=== PATIENT | male | born 1955 | race Caucasian/White ===

== ENCOUNTER 2016-03-30 10:21 | Emergency (ER) | payer SELFPAY ==
[2016-03-30 10:32] VITALS: RESP 18
[2016-03-30] MEDS ORDERED: SODIUM CHLORIDE 0.9% 1,000 ML IV ONE (12:16)
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
[2016-03-30 12:51] LABS: Basophils # (A) 0.1 k/uL (0-0.2); Basophils % (A) 1 %; CHCM 34.9; Eosinophils # (A) 0.1 k/uL (0-0.7); Eosinophils % (A) 1 %; HCT 46.8 % (39.0-53.0); HDW 2.75; Luc # (Auto) 0.06; Luc % (Auto) 1; Lymphocytes # (A) 1.5 k/uL (1.0-4.8); Lymphocytes % (A) 19 %; MCH 30.1 pg (25.0-35.0); MCHC 33.8 g/dL (31.0-37.0); MCV 89.2 fL (80.0-100.0); Mean Platelet Volume 7.2; Monocytes # (A) 0.4 k/uL (0-1.0); Monocytes % (A) 5 %; Neutrophils # (A) 6.1 k/uL (1.3-7.7); Neutrophils % (A) 74 %; RBC 5.25 m/uL (4.30-5.90); RDW 13.8 % (11.5-15.5); WBC 8.3 k/uL (3.8-10.6); WBC (Perox) 7.78
[2016-03-30 13:01] LABS: HGB 15.8 gm/dL (13.0-17.5)
[2016-03-30 13:04] LABS: ALT 33 U/L (21-72); AST 26 U/L (17-59); Alkaline Phosphatase 107 U/L (38-126); Anion Gap 13 mmol/L; Blood Urea Nitrogen 14 mg/dL (9-20); Calcium 9.5 mg/dL (8.4-10.2); Carbon Dioxide 25 mmol/L (22-30); Chloride 102 mmol/L (98-107); Glucose 100 mg/dL (74-99); Non-African American GFR(MDRD) >60 (>60 ml/min/1.73 sqM); Sodium 140 mmol/L (137-145); Total Protein 7.8 g/dL (6.3-8.2)
[2016-03-30 13:11] LABS: Potassium 4.4 mmol/L (3.5-5.1)
[2016-03-30 14:19] LABS: Amorphous Sediment,Urine Rare /hpf; Appearance,Urine Cloudy (Clear); Bacteria,Urine Rare /hpf; Bilirubin,Urine Negative (Negative); Glucose,Urine (UA) Negative (Negative); Ketones,Urine Negative (Negative); Leukocyte Esterase,Urine Large (Negative); Nitrite,Urine Negative (Negative); Particle Count 60600; Protein,Urine Negative (Negative); Specific Gravity,Urine 1.004 (1.001-1.035); UA Billing (MACRO vs. MICRO) MICRO; Urobilinogen,Urine <2.0 mg/dL (<2.0); WBC,Urine 107 /hpf (0-5)
[2016-03-30] MEDS: ACETAMINOPHEN TAB 500 MG TAB PO STA ×2 (14:50→14:57)
[2016-03-30] MEDS ORDERED: ACETAMINOPHEN IV (For NPO) 1,000 MG in EMPTY BAG 1 BAG IVPB STA (15:03)
[2016-03-30] MEDS ORDERED: hydrALAZINE HCL 20 MG/ML 1 ML VIAL IVP STA (16:00)
[2016-03-30] MEDS ORDERED: CIPROFLOXACIN HCL 500 MG TAB PO STA (16:01)
[2016-03-30 16:49] VITALS: BP 156/112; PULSE 79; TEMP 96.7
== END 2016-03-30 16:49 | disposition home or self-care (01) ==
LOC: EC 10:21
DX: N39.0 Urinary tract infection, site not specified (principal); R03.0 Elevated blood-pressure reading, without diagnosis of hypertension; G82.20 Paraplegia, unspecified; Z96.0 Presence of urogenital implants; K21.9 Gastro-esophageal reflux disease without esophagitis; Z86.718 Personal history of other venous thrombosis and embolism; N28.9 Disorder of kidney and ureter, unspecified; Z87.440 Personal history of urinary (tract) infections; Z86.14 Personal history of Methicillin resistant Staphylococcus aureus infection; F32.9 Major depressive disorder, single episode, unspecified; Z87.891 Personal history of nicotine dependence; Z79.01 Long term (current) use of anticoagulants; Z79.899 Other long term (current) drug therapy
CPT/HCPCS: 96374; 96375; 96361; 99285; 36415; 80053; 85025; 81001; 87086; 87077; 87186; J0360; J0696; J0131

== ENCOUNTER 2016-06-04 12:57 | Emergency (ER) | payer BC ==
[2016-06-04 13:10] VITALS: BP 97/78; PULSE 100; RESP 16; TEMP 98.4
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
--- NOTE | 2016-06-04 14:37 | CT ---
EXAMINATION TYPE: CT brain wo con DATE OF EXAM: 06/04/2016 2:20 PM COMPARISON: Previous study dated 11/09/2015 and an MRI of the brain from earlier today HISTORY: Patient has no complaints at time of study. Abnormal MRI today. CT DLP: 927.6 mGycm Automated exposure control for dose reduction was used. FINDINGS: There are mild, generalized changes of sulcal prominence and ventriculomegaly compatible with mild at rophy. There is diffuse periventricular white matter lucency, compatible chronic white matter ischemic peña e. There is no acute focal lesion, mass effect or midline shift identified. I do not see evidence of intracranial blood. There is mild mucoperiosteal thickening involving several of the anterior ethmoid air cells on the left. Visualized portions of the paranasal sinuses and mastoids are otherwise clear . No depressed skull fracture is seen. IMPRESSION: 1. NO ACUTE INTRACRANIAL ABNORMALITY. 2. MILD ATROPHIC CHANGE. 3. CHRONIC WHITE MATTER ISCHEMIC CHANGE.
== END 2016-06-04 15:02 | disposition home or self-care (01) ==
LOC: EC 12:57
DX: R55 Syncope and collapse (principal); R20.2 Paresthesia of skin; R25.8 Other abnormal involuntary movements; K21.9 Gastro-esophageal reflux disease without esophagitis; F32.9 Major depressive disorder, single episode, unspecified; Z79.01 Long term (current) use of anticoagulants; Z79.899 Other long term (current) drug therapy; Z87.440 Personal history of urinary (tract) infections; Z86.718 Personal history of other venous thrombosis and embolism; Z86.69 Personal history of other diseases of the nervous system and sense organs
CPT/HCPCS: 70450; 99284

== ENCOUNTER → 2016-06-04 | Outpatient (CLI) | payer BC ==
--- NOTE | 2016-06-04 12:44 | MR ---
EXAMINATION TYPE: MR brain wo con DATE OF EXAM: 06/04/2016 12:34 PM COMPARISON: NONE HISTORY: Involuntary hand movement T1-weighted sagittal, T2, FLAIR, and diffusion axial, and T2 coronal coronal views of the brain are s ubmitted. There is no evidence of acute ischemia. The ventricles, basal cisterns, and sulci overlying the conv exities are consistent with the patient's age. There is no mass effect. Craniocervical junction maintained. Sella turcica has a normal appearance. No cerebellopontine angle mass. Areas of abnormal signal within the vy are suggestive of remote ischemia. White matter: There are approximately 5-10 punctate areas of abnormal signal signal scattered throughout the white matter bilaterally. Findings are nonspecific but most commonly seen with migraine headaches, hyperten jessy or remote microvascular ischemia. Demyelinating process not entirely excluded. IMPRESSION: 1. Linear area of high signal within the right cerebellar hemisphere on T1 noncontrast imaging. There is no blooming artifact. No abnormal signal on diffusion or other sequences within the region and ma y be artifactual. Recommend a CT of the head to exclude a tiny area of petechial hemorrhage. Report c alled to ER physician.
== END | disposition home or self-care (01) ==
LOC: RADMRIMAIN 11:56
PROVIDERS: ATTEND Nurse Practitioner Acute Care
DX: S09.90XA Unspecified injury of head, initial encounter (principal)
CPT/HCPCS: 70551

== ENCOUNTER → 2016-07-13 | Day surgery (SDC) | payer BC ==
[~2016-07-13] MED LIST: VANCOMYCIN 2,000 MG in SODIUM CHLORIDE 0.9% 500 ML IVPB ONE
[2016-07-13 11:41] LABS: INR 2.4 (<1.1); Prothrombin Time 23.1 sec (9.0-12.0)
== END ==
LOC: CATHCVL 10:10
PROVIDERS: ATTEND Radiology Diagnostic Radiology
DX: N39.0 Urinary tract infection, site not specified (principal); B95.62 Methicillin resistant Staphylococcus aureus infection as the cause of diseases classified elsewhere; B95.2 Enterococcus as the cause of diseases classified elsewhere; Z53.9 Procedure and treatment not carried out, unspecified reason
CPT/HCPCS: 85610

== ENCOUNTER 2016-07-15 11:00 | Day surgery (SDC) | payer BC ==
[2016-07-15 10:39] VITALS: RESP 16; TEMP 99
[2016-07-15 10:43] LABS: INR 1.6 (<1.1); Prothrombin Time 15.4 sec (9.0-12.0)
[2016-07-15] MEDS ORDERED: LIDOCAINE 2% INJ 20 MG/ML SQ ONE (11:41)
[2016-07-15 12:10] VITALS: PULSE 70
[2016-07-15 12:11] VITALS: BP 135/81
--- NOTE | 2016-07-15 13:55 | IR ---
PICC LINE PLACEMENT: HISTORY: Infection requiring long-term antibiotic therapy PROCEDURE: Ultrasound and fluoroscopic guidance of PICC line placement. COMPLICATIONS: None ANESTHESIA: 1. 1% Lidocaine locally. FINDINGS/TECHNIQUE: The procedure was explained to the patient. The risks, complications, benefits and alternatives were discussed and any questions were answered. Informed consent was obtained. The patient was placed supine on the fluoroscopic table and prepped and draped in the usual sterile fas ion. Utilizing a 21 gauge needle and sonographic and fluoroscopic guidance, access in the vein was achieved and there is placement of a 0.018 guidewire. The right basilic vein is patent. A 4-F sheat h was placed over the guidewire. The guidewire and dilator were removed and a 4-F. PICC line was sam saud through the sheath with the tip at the level of the SVC. The sheath was removed, the catheter wa s flushed and sutured into position. The patient was stable throughout the procedure and remained st able upon discharge from the Department of Radiology. The vein puncture was patent under ultrasound. A hill scale image was obtained to document patency of the vein punctured. All elements of the maximal barrier technique were utilized. FLUOROSCOPY TIME: 0.1 minute. IMPRESSION: Successful PICC line placement under ultrasound and fluoroscopic guidance.
== END 2016-07-15 15:50 | disposition home health service (06) ==
LOC: CATHCVL 11:00
PROVIDERS: ATTEND Radiology Diagnostic Radiology
DX: N39.0 Urinary tract infection, site not specified (principal); F17.200 Nicotine dependence, unspecified, uncomplicated; Z79.1 Long term (current) use of non-steroidal anti-inflammatories (NSAID); Z79.891 Long term (current) use of opiate analgesic; Z79.52 Long term (current) use of systemic steroids; Z79.899 Other long term (current) drug therapy
CPT/HCPCS: 36569; 76937; 77001; 85610; C1751; C1769; J2001; J3370

== ENCOUNTER 2016-07-18 16:55 | Inpatient (IN) | payer BC ==
[2016-07-18] MEDS ORDERED: SODIUM CHLORIDE 0.9% 1,000 ML IV ONE (17:11)
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
[2016-07-18 17:21] LABS: Glucose,Whole Blood 80 mg/dL (75-99)
[2016-07-18 17:28] LABS: Basophils # (A) 0.1 k/uL (0-0.2); Basophils % (A) 1 %; CH 32.5; CHCM 34.9; Eosinophils # (A) 0.7 k/uL (0-0.7); Eosinophils % (A) 11 %; HCT 37.4 % (39.0-53.0); HDW 2.74; HGB 12.9 gm/dL (13.0-17.5); Luc # (Auto) 0.12; Luc % (Auto) 2; Lymphocytes # (A) 1.5 k/uL (1.0-4.8); Lymphocytes % (A) 25 %; MCH 32.1 pg (25.0-35.0); MCHC 34.3 g/dL (31.0-37.0); MCV 93.5 fL (80.0-100.0); Mean Platelet Volume 6.5; Monocytes # (A) 0.4 k/uL (0-1.0); Monocytes % (A) 7 %; Neutrophils # (A) 3.3 k/uL (1.3-7.7); Neutrophils % (A) 55 %; RDW 13.4 % (11.5-15.5); WBC 5.9 k/uL (3.8-10.6); WBC (Perox) 5.04
[2016-07-18 17:39] LABS: ALT 38 U/L (21-72); AST 34 U/L (17-59); Alkaline Phosphatase 68 U/L (38-126); Anion Gap 8 mmol/L; Blood Urea Nitrogen 8 mg/dL (9-20); Calcium 8.6 mg/dL (8.4-10.2); Carbon Dioxide 22 mmol/L (22-30); Chloride 108 mmol/L (98-107); Glucose 80 mg/dL (74-99); INR 1.2 (<1.1); Non-African American GFR(MDRD) >60 (>60 ml/min/1.73 sqM); Potassium 3.9 mmol/L (3.5-5.1); Prothrombin Time 11.8 sec (9.0-12.0); Sodium 138 mmol/L (137-145); Total Bilirubin 0.6 mg/dL (0.2-1.3); Total Protein 6.3 g/dL (6.3-8.2)
[2016-07-18 17:52] LABS: Amorphous Sediment,Urine Rare /hpf; Appearance,Urine Cloudy (Clear); Bacteria,Urine Rare /hpf; Bilirubin,Urine Negative (Negative); Glucose,Urine (UA) Negative (Negative); Ketones,Urine Negative (Negative); Leukocyte Esterase,Urine Small (Negative); Mucus,Urine Rare /hpf; Nitrite,Urine Positive (Negative); Particle Count 24966; Protein,Urine 1+ (Negative); RBC,Urine 7 /hpf (0-5); Specific Gravity,Urine 1.011 (1.001-1.035); Squamous Epithelial Cell,Urine <1 /hpf (0-4); UA Billing (MACRO vs. MICRO) MICRO; Urobilinogen,Urine <2.0 mg/dL (<2.0); WBC,Urine 6 /hpf (0-5)
[2016-07-18 17:57] LABS: Creatine Kinase 56 U/L (55-170)
[2016-07-18 18:10] LABS: Creatine Kinase MB 0.3 ng/mL (0.0-2.4); Troponin I <0.012 ng/mL (0.000-0.034)
[2016-07-18] MEDS ORDERED: HYDROmorphone 1 MG/ML 1 ML SYRINGE IVP STA (18:37)
--- NOTE | 2016-07-18 18:47 | CT ---
EXAMINATION TYPE: CT brain wo con DATE OF EXAM: 07/18/2016 6:33 PM COMPARISON: 06/04/2016 HISTORY: Altered mental status. CT DLP: 1245 mGycm Automated exposure control for dose reduction was used. FINDINGS: There is mild cerebral cortical atrophy. There is no mass effect nor midline shift. There is no sign of intracranial hemorrhage. There is decreased pneumatization of the mastoid sinuses. Calvarium is in tact. IMPRESSION: Mild atrophy. No acute intracranial abnormality. No change compared to old exam.
--- NOTE | 2016-07-18 18:51 | XR ---
EXAMINATION TYPE: XR chest 2V DATE OF EXAM: 07/18/2016 6:46 PM COMPARISON: 01/12/2016 HISTORY: Altered mental status TECHNIQUE: Frontal and lateral views of the chest are obtained. FINDINGS: There is coarsening of interstitial markings. There is poor inspiration. There is no heart failure. There is old upper thoracic spine fusion surgery noted. I see no pleural effusion. IMPRESSION: Poor inspiration that is worse than last exam. No heart failure. No pulmonary consolidat ion.
[2016-07-18] MEDS ORDERED: ACETAMINOPHEN TAB 325 MG TAB PO PRN (20:23)
[2016-07-18] MEDS ORDERED: NALOXONE 0.4 MG/ML 1 ML VIAL IV PRN (20:23)
[2016-07-18] MEDS ORDERED: ONDANSETRON 4 MG/2 ML VIAL IVP PRN (20:23)
[2016-07-18] MEDS ORDERED: ZOLPIDEM 5 MG TAB PO PRN (20:26)
[2016-07-18] MEDS: SODIUM CHLORIDE 0.9% 1,000 ML IV SCH (21:01)
[2016-07-18 23:57] VITALS: BMI 32.1
[2016-07-18] MEDS: OXYBUTYNIN CHLORIDE 5 MG TAB PO SCH (23:59)
[2016-07-19] MEDS: DOCUSATE 100 MG CAP PO SCH ×4 (00:09→21:21)
[2016-07-19] MEDS ORDERED: IV VANCOMYCIN PER PHARMACY 1 EACH MISC MISCELLANE PRN (08:30)
[2016-07-19] MEDS ORDERED: ESOMEPRAZOLE MAGNESIUM 20 MG PO SCH (09:00)
[2016-07-19] MEDS: PREGABALIN 75 MG CAP PO SCH ×3 (09:38→20:08)
[2016-07-19] MEDS: HYDROmorphone 1 MG/ML 1 ML SYRINGE IV PRN ×4 (09:39→20:07)
[2016-07-19] MEDS: TOPIRAMATE 25 MG TAB PO SCH ×3 (09:41→21:22)
[2016-07-19] MEDS: OXYBUTYNIN CHLORIDE 5 MG TAB PO SCH ×2 (09:41→21:21)
[2016-07-19] MEDS: FLUDROCORTISONE 0.1 MG TAB PO SCH ×3 (09:41→21:21)
[2016-07-19] MEDS: ESCITALOPRAM 20 MG TAB PO SCH (09:42)
[2016-07-19] MEDS: NICOTINE 14MG/24HR PATCH TRANSDERM SCH (09:43)
[2016-07-19] MEDS: PANTOPRAZOLE 40 MG/10 ML VIAL IV SCH (09:43)
[2016-07-19] MEDS: TRIAMCINOLONE 0.1% CREAM 80 GM TUBE TOPICAL SCH ×3 (09:43→21:22)
[2016-07-19] MEDS: SODIUM CHLORIDE 0.9% 1,000 ML IV SCH ×3 (09:44→19:11)
[2016-07-19] MEDS ORDERED: VANCOMYCIN 2,500 MG in SODIUM CHLORIDE 0.9% 500 ML IVPB ONE (10:00)
[2016-07-19] MEDS: WARFARIN 7.5 MG TAB PO SCH (19:09)
[2016-07-19] MEDS: BISACODYL 10 MG SUPP RECTAL SCH (21:21)
[2016-07-19] MEDS: PRIMIDONE 50 MG TAB PO SCH ×2 (21:22)
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
[2016-07-20] MEDS: HYDROmorphone 1 MG/ML 1 ML SYRINGE IV PRN ×3 (08:48→17:41)
[2016-07-20] MEDS: DOCUSATE 100 MG CAP PO SCH ×2 (08:49→21:42)
[2016-07-20] MEDS: SODIUM CHLORIDE 0.9% 1,000 ML IV SCH ×2 (08:49→17:41)
[2016-07-20] MEDS: PREGABALIN 75 MG CAP PO SCH ×3 (08:49→21:42)
[2016-07-20] MEDS: OXYBUTYNIN CHLORIDE 5 MG TAB PO SCH ×2 (08:50→21:42)
[2016-07-20] MEDS: NICOTINE 14MG/24HR PATCH TRANSDERM SCH (08:50)
[2016-07-20] MEDS: TRIAMCINOLONE 0.1% CREAM 80 GM TUBE TOPICAL SCH ×2 (08:50→22:15)
[2016-07-20] MEDS: ESCITALOPRAM 20 MG TAB PO SCH (08:50)
[2016-07-20] MEDS: PANTOPRAZOLE 40 MG/10 ML VIAL IV SCH (08:51)
[2016-07-20] MEDS: TOPIRAMATE 25 MG TAB PO SCH ×2 (08:51→21:42)
[2016-07-20] MEDS: FLUDROCORTISONE 0.1 MG TAB PO SCH ×2 (08:51→21:42)
[2016-07-20] MEDS: VANCOMYCIN 2,000 MG in SODIUM CHLORIDE 0.9% 500 ML IVPB SCH (09:30)
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
[2016-07-20] MEDS: WARFARIN 7.5 MG TAB PO SCH (17:41)
[2016-07-20] MEDS: BISACODYL 10 MG SUPP RECTAL SCH (21:35)
[2016-07-20] MEDS: PRIMIDONE 50 MG TAB PO SCH (22:14)
[2016-07-20] MEDS: HYDROcodone/APAP 5-325MG 1 EACH TAB PO PRN (22:14)
[2016-07-20] MEDS: SUMAtriptan SUCCINATE 50 MG TAB PO PRN (22:14)
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
[2016-07-21] MEDS: SODIUM CHLORIDE 0.9% 1,000 ML IV SCH ×4 (05:26→20:06)
[2016-07-21] MEDS: VANCOMYCIN 2,000 MG in SODIUM CHLORIDE 0.9% 500 ML IVPB SCH (08:10)
[2016-07-21] MEDS: DOCUSATE 100 MG CAP PO SCH ×2 (08:14→20:37)
[2016-07-21] MEDS: ESCITALOPRAM 20 MG TAB PO SCH (08:15)
[2016-07-21] MEDS: OXYBUTYNIN CHLORIDE 5 MG TAB PO SCH ×2 (08:15→20:37)
[2016-07-21] MEDS: PANTOPRAZOLE 40 MG TABLET PO SCH (08:15)
[2016-07-21] MEDS: FLUDROCORTISONE 0.1 MG TAB PO SCH ×2 (08:15→20:37)
[2016-07-21] MEDS: TOPIRAMATE 25 MG TAB PO SCH ×2 (08:16→20:37)
[2016-07-21] MEDS: NICOTINE 14MG/24HR PATCH TRANSDERM SCH (08:16)
[2016-07-21] MEDS: TRIAMCINOLONE 0.1% CREAM 80 GM TUBE TOPICAL SCH (08:16)
[2016-07-21 08:32] LABS: CH 32.7; HCT 40.9 % (39.0-53.0); HDW 2.68; HGB 14.2 gm/dL (13.0-17.5); MCH 32.6 pg (25.0-35.0); MCHC 34.7 g/dL (31.0-37.0); MCV 93.9 fL (80.0-100.0); Mean Platelet Volume 7.9; RBC 4.36 m/uL (4.30-5.90); RDW 13.5 % (11.5-15.5); WBC 6.5 k/uL (3.8-10.6); WBC (Perox) 6.75
[2016-07-21 08:35] LABS: Anion Gap 10 mmol/L; Blood Urea Nitrogen 7 mg/dL (9-20); Carbon Dioxide 19 mmol/L (22-30); Chloride 113 mmol/L (98-107); Glucose 91 mg/dL (74-99); Non-African American GFR(MDRD) >60 (>60 ml/min/1.73 sqM); Potassium 3.9 mmol/L (3.5-5.1); Sodium 142 mmol/L (137-145)
[2016-07-21] MEDS: HYDROcodone/APAP 5-325MG 1 EACH TAB PO PRN ×4 (08:35→23:59)
[2016-07-21 10:43] LABS: Add Differential Manual Differential
[2016-07-21 10:45] LABS: Nucleated Red Blood Cells 0 /100 WBC (0-0); Total Cells Counted 100
[2016-07-21 10:47] LABS: Manual Review Performed
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
[2016-07-21] MEDS: PREGABALIN 75 MG CAP PO SCH ×3 (14:34→20:37)
[2016-07-21 15:46] LABS: INR 1.7 (<1.1); Prothrombin Time 16.6 sec (9.0-12.0)
[2016-07-21] MEDS: WARFARIN 7.5 MG TAB PO SCH (17:47)
[2016-07-21] MEDS: HYDROmorphone 1 MG/ML 1 ML SYRINGE IV PRN (17:55)
[2016-07-21] MEDS: PRIMIDONE 50 MG TAB PO SCH (20:07)
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
[2016-07-22] MEDS: SUMAtriptan SUCCINATE 50 MG TAB PO PRN
[2016-07-22] MEDS: BISACODYL 10 MG SUPP RECTAL SCH (01:24)
[2016-07-22] MEDS: TRIAMCINOLONE 0.1% CREAM 80 GM TUBE TOPICAL SCH ×2 (01:25→08:36)
[2016-07-22 07:39] VITALS: RESP 16
[2016-07-22] MEDS: SODIUM CHLORIDE 0.9% 1,000 ML IV SCH (08:30)
[2016-07-22] MEDS: PANTOPRAZOLE 40 MG TABLET PO SCH (08:31)
[2016-07-22] MEDS: ESCITALOPRAM 20 MG TAB PO SCH (08:32)
[2016-07-22] MEDS: OXYBUTYNIN CHLORIDE 5 MG TAB PO SCH (08:32)
[2016-07-22] MEDS: TOPIRAMATE 25 MG TAB PO SCH (08:32)
[2016-07-22] MEDS: FLUDROCORTISONE 0.1 MG TAB PO SCH (08:33)
[2016-07-22] MEDS: DOCUSATE 100 MG CAP PO SCH (08:33)
[2016-07-22] MEDS: NICOTINE 14MG/24HR PATCH TRANSDERM SCH (08:35)
[2016-07-22] MEDS: VANCOMYCIN 2,000 MG in SODIUM CHLORIDE 0.9% 500 ML IVPB SCH (08:40)
[2016-07-22 09:20] LABS: INR 1.9 (<1.1); Prothrombin Time 18.8 sec (9.0-12.0)
[2016-07-22] MEDS: PREGABALIN 75 MG CAP PO SCH ×2 (09:20→13:50)
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
[2016-07-22 14:52] VITALS: BP 121/79; PULSE 72; TEMP 97.7
[2016-07-22] MEDS: HYDROcodone/APAP 5-325MG 1 EACH TAB PO PRN (16:00)
[2016-07-22] MEDS ORDERED: VANCOMYCIN 1,500 MG in SODIUM CHLORIDE 0.9% 250 ML IVPB SCH (18:00)
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
[2016-07-23] MEDS ORDERED: VANCOMYCIN TROUGH DUE 1 EACH MISC MISCELLANE ONE (07:00)
== END 2016-07-22 18:03 | DRG 698 ==
LOC: EC 16:55 → 3SUR 20:11
PROVIDERS: ADMIT Internal Medicine; ATTEND Internal Medicine
DX: T83.511A Infection and inflammatory reaction due to indwelling urethral catheter, initial encounter (principal); A41.02 Sepsis due to Methicillin resistant Staphylococcus aureus; A41.81 Sepsis due to Enterococcus; G92 Toxic encephalopathy; K59.2 Neurogenic bowel, not elsewhere classified; G82.20 Paraplegia, unspecified; B95.62 Methicillin resistant Staphylococcus aureus infection as the cause of diseases classified elsewhere; N39.0 Urinary tract infection, site not specified; B95.2 Enterococcus as the cause of diseases classified elsewhere; F12.90 Cannabis use, unspecified, uncomplicated; F17.290 Nicotine dependence, other tobacco product, uncomplicated; F32.9 Major depressive disorder, single episode, unspecified; G25.0 Essential tremor; G89.29 Other chronic pain; K21.9 Gastro-esophageal reflux disease without esophagitis; K59.00 Constipation, unspecified; N31.9 Neuromuscular dysfunction of bladder, unspecified; N28.9 Disorder of kidney and ureter, unspecified; R07.89 Other chest pain; Z79.01 Long term (current) use of anticoagulants; Z79.899 Other long term (current) drug therapy; Z87.440 Personal history of urinary (tract) infections; V89.2XXS Person injured in unspecified motor-vehicle accident, traffic, sequela; Y84.6 Urinary catheterization as the cause of abnormal reaction of the patient, or of later complication, without mention of misadventure at the time of the procedure
CPT/HCPCS: 36415; 70450; 71020; 80048; 80053; 80202; 80306; 81001; 82550; 82553; 83605; 84484; 85025; 85610; 85730; 87040; 87077; 87086; 87186; 93005; 96360; 99285

== ENCOUNTER → 2016-10-15 | Outpatient (CLI) | payer BC ==
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
== END | disposition home or self-care (01) ==
LOC: RADMRIMAIN 16:36
PROVIDERS: ATTEND Nurse Practitioner Acute Care
DX: M47.812 Spondylosis without myelopathy or radiculopathy, cervical region (principal); M54.6 Pain in thoracic spine; Z98.1 Arthrodesis status
CPT/HCPCS: 72156; 72157; A9577

== ENCOUNTER 2016-12-24 16:28 | Emergency (ER) | payer BC, MEDICARE, OTHER ==
[2016-12-24] MEDS ORDERED: SODIUM CHLORIDE 0.9% 1,000 ML IV STA (16:29)
[2016-12-24 16:37] VITALS: TEMP 97.1
[2016-12-24 17:42] LABS: INR 2.4 (<1.2); Partial Thromboplastin Time 34.7 sec (22.0-30.0); Prothrombin Time 22.9 sec (9.0-12.0)
[2016-12-24 17:44] LABS: ALT 31 U/L (21-72); AST 21 U/L (17-59); Alkaline Phosphatase 104 U/L (38-126); Anion Gap 6 mmol/L; Blood Urea Nitrogen 16 mg/dL (9-20); Calcium 8.7 mg/dL (8.4-10.2); Carbon Dioxide 24 mmol/L (22-30); Chloride 108 mmol/L (98-107); Glucose 84 mg/dL (74-99); Magnesium 1.9 mg/dL (1.6-2.3); Non-African American GFR(MDRD) >60 (>60 ml/min/1.73 sqM); Phosphorous 3.2 mg/dL (2.5-4.5); Potassium 3.7 mmol/L (3.5-5.1); Sodium 138 mmol/L (137-145); Total Bilirubin 0.3 mg/dL (0.2-1.3); Total Protein 6.5 g/dL (6.3-8.2)
[2016-12-24 17:47] LABS: Basophils % (A) 0 %; CHCM 33.8; Eosinophils # (A) 0.3 k/uL (0-0.7); Eosinophils % (A) 4 %; HCT 41.8 % (39.0-53.0); HDW 2.65; HGB 13.9 gm/dL (13.0-17.5); Luc # (Auto) 0.12; Luc % (Auto) 2; Lymphocytes # (A) 2.2 k/uL (1.0-4.8); Lymphocytes % (A) 30 %; MCH 31.6 pg (25.0-35.0); MCHC 33.2 g/dL (31.0-37.0); MCV 95.2 fL (80.0-100.0); Mean Platelet Volume 6.5; Monocytes # (A) 0.4 k/uL (0-1.0); Monocytes % (A) 5 %; Neutrophils # (A) 4.3 k/uL (1.3-7.7); Neutrophils % (A) 59 %; RBC 4.39 m/uL (4.30-5.90); RDW 13.9 % (11.5-15.5); WBC 7.4 k/uL (3.8-10.6); WBC (Perox) 7.29
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
[2016-12-24 17:54] LABS: Creatine Kinase 38 U/L (55-170)
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
[2016-12-24 18:07] LABS: Creatine Kinase MB 0.7 ng/mL (0.0-2.4); Troponin I <0.012 ng/mL (0.000-0.034)
[2016-12-24] MEDS ORDERED: MORPHINE SULFATE 10 MG/ML SYRINGE IVP STA (18:21)
[2016-12-24] MEDS ORDERED: PANTOPRAZOLE 40 MG/10 ML VIAL IVP STA (18:21)
[2016-12-24] MEDS ORDERED: ONDANSETRON 4 MG/2 ML VIAL IVP STA (18:21)
[2016-12-24 18:33] LABS: Appearance,Urine Cloudy (Clear); Bacteria,Urine Occasional /hpf; Bilirubin,Urine Negative (Negative); Glucose,Urine (UA) Negative (Negative); Ketones,Urine Negative (Negative); Leukocyte Esterase,Urine Large (Negative); Mucus,Urine Rare /hpf; Nitrite,Urine Negative (Negative); Particle Count 12967; Protein,Urine Negative (Negative); RBC,Urine 2 /hpf (0-5); Specific Gravity,Urine 1.004 (1.001-1.035); Squamous Epithelial Cell,Urine <1 /hpf (0-4); UA Billing (MACRO vs. MICRO) MICRO; Urobilinogen,Urine <2.0 mg/dL (<2.0); WBC,Urine 22 /hpf (0-5)
[2016-12-24 19:28] VITALS: BP 125/78; PULSE 62; RESP 16
== END 2016-12-24 20:40 | disposition home or self-care (01) ==
LOC: EC 16:28
DX: R11.2 Nausea with vomiting, unspecified (principal); R53.1 Weakness; G89.29 Other chronic pain; K21.9 Gastro-esophageal reflux disease without esophagitis; F32.9 Major depressive disorder, single episode, unspecified; Z79.01 Long term (current) use of anticoagulants; Z79.52 Long term (current) use of systemic steroids; Z79.899 Other long term (current) drug therapy; Z86.718 Personal history of other venous thrombosis and embolism; Z86.69 Personal history of other diseases of the nervous system and sense organs; Z87.440 Personal history of urinary (tract) infections
CPT/HCPCS: 99285 ×2; 96374 ×2; 96375 ×3; 96361 ×2; 36415; 80053; 82550; 82553; 83605; 83735; 84100; 84484; 85025; 85610; 85730; 81001; 87040; 87086; 87077; 87186; 71020; J2270; J2405; C9113

== ENCOUNTER 2017-04-15 10:47 | Emergency (ER) | payer MEDICARE ==
[2017-04-15 10:57] VITALS: RESP 16
[2017-04-15] MEDS ORDERED: HYDROmorphone 2 MG/ML 1 ML SYRINGE IVP STA (11:15)
[2017-04-15] MEDS ORDERED: SODIUM CHLORIDE 0.9% 1,000 ML IV STA (11:15)
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
[2017-04-15 11:57] LABS: Appearance,Urine Cloudy (Clear); Bacteria,Urine Occasional /hpf; Bilirubin,Urine Negative (Negative); Blood,Urine Moderate (Negative); Budding Yeast,Urine Moderate /hpf; Color,Urine Yellow; Glucose,Urine (UA) Negative (Negative); Ketones,Urine Negative (Negative); Leukocyte Esterase,Urine Large (Negative); Mucus,Urine Many /hpf; Nitrite,Urine Positive (Negative); PH, Urine 5.5 (5.0-8.0); Protein,Urine 1+ (Negative); RBC,Urine 58 /hpf (0-5); Specific Gravity,Urine 1.022 (1.001-1.035); Urobilinogen,Urine <2.0 mg/dL (<2.0); WBC,Urine 133 /hpf (0-5)
[2017-04-15 11:59] LABS: ALT 29 U/L (21-72); AST 27 U/L (17-59); Albumin 3.6 g/dL (3.5-5.0); Alkaline Phosphatase 97 U/L (38-126); Anion Gap 7 mmol/L; Blood Urea Nitrogen 14 mg/dL (9-20); Calcium 9.2 mg/dL (8.4-10.2); Carbon Dioxide 24 mmol/L (22-30); Chloride 106 mmol/L (98-107); Glucose 88 mg/dL (74-99); Phosphorus 2.9 mg/dL (2.5-4.5); Sodium 137 mmol/L (137-145); Total Bilirubin 0.8 mg/dL (0.2-1.3); Total Protein 6.5 g/dL (6.3-8.2)
[2017-04-15 12:00] LABS: Potassium 4.5 mmol/L (3.5-5.1)
[2017-04-15 12:04] LABS: Basophils % (A) 0 %; Eosinophils # (A) 0.3 k/uL (0-0.7); Eosinophils % (A) 4 %; HGB 14.3 gm/dL (13.0-17.5); Lymphocytes # (A) 1.8 k/uL (1.0-4.8); Lymphocytes % (A) 27 %; MCH 31.3 pg (25.0-35.0); MCHC 33.3 g/dL (31.0-37.0); MCV 93.8 fL (80.0-100.0); Mean Platelet Volume 7.1; Monocytes # (A) 0.3 k/uL (0-1.0); Monocytes % (A) 5 %; Neutrophils # (A) 4.2 k/uL (1.3-7.7); Neutrophils % (A) 63 %; Platelet Count 304 k/uL (150-450); RBC 4.58 m/uL (4.30-5.90); RDW 13.2 % (11.5-15.5); WBC 6.7 k/uL (3.8-10.6)
[2017-04-15 12:15] LABS: Creatine Kinase 46 U/L (55-170)
[2017-04-15 12:28] LABS: Creatine Kinase MB 0.2 ng/mL (0.0-2.4); Troponin I <0.012 ng/mL (0.000-0.034)
[2017-04-15 12:44] LABS: INR 1.5 (<1.2); Partial Thromboplastin Time 28.8 sec (22.0-30.0); Prothrombin Time 14.3 sec (9.0-12.0)
--- NOTE | 2017-04-15 12:53 | XR ---
EXAMINATION TYPE: XR chest 1V portable DATE OF EXAM: 04/15/2017 COMPARISON: NONE INDICATION: Weak TECHNIQUE: Single frontal view of the chest is obtained. FINDINGS: The heart size is normal. The pulmonary vasculature is normal. The lungs are clear. Surgical repair of the upper thoracic spine as well as an open reduction internal fixation right clav icle is evident. IMPRESSION: 1. No acute pulmonary process.
[2017-04-15] MEDS ORDERED: METOCLOPRAMIDE 5 MG/ML 2 ML VIAL IVP STA (13:05)
[2017-04-15] MEDS ORDERED: diphenhydrAMINE 50 MG/ML 1 ML VIAL IVP STA (13:07)
[2017-04-15 15:12] VITALS: BP 122/84; PULSE 81; TEMP 97.6
== END 2017-04-15 15:00 | disposition home or self-care (01) ==
LOC: EC 10:47
DX: I10 Essential (primary) hypertension (principal); D68.8 Other specified coagulation defects; R51 Headache; K21.9 Gastro-esophageal reflux disease without esophagitis; F32.9 Major depressive disorder, single episode, unspecified; Z86.14 Personal history of Methicillin resistant Staphylococcus aureus infection; Z86.718 Personal history of other venous thrombosis and embolism; Z87.891 Personal history of nicotine dependence; Z79.01 Long term (current) use of anticoagulants; Z79.899 Other long term (current) drug therapy
CPT/HCPCS: 36415; 93005; 80053; 82550; 82553; 83605; 83735; 84100; 84484; 85025; 85610; 85730; 81001; 87086; 71045; 99284; 96374; 96375 ×2; 96361 ×3; J1170; J1200; J2765; 87077; 87186

== ENCOUNTER 2017-05-20 11:49 | Inpatient (IN) | payer MEDICARE ==
[2017-05-20] MEDS ORDERED: SODIUM CHLORIDE 0.9% 2,000 ML IV ONE (12:08)
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
[2017-05-20 13:16] LABS: Basophils % (A) 0 %; Eosinophils # (A) 0.1 k/uL (0-0.7); Eosinophils % (A) 1 %; HGB 13.2 gm/dL (13.0-17.5); Lymphocytes # (A) 2.2 k/uL (1.0-4.8); Lymphocytes % (A) 12 %; MCH 31.3 pg (25.0-35.0); MCHC 34.8 g/dL (31.0-37.0); MCV 90.1 fL (80.0-100.0); Mean Platelet Volume 6.8; Monocytes # (A) 0.8 k/uL (0-1.0); Monocytes % (A) 5 %; Neutrophils # (A) 14.1 k/uL (1.3-7.7); Neutrophils % (A) 81 %; Platelet Count 271 k/uL (150-450); RBC 4.21 m/uL (4.30-5.90); RDW 13.6 % (11.5-15.5); WBC 17.5 k/uL (3.8-10.6)
--- NOTE | 2017-05-20 13:24 | XR ---
EXAMINATION TYPE: XR chest 2V DATE OF EXAM: 05/20/2017 COMPARISON: April 15, 2018 HISTORY: Chest pain TECHNIQUE: Frontal and lateral views of the chest are obtained. FINDINGS: There is no focal air space opacity. No evidence for pneumothorax. No pleural effusion. The cardiac silhouette size is within normal limits. The osseous structures are grossly intact. IMPRESSION: 1. No acute cardiopulmonary process.
[2017-05-20 13:28] LABS: Amorphous Sediment,Urine Rare /hpf; Appearance,Urine Cloudy (Clear); Bacteria,Urine Many /hpf; Bilirubin,Urine Negative (Negative); Blood,Urine Moderate (Negative); Color,Urine Yellow; Glucose,Urine (UA) Negative (Negative); Ketones,Urine Negative (Negative); Leukocyte Esterase,Urine Large (Negative); Mucus,Urine Occasional /hpf; Nitrite,Urine Negative (Negative); Protein,Urine Trace (Negative); RBC,Urine 4 /hpf (0-5); Specific Gravity,Urine 1.017 (1.001-1.035); WBC,Urine 40 /hpf (0-5)
[2017-05-20 13:29] LABS: ALT 18 U/L (21-72); AST 12 U/L (17-59); Albumin 2.9 g/dL (3.5-5.0); Alkaline Phosphatase 84 U/L (38-126); Anion Gap 7 mmol/L; Blood Urea Nitrogen 14 mg/dL (9-20); Calcium 8.6 mg/dL (8.4-10.2); Carbon Dioxide 24 mmol/L (22-30); Chloride 106 mmol/L (98-107); Glucose 112 mg/dL (74-99); Potassium 3.7 mmol/L (3.5-5.1); Sodium 137 mmol/L (137-145); Total Bilirubin 0.8 mg/dL (0.2-1.3); Total Protein 5.6 g/dL (6.3-8.2)
[2017-05-20 13:44] LABS: INR 1.3 (<1.2); Partial Thromboplastin Time 24.6 sec (22.0-30.0); Prothrombin Time 12.1 sec (9.0-12.0)
[2017-05-20] MEDS ORDERED: ACETAMINOPHEN TAB 500 MG TAB PO STA (14:23)
[2017-05-20] MEDS ORDERED: MORPHINE SULFATE 4 MG/ML SYRINGE IVP STA (15:18)
[2017-05-20] MEDS ORDERED: NALOXONE 0.4 MG/ML 1 ML VIAL IV PRN (15:18)
[2017-05-20] MEDS ORDERED: HYDROcodone/APAP 5-325MG 1 EACH TAB PO PRN (15:24)
[2017-05-20] MEDS ORDERED: SODIUM CHLORIDE 0.9% 1,000 ML IV SCH (15:30)
[2017-05-20] MEDS: PREGABALIN 75 MG CAP PO SCH (21:19)
[2017-05-20] MEDS: DOCUSATE 100 MG CAP PO SCH (21:19)
[2017-05-20] MEDS: OXYBUTYNIN CHLORIDE 5 MG TAB PO SCH (21:19)
[2017-05-20] MEDS: PRIMIDONE 50 MG TAB PO SCH (21:20)
[2017-05-20] MEDS: tiZANidine 4 MG TAB PO SCH (21:20)
[2017-05-20] MEDS: TOPIRAMATE 25 MG TAB PO SCH (21:20)
[2017-05-20] MEDS: oxyCODONE-APAP 10-325MG 1 EACH TAB PO SCH (21:20)
[2017-05-20] MEDS ORDERED: LACTULOSE 20 GM/30 ML CUP PO ONE (21:34)
[2017-05-20] MEDS ORDERED: DEXTROSE 5%-0.45% NACL 1,000 ML IV SCH (21:45)
[2017-05-20] MEDS: ACETAMINOPHEN TAB 325 MG TAB PO PRN (21:58)
[2017-05-20] MEDS: DEXTROSE 5%-0.45% NACL 1,000 ML IV SCH (22:21)
[2017-05-21] MEDS: PREGABALIN 75 MG CAP PO SCH ×3 (07:56→21:46)
[2017-05-21] MEDS: DEXTROSE 5%-0.45% NACL 1,000 ML IV SCH ×2 (07:56→17:10)
[2017-05-21] MEDS: PANTOPRAZOLE 40 MG TABLET PO SCH (07:56)
[2017-05-21] MEDS: DOCUSATE 100 MG CAP PO SCH ×2 (07:57→21:46)
[2017-05-21] MEDS: ESCITALOPRAM 20 MG TAB PO SCH (07:57)
[2017-05-21] MEDS: FLUDROCORTISONE 0.1 MG TAB PO SCH (07:58)
[2017-05-21] MEDS: OXYBUTYNIN CHLORIDE 5 MG TAB PO SCH ×2 (07:58→21:46)
[2017-05-21] MEDS: oxyCODONE-APAP 10-325MG 1 EACH TAB PO SCH ×3 (07:58→21:47)
[2017-05-21] MEDS: TOPIRAMATE 25 MG TAB PO SCH ×2 (07:59→21:45)
[2017-05-21] MEDS: ACETAMINOPHEN TAB 325 MG TAB PO PRN (07:59)
[2017-05-21 08:15] LABS: Basophils # (A) 0.1 k/uL (0-0.2); Basophils % (A) 0 %; Eosinophils # (A) 0.2 k/uL (0-0.7); Eosinophils % (A) 2 %; HGB 13.2 gm/dL (13.0-17.5); Lymphocytes # (A) 1.4 k/uL (1.0-4.8); Lymphocytes % (A) 13 %; MCH 31.2 pg (25.0-35.0); MCHC 33.9 g/dL (31.0-37.0); Monocytes # (A) 0.4 k/uL (0-1.0); Monocytes % (A) 4 %; Neutrophils % (A) 80 %; Platelet Count 251 k/uL (150-450); RBC 4.24 m/uL (4.30-5.90); RDW 13.5 % (11.5-15.5); WBC 11.3 k/uL (3.8-10.6)
[2017-05-21 08:35] LABS: Anion Gap 7 mmol/L; Blood Urea Nitrogen 11 mg/dL (9-20); Calcium 8.9 mg/dL (8.4-10.2); Carbon Dioxide 25 mmol/L (22-30); Chloride 104 mmol/L (98-107); Glucose 122 mg/dL (74-99); Potassium 4.3 mmol/L (3.5-5.1); Sodium 136 mmol/L (137-145)
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
[2017-05-21 15:30] LABS: INR 1.2 (<1.2); Prothrombin Time 11.2 sec (9.0-12.0)
[2017-05-21] MEDS: WARFARIN 7.5 MG TAB PO SCH (17:10)
[2017-05-21 18:59] LABS: Appearance,Urine Cloudy (Clear); Bilirubin,Urine Negative (Negative); Blood,Urine Large (Negative); Color,Urine Yellow; Glucose,Urine (UA) Negative (Negative); Ketones,Urine Negative (Negative); Leukocyte Esterase,Urine Large (Negative); Nitrite,Urine Negative (Negative); PH, Urine 7.5 (5.0-8.0); Protein,Urine Trace (Negative); RBC,Urine >182 /hpf (0-5); Specific Gravity,Urine 1.009 (1.001-1.035); Squamous Epithelial Cell,Urine 3 /hpf (0-4); Urobilinogen,Urine <2.0 mg/dL (<2.0); WBC,Urine >182 /hpf (0-5)
[2017-05-21] MEDS: tiZANidine 4 MG TAB PO SCH (21:46)
[2017-05-21] MEDS: PRIMIDONE 50 MG TAB PO SCH (21:46)
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
[2017-05-22] MEDS: PIPERACILLIN-TAZOBACTAM 3.375 GM in DEXTROSE/WATER 1 50ML.BAG IVPB SCH ×4 (00:39→23:31)
[2017-05-22] MEDS: DEXTROSE 5%-0.45% NACL 1,000 ML IV SCH ×2 (06:29→15:52)
[2017-05-22 08:30] LABS: INR 1.2 (<1.2); Prothrombin Time 11.3 sec (9.0-12.0)
[2017-05-22] MEDS: PREGABALIN 75 MG CAP PO SCH ×3 (08:43→23:30)
[2017-05-22] MEDS: PANTOPRAZOLE 40 MG TABLET PO SCH (08:43)
[2017-05-22] MEDS: DOCUSATE 100 MG CAP PO SCH ×2 (08:44→20:00)
[2017-05-22] MEDS: LACTULOSE 20 GM/30 ML CUP PO SCH (08:45)
[2017-05-22] MEDS: OXYBUTYNIN CHLORIDE 5 MG TAB PO SCH ×2 (08:45→20:00)
[2017-05-22] MEDS: FLUDROCORTISONE 0.1 MG TAB PO SCH (08:45)
[2017-05-22] MEDS: oxyCODONE-APAP 10-325MG 1 EACH TAB PO SCH ×3 (08:45→23:31)
[2017-05-22] MEDS: TOPIRAMATE 25 MG TAB PO SCH ×2 (08:46→19:59)
[2017-05-22] MEDS: ESCITALOPRAM 20 MG TAB PO SCH (11:22)
[2017-05-22] MEDS ORDERED: NA PHOS,M-B/NA PHOS,DI-BA 133 ML ENEMA RECTAL ONE (15:05)
[2017-05-22] MEDS: WARFARIN 7.5 MG TAB PO SCH (17:13)
[2017-05-22] MEDS: tiZANidine 4 MG TAB PO SCH (20:00)
[2017-05-22] MEDS: PRIMIDONE 50 MG TAB PO SCH (20:00)
--- NOTE | 2017-05-22 20:44 | P.PN ---
Subjective Progress Note Date: 05/22/17 Principal diagnosis: weakness, uti possible urosepsis pt is paraplegic with indwelling urinary shirley catheter, whom has been experiencing recurrent uti's as well as urosepsis. Dioni presents with uti culture pending. Objective - Vital Signs Vital signs: Vital Signs Temp 97.0 F L 05/22/17 15:00 Pulse 62 05/22/17 15:00 Resp 20 05/22/17 15:00 BP 121/79 05/22/17 15:00 Pulse Ox 96 05/22/17 15:00 Intake & Output 05/22/17 05/22/17 05/23/17 06:59 18:59 06:59 Intake Total 800 320 Output Total 1875 1100 Balance -1075 -780 Intake: Intake, IV Titration 800 Amount Dextrose 5%-0.45% NaCl 1, 800 000 ml @ 100 mls/hr IV . Q10H SHERRY Rx#:[id number] Oral 320 Output: Urine 1875 1100 Other: Voiding Method Indwelling Catheter Indwelling Catheter # Voids 1 # Bowel Movements 1 - Labs CBC & Chem 7: 05/21/17 07:35 05/21/17 07:35 Labs: Abnormal Lab Results - Last 24 Hours (Table) 05/22/17 Range/Units 08:09 INR 1.2 H (<1.2) Microbiology - Last 24 Hours (Table) 05/20/17 12:50 Blood Culture - Preliminary Blood No Growth after 48 hours 05/20/17 12:50 Urine Culture - Preliminary Urine,Catheterized Gram Neg Bacilli 05/21/17 18:15 Urine Culture - Preliminary Urine,Catheterized Assessment and Plan Assessment: uti iv antibiotics currently using zosyn imperically (1) UTI (urinary tract infection) Current Visit: Yes Status: Acute Code(s): N39.0 - URINARY TRACT INFECTION, SITE NOT SPECIFIED SNOMED Code(s): 01245779 (2) Bacteremia due to Gram-negative bacteria Narrative/Plan: currentltly on zosyn ivpb Current Visit: Yes Status: Acute Code(s): R78.81 - BACTEREMIA SNOMED Code( s): 146417360072 (3) Fever Current Visit: No Status: Acute Code(s): R50.9 - FEVER, UNSPECIFIED SNOMED Code(s): 292258913 Plan: Urine culture to determine appropriate antibiotic therapy final still pending Time with Patient: Greater than 30
--- NOTE | 2017-05-22 22:15 | PN ---
PROGRESS NOTE DATE OF SERVICE: 05/22/2017. REASON FOR FOLLOW UP: Catheter access, urinary tract infection. INTERVAL HISTORY: The patient overall feels better and has improved. No fever has been noticed since yesterday. The patient is breathing comfortably. Denies having any chest pain, shortness of breath or cough. No abdominal pain. No diarrhea. The patient is constipated, currently getting an enema. EXAMINATION: Blood pressure 121/79 with a pulse of 62, temperature 97, he is 96% on room air. GENERAL DESCRIPTION: A middle-aged male lying in bed in no distress. RESPIRATORY: Unlabored breathing. Clear to auscultation anteriorly. HEART: S1, S2 regular rate and rhythm. ABDOMEN: Soft, no tenderness. LABS: Hemoglobin is 13.2, white count 11.3 with a BUN of 9, creatinine 0.64. Urine showing gram-negative. The urine culture done on 05/12 was Pseudomonas aeruginosa that was sensitive pathogen. DIAGNOSTIC IMPRESSION AND PLAN: Patient with catheter-associated urinary tract infection. Urine is now showing a gram- negative, could be the same pseudomonas he grew recently which was sensitive pathogen. Currently on Zosyn. That will be continued waiting for the culture to finalize to determine discharge antibiotics. Continue supportive care. MMODL / IJN: [id number] /
[2017-05-23] MEDS: DEXTROSE 5%-0.45% NACL 1,000 ML IV SCH ×2 (04:53→11:14)
[2017-05-23] MEDS: PIPERACILLIN-TAZOBACTAM 3.375 GM in DEXTROSE/WATER 1 50ML.BAG IVPB SCH (08:13)
[2017-05-23] MEDS: LACTULOSE 20 GM/30 ML CUP PO SCH (08:13)
[2017-05-23] MEDS: DOCUSATE 100 MG CAP PO SCH ×2 (08:14→21:17)
[2017-05-23] MEDS: PANTOPRAZOLE 40 MG TABLET PO SCH (08:14)
[2017-05-23] MEDS: FLUDROCORTISONE 0.1 MG TAB PO SCH (08:14)
[2017-05-23] MEDS: oxyCODONE-APAP 10-325MG 1 EACH TAB PO SCH ×2 (08:14→15:17)
[2017-05-23] MEDS: ESCITALOPRAM 20 MG TAB PO SCH (08:14)
[2017-05-23] MEDS: OXYBUTYNIN CHLORIDE 5 MG TAB PO SCH ×2 (08:14→21:16)
[2017-05-23] MEDS: TOPIRAMATE 25 MG TAB PO SCH ×2 (08:14→21:16)
[2017-05-23] MEDS: PREGABALIN 75 MG CAP PO SCH ×3 (08:20→21:15)
[2017-05-23 09:18] LABS: INR 1.3 (<1.2); Prothrombin Time 12.1 sec (9.0-12.0)
[2017-05-23] MEDS ORDERED: SUMAtriptan SUCCINATE 50 MG TAB PO PRN (10:30)
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
[2017-05-23] MEDS: SUMAtriptan SUCCINATE 50 MG TAB PO PRN (12:34)
[2017-05-23] MEDS: cefTRIAXone IN SWFI 2,000 MG/20 ML SYRINGE IVP SCH (12:34)
[2017-05-23] MEDS ORDERED: PEG 3350-NA SULF,BICARB,CL/KCL 4,000 ML BOTTLE PO ONE (13:00)
--- NOTE | 2017-05-23 15:08 | CDI ---
Last Revision, February 2017 Documentation Clarification Form Date: May From: Gayla Cruz RN Admit Date: 05/23/2017 2:08:00 PM Patient Name: Dioni Linton Visit Number: [id number] ATTENTION: The Clinical Documentation Specialists (CDI) and [facility] Coding Staff appreciate your assistance in clarifying documentation. Please respond to the clarification below the line at the bottom and electronically sign. The CDI & [facility] Coding staff will review the response and follow-up if needed. Please note: Queries are made part of the Legal Health Record. If you have any questions, please contact the author of this message via ITS. Dr. Jass Gillespie, History: UTI's, dvt, gerd, neurologic disorder, mrsa, indwelling catheter, paraplegictory/Risk Factors: Clinical Indicators: WBC on admission 11.3 Blood cultures: negative Vitals signs on admission: T 98.1, P 94, R 16, 83/51, 95% 2L. on 05/20 temp. 100.3 Treatment: ID Consult: DR Lopez Antibiotics: IV Ceftazidime, IV Rocephin, IV Piperacillin IV Bolus: x1 In your professional opinion, please clarify if these findings signify one of the following conditions, whether the condition is POA, and cause, if known: Sepsis ruled out sepsis ruled in Other, please specify Unable to determine Present on Admission: Yes No Please continue to document in your progress notes, under the line below or/and in the discharge summary in order to capture severity of illness and risk of mortality. Include clinical findings that support your diagnosis. MTDD
[2017-05-23] MEDS: HEPARIN SODIUM,PORCINE 5,000 UNIT/ML 1 ML VIAL SQ SCH (15:17)
[2017-05-23] MEDS ORDERED: WARFARIN 10 MG TAB PO SCH (18:00)
[2017-05-23] MEDS: PRIMIDONE 50 MG TAB PO SCH (21:16)
[2017-05-23] MEDS: tiZANidine 4 MG TAB PO SCH (21:17)
--- NOTE | 2017-05-23 23:46 | PN ---
PROGRESS NOTE DATE OF SERVICE: 05/23/2017 REASON FOR FOLLOWUP: Catheter-associated urinary tract infection. INTERVAL HISTORY: The patient is afebrile. He is breathing comfortably. Denies having any chest pain, shortness of breath or cough. No abdominal pain. No nausea. No vomiting. He seemed to have a problem with fecal impaction, for which General Surgery has seen the patient. PHYSICAL EXAMINATION: Blood pressure is 153/94 with a pulse of 65, temperature of 96.7. He is 99% on room air. General description is a middle-aged male lying in bed in no distress. RESPIRATORY SYSTEM: Unlabored breathing. Clear to auscultation anteriorly. HEART: S1, S2. Regular rate and rhythm. ABDOMEN: Soft. No tenderness. LABS: Urine finalized with an E coli that is a sensitive pathogen except DIAGNOSTIC IMPRESSION AND PLAN: Patient with Escherichia coli catheter-associated urinary tract infection. Antibiotic was switched to Rocephin 2 grams daily. That can be transitioned to oral Ceftin on discharge. Continue supportive care. MMODL / IJN: [id number] /
[2017-05-24] MEDS: DEXTROSE 5%-0.45% NACL 1,000 ML IV SCH ×3 (00:43→17:27)
[2017-05-24] MEDS: oxyCODONE-APAP 10-325MG 1 EACH TAB PO SCH ×4 (00:45→21:09)
[2017-05-24] MEDS: HEPARIN SODIUM,PORCINE 5,000 UNIT/ML 1 ML VIAL SQ SCH ×4 (00:48→22:52)
[2017-05-24] MEDS: cefTRIAXone IN SWFI 2,000 MG/20 ML SYRINGE IVP SCH (08:03)
[2017-05-24] MEDS: TOPIRAMATE 25 MG TAB PO SCH ×2 (08:03→21:04)
[2017-05-24] MEDS: PREGABALIN 75 MG CAP PO SCH ×3 (08:03→21:09)
[2017-05-24 08:10] LABS: Basophils % (A) 1 %; Eosinophils # (A) 0.3 k/uL (0-0.7); Eosinophils % (A) 5 %; HCT 39.2 % (39.0-53.0); HGB 13.3 gm/dL (13.0-17.5); Lymphocytes # (A) 1.5 k/uL (1.0-4.8); Lymphocytes % (A) 26 %; MCH 30.7 pg (25.0-35.0); MCV 90.4 fL (80.0-100.0); Mean Platelet Volume 6.9; Monocytes # (A) 0.3 k/uL (0-1.0); Monocytes % (A) 5 %; Neutrophils # (A) 3.5 k/uL (1.3-7.7); Neutrophils % (A) 61 %; Platelet Count 258 k/uL (150-450); RBC 4.34 m/uL (4.30-5.90); RDW 13.3 % (11.5-15.5); WBC 5.8 k/uL (3.8-10.6)
[2017-05-24 08:21] LABS: INR 1.3 (<1.2); Prothrombin Time 12.7 sec (9.0-12.0)
[2017-05-24 08:44] LABS: Anion Gap 8 mmol/L; Blood Urea Nitrogen 7 mg/dL (9-20); Calcium 8.9 mg/dL (8.4-10.2); Carbon Dioxide 28 mmol/L (22-30); Chloride 104 mmol/L (98-107); Glucose 93 mg/dL (74-99); Potassium 3.9 mmol/L (3.5-5.1); Sodium 140 mmol/L (137-145)
[2017-05-24] MEDS: DOCUSATE 100 MG CAP PO SCH ×2 (08:50→21:05)
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
[2017-05-24] MEDS: SUMAtriptan SUCCINATE 50 MG TAB PO PRN (09:19)
[2017-05-24] MEDS: PANTOPRAZOLE 40 MG TABLET PO SCH (11:18)
[2017-05-24] MEDS: OXYBUTYNIN CHLORIDE 5 MG TAB PO SCH ×2 (11:19→21:04)
[2017-05-24] MEDS ORDERED: PEG 3350-NA SULF,BICARB,CL/KCL 4,000 ML BOTTLE PO ONE (13:00)
[2017-05-24] MEDS: LACTULOSE 20 GM/30 ML CUP PO SCH (13:08)
[2017-05-24] MEDS: FLUDROCORTISONE 0.1 MG TAB PO SCH (13:09)
[2017-05-24] MEDS: ESCITALOPRAM 20 MG TAB PO SCH (13:09)
[2017-05-24] MEDS ORDERED: MAGNESIUM CITRATE 296 ML BOTTLE PO ONE (15:01)
--- NOTE | 2017-05-24 17:35 | PN ---
PROGRESS NOTE DATE OF SERVICE: 05/24/2017. REASON FOR FOLLOWUP: E. coli catheter-associated urinary tract infection. INTERVAL HISTORY: The patient is afebrile. He is currently breathing comfortably, waiting for his colonoscopy. Denies having any chest pain, shortness of breath, cough. No abdominal pain on any diarrhea. EXAMINATION: Blood pressure 105/68 with a pulse of 73, temperature 97.5. He is 98% on room air. General description is a middle-aged male lying in bed in no distress. RESPIRATORY SYSTEM: Unlabored breathing. Clear to auscultation anteriorly. HEART: S1, S2. Regular rate and rhythm. ABDOMEN: Soft. No tenderness. LABS: Hemoglobin 13.3, white count 5.8. BUN of 7, creatinine 0.69. DIAGNOSTIC IMPRESSION AND PLAN: Patient with an Escherichia coli-associated urinary tract infection. Infected Rodriguez has already been changed. Currently on Rocephin. Switching him to oral Ceftin once the gastroenterology workup is completed and ready for discharge. MMODL / IJN: [id number] /
[2017-05-24] MEDS: PRIMIDONE 50 MG TAB PO SCH (21:04)
[2017-05-24] MEDS: tiZANidine 4 MG TAB PO SCH (21:04)
[2017-05-25] MEDS: DEXTROSE 5%-0.45% NACL 1,000 ML IV SCH ×2 (00:47→17:28)
[2017-05-25 08:51] LABS: INR 1.3 (<1.2); Prothrombin Time 12.1 sec (9.0-12.0)
[2017-05-25] MEDS: cefTRIAXone IN SWFI 2,000 MG/20 ML SYRINGE IVP SCH (10:00)
[2017-05-25] MEDS: SUMAtriptan SUCCINATE 50 MG TAB PO PRN (10:01)
[2017-05-25] MEDS: DOCUSATE 100 MG CAP PO SCH ×2 (11:12→21:22)
[2017-05-25] MEDS: OXYBUTYNIN CHLORIDE 5 MG TAB PO SCH ×2 (11:12→21:22)
[2017-05-25] MEDS: PREGABALIN 75 MG CAP PO SCH ×3 (11:12→21:20)
[2017-05-25] MEDS: HEPARIN SODIUM,PORCINE 5,000 UNIT/ML 1 ML VIAL SQ SCH ×3 (11:12→23:20)
[2017-05-25] MEDS: PANTOPRAZOLE 40 MG TABLET PO SCH (11:12)
[2017-05-25] MEDS: TOPIRAMATE 25 MG TAB PO SCH ×2 (11:13→21:21)
[2017-05-25] MEDS: oxyCODONE-APAP 10-325MG 1 EACH TAB PO SCH ×3 (11:13→21:20)
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
[2017-05-25] MEDS ORDERED: PROPOFOL 10 MG/ML 20 ML VIAL IV ONE (15:24)
[2017-05-25] MEDS ORDERED: IV FLUID CONTINUATION 1,000 ML IV ONE (15:33)
[2017-05-25] MEDS ORDERED: LACTATED RINGERS 1,000 ML IV ONE (16:05)
--- NOTE | 2017-05-25 16:25 | P.OP ---
Date of Procedure: 05/25/17 Preoperative Diagnosis: GERD Constipation Postoperative Diagnosis: Mild antral gastritis Hiatal hernia Minimal esophagitis Normal colon Procedure(s) Performed: EGD Colonoscopy Anesthesia: MAC Surgeon: Luis Price Pathology: other (Antrum) Condition: stable Disposition: PACU Description of Procedure: PROCEDURE: The patient was placed on the endoscopy table in the lateral position. Digital rectal examination was performed which revealed no abnormalities. The prostate was symmetrical without nodules. Flexible colonoscope was then placed in the patient's anus and passed throughout the entire colon. The ileocecal valve was visualized. The cecum, ascending, transverse, descending and sigmoid colon were normal. The rectum was normal as well. There were no masses, polyps or diverticula noted in the entire colon. Next, the gastroscope placed oropharynx passed in the esophagus and stomach. Scope was then placed through the pylorus. The first and second portion of duodenum appeared normal. Scope was then brought back the antrum this is minimally inflamed a biopsies performed. Scope was then retroflexed and there was a small hiatal hernia. The GE junction was at 38 cm. The distal esophagus appeared minimally inflamed. Esophagus appeared normal. Scope was withdrawn for patient.
[2017-05-25] MEDS: FLUDROCORTISONE 0.1 MG TAB PO SCH (17:27)
[2017-05-25] MEDS: ESCITALOPRAM 20 MG TAB PO SCH (17:28)
[2017-05-25] MEDS: LACTULOSE 20 GM/30 ML CUP PO SCH (17:28)
[2017-05-25] MEDS ORDERED: WARFARIN 10 MG TAB PO SCH (18:00)
[2017-05-25] MEDS: ZOLPIDEM 5 MG TAB PO PRN (21:20)
[2017-05-25] MEDS: tiZANidine 4 MG TAB PO SCH (21:22)
[2017-05-25] MEDS: PRIMIDONE 50 MG TAB PO SCH (21:22)
--- NOTE | 2017-05-25 22:14 | PN ---
PROGRESS NOTE DATE OF SERVICE: 05/25/2017. REASON FOR FOLLOWUP: Catheter-associated urinary tract infection. INTERVAL HISTORY: The patient is seen on rounds this morning. The patient has been waiting for his colonoscopy and EGD. The patient denies having any chest pain, shortness of breath, abdominal pain or any diarrhea. EXAMINATION: Blood pressure is 148/83 with a pulse of 79, temperature 97.2. He is 96% on room air. General description is an middle-aged male lying in bed in no distress. RESPIRATORY SYSTEM: Unlabored breathing. Clear to auscultation anteriorly. HEART: S1, S2. Regular rate and rhythm. ABDOMEN: Soft, nontender. LAB: Hemoglobin 13.2, white count 5.8 with a BUN of 7, creatinine 0.65. DIAGNOSTIC IMPRESSION AND PLAN: Patient with an Escherichia coli catheter-associated urinary tract infection, status post changing his Rodriguez catheter. The patient is currently covered with Rocephin. Transition to oral Ceftin on discharge. Continue supportive care. MMODL / IJN: [id number] /
[2017-05-26] MEDS: DEXTROSE 5%-0.45% NACL 1,000 ML IV SCH ×3 (01:33→20:26)
[2017-05-26 08:20] LABS: INR 1.3 (<1.2); Prothrombin Time 12.2 sec (9.0-12.0)
[2017-05-26] MEDS: TOPIRAMATE 25 MG TAB PO SCH ×2 (09:11→20:23)
[2017-05-26] MEDS: FLUDROCORTISONE 0.1 MG TAB PO SCH (09:11)
[2017-05-26] MEDS: PREGABALIN 75 MG CAP PO SCH ×3 (09:11→20:23)
[2017-05-26] MEDS: ESCITALOPRAM 20 MG TAB PO SCH (09:11)
[2017-05-26] MEDS: OXYBUTYNIN CHLORIDE 5 MG TAB PO SCH ×2 (09:11→20:25)
[2017-05-26] MEDS: cefTRIAXone IN SWFI 2,000 MG/20 ML SYRINGE IVP SCH (09:11)
[2017-05-26] MEDS: DOCUSATE 100 MG CAP PO SCH ×2 (09:11→20:25)
[2017-05-26] MEDS: LACTULOSE 20 GM/30 ML CUP PO SCH (09:11)
[2017-05-26] MEDS: HEPARIN SODIUM,PORCINE 5,000 UNIT/ML 1 ML VIAL SQ SCH ×2 (09:11→17:18)
[2017-05-26] MEDS: PANTOPRAZOLE 40 MG TABLET PO SCH (09:12)
[2017-05-26] MEDS: oxyCODONE-APAP 10-325MG 1 EACH TAB PO SCH ×3 (09:13→21:50)
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
[2017-05-26] MEDS: SUMAtriptan SUCCINATE 50 MG TAB PO PRN (13:06)
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
[2017-05-26] MEDS: WARFARIN 7.5 MG TAB PO SCH (17:18)
[2017-05-26] MEDS: PRIMIDONE 50 MG TAB PO SCH (20:25)
[2017-05-26] MEDS: tiZANidine 4 MG TAB PO SCH (20:25)
[2017-05-26] MEDS: ZOLPIDEM 5 MG TAB PO PRN (21:51)
--- NOTE | 2017-05-26 22:01 | PN ---
PROGRESS NOTE DATE OF SERVICE: 05/26/2017 REASON FOR FOLLOWUP: E. coli catheter-associated urinary tract infection. INTERVAL HISTORY: The patient is afebrile. He is currently breathing comfortably. Denies having any chest pain, shortness of breath or cough. No abdominal pain or diarrhea. EXAMINATION: Blood pressure is 130/69 with a pulse of 60, temperature 96.8. He is 95% on room air. General description is a middle-aged male lying in bed in no distress. RESPIRATORY SYSTEM: Unlabored breathing. Clear to auscultation anteriorly. HEART: S1, S2. Regular rate and rhythm. No tenderness. LABS: Hemoglobin is 13.3, white count of 5.8 with a BUN of 7, creatinine 0.64. DIAGNOSTIC IMPRESSION AND PLAN: Patient with an Escherichia coli catheter-associated urinary tract infection, currently on Rocephin. Transitioning him to oral Ceftin on discharge. Continue supportive care. MMODL / IJN: [id number] /
[2017-05-27] MEDS: HEPARIN SODIUM,PORCINE 5,000 UNIT/ML 1 ML VIAL SQ SCH ×4 (00:06→23:02)
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
[2017-05-27] MEDS: DOCUSATE 100 MG CAP PO SCH ×3 (08:35→21:09)
[2017-05-27] MEDS: FLUDROCORTISONE 0.1 MG TAB PO SCH ×2 (08:35→08:58)
[2017-05-27] MEDS: LACTULOSE 20 GM/30 ML CUP PO SCH ×2 (08:35→11:03)
[2017-05-27] MEDS: OXYBUTYNIN CHLORIDE 5 MG TAB PO SCH ×3 (08:35→21:09)
[2017-05-27] MEDS: PANTOPRAZOLE 40 MG TABLET PO SCH ×2 (08:35→11:02)
[2017-05-27] MEDS: ESCITALOPRAM 20 MG TAB PO SCH ×2 (08:35→11:03)
[2017-05-27] MEDS: TOPIRAMATE 25 MG TAB PO SCH ×3 (08:35→21:09)
[2017-05-27] MEDS: DEXTROSE 5%-0.45% NACL 1,000 ML IV SCH (08:36)
[2017-05-27] MEDS ORDERED: ONDANSETRON 4 MG/2 ML VIAL IVP PRN (08:38)
[2017-05-27] MEDS: cefTRIAXone IN SWFI 2,000 MG/20 ML SYRINGE IVP SCH ×2 (08:47→11:02)
[2017-05-27] MEDS: SUMAtriptan SUCCINATE 50 MG TAB PO PRN ×2 (08:54→18:11)
[2017-05-27] MEDS ORDERED: hydrALAZINE HCL 20 MG/ML 1 ML VIAL IVP STA ×2 (08:57→11:56)
[2017-05-27] MEDS ORDERED: SUMAtriptan SUCCINATE 6 MG/0.5 ML VIAL SQ STA (08:58)
[2017-05-27] MEDS ORDERED: SODIUM CHLORIDE 0.9% 1,000 ML IV ONE ×3 (09:47→14:19)
[2017-05-27 10:57] LABS: INR 1.6 (<1.2); Prothrombin Time 15.1 sec (9.0-12.0)
[2017-05-27] MEDS: SODIUM CHLORIDE 0.9% 1,000 ML IV SCH ×2 (10:59→21:11)
[2017-05-27] MEDS: PREGABALIN 75 MG CAP PO SCH ×3 (11:02→19:37)
[2017-05-27] MEDS: oxyCODONE-APAP 10-325MG 1 EACH TAB PO SCH ×3 (11:03→21:10)
[2017-05-27] MEDS ORDERED: hydrALAZINE HCL 20 MG/ML 1 ML VIAL IVP PRN (11:56)
[2017-05-27] MEDS ORDERED: KETOROLAC 30 MG/ML 1 ML VIAL IVP STA (12:07)
[2017-05-27] MEDS ORDERED: MORPHINE SULFATE/PF 10MG/10ML VL IVP STA (13:06)
--- NOTE | 2017-05-27 14:26 | PN ---
PROGRESS NOTE DATE OF SERVICE: 05/27/2017. REASON FOR FOLLOWUP: E. Coli catheter-associated urinary tract infection. INTERVAL HISTORY: The patient is afebrile. He complains of feeling nauseous and throwing up. Some abdominal pain. Denies any chest pain, shortness of breath or cough. PHYSICAL EXAMINATION: On examination, blood pressure is 202/112, pulse of 67, temperature 97.8. He is 97% on room air. General description is a middle-aged male lying in bed in no distress. RESPIRATORY SYSTEM: Unlabored breathing, clear to auscultation anteriorly. HEART: S1, S2. Regular rate and rhythm. ABDOMEN: Soft, no tenderness. LABS: No new labs have been obtained today. DIAGNOSTIC IMPRESSION AND PLAN: Patient with Escherichia coli catheter-associated urinary tract infection: Currently doing well on the Rocephin. A short course of oral Ceftin on discharge for about a week. Continue supportive care. MMODL / IJN: [id number] /
--- NOTE | 2017-05-27 14:35 | XR ---
Abdomen HISTORY: Pain frontal view of the abdomen submitted on 3 images and correlated to prior exam dated 02/07/2017 Bone mineralization is reduced. Patient is rotated. Degenerative disc changes are present in the visu alized spine. No evident pneumoperitoneum or bowel obstruction. Lung bases not well seen. No evident pathologic calcification. IMPRESSION: Exam is limited by patient body habitus.
[2017-05-27 14:56] LABS: HCT 39.9 % (39.0-53.0); HGB 13.5 gm/dL (13.0-17.5); MCH 30.6 pg (25.0-35.0); MCHC 33.7 g/dL (31.0-37.0); MCV 90.8 fL (80.0-100.0); Platelet Count 344 k/uL (150-450); RDW 13.5 % (11.5-15.5); WBC 13.3 k/uL (3.8-10.6)
[2017-05-27 15:25] LABS: ALT 25 U/L (21-72); AST 22 U/L (17-59); Albumin 2.7 g/dL (3.5-5.0); Alkaline Phosphatase 74 U/L (38-126); Anion Gap 10 mmol/L; Blood Urea Nitrogen 12 mg/dL (9-20); Calcium 8.6 mg/dL (8.4-10.2); Carbon Dioxide 19 mmol/L (22-30); Chloride 115 mmol/L (98-107); Glucose 123 mg/dL (74-99); Potassium 4.2 mmol/L (3.5-5.1); Sodium 144 mmol/L (137-145); Total Bilirubin 0.3 mg/dL (0.2-1.3); Total Protein 5.5 g/dL (6.3-8.2)
[2017-05-27] MEDS: WARFARIN 7.5 MG TAB PO SCH (17:35)
[2017-05-27] MEDS: PRIMIDONE 50 MG TAB PO SCH (21:09)
[2017-05-27] MEDS: tiZANidine 4 MG TAB PO SCH (21:09)
[2017-05-27 23:44] VITALS: RESP 18
[2017-05-28 06:40] VITALS: BP 101/57; PULSE 60; TEMP 97.7
[2017-05-28] MEDS: LACTULOSE 20 GM/30 ML CUP PO SCH (08:16)
[2017-05-28] MEDS: DOCUSATE 100 MG CAP PO SCH (08:17)
[2017-05-28] MEDS: ESCITALOPRAM 20 MG TAB PO SCH (08:17)
[2017-05-28] MEDS: oxyCODONE-APAP 10-325MG 1 EACH TAB PO SCH (08:17)
[2017-05-28] MEDS: TOPIRAMATE 25 MG TAB PO SCH (08:17)
[2017-05-28] MEDS: FLUDROCORTISONE 0.1 MG TAB PO SCH (08:17)
[2017-05-28] MEDS: OXYBUTYNIN CHLORIDE 5 MG TAB PO SCH (08:17)
[2017-05-28] MEDS: PANTOPRAZOLE 40 MG TABLET PO SCH (08:17)
[2017-05-28] MEDS: cefTRIAXone IN SWFI 2,000 MG/20 ML SYRINGE IVP SCH (08:21)
[2017-05-28] MEDS: HEPARIN SODIUM,PORCINE 5,000 UNIT/ML 1 ML VIAL SQ SCH (08:24)
[2017-05-28] MEDS: PREGABALIN 75 MG CAP PO SCH ×2 (08:24→13:08)
[2017-05-28 09:09] LABS: INR 2.3 (<1.2); Prothrombin Time 20.8 sec (9.0-12.0)
[2017-05-28] MEDS: SUMAtriptan SUCCINATE 50 MG TAB PO PRN (09:32)
--- NOTE | 2017-05-28 11:53 | P.PN ---
Progress Note - Text She was seen and examined today before discharge. It is somewhat of a headache. Tavon is helping. He will be discharged to [facility] today. His is there, who is terminally ill with multiple sclerosis. He will be transferred care to the doctor there, most likely Dr. Parra. I' ll be available for contact via phone if needed.
[2017-05-28] MEDS: SODIUM CHLORIDE 0.9% 1,000 ML IV SCH (13:28)
== END 2017-05-28 13:27 | DRG 698 ==
LOC: EC 11:49 → 4MS4W 15:18 → OBSVTOIN 05-23 14:08
PROVIDERS: ADMIT Family Medicine; ATTEND Family Medicine
PROC: 0DJD8ZZ Inspection of Lower Intestinal Tract, Via Natural or Artificial Opening Endoscopic (ICD-10-PCS; principal; 2017-05-25 09:05)
PROC: 0DJ08ZZ Inspection of Upper Intestinal Tract, Via Natural or Artificial Opening Endoscopic (ICD-10-PCS; 2017-05-25 09:05)
DX: T83.511A Infection and inflammatory reaction due to indwelling urethral catheter, initial encounter (principal); A41.51 Sepsis due to Escherichia coli [E. coli]; G82.20 Paraplegia, unspecified; I82.509 Chronic embolism and thrombosis of unspecified deep veins of unspecified lower extremity; E66.9 Obesity, unspecified; F32.9 Major depressive disorder, single episode, unspecified; I10 Essential (primary) hypertension; K21.0 Gastro-esophageal reflux disease with esophagitis; K44.9 Diaphragmatic hernia without obstruction or gangrene; N28.9 Disorder of kidney and ureter, unspecified; K56.41 Fecal impaction; N39.0 Urinary tract infection, site not specified; R79.1 Abnormal coagulation profile; Z16.23 Resistance to quinolones and fluoroquinolones; G89.29 Other chronic pain; K29.70 Gastritis, unspecified, without bleeding; R33.9 Retention of urine, unspecified; R51 Headache; R07.9 Chest pain, unspecified; G43.909 Migraine, unspecified, not intractable, without status migrainosus; I44.0 Atrioventricular block, first degree; Z68.39 Body mass index [BMI] 39.0-39.9, adult; Z79.01 Long term (current) use of anticoagulants; Z79.899 Other long term (current) drug therapy; Z87.440 Personal history of urinary (tract) infections; Z86.14 Personal history of Methicillin resistant Staphylococcus aureus infection; Z87.891 Personal history of nicotine dependence
CPT/HCPCS: 36415; 43239; 71046; 74018; 80048; 80053; 81001; 83605; 85025; 85027; 85610; 85730; 87040; 87077; 87086; 87186; 88305; 93005; 96361; 96365; 96375; 99284

== ENCOUNTER 2017-10-08 17:30 | Inpatient (IN) | payer MEDICARE ==
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
[2017-10-08] MEDS ORDERED: AMPICILLIN-SULBACTAM 3 GM in SODIUM CHLORIDE 0.9% 100 ML IVPB STA (18:50)
[2017-10-08] MEDS ORDERED: SODIUM CHLORIDE 0.9% 1,000 ML IV ONE (18:50)
[2017-10-08] MEDS ORDERED: ONDANSETRON 4 MG/2 ML VIAL IVP STA (19:34)
[2017-10-08] MEDS ORDERED: MORPHINE SULFATE 4 MG/ML SYRINGE IVP STA (19:34)
[2017-10-08] MEDS ORDERED: TEMAZEPAM 15 MG CAP PO PRN (23:27)
[2017-10-08] MEDS ORDERED: ACETAMINOPHEN TAB 325 MG TAB PO PRN (23:27)
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
[2017-10-09 01:12] VITALS: BMI 42.2
[2017-10-09] MEDS ORDERED: ROCURONIUM BROMIDE 10 MG/ML 10 ML VIAL IV ONE (02:10)
[2017-10-09] MEDS ORDERED: SODIUM CHLORIDE 0.9% 1,000 ML IV ONE ×2 (02:10→03:23)
[2017-10-09] MEDS ORDERED: ETOMIDATE 2 MG/ML 10 ML VIAL ONE (02:10)
[2017-10-09] MEDS ORDERED: PHENYLEPHRINE-0.9% NACL SYG 1 MG/10 ML SYRINGE ONE (02:10)
[2017-10-09] MEDS ORDERED: MIDAZOLAM 2 MG/2 ML VIAL ONE (02:10)
[2017-10-09 03:03] LABS: Basophils % (A) 0 %; Eosinophils # (A) 0.2 k/uL (0-0.7); Eosinophils % (A) 1 %; HCT 37.2 % (39.0-53.0); HGB 12.1 gm/dL (13.0-17.5); Lymphocytes # (A) 1.9 k/uL (1.0-4.8); Lymphocytes % (A) 11 %; MCH 29.9 pg (25.0-35.0); MCHC 32.4 g/dL (31.0-37.0); MCV 92.1 fL (80.0-100.0); Mean Platelet Volume 6.9; Monocytes # (A) 0.8 k/uL (0-1.0); Monocytes % (A) 5 %; Neutrophils # (A) 14.6 k/uL (1.3-7.7); Neutrophils % (A) 82 %; Platelet Count 276 k/uL (150-450); RBC 4.04 m/uL (4.30-5.90); RDW 14.7 % (11.5-15.5); WBC 17.8 k/uL (3.8-10.6)
[2017-10-09 03:16] LABS: Calcium 8.3 mg/dL (8.4-10.2); INR 2.6 (<1.2); Potassium 3.8 mmol/L (3.5-5.1); Prothrombin Time 23.3 sec (9.0-12.0); Total Bilirubin 0.6 mg/dL (0.2-1.3); Total Protein 5.5 g/dL (6.3-8.2)
[2017-10-09] MEDS ORDERED: LACTATED RINGERS 1,000 ML IV ONE (03:23)
--- NOTE | 2017-10-09 03:33 | P.OP ---
Date of Procedure: 10/09/17 Preoperative Diagnosis: Urinary retention, urethral false passage Postoperative Diagnosis: Same Procedure(s) Performed: Ureteroscopy, Percutaneous Insertion of Suprapubic Cystostomy Tube Anesthesia: BENNETTA Surgeon: Emmanuel Knox Estimated Blood Loss (ml): 0 IV fluids (ml): 1,400 Pathology: none sent Condition: stable Disposition: PACU Indications for Procedure: The patient is a 61-year-old white male with a neurogenic bladder, managed with an indwelling Rodriguez catheter. The catheter became occluded today, and the catheter could not be successfully exchanged. He was evaluated in the ER at [facility], and transferred to [facility]. Additional attempts to place a Rodriguez catheter have been unsuccessful. Bladder Scan shows a bladder volume of greater than 999 mL. Operative Findings: Bulbous urethral false passage Description of Procedure: The patient was taken to the operating room and placed in the dorsolithotomy position, with his legs supported in Ramon stirrups. The external genitalia and lower abdomen were prepped and draped sterilely. The 30 lens was used to introduce the 19-Macedonian Stortz cystoscopic sheath into the urethra. The penile urethra appeared normal. Within the bulbous urethra, a large false passage was noted and the urethral lumen could not be identified. A 22-gauge spinal needle was passed through the abdominal wall in the midline, 2 fingerbreadths above the pubis. The needle was advanced until urine was aspirated from the bladder. A percutaneous suprapubic cystostomy tube kit was then obtained, and the tube was advanced in this same path using the trocar needle. Once the catheter into the bladder, as evidenced by the return of urine , the catheter was advanced and the trocar was withdrawn. The catheter was advanced to the hub, and was then secured to the anterior abdominal wall using 2 -0 silk suture. Light red colored urine drained, with no clots identified. A specimen was sent for culture and sensitivity. The patient was hypotensive preoperatively. His blood pressure improved throughout the procedure as a result of vasopressors. He will be transferred directly to the ICU.
[2017-10-09] MEDS ORDERED: PROPOFOL 100 ML IV ONE (03:40)
[2017-10-09 03:47] LABS: Glucose,Whole Blood 129 mg/dL (75-99)
[2017-10-09] MEDS ORDERED: NOREPINEPHRIN 4 MG-0.9% NS PMX 4 MG/250 ML ML IV ONE (03:50)
[2017-10-09 04:03] LABS: ABG Base Excess -6.3 mmol/L; ABG HCO3 20 mmol/L (21-25); ABG PCO2 37 mmHg (35-45); ABG PH 7.34 (7.35-7.45); ABG PO2 >400 mmHg (83-108); ABG TCO2 21 mmol/L (19-24)
[2017-10-09] MEDS ORDERED: NOREPINEPHRIN 16 MG-0.9%NS PMX 16 MG/250 ML ML IV SCH (04:45)
[2017-10-09] MEDS ORDERED: SODIUM CHLORIDE 0.9% 2,000 ML IV ONE (04:49)
[2017-10-09] MEDS: PROPOFOL 1,000 MG in EMPTY BAG 1 BAG IV SCH ×7 (05:00→22:54)
[2017-10-09 05:16] LABS: Basophils % (A) 0 %; Eosinophils # (A) 0.1 k/uL (0-0.7); Eosinophils % (A) 0 %; HCT 36.3 % (39.0-53.0); HGB 11.7 gm/dL (13.0-17.5); Lymphocytes # (A) 1.8 k/uL (1.0-4.8); Lymphocytes % (A) 9 %; MCH 29.3 pg (25.0-35.0); MCHC 32.1 g/dL (31.0-37.0); MCV 91.4 fL (80.0-100.0); Mean Platelet Volume 7.2; Monocytes % (A) 5 %; Neutrophils % (A) 84 %; Platelet Count 341 k/uL (150-450); RBC 3.98 m/uL (4.30-5.90); RDW 14.6 % (11.5-15.5); WBC 20.1 k/uL (3.8-10.6)
[2017-10-09 05:24] LABS: INR 2.5 (<1.2); Partial Thromboplastin Time 29.5 sec (22.0-30.0); Prothrombin Time 22.1 sec (9.0-12.0)
[2017-10-09 05:28] LABS: Anion Gap 7 mmol/L; Blood Urea Nitrogen 16 mg/dL (9-20); Calcium 8.3 mg/dL (8.4-10.2); Carbon Dioxide 20 mmol/L (22-30); Chloride 111 mmol/L (98-107); Glucose 156 mg/dL (74-99); Magnesium 1.7 mg/dL (1.6-2.3); Phosphorus 3.2 mg/dL (2.5-4.5); Potassium 3.8 mmol/L (3.5-5.1); Sodium 138 mmol/L (137-145)
--- NOTE | 2017-10-09 05:31 | XR ---
EXAMINATION TYPE: XR chest 1V portable DATE OF EXAM: 10/09/2017 COMPARISON: 05/20/2017 HISTORY: Check tube placement TECHNIQUE: Single frontal view of the chest is obtained. FINDINGS: Endotracheal tube is 5 cm from the otis. Lungs are clear. There is no heart failure. Ilya ogastric tube appears in good position. There is right jugular catheter with tip over the right atriu m. There is no sign of pneumothorax. There are chest leads. There is cervical spine fusion surgery. IMPRESSION: No active cardiopulmonary disease. Tubing is in good position.
[2017-10-09] MEDS: AMPICILLIN-SULBACTAM 3 GM in SODIUM CHLORIDE 0.9% 100 ML IVPB SCH ×4 (06:31→23:49)
[2017-10-09] MEDS ORDERED: Potassium Replacement Protocol 1 EACH MISC MISCELLANE PRN (06:45)
[2017-10-09] MEDS ORDERED: Magnesium Replacement Protocol 1 EACH MISC MISCELLANE PRN (06:45)
[2017-10-09] MEDS: POTASSIUM CHLORIDE 10 MEQ in WATER FOR INJECTION 1 100ML.BAG IVPB SCH ×2 (06:54→09:11)
[2017-10-09] MEDS: MAGNESIUM SULFATE-D5W PMX 1 GM in DEXTROSE/WATER 1 100ML.BAG IVPB SCH ×2 (07:47→09:12)
[2017-10-09] MEDS ORDERED: VANCOMYCIN IV PER PHARMACY 1 EACH MISC MISCELLANE PRN (08:07)
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
[2017-10-09] MEDS ORDERED: NITROFURANTOIN MONOHYD/M-CRYST 100 MG CAP PO SCH (09:00)
[2017-10-09] MEDS: HYDROCORTISONE SUCCINATE 100 MG/2 ML VIAL IV SCH ×3 (09:14→23:38)
[2017-10-09] MEDS: NOREPINEPHRINE 16 MG in DEXTROSE 5% IN WATER 250 ML IV SCH ×2 (09:15)
[2017-10-09] MEDS: CHLORHEXIDINE GLUCONATE 15 ML CUP MUCOUS MEM SCH ×2 (09:16→20:19)
[2017-10-09] MEDS: PANTOPRAZOLE 40 MG TABLET PO SCH ×2 (09:17→10:12)
[2017-10-09] MEDS: OXYBUTYNIN CHLORIDE 5 MG TAB PO SCH ×3 (09:18→20:18)
[2017-10-09] MEDS: LACTULOSE 20 GM/30 ML CUP PO SCH (09:19)
[2017-10-09] MEDS: DOCUSATE 100 MG CAP PO SCH ×2 (09:20→20:16)
[2017-10-09] MEDS: ESCITALOPRAM 20 MG TAB PO SCH ×2 (09:20→10:12)
[2017-10-09] MEDS: FLUCONAZOLE IN NACL,ISO-OSM 100 MG in SALINE 1 50ML.BAG IVPB SCH (09:43)
[2017-10-09 09:49] LABS: Appearance,Urine Turbid (Clear); Bacteria,Urine Rare /hpf; Bilirubin,Urine Negative (Negative); Blood,Urine Large (Negative); Color,Urine Dark Red; Glucose,Urine (UA) Negative (Negative); Ketones,Urine Negative (Negative); Leukocyte Esterase,Urine Large (Negative); Nitrite,Urine Negative (Negative); Protein,Urine 2+ (Negative); RBC,Urine >182 /hpf (0-5); Specific Gravity,Urine 1.011 (1.001-1.035); Urobilinogen,Urine <2.0 mg/dL (<2.0)
[2017-10-09] MEDS: FLUDROCORTISONE 0.1 MG TAB PO SCH (09:57)
[2017-10-09] MEDS: VANCOMYCIN 2,500 MG in SODIUM CHLORIDE 0.9% 500 ML IVPB SCH (09:57)
[2017-10-09] MEDS: oxyCODONE-APAP 10-325MG 1 EACH TAB PO SCH ×3 (11:14→21:45)
[2017-10-09] MEDS ORDERED: INSULIN ASPART 100 UNIT/ML 1 ML 10 ML VIAL SQ SCH ×2 (11:15→12:00)
[2017-10-09 11:40] LABS: Glucose,Whole Blood 149 mg/dL (75-99)
[2017-10-09] MEDS: PREGABALIN 75 MG CAP PO SCH ×3 (11:52→20:19)
[2017-10-09 16:16] LABS: Glucose,Whole Blood 150 mg/dL (75-99)
[2017-10-09] MEDS: INSULIN ASPART 100 UNIT/ML 1 ML 10 ML VIAL SQ SCH ×3 (17:00→23:48)
[2017-10-09] MEDS ORDERED: WARFARIN 5 MG TAB PO SCH (18:00)
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
[2017-10-09 20:12] LABS: Glucose,Whole Blood 140 mg/dL (75-99)
[2017-10-09] MEDS: PRIMIDONE 50 MG TAB PO SCH (20:18)
[2017-10-09] MEDS: traZODone HCL 100 MG TAB PO SCH (20:18)
[2017-10-09] MEDS: tiZANidine 4 MG TAB PO SCH (20:18)
[2017-10-09] MEDS: TOPIRAMATE 25 MG TAB PO SCH (20:18)
[2017-10-09] MEDS: COLLAGENASE 250 UNIT/GM OINTMENT 30 GM TUBE TOPICAL SCH (21:45)
[2017-10-09] MEDS: SODIUM CHLORIDE 0.9% 1,000 ML IV SCH (23:37)
[2017-10-09 23:47] LABS: Glucose,Whole Blood 134 mg/dL (75-99)
[2017-10-10] MEDS: PROPOFOL 1,000 MG in EMPTY BAG 1 BAG IV SCH ×4 (01:19→08:48)
[2017-10-10] MEDS: VANCOMYCIN 2,500 MG in SODIUM CHLORIDE 0.9% 500 ML IVPB SCH (01:33)
[2017-10-10 04:01] LABS: Glucose,Whole Blood 138 mg/dL (75-99)
[2017-10-10] MEDS: INSULIN ASPART 100 UNIT/ML 1 ML 10 ML VIAL SQ SCH ×6 (04:02→23:46)
[2017-10-10 04:31] LABS: ABG Base Excess -2.5 mmol/L; ABG HCO3 22 mmol/L (21-25); ABG Oxygen Saturation 98.5 % (94-97); ABG PCO2 36 mmHg (35-45); ABG PO2 91 mmHg (83-108); ABG TCO2 23 mmol/L (19-24)
[2017-10-10 04:59] LABS: Basophils % (A) 0 %; Eosinophils % (A) 0 %; HCT 31.4 % (39.0-53.0); HGB 10.5 gm/dL (13.0-17.5); Lymphocytes # (A) 1.2 k/uL (1.0-4.8); Lymphocytes % (A) 10 %; MCH 30.4 pg (25.0-35.0); MCHC 33.4 g/dL (31.0-37.0); Mean Platelet Volume 7.6; Monocytes # (A) 0.4 k/uL (0-1.0); Monocytes % (A) 3 %; Neutrophils % (A) 86 %; Platelet Count 251 k/uL (150-450); RBC 3.45 m/uL (4.30-5.90); RDW 14.9 % (11.5-15.5); WBC 11.7 k/uL (3.8-10.6)
[2017-10-10 05:16] LABS: Anion Gap 4 mmol/L; Blood Urea Nitrogen 12 mg/dL (9-20); Calcium 8.4 mg/dL (8.4-10.2); Carbon Dioxide 22 mmol/L (22-30); Chloride 115 mmol/L (98-107); Glucose 133 mg/dL (74-99); Magnesium 2.2 mg/dL (1.6-2.3); Phosphorus 2.2 mg/dL (2.5-4.5); Potassium 3.6 mmol/L (3.5-5.1); Sodium 141 mmol/L (137-145)
[2017-10-10] MEDS: AMPICILLIN-SULBACTAM 3 GM in SODIUM CHLORIDE 0.9% 100 ML IVPB SCH ×4 (06:12→23:27)
[2017-10-10] MEDS: POTASSIUM CHLORIDE 10 MEQ in WATER FOR INJECTION 1 100ML.BAG IVPB SCH ×2 (06:46→08:49)
--- NOTE | 2017-10-10 07:13 | P.PN ---
Subjective Progress Note Date: 10/10/17 This patient is known to me for his neurogenic bladder and paraplegia. He has had an indwelling catheter now for some time. Apparently the catheter was placed and appropriately in the prosthetic or urethra with the balloon insufflated. He went into urinary retention and developed a urinary tract infection with sepsis. Dr. woods had to place a suprapubic tube over the weekend. It is draining appropriately. He is still on pressors and the ventilator. Once he recuperates will either have to lace a more permanent suprapubic tube or deal with his urethra Objective - Vital Signs Vital signs: Vital Signs Temp 98.6 F 10/10/17 04:00 Pulse 68 10/10/17 06:00 Resp 16 10/10/17 06:00 BP 119/74 10/10/17 00:00 Pulse Ox 98 10/10/17 06:00 Intake & Output 10/09/17 10/10/17 10/10/17 18:59 06:59 18:59 Intake Total 1948.782 5252.927 Output Total 2490 1450 Balance -543.196 871.927 Weight 145.15 kg 150.4 kg Intake: IV 850 1901 Ampicillin-Sulbactam 3 gm 300 In Sodium Chloride 0.9% 100 ml @ 100 mls/hr IVPB ONCE STA Rx#:[id number] Potassium Chloride 10 meq 100 In Water For Injection 1 100ml.bag @ 100 mls/hr IVPB Q1H [facility] Rx#: [id number] Pressure Bag 0.9 33 Sodium Chloride 0.9% 1, 750 900 000 ml @ 75 mls/hr IV . [id number] [facility] Rx#:[id number] Vancomycin 2,500 mg In 668 Sodium Chloride 0.9% 500 ml @ 167 mls/hr IVPB Q16H [facility] Rx#:[id number] Intake, IV Titration 1096.804 420.927 Amount Fluconazole in NaCl,Iso- 50 Osm 100 mg In Saline 1 50ml.bag @ 50 mls/hr IVPB DAILY [facility] Rx#:[id number] Magnesium Sulfate-D5w Pmx 100 1 gm In Dextrose/Water 1 100ml.bag @ 100 mls/hr IVPB Q1H [facility] Rx#: [id number] Norepinephrine 16 mg In 67.701 50.994 Dextrose 5% in Water 250 ml @ Titrate IV .Q0M [facility] Rx#:[id number] Propofol 1,000 mg In 379.103 369.933 Empty Bag 1 bag @ Titrate IV .Q0M [facility] Rx#: [id number] Vancomycin 2,500 mg In 500 Sodium Chloride 0.9% 500 ml @ 167 mls/hr IVPB Q16H [facility] Rx#:[id number] Output: Gastric Drainage 300 400 Urine 2190 1050 Other: Voiding Method Indwelling Catheter Indwelling Catheter ABP, PAP, CO, CI - Last Documented Arterial Blood Pressure 126/66 - Labs CBC & Chem 7: 10/10/17 04:50 10/10/17 04:50 Labs: Abnormal Lab Results - Last 24 Hours (Table) 10/09/17 10/09/17 10/09/17 Range/Units 09:25 11:38 16:12 WBC (3.8-10.6) k/uL RBC (4.30-5.90) m/uL Hgb (13.0-17.5) gm/dL Hct (39.0-53.0) % Neutrophils # (1.3-7.7) k/uL ABG O2 Saturation (94-97) % Chloride (98-107) mmol/L Creatinine (0.66-1.25) mg/dL Glucose (74-99) mg/dL POC Glucose (mg/dL) 149 H 150 H (75-99) mg/dL Phosphorus (2.5-4.5) mg/dL Urine Protein 2+ H (Negative) Urine Blood Large H (Negative) Ur Leukocyte Esterase Large H (Negative) Urine RBC >182 H (0-5) /hpf Urine Bacteria Rare H (None) /hpf 10/09/17 10/09/17 10/10/17 Range/Units 20:10 23:45 03:59 WBC (3.8-10.6) k/uL RBC (4.30-5.90) m/uL Hgb (13.0-17.5) gm/dL Hct (39.0-53.0) % Neutrophils # (1.3-7.7) k/uL ABG O2 Saturation (94-97) % Chloride (98-107) mmol/L Creatinine (0.66-1.25) mg/dL Glucose (74-99) mg/dL POC Glucose (mg/dL) 140 H 134 H 138 H (75-99) mg/dL Phosphorus (2.5-4.5) mg/dL Urine Protein (Negative) Urine Blood (Negative) Ur Leukocyte Esterase (Negative) Urine RBC (0-5) /hpf Urine Bacteria (None) /hpf 10/10/17 10/10/17 10/10/17 Range/Units 04:25 04:50 04:50 WBC 11.7 H (3.8-10.6) k/uL RBC 3.45 L (4.30-5.90) m/uL Hgb 10.5 L (13.0-17.5) gm/dL Hct 31.4 L (39.0-53.0) % Neutrophils # 10.0 H (1.3-7.7) k/uL ABG O2 Saturation 98.5 H (94-97) % Chloride 115 H (98-107) mmol/L Creatinine 0.60 L (0.66-1.25) mg/dL Glucose 133 H (74-99) mg/dL POC Glucose (mg/dL) (75-99) mg/dL Phosphorus 2.2 L (2.5-4.5) mg/dL Urine Protein (Negative) Urine Blood (Negative) Ur Leukocyte Esterase (Negative) Urine RBC (0-5) /hpf Urine Bacteria (None) /hpf Microbiology - Last 24 Hours (Table) 10/09/17 03:05 Urine Culture - Preliminary Urine,Catheterized 10/09/17 03:49 Gram Stain - Preliminary Sputum Sputum Culture - Preliminary
--- NOTE | 2017-10-10 07:53 | XR ---
EXAMINATION TYPE: XR chest 1V DATE OF EXAM: 10/10/2017 COMPARISON: 10/09/2017 HISTORY: 61-year-old male intubated TECHNIQUE: Single frontal view of the chest is obtained. FINDINGS: ET tube satisfactory. NG tube courses below the diaphragm. Right IJ CVC tip remains in the upper rig ht atrium. Plate and screw fixation right clavicular shaft and posterior fusion hardware cervicothora cic junction. The patient is rotated towards the right altering the normal cardiac and mediastinal contours. There seems to be further volume loss at the right base with elevation of the right hemidiaphragm. Heart mi ldly enlarged. Right base suboptimally assessed due to loss of volume here. IMPRESSION: Limited rotated exam. Satisfactory ET tube. Loss of volume at the right base. There could be underlyi ng small effusion or atelectasis or infiltrate.
[2017-10-10 08:28] LABS: INR 1.9 (<1.2); Prothrombin Time 17.3 sec (9.0-12.0)
[2017-10-10] MEDS: NOREPINEPHRINE 16 MG in DEXTROSE 5% IN WATER 250 ML IV SCH ×2 (08:48)
[2017-10-10 08:54] LABS: Glucose,Whole Blood 112 mg/dL (75-99)
[2017-10-10] MEDS: HYDROCORTISONE SUCCINATE 100 MG/2 ML VIAL IV SCH ×3 (08:54→23:32)
[2017-10-10] MEDS: CHLORHEXIDINE GLUCONATE 15 ML CUP MUCOUS MEM SCH (08:54)
[2017-10-10] MEDS: DOCUSATE 100 MG CAP PO SCH ×2 (08:55→21:02)
[2017-10-10] MEDS: ESCITALOPRAM 20 MG TAB PO SCH (08:55)
[2017-10-10] MEDS: PANTOPRAZOLE 40 MG TABLET PO SCH (08:55)
[2017-10-10] MEDS: OXYBUTYNIN CHLORIDE 5 MG TAB PO SCH ×2 (08:57→21:03)
[2017-10-10] MEDS: LACTULOSE 20 GM/30 ML CUP PO SCH (08:57)
[2017-10-10] MEDS: oxyCODONE-APAP 10-325MG 1 EACH TAB PO SCH ×3 (09:02→21:02)
[2017-10-10] MEDS: PREGABALIN 75 MG CAP PO SCH ×3 (09:06→21:01)
[2017-10-10] MEDS: FLUCONAZOLE IN NACL,ISO-OSM 100 MG in SALINE 1 50ML.BAG IVPB SCH (09:16)
[2017-10-10] MEDS: FLUDROCORTISONE 0.1 MG TAB PO SCH (10:20)
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
[2017-10-10 12:05] LABS: Glucose,Whole Blood 95 mg/dL (75-99)
[2017-10-10] MEDS: SODIUM CHLORIDE 0.9% 1,000 ML IV SCH (12:49)
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
[2017-10-10] MEDS: SUMAtriptan SUCCINATE 50 MG TAB PO PRN (15:50)
[2017-10-10 16:54] LABS: Glucose,Whole Blood 99 mg/dL (75-99)
[2017-10-10] MEDS: TOPIRAMATE 25 MG TAB PO SCH (21:03)
[2017-10-10] MEDS: PRIMIDONE 50 MG TAB PO SCH (21:03)
[2017-10-10] MEDS: tiZANidine 4 MG TAB PO SCH (21:04)
[2017-10-10] MEDS: traZODone HCL 100 MG TAB PO SCH (21:05)
[2017-10-10 21:10] LABS: Glucose,Whole Blood 142 mg/dL (75-99)
[2017-10-10] MEDS: ZOLPIDEM 10 MG TAB PO PRN (22:49)
[2017-10-10] MEDS: COLLAGENASE 250 UNIT/GM OINTMENT 30 GM TUBE TOPICAL SCH (22:51)
[2017-10-10 23:42] LABS: Glucose,Whole Blood 134 mg/dL (75-99)
[2017-10-11] MEDS: VANCOMYCIN 2,000 MG in SODIUM CHLORIDE 0.9% 500 ML IVPB SCH (00:35)
[2017-10-11] MEDS: SODIUM CHLORIDE 0.9% 1,000 ML IV SCH ×2 (04:19→17:03)
[2017-10-11 04:27] LABS: Glucose,Whole Blood 133 mg/dL (75-99)
[2017-10-11] MEDS: INSULIN ASPART 100 UNIT/ML 1 ML 10 ML VIAL SQ SCH ×5 (04:28→22:10)
[2017-10-11 04:56] LABS: Basophils % (A) 0 %; Eosinophils % (A) 0 %; Lymphocytes # (A) 1.2 k/uL (1.0-4.8); Lymphocytes % (A) 14 %; MCH 30.5 pg (25.0-35.0); MCHC 33.4 g/dL (31.0-37.0); MCV 91.3 fL (80.0-100.0); Mean Platelet Volume 7.1; Monocytes # (A) 0.3 k/uL (0-1.0); Monocytes % (A) 3 %; Neutrophils # (A) 6.9 k/uL (1.3-7.7); Neutrophils % (A) 82 %; Platelet Count 223 k/uL (150-450); RBC 2.96 m/uL (4.30-5.90); RDW 14.8 % (11.5-15.5); WBC 8.5 k/uL (3.8-10.6)
[2017-10-11 05:05] LABS: Anion Gap 3 mmol/L; Blood Urea Nitrogen 14 mg/dL (9-20); Calcium 8.2 mg/dL (8.4-10.2); Carbon Dioxide 26 mmol/L (22-30); Chloride 114 mmol/L (98-107); Glucose 123 mg/dL (74-99); Phosphorus 2.2 mg/dL (2.5-4.5); Potassium 3.6 mmol/L (3.5-5.1); Sodium 143 mmol/L (137-145)
[2017-10-11 05:08] LABS: INR 1.4 (<1.2); Prothrombin Time 12.8 sec (9.0-12.0)
[2017-10-11] MEDS ORDERED: POTASSIUM CHLORIDE ER 20 MEQ TAB.ER PO SCH (06:00)
[2017-10-11] MEDS: AMPICILLIN-SULBACTAM 3 GM in SODIUM CHLORIDE 0.9% 100 ML IVPB SCH (06:01)
[2017-10-11] MEDS: HYDROCORTISONE SUCCINATE 100 MG/2 ML VIAL IV SCH ×2 (07:58→16:57)
[2017-10-11] MEDS: DOCUSATE 100 MG CAP PO SCH ×2 (07:59→22:05)
[2017-10-11] MEDS: PANTOPRAZOLE 40 MG TABLET PO SCH (07:59)
[2017-10-11] MEDS: OXYBUTYNIN CHLORIDE 5 MG TAB PO SCH ×2 (07:59→22:05)
[2017-10-11] MEDS: LACTULOSE 20 GM/30 ML CUP PO SCH (08:00)
[2017-10-11] MEDS: FLUDROCORTISONE 0.1 MG TAB PO SCH (08:00)
[2017-10-11] MEDS: ESCITALOPRAM 20 MG TAB PO SCH (08:00)
[2017-10-11] MEDS: PREGABALIN 75 MG CAP PO SCH ×3 (08:04→22:04)
[2017-10-11] MEDS: FLUCONAZOLE IN NACL,ISO-OSM 100 MG in SALINE 1 50ML.BAG IVPB SCH (08:05)
[2017-10-11 08:17] LABS: Glucose,Whole Blood 112 mg/dL (75-99)
[2017-10-11] MEDS: oxyCODONE-APAP 10-325MG 1 EACH TAB PO SCH ×3 (08:20→22:06)
[2017-10-11] MEDS: SUMAtriptan SUCCINATE 50 MG TAB PO PRN (09:10)
[2017-10-11] MEDS: CEFEPIME 2 GM in SODIUM CHLORIDE 0.9% 50 ML IVPB SCH ×2 (10:48→22:04)
[2017-10-11] MEDS: ENOXAPARIN 40 MG/0.4 ML SYRINGE SQ SCH (10:48)
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
[2017-10-11] MEDS ORDERED: LORazepam 2 MG/ML INJ IV PRN (11:30)
[2017-10-11 12:19] LABS: Glucose,Whole Blood 114 mg/dL (75-99)
[2017-10-11] MEDS: amLODIPine 5 MG TAB PO SCH ×2 (12:50→22:09)
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
[2017-10-11 18:07] LABS: Glucose,Whole Blood 123 mg/dL (75-99)
[2017-10-11] MEDS: PRIMIDONE 50 MG TAB PO SCH (22:05)
[2017-10-11] MEDS: tiZANidine 4 MG TAB PO SCH (22:06)
[2017-10-11] MEDS: TOPIRAMATE 25 MG TAB PO SCH (22:06)
[2017-10-11] MEDS: traZODone HCL 100 MG TAB PO SCH (22:06)
[2017-10-11] MEDS: COLLAGENASE 250 UNIT/GM OINTMENT 30 GM TUBE TOPICAL SCH (22:10)
[2017-10-12] MEDS: ZOLPIDEM 10 MG TAB PO PRN ×2 (00:28→20:56)
[2017-10-12] MEDS: HYDROCORTISONE SUCCINATE 100 MG/2 ML VIAL IV SCH ×2 (00:28→10:18)
[2017-10-12] MEDS: VANCOMYCIN 2,000 MG in SODIUM CHLORIDE 0.9% 500 ML IVPB SCH ×2 (01:18→23:49)
[2017-10-12 06:03] LABS: Basophils % (A) 0 %; Eosinophils # (A) 0.1 k/uL (0-0.7); Eosinophils % (A) 1 %; HCT 27.9 % (39.0-53.0); HGB 9.1 gm/dL (13.0-17.5); Lymphocytes # (A) 1.5 k/uL (1.0-4.8); Lymphocytes % (A) 24 %; MCH 30.2 pg (25.0-35.0); MCHC 32.5 g/dL (31.0-37.0); Mean Platelet Volume 7.8; Monocytes # (A) 0.3 k/uL (0-1.0); Monocytes % (A) 4 %; Neutrophils # (A) 4.4 k/uL (1.3-7.7); Neutrophils % (A) 69 %; Platelet Count 228 k/uL (150-450); RDW 15.1 % (11.5-15.5); WBC 6.4 k/uL (3.8-10.6)
[2017-10-12 06:37] LABS: Anion Gap 3 mmol/L; Blood Urea Nitrogen 15 mg/dL (9-20); Calcium 8.1 mg/dL (8.4-10.2); Carbon Dioxide 25 mmol/L (22-30); Chloride 113 mmol/L (98-107); Glucose 107 mg/dL (74-99); Phosphorus 2.3 mg/dL (2.5-4.5); Potassium 3.8 mmol/L (3.5-5.1); Sodium 141 mmol/L (137-145)
[2017-10-12] MEDS: INSULIN ASPART 100 UNIT/ML 1 ML 10 ML VIAL SQ SCH ×4 (06:51→21:22)
[2017-10-12 06:54] LABS: Glucose,Whole Blood 96 mg/dL (75-99)
--- NOTE | 2017-10-12 07:46 | XR ---
EXAMINATION TYPE: XR chest 1V DATE OF EXAM: 10/12/2017 COMPARISON: 10/10/2017 HISTORY: 61-year-old male intubated, shortness of breath TECHNIQUE: Single frontal view of the chest is obtained. FINDINGS: Plate and screw fixation right clavicle. Posterior fusion hardware cervicothoracic junction. Interval extubation, removal of right-sided central line, and NG tube. Heart remains borderline enlarged. Pat ient remains rotated altering the normal cardiomediastinal contours. The right hemidiaphragm is now i mproved in position. Some residual strandy atelectasis in the lower lungs. IMPRESSION: Persistent rotated exam with borderline heart size, now normal positioning of the right hemidiaphragm , and some mild residual strandy bibasilar areas of atelectasis.
[2017-10-12] MEDS: amLODIPine 5 MG TAB PO SCH ×2 (10:17→20:48)
[2017-10-12] MEDS: PANTOPRAZOLE 40 MG TABLET PO SCH (10:17)
[2017-10-12] MEDS: DOCUSATE 100 MG CAP PO SCH ×2 (10:17→20:54)
[2017-10-12] MEDS: ENOXAPARIN 40 MG/0.4 ML SYRINGE SQ SCH (10:17)
[2017-10-12] MEDS: FLUDROCORTISONE 0.1 MG TAB PO SCH (10:17)
[2017-10-12] MEDS: PREGABALIN 75 MG CAP PO SCH ×3 (10:18→20:53)
[2017-10-12] MEDS: SODIUM CHLORIDE 0.9% 1,000 ML IV SCH ×2 (10:18→18:34)
[2017-10-12] MEDS: FLUCONAZOLE IN NACL,ISO-OSM 100 MG in SALINE 1 50ML.BAG IVPB SCH (10:19)
[2017-10-12] MEDS: ESCITALOPRAM 20 MG TAB PO SCH (10:20)
[2017-10-12] MEDS: LACTULOSE 20 GM/30 ML CUP PO SCH (10:21)
[2017-10-12] MEDS: oxyCODONE-APAP 10-325MG 1 EACH TAB PO SCH ×3 (10:21→20:56)
[2017-10-12] MEDS: OXYBUTYNIN CHLORIDE 5 MG TAB PO SCH ×2 (10:23→20:54)
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
[2017-10-12] MEDS ORDERED: ALBUTEROL NEBULIZED 2.5 MG/3 ML INHALATION PRN (11:01)
[2017-10-12] MEDS: CEFEPIME 2 GM in SODIUM CHLORIDE 0.9% 50 ML IVPB SCH ×2 (11:43→20:53)
[2017-10-12 11:52] LABS: Glucose,Whole Blood 97 mg/dL (75-99)
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
[2017-10-12 16:29] LABS: Glucose,Whole Blood 176 mg/dL (75-99)
--- NOTE | 2017-10-12 16:57 | P.PN ---
Progress Note - Text Progress Note Date: 10/12/17 Interval History: Patient is a 61-year-old male who was seen yesterday in a psychiatric consultation the patient refused to continue the consultation and asked me to leave. Patient was continued on a one-to-one sitter because he had voiced the statement that he was going to kill himself if transferred from the ICU. Patient is now being seen on the select care unit. Patient states that he didn't want to leave the room and there, and states that he was in a good mood until he found out that his PICC line wouldn't be placed till tomorrow, his medications will be completed until later in the day and that would mean a transfer in the afternoon and he doesn't like them. Patient states he is concerned because his is distraught because he is in the hospital and she is at [facility]. Patient reported that he doesn't like p.m. transfers, and then went on to complain about his going to pay for the transfer because he's got some many pills for transfer services and he has never the money to pay them. When I asked him if he was planning on killing himself yesterday if he was moved out of the ICU he said well "I'm not there now". He states he thought about suicide in the past but has never made an attempt and states his prevents him from acting on his thoughts. Patient went on to complain about the mattress, sheets and his pillow. Patient stated that he had talked to a counselor that sees his from hospice and found it not helpful, stated to me that "you would find it helpful that her profession". He stated that why would that help me nothing can fix this. Patient stated he wasn't interested in seeing a counselor. Mental Status: Appearance/Attitude: Patient is lying in bed, in no acute distress makes only brief eye contact was superficially cooperative Behavior: Patient did not exhibit any psychomotor agitation or retardation, patient is able to move both arms and role himself from side to side Speech/Language: Patient's speech was spontaneous and normal volume and rhythm and he is coherent Thought Process: Patient was goal-directed there is no evidence of loose association or flight of ideas however he was reluctant to elaborate on any of his comments. Thought Content: Patient denied any auditory or visual hallucinations no delusions or paranoid ideation were elicited. Patient denied feeling depressed , stated that he is not interested in speaking with anyone complained about the cost of transfers and why he is always billed as well as complained about the sheets not fitting, his pillow not being covered. Patient stated he is eating. Suicidal/Homicidal Ideation: Patient denied any current suicidal or homicidal ideation Sensorium/Cognition: She is alert and oriented to person, place, and time and his recent and remote memory are grossly intact Mood/Affect: Patient's mood is superficially cooperative, affect is appropriate Insight/Judgment: Patient's insight and judgment are fair Assessment: Spoke with patient today regarding his statements yesterday and patient was superficially cooperative not really discussing it instead complaining about a late discharge, the fact that he is billed for transfers been complained about his mattress his sheets and fit not fitting and not having a pillowcase. Patient stated he is not interesting counseling because it hasn't helped, and why would help. Patient is already currently taking Lexapro 20 mg a day. Patient denied that he was currently suicidal at this time and stated he didn't want to move because he didn't want to change rooms cozy liked the care in the intensive care unit. Plan: I will discontinue the patient's one-to-one sitter, the patient does not require an inpatient psychiatric admission. Would continue the patient on Lexapro 20 mg daily as he has been taking. Patient is not interested in any counseling to discuss any of his issues or concerns regarding his , her chronic illness, and his current medical condition. I will sign off the case further questions or concerns please don't hesitate to contact me
[2017-10-12] MEDS: PRIMIDONE 50 MG TAB PO SCH (20:54)
[2017-10-12] MEDS: TOPIRAMATE 25 MG TAB PO SCH (20:55)
[2017-10-12] MEDS: traZODone HCL 100 MG TAB PO SCH (20:55)
[2017-10-12 21:06] LABS: Glucose,Whole Blood 96 mg/dL (75-99)
[2017-10-12] MEDS: tiZANidine 4 MG TAB PO SCH (21:21)
[2017-10-12] MEDS: COLLAGENASE 250 UNIT/GM OINTMENT 30 GM TUBE TOPICAL SCH (21:22)
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
[2017-10-13 06:11] LABS: Basophils % (A) 0 %; Eosinophils # (A) 0.3 k/uL (0-0.7); Eosinophils % (A) 5 %; HCT 26.6 % (39.0-53.0); HGB 8.8 gm/dL (13.0-17.5); Lymphocytes # (A) 2.4 k/uL (1.0-4.8); Lymphocytes % (A) 39 %; MCH 30.3 pg (25.0-35.0); MCHC 32.9 g/dL (31.0-37.0); MCV 92.1 fL (80.0-100.0); Mean Platelet Volume 7.1; Monocytes # (A) 0.3 k/uL (0-1.0); Monocytes % (A) 6 %; Neutrophils # (A) 2.9 k/uL (1.3-7.7); Neutrophils % (A) 48 %; Platelet Count 251 k/uL (150-450); RBC 2.89 m/uL (4.30-5.90)
[2017-10-13 06:11] LABS: Glucose,Whole Blood 88 mg/dL (75-99)
[2017-10-13 06:24] LABS: INR 1.1 (<1.2); Prothrombin Time 10.9 sec (9.0-12.0)
[2017-10-13 06:29] LABS: Anion Gap 3 mmol/L; Blood Urea Nitrogen 14 mg/dL (9-20); Carbon Dioxide 27 mmol/L (22-30); Chloride 113 mmol/L (98-107); Glucose 84 mg/dL (74-99); Magnesium 1.9 mg/dL (1.6-2.3); Phosphorus 2.8 mg/dL (2.5-4.5); Potassium 3.5 mmol/L (3.5-5.1); Sodium 143 mmol/L (137-145)
[2017-10-13 06:30] LABS: Calcium 8.4 mg/dL (8.4-10.2)
[2017-10-13] MEDS: INSULIN ASPART 100 UNIT/ML 1 ML 10 ML VIAL SQ SCH ×2 (06:31→12:04)
[2017-10-13] MEDS: amLODIPine 5 MG TAB PO SCH (10:03)
[2017-10-13] MEDS: PANTOPRAZOLE 40 MG TABLET PO SCH (10:03)
[2017-10-13] MEDS: ESCITALOPRAM 20 MG TAB PO SCH (10:04)
[2017-10-13] MEDS: DOCUSATE 100 MG CAP PO SCH (10:04)
[2017-10-13] MEDS: FLUDROCORTISONE 0.1 MG TAB PO SCH (10:04)
[2017-10-13] MEDS: LACTULOSE 20 GM/30 ML CUP PO SCH (10:04)
[2017-10-13] MEDS: OXYBUTYNIN CHLORIDE 5 MG TAB PO SCH (10:05)
[2017-10-13] MEDS: oxyCODONE-APAP 10-325MG 1 EACH TAB PO SCH (10:07)
[2017-10-13] MEDS: CEFEPIME 2 GM in SODIUM CHLORIDE 0.9% 50 ML IVPB SCH (10:09)
[2017-10-13] MEDS: PREGABALIN 75 MG CAP PO SCH ×2 (10:09→14:01)
[2017-10-13] MEDS ORDERED: LIDOCAINE 2% SYG (PF) 100 MG/5 ML MISCELLANE ONE (11:05)
[2017-10-13 11:11] VITALS: PULSE 63; RESP 20
--- NOTE | 2017-10-13 11:40 | XR ---
EXAMINATION TYPE: XR chest 1V confirm line [facility] DATE OF EXAM: 10/13/2017 CLINICAL HISTORY: PICC line placement. TECHNIQUE: Single AP portable supine view of the chest is obtained. COMPARISON: Chest x-ray from one day earlier FINDINGS: There is new right-sided PICC line terminating near brachiocephalic confluence. Surgical change upper thoracic spine is redemonstrated. Surgical change to right clavicle is again se en. There is persistent cardiomegaly. Visualized lungs are clear. Osseous structures are intact. IMPRESSION: As above.
--- NOTE | 2017-10-13 11:40 | IR ---
EXAMINATION TYPE: IR cvc insert >=5 years DATE OF EXAM: 10/13/2017 COMPARISON: NONE HISTORY: Infection, needs long-term intravenous access for antibiotics FINDINGS: Maximal barrier technique was utilized, ultrasound used with sterile technique. The skin o verlying the right basilic vein was localized with ultrasound and noted to be compressible and patent by ultrasound. An ultrasound image was obtained and submitted on patient's chart. Sterile technique utilized with the ultrasound machine. The skin overlying was prepped and draped and Lidocaine used f or local anesthesia. A skin amy was made with a scalpel. Access was gained to the vein under dire t ultrasound guidance with a 21-gauge needle and a 0.018 inch wire was advanced. Access site was dil ated with a peel-away sheath and the catheter tailored to length. Catheter advanced centrally and a post procedure chest x-ray verified placement, tip in the superior vena cava. Catheter was fixed to the skin and a sterile dressing placed. Hemostasis achieved and the catheter was aspirated and flush ed with sterile saline. The patient remained in stable condition. IMPRESSION: STATUS POST ULTRASOUND GUIDED PICC LINE PLACEMENT, READY FOR USE. THIS PROCEDURE WAS PER FORMED BY THE UNDERSIGNED.
--- NOTE | 2017-10-13 11:41 | XR ---
EXAMINATION TYPE: XR chest 1V confirm line [facility] DATE OF EXAM: 10/13/2017 COMPARISON: Prior chest x-ray exam same date earlier time HISTORY: PICC line manipulation, placement TECHNIQUE: Single frontal view of the chest is obtained. FINDINGS: There is been interval repositioning of the PICC line, distal tip is overlying superior ve na cava. No significant interval change. IMPRESSION: No evident complication status post PICC line placement.
[2017-10-13 11:47] LABS: Glucose,Whole Blood 114 mg/dL (75-99)
[2017-10-13] MEDS: FLUCONAZOLE IN NACL,ISO-OSM 100 MG in SALINE 1 50ML.BAG IVPB SCH (11:54)
--- NOTE | 2017-10-13 13:20 | P.PN ---
Subjective Progress Note Date: 10/13/17 The patient is recuperating from urinary tract infection with sepsis due to an obstructing urethral catheter. He also said pneumonia. He has a percutaneous suprapubic tube. At some point in time he'll need a repeat cystoscopy and either replacement of the Rodriguez catheter or under an anesthetic a more formal type of suprapubic tube. This has been discussed with the patient. Objective - Vital Signs Vital signs: Vital Signs Temp 96.5 F L 10/13/17 10:00 Pulse 63 10/13/17 10:00 Resp 20 10/13/17 10:00 BP 102/64 10/13/17 10:00 Pulse Ox 98 10/13/17 10:00 Intake & Output 10/12/17 10/13/17 10/13/17 18:59 06:59 18:59 Intake Total 817 660 360 Output Total 1150 500 500 Balance -333 160 -140 Intake: Intake, IV Titration 660 Amount Sodium Chloride 0.9% 1, 160 000 ml @ 20 mls/hr IV . Q24H [facility]Y Rx#:[id number] Vancomycin 2,000 mg In 500 Sodium Chloride 0.9% 500 ml @ 167 mls/hr IVPB Q24H [facility] Rx#:[id number] Oral 817 360 Output: Urine 1150 500 500 Suprapubic 500 Other: Voiding Method Indwelling Catheter Indwelling Catheter Indwelling Catheter # Voids 1 # Bowel Movements 0 ABP, PAP, CO, CI - Last Documented Arterial Blood Pressure 118/61 - Labs CBC & Chem 7: 10/13/17 05:55 10/13/17 05:55 Labs: Abnormal Lab Results - Last 24 Hours (Table) 10/12/17 10/13/17 10/13/17 Range/Units 16:27 05:55 05:55 RBC 2.89 L (4.30-5.90) m/uL Hgb 8.8 L (13.0-17.5) gm/dL Hct 26.6 L (39.0-53.0) % Chloride 113 H (98-107) mmol/L POC Glucose (mg/dL) 176 H (75-99) mg/dL 10/13/17 Range/Units 11:43 RBC (4.30-5.90) m/uL Hgb (13.0-17.5) gm/dL Hct (39.0-53.0) % Chloride (98-107) mmol/L POC Glucose (mg/dL) 114 H (75-99) mg/dL Microbiology - Last 24 Hours (Table) 10/09/17 04:55 Blood Culture - Preliminary Blood No Growth after 96 hours 10/09/17 03:49 Gram Stain - Final Sputum Sputum Culture - Final Methicillin resist S. aureus
[2017-10-13 13:44] VITALS: BP 117/76; TEMP 97.1
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
[2017-10-13] MEDS ORDERED: VANCOMYCIN TROUGH DUE 1 EACH MISC MISCELLANE ONE (23:00)
--- NOTE | 2017-10-14 12:03 | CDI ---
Last Revision, February 2017 Documentation Clarification Form Date: 10/1017 From: Carolin Zaheer Rosemary Bautista, Die Mechanic Hours-8:30 am & 5 pm Manuela Admit Date: 10/08/2017 6:51:00 PM Patient Name: Dioni Linton Visit Number: [id number] Discharge Date: 10/13/17 ATTENTION: The Clinical Documentation Specialists (CDI) and [facility] Coding Staff appreciate your assistance in clarifying documentation. Please respond to the clarification below the line at the bottom and electronically sign. The CDI & [facility] Coding staff will review the response and follow-up if needed. Please note: Queries are made part of the Legal Health Record. If you have any questions, please contact the author of this message via ITS. Chandana Sierra MD Patient admitted with a UTI per ED note, H&P & DS. History/Risk factors: indwelling Rodriguez with history of UTI Per documentation in the ED note this patient was admitted with an indwelling Rodriguez catheter. Transferred to after transferring facility unable to change Rodriguez. Urinalysis: 2+ protein, leukocyte esterse-large, RBC >182 Urine culture: Pseudomonas aeruginosa Treatment: Percutaneous suprapubic cystosomy tube placed, IV antibiotics In your professional opinion, can you please clarify the etiology of the UTI, if known? Rodriguez catheter UTI not related to catheter/urostomy Other condition, please specify Unable to determine Please continue to document in your progress notes and discharge summary in order to capture severity of illness and risk of mortality. Include clinical findings that support your diagnosis. MTDD
== END 2017-10-13 14:56 | DRG 698 ==
LOC: EC 17:30 → 5MS5E 18:51 → 6ICU 10-09 02:34 → 6SEL 10-11 18:31
PROVIDERS: ADMIT Family Medicine; ATTEND Family Medicine
PROC: 5A1945Z Respiratory Ventilation, 24-96 Consecutive Hours (ICD-10-PCS; 2017-10-09)
PROC: 0D9670Z Drainage of Stomach with Drainage Device, Via Natural or Artificial Opening (ICD-10-PCS; 2017-10-09)
PROC: 0T9B30Z Drainage of Bladder with Drainage Device, Percutaneous Approach (ICD-10-PCS; principal; 2017-10-09 01:30)
DX: T83.511A Infection and inflammatory reaction due to indwelling urethral catheter, initial encounter (principal); G82.50 Quadriplegia, unspecified; J96.01 Acute respiratory failure with hypoxia; R65.21 Severe sepsis with septic shock; J15.211 Pneumonia due to Methicillin susceptible Staphylococcus aureus; A41.52 Sepsis due to Pseudomonas; E27.40 Unspecified adrenocortical insufficiency; R45.851 Suicidal ideations; Z68.41 Body mass index [BMI] 40.0-44.9, adult; D62 Acute posthemorrhagic anemia; J98.11 Atelectasis; N39.0 Urinary tract infection, site not specified; N36.5 Urethral false passage; E66.9 Obesity, unspecified; I10 Essential (primary) hypertension; F41.9 Anxiety disorder, unspecified; N31.9 Neuromuscular dysfunction of bladder, unspecified; R31.0 Gross hematuria; N13.9 Obstructive and reflux uropathy, unspecified; R33.9 Retention of urine, unspecified; K21.9 Gastro-esophageal reflux disease without esophagitis; F43.23 Adjustment disorder with mixed anxiety and depressed mood; M21.372 Foot drop, left foot; M21.371 Foot drop, right foot; G89.29 Other chronic pain; G43.909 Migraine, unspecified, not intractable, without status migrainosus; Z16.23 Resistance to quinolones and fluoroquinolones; Z79.01 Long term (current) use of anticoagulants; Z79.891 Long term (current) use of opiate analgesic; Z79.52 Long term (current) use of systemic steroids; Z79.899 Other long term (current) drug therapy; Z86.718 Personal history of other venous thrombosis and embolism; Z86.14 Personal history of Methicillin resistant Staphylococcus aureus infection; Z87.891 Personal history of nicotine dependence; Z86.711 Personal history of pulmonary embolism; Z87.440 Personal history of urinary (tract) infections; Z74.01 Bed confinement status; Z80.1 Family history of malignant neoplasm of trachea, bronchus and lung; Z80.3 Family history of malignant neoplasm of breast
CPT/HCPCS: 36569; 51798; 71045; 76937; 77001; 80048; 80053; 81001; 82805; 83036; 83605; 83735; 84100; 84132; 85025; 85610; 85730; 86850; 86900; 86901; 87040; 87070; 87077; 87086; 87186; 87205; 94002; 94003; 94760; 96374; 96375; 99285

== ENCOUNTER 2017-12-29 21:25 | Inpatient (IN) | payer MEDICARE ==
[2017-12-29] MEDS ORDERED: ACETAMINOPHEN IV (For NPO) 1,000 MG in EMPTY BAG 1 BAG IVPB STA (21:53)
[2017-12-29] MEDS ORDERED: VANCOMYCIN 2,000 MG in SODIUM CHLORIDE 0.9% 250 ML IVPB STA (22:05)
[2017-12-29] MEDS ORDERED: CEFEPIME 2 GM in SODIUM CHLORIDE 0.9% 50 ML IVPB STA (22:05)
[2017-12-29] MEDS ORDERED: VANCOMYCIN 2,000 MG in SODIUM CHLORIDE 0.9% 500 ML 500 ML IVPB STA (22:07)
[2017-12-29 22:37] LABS: Basophils # (A) 0.1 k/uL (0-0.2); Basophils % (A) 0 %; Eosinophils # (A) 0.2 k/uL (0-0.7); Eosinophils % (A) 1 %; HCT 39.7 % (39.0-53.0); HGB 12.7 gm/dL (13.0-17.5); Hypochromasia Slight; Lymphocytes # (A) 2.3 k/uL (1.0-4.8); Lymphocytes % (A) 10 %; MCH 28.8 pg (25.0-35.0); MCHC 32.1 g/dL (31.0-37.0); MCV 89.8 fL (80.0-100.0); Mean Platelet Volume 6.5; Monocytes # (A) 1.2 k/uL (0-1.0); Monocytes % (A) 5 %; Neutrophils # (A) 18.1 k/uL (1.3-7.7); Neutrophils % (A) 82 %; Platelet Count 312 k/uL (150-450); RBC 4.41 m/uL (4.30-5.90); RDW 15.1 % (11.5-15.5)
[2017-12-29] MEDS: SODIUM CHLORIDE 0.9% 500 ML 500 ML IV SCH ×3 (22:44→23:53)
[2017-12-29 22:45] LABS: INR 1.7 (<1.2); Prothrombin Time 15.7 sec (9.0-12.0)
[2017-12-29 22:48] LABS: ALT 25 U/L (21-72); AST 21 U/L (17-59); Albumin 3.4 g/dL (3.5-5.0); Alkaline Phosphatase 80 U/L (38-126); Anion Gap 8 mmol/L; Blood Urea Nitrogen 15 mg/dL (9-20); Calcium 8.7 mg/dL (8.4-10.2); Carbon Dioxide 24 mmol/L (22-30); Chloride 102 mmol/L (98-107); Glucose 100 mg/dL (74-99); Potassium 3.3 mmol/L (3.5-5.1); Sodium 134 mmol/L (137-145); Total Protein 6.4 g/dL (6.3-8.2)
[2017-12-29 23:04] LABS: Creatine Kinase MB 1.6 ng/mL (0.0-2.4); Troponin I 0.019 ng/mL (0.000-0.034)
--- NOTE | 2017-12-29 23:50 | CT ---
EXAMINATION TYPE: CT brain wo con DATE OF EXAM: 12/29/2017 COMPARISON: 01/31/2017 HISTORY: pain CT DLP: 1493.40 mGycm Automated exposure control for dose reduction was used. FINDINGS: Ventricles have normal size. There is no mass effect nor midline shift. There is no sign of intracran ial hemorrhage. The calvarium is intact. IMPRESSION: NEGATIVE CT SCAN OF THE BRAIN. NO CHANGE.
--- NOTE | 2017-12-30 00:05 | CT ---
EXAMINATION TYPE: CT abdomen pelvis w con DATE OF EXAM: 12/29/2017 COMPARISON: 10/01/2015 HISTORY: pain CT DLP: 2685.40 mGycm Automated exposure control for dose reduction was used. TECHNIQUE: Helical acquisition of images was performed from the lung bases through the pelvis. CONTRAST: Performed without Oral Contrast and with IV Contrast, patient injected with 100 mL of Isovue 300. FINDINGS: Lung bases are clear of consolidation. There is no pleural effusion. There is no pericardial effusion . Liver spleen pancreas appear normal. There is probably a 4 mm calcified gallstone. Gallbladder is dis tended. Bile ducts are not dilated. There is no adrenal mass. The kidneys show satisfactory contrast opacification. There is a 3 cm area of relative decreased enhancement in the anterior left kidney. Th ere is no hydronephrosis. There is no retroperitoneal adenopathy. Ureters are not dilated. There is F oley catheter in the urinary bladder. Bladder is empty. The appendix appears normal. I see no intesti nal wall thickening. There is some retained fecal material in the large bowel. There is no sign of fr ee air. The lumbar spine appears intact. There is multilevel spondylotic change. There is no compress ion fracture. Bony pelvis appears intact. IMPRESSION: DISTENDED GALLBLADDER WITH PROBABLE SMALL GALLSTONES THAT ARE INCREASED COMPARED TO OLD CT SCAN. NO D ILATED DUCTS. THERE IS ABNORMAL DECREASED ENHANCEMENT ANTERIOR CORTEX LEFT KIDNEY THAT IS A CHANGE COMPARED TO OLD EXAM. THIS COULD RELATE TO RENAL MASS OR ACUTE PYELONEPHRITIS. FOLLOW-UP IS RECOMMENDED.
--- NOTE | 2017-12-30 00:10 | XR ---
EXAMINATION TYPE: XR chest 1V portable DATE OF EXAM: 12/29/2017 COMPARISON: 10/13/2017 HISTORY: Fever TECHNIQUE: Single frontal view of the chest is obtained. FINDINGS: There is no heart failure nor confluent pneumonic infiltrate. There is a plate fixing the right clavicle. There is posterior cervical thoracic spine fusion surgery. Costophrenic angles are cl ear. There are chest leads. IMPRESSION: No active cardiopulmonary disease. There is removal of the right-sided central venous ca theter compared to old exam.
[2017-12-30] MEDS ORDERED: NALOXONE 0.4 MG/ML 1 ML VIAL IV PRN (00:25)
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
[2017-12-30] MEDS ORDERED: VANCOMYCIN IV PER PHARMACY 1 EACH MISC MISCELLANE PRN (00:26)
[2017-12-30 00:30] LABS: Appearance,Urine Turbid (Clear); Bacteria,Urine Few /hpf; Bilirubin,Urine Negative (Negative); Blood,Urine Moderate (Negative); Color,Urine Light Yellow; Glucose,Urine (UA) Negative (Negative); Ketones,Urine Negative (Negative); Leukocyte Esterase,Urine Large (Negative); Nitrite,Urine Positive (Negative); PH, Urine 6.5 (5.0-8.0); Protein,Urine 1+ (Negative); RBC,Urine 8 /hpf (0-5); Specific Gravity,Urine 1.022 (1.001-1.035); Urobilinogen,Urine <2.0 mg/dL (<2.0); WBC,Urine 99 /hpf (0-5)
[2017-12-30] MEDS ORDERED: diphenhydrAMINE 50 MG/ML 1 ML VIAL IVP STA (00:46)
[2017-12-30] MEDS ORDERED: METOCLOPRAMIDE 5 MG/ML 2 ML VIAL IVP STA (00:46)
[2017-12-30] MEDS ORDERED: KETOROLAC 30 MG/ML 1 ML VIAL IVP STA (00:48)
[2017-12-30] MEDS ORDERED: ACETAMINOPHEN IV (For NPO) 1,000 MG in EMPTY BAG 1 BAG IVPB SCH (01:00)
[2017-12-30] MEDS ORDERED: ACETAMINOPHEN IV (For NPO) 1,000 MG in EMPTY BAG 1 BAG IVPB PRN (01:00)
[2017-12-30] MEDS: SODIUM CHLORIDE 0.9% 1,000 ML IV SCH ×3 (01:22→17:57)
[2017-12-30] MEDS: VANCOMYCIN 2,000 MG in SODIUM CHLORIDE 0.9% 500 ML 500 ML IVPB SCH ×3 (07:51→23:09)
[2017-12-30] MEDS ORDERED: Potassium Replacement Protocol 1 EACH MISC MISCELLANE PRN (10:51)
[2017-12-30] MEDS: DOCUSATE 100 MG CAP PO SCH ×2 (11:52→21:09)
[2017-12-30] MEDS: amLODIPine 5 MG TAB PO SCH ×2 (11:52→21:09)
[2017-12-30] MEDS: DULoxetine HCL 60 MG CAPSULE.DR PO SCH (11:52)
[2017-12-30] MEDS: PANTOPRAZOLE 40 MG TABLET PO SCH (11:53)
[2017-12-30] MEDS: FLUDROCORTISONE 0.1 MG TAB PO SCH (11:53)
[2017-12-30] MEDS: FUROSEMIDE 20 MG TAB PO SCH (11:53)
[2017-12-30] MEDS: OXYBUTYNIN CHLORIDE 5 MG TAB PO SCH ×2 (11:53→21:09)
[2017-12-30] MEDS: SUMAtriptan SUCCINATE 50 MG TAB PO PRN (11:56)
[2017-12-30] MEDS: oxyCODONE-APAP 10-325MG 1 EACH TAB PO SCH ×3 (12:27→21:11)
[2017-12-30] MEDS: POTASSIUM CHLORIDE ER 20 MEQ TAB.ER PO SCH ×2 (12:28→14:29)
[2017-12-30] MEDS: PREGABALIN 75 MG CAP PO SCH ×2 (15:48→21:10)
[2017-12-30] MEDS: ACETAMINOPHEN TAB 325 MG TAB PO PRN (15:53)
[2017-12-30] MEDS: WARFARIN 5 MG TAB PO SCH (18:01)
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
[2017-12-30] MEDS: PIPERACILLIN-TAZOBACTAM 3.375 GM in DEXTROSE/WATER 1 50ML.BAG IVPB SCH (21:09)
[2017-12-30] MEDS: PRIMIDONE 50 MG TAB PO SCH (21:10)
[2017-12-30] MEDS: ZOLPIDEM 5 MG TAB PO SCH (21:11)
[2017-12-30] MEDS: TOPIRAMATE 25 MG TAB PO SCH (21:11)
[2017-12-30] MEDS: tiZANidine 4 MG TAB PO SCH (21:11)
[2017-12-30] MEDS: POLYETHYLENE GLYCOL 3350 17 GM POWD.PACK PO SCH (21:40)
[2017-12-31] MEDS: SODIUM CHLORIDE 0.9% 1,000 ML IV SCH ×3 (00:15→12:49)
[2017-12-31] MEDS: PIPERACILLIN-TAZOBACTAM 3.375 GM in DEXTROSE/WATER 1 50ML.BAG IVPB SCH ×3 (03:19→19:58)
[2017-12-31] MEDS: PANTOPRAZOLE 40 MG TABLET PO SCH (06:33)
[2017-12-31] MEDS ORDERED: VANCOMYCIN TROUGH DUE 1 EACH MISC MISCELLANE ONE (07:00)
[2017-12-31] MEDS: PREGABALIN 75 MG CAP PO SCH ×3 (08:58→21:22)
[2017-12-31] MEDS: amLODIPine 5 MG TAB PO SCH ×2 (08:58→21:21)
[2017-12-31] MEDS: oxyCODONE-APAP 10-325MG 1 EACH TAB PO SCH ×3 (08:59→21:22)
[2017-12-31] MEDS: FUROSEMIDE 20 MG TAB PO SCH (08:59)
[2017-12-31] MEDS: OXYBUTYNIN CHLORIDE 5 MG TAB PO SCH ×2 (08:59→21:22)
[2017-12-31] MEDS: DOCUSATE 100 MG CAP PO SCH ×2 (08:59→21:21)
[2017-12-31] MEDS: DULoxetine HCL 60 MG CAPSULE.DR PO SCH (09:00)
[2017-12-31] MEDS: POLYETHYLENE GLYCOL 3350 17 GM POWD.PACK PO SCH ×2 (09:01→09:02)
[2017-12-31] MEDS: TESTOSTERONE TOPICAL SCH (09:01)
[2017-12-31] MEDS: LACTULOSE 20 GM/30 ML CUP PO SCH (09:02)
[2017-12-31] MEDS: FLUTICASONE 50MCG/SPRAY NASAL 16GM EA NOSTRIL SCH (09:03)
[2017-12-31] MEDS: FLUDROCORTISONE 0.1 MG TAB PO SCH (09:10)
[2017-12-31] MEDS: VANCOMYCIN 2,000 MG in SODIUM CHLORIDE 0.9% 500 ML 500 ML IVPB SCH ×2 (09:10→15:41)
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
[2017-12-31] MEDS: SUMAtriptan SUCCINATE 50 MG TAB PO PRN (12:07)
[2017-12-31] MEDS: WARFARIN 5 MG TAB PO SCH (15:40)
[2017-12-31] MEDS: ACETAMINOPHEN TAB 325 MG TAB PO PRN (19:57)
[2017-12-31] MEDS: tiZANidine 4 MG TAB PO SCH (21:22)
[2017-12-31] MEDS: PRIMIDONE 50 MG TAB PO SCH (21:22)
[2017-12-31] MEDS: ZOLPIDEM 5 MG TAB PO SCH (21:22)
[2017-12-31] MEDS: TOPIRAMATE 25 MG TAB PO SCH (21:22)
[2017-12-31 22:54] LABS: Glucose,Whole Blood 136 mg/dL (75-99)
[2017-12-31 23:48] LABS: Basophils % (A) 0 %; Eosinophils # (A) 0.2 k/uL (0-0.7); Eosinophils % (A) 2 %; HGB 10.5 gm/dL (13.0-17.5); Hypochromasia Slight; Lymphocytes # (A) 1.6 k/uL (1.0-4.8); Lymphocytes % (A) 11 %; MCH 28.6 pg (25.0-35.0); MCHC 31.9 g/dL (31.0-37.0); MCV 89.8 fL (80.0-100.0); Mean Platelet Volume 7.1; Monocytes # (A) 0.6 k/uL (0-1.0); Monocytes % (A) 4 %; Neutrophils # (A) 11.6 k/uL (1.3-7.7); Neutrophils % (A) 80 %; Platelet Count 256 k/uL (150-450); RBC 3.68 m/uL (4.30-5.90); RDW 15.3 % (11.5-15.5); WBC 14.5 k/uL (3.8-10.6)
[2017-12-31 23:57] LABS: INR 1.7 (<1.2); Partial Thromboplastin Time 27.4 sec (22.0-30.0); Prothrombin Time 15.4 sec (9.0-12.0)
[2017-12-31 23:58] LABS: ALT 25 U/L (21-72); AST 19 U/L (17-59); Albumin 2.3 g/dL (3.5-5.0); Alkaline Phosphatase 74 U/L (38-126); Anion Gap 5 mmol/L; Blood Urea Nitrogen 12 mg/dL (9-20); Calcium 7.9 mg/dL (8.4-10.2); Carbon Dioxide 23 mmol/L (22-30); Chloride 105 mmol/L (98-107); Glucose 133 mg/dL (74-99); Potassium 3.3 mmol/L (3.5-5.1); Sodium 133 mmol/L (137-145); Total Bilirubin 0.6 mg/dL (0.2-1.3); Total Protein 4.9 g/dL (6.3-8.2)
--- NOTE | 2018-01-01 00:01 | CT ---
EXAMINATION TYPE: CT brain wo con for TPA DATE OF EXAM: 12/31/2017 COMPARISON: 12/29/2017 HISTORY: CODE STROKE CT DLP: 1158.80 mGycm Automated exposure control for dose reduction was used. FINDINGS: Ventricles of normal size. There is no mass effect nor midline shift. There is no sign of intracrania l hemorrhage. Calvarium is intact. There is probably chronic mastoiditis. IMPRESSION: NEGATIVE CT SCAN OF THE BRAIN. NO CHANGE.
--- NOTE | 2018-01-01 00:09 | CT ---
EXAMINATION TYPE: CODE STROKE: CTA head neck DATE OF EXAM: 12/31/2017 HISTORY: CODE STROKE COMPARISON: None CT DLP: 587.80 mGycm. Automated Exposure Control for Dose Reduction was Utilized. TECHNIQUE: CTA scan of the neck is performed with IV Contrast, patient injected with 65 mL of Isovue 370, axial images are obtained, coronal and sagittal reformatted images are reviewed. Three-D recons tructed images are created on an independent workstation and reviewed. FINDINGS: There is normal size of the aortic arch. There is no evidence of arch aneurysm or dissection. There i s normal branching pattern of the great vessels on the aortic arch. There is bilateral arterial flow in the vertebral arteries. Exam is limited slightly by patient's size. There is arterial flow in the common internal and external carotid arteries bilaterally. There is plaque formation and more than 50 % diameter stenosis of the proximal left internal carotid artery. There is minimal plaque on the righ t side and 10-15% stenosis right proximal internal carotid artery. There is no evidence of carotid or vertebral artery aneurysm or dissection. There is arterial flow in the vertebrobasilar artery system. There is arterial flow in the anterior m iddle and posterior cerebral arteries. There is normal contrast opacification of the venous sinuses. There is no evidence of intracranial aneurysm or stenosis. No evidence of neovascularity. There is no mass effect. There are spondylotic changes in the cervical spine with right side C3-4 neural foraminal stenosis. T here is uncovertebral spurring in neural foraminal narrowing at C6-7 on the right side. There is bila teral narrowing at C5-6. Bilateral narrowing is seen at C4-5. IMPRESSION: There is approximate 50% stenosis at the origin of the left internal carotid artery. Ther e is 15% stenosis origin right internal carotid artery. No evidence of intracranial arterial stenosis.
[2018-01-01] MEDS: VANCOMYCIN 2,000 MG in SODIUM CHLORIDE 0.9% 500 ML 500 ML IVPB SCH ×3 (00:10→15:46)
[2018-01-01] MEDS: SODIUM CHLORIDE 0.9% 1,000 ML IV SCH ×3 (00:11→15:45)
[2018-01-01] MEDS: PIPERACILLIN-TAZOBACTAM 3.375 GM in DEXTROSE/WATER 1 50ML.BAG IVPB SCH ×2 (04:05→11:51)
[2018-01-01] MEDS: PANTOPRAZOLE 40 MG TABLET PO SCH (06:36)
[2018-01-01 06:44] LABS: Anion Gap 7 mmol/L; Blood Urea Nitrogen 12 mg/dL (9-20); Calcium 8.1 mg/dL (8.4-10.2); Carbon Dioxide 23 mmol/L (22-30); Chloride 107 mmol/L (98-107); Glucose 110 mg/dL (74-99); Potassium 3.4 mmol/L (3.5-5.1); Sodium 137 mmol/L (137-145)
[2018-01-01] MEDS: FLUTICASONE 50MCG/SPRAY NASAL 16GM EA NOSTRIL SCH (08:25)
[2018-01-01] MEDS: LACTULOSE 20 GM/30 ML CUP PO SCH (08:25)
[2018-01-01] MEDS: TESTOSTERONE TOPICAL SCH (08:26)
[2018-01-01] MEDS: FUROSEMIDE 20 MG TAB PO SCH (08:38)
[2018-01-01] MEDS: DULoxetine HCL 60 MG CAPSULE.DR PO SCH (08:38)
[2018-01-01] MEDS: oxyCODONE-APAP 10-325MG 1 EACH TAB PO SCH ×3 (08:38→21:19)
[2018-01-01] MEDS: OXYBUTYNIN CHLORIDE 5 MG TAB PO SCH ×2 (08:38→21:18)
[2018-01-01] MEDS: DOCUSATE 100 MG CAP PO SCH ×2 (08:38→21:18)
[2018-01-01] MEDS: PREGABALIN 75 MG CAP PO SCH ×3 (08:38→21:18)
[2018-01-01] MEDS: amLODIPine 5 MG TAB PO SCH ×2 (08:39→21:18)
[2018-01-01] MEDS: FLUDROCORTISONE 0.1 MG TAB PO SCH (08:40)
[2018-01-01] MEDS: POLYETHYLENE GLYCOL 3350 17 GM POWD.PACK PO SCH ×2 (08:40→21:18)
--- NOTE | 2018-01-01 09:54 | P.PN ---
Subjective Progress Note Date: 01/01/18 Principal diagnosis: Urinary tract infection sepsis Patient has been initially complaining of minimal pain with urination nausea vomiting. Today in late yesterday patient began having difficulty with mental status changes consistent with urosepsis. 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 Patient in no acute distress.] HEENT: [PERRL. EOMI. No pharyngeal erythema or exudate.] Neck: [No adenopathy.] Cardiac: [Heart regular in rate and rhythm. No S3. No S4. No clicks, rubs. No murmur.] Lungs: [Clear to auscultation bilaterally.] Abdomen: [No mass. No organomegaly. Bowel sounds presnt and normoactive in all 4 quadrants.] Extremes: Paraplegia, 2+ edema bilateral lower extremes : [] Musculoskeletal: [No joint erythema, edema or tenderness.] Skin: [No rash.] Neurologic: [No lateralizing deficits. CN II - XII grossly intact.] Lymphatic: [No adenopathy.] - Labs CBC & Chem 7: 12/31/17 23:25 01/01/18 05:38 Labs: Abnormal Lab Results - Last 24 Hours (Table) 12/31/17 12/31/17 12/31/17 Range/Units 22:52 23:25 23:25 WBC 14.5 H (3.8-10.6) k/uL RBC 3.68 L (4.30-5.90) m/uL Hgb 10.5 L (13.0-17.5) gm/dL Hct 33.0 L (39.0-53.0) % Neutrophils # 11.6 H (1.3-7.7) k/uL PT 15.4 H (9.0-12.0) sec INR 1.7 H (<1.2) Sodium (137-145) mmol/L Potassium (3.5-5.1) mmol/L Glucose (74-99) mg/dL POC Glucose (mg/dL) 136 H (75-99) mg/dL Calcium (8.4-10.2) mg/dL Total Protein (6.3-8.2) g/dL Albumin (3.5-5.0) g/dL 12/31/17 01/01/18 Range/Units 23:25 05:38 WBC (3.8-10.6) k/uL RBC (4.30-5.90) m/uL Hgb (13.0-17.5) gm/dL Hct (39.0-53.0) % Neutrophils # (1.3-7.7) k/uL PT (9.0-12.0) sec INR (<1.2) Sodium 133 L (137-145) mmol/L Potassium 3.3 L 3.4 L (3.5-5.1) mmol/L Glucose 133 H 110 H (74-99) mg/dL POC Glucose (mg/dL) (75-99) mg/dL Calcium 7.9 L 8.1 L (8.4-10.2) mg/dL Total Protein 4.9 L (6.3-8.2) g/dL Albumin 2.3 L (3.5-5.0) g/dL Microbiology - Last 24 Hours (Table) 12/29/17 22:25 Blood Culture Gram Stain - Preliminary Blood Blood Culture - Preliminary Gram Neg Bacilli 12/30/17 00:07 Urine Culture - Preliminary Urine,Catheterized Group D Enterococcus Gram Neg Bacilli Assessment and Plan (1) Pyelonephritis Narrative/Plan: Currently on IV antibiotics including vancomycin and Zosyn Current Visit: Yes Status: Acute Code(s): N12 - TUBULO-INTERSTITIAL NEPHRITIS, NOT SPCF ACUTE OR CHRONIC SNOMED Code(s): 64270365 (2) Sepsis secondary to UTI Narrative/Plan: As stated above Current Visit: Yes Status: Acute Code(s): A41.9 - SEPSIS, UNSPECIFIED ORGANISM; N39.0 - URINARY TRACT INFECTION, SITE NOT SPECIFIED SNOMED Code(s): 006592892 (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 Alexei MURRAY Patient likely colonized with pseudomonas Currently being treated with vancomycin secondary to previous sputum with the tip and positive for MRSA. We'll add consult for infectious disease We will add Zosyn as recommended Time with Patient: Greater than 30
[2018-01-01] MEDS: WARFARIN 5 MG TAB PO SCH (15:44)
[2018-01-01] MEDS: MEROPENEM 1 GM in SODIUM CHLORIDE 0.9% 100 ML IVPB SCH ×2 (16:57→23:23)
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
[2018-01-01] MEDS: tiZANidine 4 MG TAB PO SCH (21:18)
[2018-01-01] MEDS: PRIMIDONE 50 MG TAB PO SCH (21:18)
[2018-01-01] MEDS: TOPIRAMATE 25 MG TAB PO SCH (21:19)
[2018-01-01] MEDS: ZOLPIDEM 5 MG TAB PO SCH (21:19)
[2018-01-02] MEDS: SODIUM CHLORIDE 0.9% 1,000 ML IV SCH ×3 (01:38→15:53)
[2018-01-02] MEDS: PANTOPRAZOLE 40 MG TABLET PO SCH (06:04)
[2018-01-02] MEDS ORDERED: VANCOMYCIN TROUGH DUE 1 EACH MISC MISCELLANE ONE (07:00)
[2018-01-02 08:39] LABS: Anion Gap 8 mmol/L; Blood Urea Nitrogen 12 mg/dL (9-20); Calcium 8.3 mg/dL (8.4-10.2); Carbon Dioxide 23 mmol/L (22-30); Chloride 106 mmol/L (98-107); Glucose 119 mg/dL (74-99); Potassium 3.3 mmol/L (3.5-5.1); Sodium 137 mmol/L (137-145)
[2018-01-02] MEDS: MEROPENEM 1 GM in SODIUM CHLORIDE 0.9% 100 ML IVPB SCH ×3 (08:49→23:02)
[2018-01-02] MEDS: FLUDROCORTISONE 0.1 MG TAB PO SCH (08:54)
[2018-01-02] MEDS: amLODIPine 5 MG TAB PO SCH ×2 (08:54→20:00)
[2018-01-02] MEDS: POLYETHYLENE GLYCOL 3350 17 GM POWD.PACK PO SCH ×2 (08:54→20:01)
[2018-01-02] MEDS: DOCUSATE 100 MG CAP PO SCH ×2 (08:54→20:01)
[2018-01-02] MEDS: LACTULOSE 20 GM/30 ML CUP PO SCH (08:54)
[2018-01-02] MEDS: FLUTICASONE 50MCG/SPRAY NASAL 16GM EA NOSTRIL SCH (08:54)
[2018-01-02] MEDS: DULoxetine HCL 60 MG CAPSULE.DR PO SCH (08:54)
[2018-01-02] MEDS: oxyCODONE-APAP 10-325MG 1 EACH TAB PO SCH ×3 (08:55→23:20)
[2018-01-02] MEDS: OXYBUTYNIN CHLORIDE 5 MG TAB PO SCH ×2 (08:55→20:01)
[2018-01-02] MEDS: PREGABALIN 75 MG CAP PO SCH ×3 (08:55→20:02)
[2018-01-02] MEDS: FUROSEMIDE 20 MG TAB PO SCH (08:55)
[2018-01-02] MEDS ORDERED: VANCOMYCIN IV PER PHARMACY 1 EACH MISC MISCELLANE PRN (09:44)
[2018-01-02] MEDS: TESTOSTERONE TOPICAL SCH (10:34)
[2018-01-02] MEDS ORDERED: VANCOMYCIN 2,250 MG in SODIUM CHLORIDE 0.9% 500 ML 500 ML IVPB SCH (11:00)
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
[2018-01-02] MEDS ORDERED: POTASSIUM CHLORIDE ER 20 MEQ TAB.ER PO STA (13:02)
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
[2018-01-02 13:52] LABS: Basophils % (A) 0 %; Eosinophils # (A) 0.4 k/uL (0-0.7); Eosinophils % (A) 4 %; HCT 35.8 % (39.0-53.0); HGB 11.3 gm/dL (13.0-17.5); Hypochromasia Moderate; Lymphocytes # (A) 1.2 k/uL (1.0-4.8); Lymphocytes % (A) 12 %; MCH 29.2 pg (25.0-35.0); MCHC 31.7 g/dL (31.0-37.0); Mean Platelet Volume 8.1; Monocytes # (A) 0.5 k/uL (0-1.0); Monocytes % (A) 5 %; Neutrophils # (A) 8.1 k/uL (1.3-7.7); Neutrophils % (A) 78 %; Platelet Count 271 k/uL (150-450); RBC 3.89 m/uL (4.30-5.90); RDW 15.1 % (11.5-15.5); WBC 10.3 k/uL (3.8-10.6)
[2018-01-02 13:55] LABS: INR 2.3 (<1.2); Prothrombin Time 20.7 sec (9.0-12.0)
[2018-01-02] MEDS: WARFARIN 5 MG TAB PO SCH (17:03)
[2018-01-02] MEDS: tiZANidine 4 MG TAB PO SCH (20:01)
[2018-01-02] MEDS: TOPIRAMATE 25 MG TAB PO SCH (20:02)
[2018-01-02] MEDS: PRIMIDONE 50 MG TAB PO SCH (20:02)
[2018-01-02] MEDS: ZOLPIDEM 5 MG TAB PO SCH (20:02)
--- NOTE | 2018-01-02 22:15 | PN ---
PROGRESS NOTE DATE OF SERVICE: 01/02/2018 REASON FOR FOLLOWUP: 1. ESBL Klebsiella UTI with secondary bacteremia. 2. Repeat blood culture positive for coagulase-negative staph, likely contamination. INTERVAL HISTORY: The patient is currently afebrile. He seems to be breathing comfortably. Denies having any chest pain or cough. No nausea or vomiting. No abdominal pain or any diarrhea. PHYSICAL EXAMINATION: Blood pressure 109/57 with a pulse of 70, temperature 98.1. He is 95% on room air. General description is a middle-aged male lying in bed in no distress. RESPIRATORY SYSTEM: Unlabored breathing. Clear to auscultation anteriorly. HEART: S1, S2. Regular rate and rhythm. ABDOMEN: Soft. No tenderness. LABS: Hemoglobin is 11.3, white count 10.3, BUN of 12, creatinine 0.67. Blood culture repeat is coagulase-negative staph. DIAGNOSTIC IMPRESSION AND PLAN: 1. Patient with extended-spectrum beta-lactamase Klebsiella pneumoniae bacteremia secondary to urinary source. Urine also showed Enterococcus faecalis. Patient is currently on meropenem. The patient will need a mid line for outpatient IV Invanz with a total duration of antibiotics that should be at least 2 weeks. 2. Patient had positive blood culture with coagulase-negative staphylococcus, likely contamination. We will discontinue the vancomycin. MMODL / IJN: [id number] /
[2018-01-03 07:14] LABS: Basophils % (A) 0 %; Eosinophils # (A) 0.3 k/uL (0-0.7); Eosinophils % (A) 4 %; HCT 33.6 % (39.0-53.0); HGB 10.9 gm/dL (13.0-17.5); Hypochromasia Slight; Lymphocytes # (A) 1.5 k/uL (1.0-4.8); Lymphocytes % (A) 17 %; MCH 29.3 pg (25.0-35.0); MCHC 32.4 g/dL (31.0-37.0); MCV 90.3 fL (80.0-100.0); Mean Platelet Volume 6.8; Monocytes # (A) 0.6 k/uL (0-1.0); Monocytes % (A) 7 %; Neutrophils # (A) 6.1 k/uL (1.3-7.7); Neutrophils % (A) 71 %; Platelet Count 301 k/uL (150-450); RBC 3.72 m/uL (4.30-5.90); RDW 15.1 % (11.5-15.5); WBC 8.6 k/uL (3.8-10.6)
[2018-01-03] MEDS: SODIUM CHLORIDE 0.9% 1,000 ML IV SCH ×2 (07:24→20:12)
[2018-01-03] MEDS: PANTOPRAZOLE 40 MG TABLET PO SCH (07:25)
[2018-01-03 07:38] LABS: INR 2.8 (<1.2); Prothrombin Time 25.5 sec (9.0-12.0)
[2018-01-03 07:42] LABS: Anion Gap 4 mmol/L; Blood Urea Nitrogen 9 mg/dL (9-20); Calcium 8.5 mg/dL (8.4-10.2); Carbon Dioxide 28 mmol/L (22-30); Chloride 107 mmol/L (98-107); Glucose 94 mg/dL (74-99); Potassium 4.2 mmol/L (3.5-5.1); Sodium 139 mmol/L (137-145)
[2018-01-03] MEDS: FLUDROCORTISONE 0.1 MG TAB PO SCH (09:12)
[2018-01-03] MEDS: POLYETHYLENE GLYCOL 3350 17 GM POWD.PACK PO SCH ×2 (09:12→23:09)
[2018-01-03] MEDS: FLUTICASONE 50MCG/SPRAY NASAL 16GM EA NOSTRIL SCH (09:12)
[2018-01-03] MEDS: FUROSEMIDE 20 MG TAB PO SCH (09:13)
[2018-01-03] MEDS: DOCUSATE 100 MG CAP PO SCH ×2 (09:13→23:09)
[2018-01-03] MEDS: amLODIPine 5 MG TAB PO SCH ×2 (09:13→23:09)
[2018-01-03] MEDS: PREGABALIN 75 MG CAP PO SCH ×3 (09:13→22:40)
[2018-01-03] MEDS: DULoxetine HCL 60 MG CAPSULE.DR PO SCH (09:13)
[2018-01-03] MEDS: oxyCODONE-APAP 10-325MG 1 EACH TAB PO SCH ×3 (09:14→22:41)
[2018-01-03] MEDS: OXYBUTYNIN CHLORIDE 5 MG TAB PO SCH ×2 (09:14→23:09)
[2018-01-03] MEDS: LACTULOSE 20 GM/30 ML CUP PO SCH (09:15)
[2018-01-03] MEDS: TESTOSTERONE TOPICAL SCH (09:16)
[2018-01-03] MEDS: MEROPENEM 1 GM in SODIUM CHLORIDE 0.9% 100 ML IVPB SCH ×2 (09:32→11:17)
[2018-01-03] MEDS ORDERED: ERTAPENEM 1 GM in SODIUM CHLORIDE 0.9% 50 ML IVPB STA (11:16)
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
[2018-01-03] MEDS: WARFARIN 5 MG TAB PO SCH (17:02)
--- NOTE | 2018-01-03 17:28 | PN ---
PROGRESS NOTE DATE OF SERVICE: 01/03/2018 REASON FOR FOLLOWUP: ESBL E coli bacteremia and UTI. INTERVAL HISTORY: The patient is currently afebrile. He is breathing comfortably. Denies having any chest pain, shortness of breath or cough. No abdominal pain or any diarrhea. PHYSICAL EXAMINATION: Blood pressure is 145/77 with a pulse of 80, temperature 97.8. He is 96% on room air. General description is a middle-aged male lying in bed in no distress. RESPIRATORY SYSTEM: Unlabored breathing. Clear to auscultation anteriorly. HEART: S1, S2. Regular rate and rhythm. ABDOMEN: Soft. No tenderness. LABS: Hemoglobin is 10.9, white count 8.6, BUN of 9, creatinine 0.64. DIAGNOSTIC IMPRESSION AND PLAN: 1. Patient with extended-spectrum beta-lactamase Klebsiella pneumoniae bacteremia secondary to urinary source with concern for possible pyelonephritis, deep infection. Repeat blood culture has been negative. Patient will finish therapy with Invanz 1 gram daily for another 10 days. 2. Positive blood culture with coagulase-negative staphylococcus, likely skin contamination. No need for further therapy for the same. Plan of care discussed with the nurse practitioner for the admitting physician. MMODL / IJN: [id number] /
[2018-01-03] MEDS: ZOLPIDEM 5 MG TAB PO SCH (22:41)
[2018-01-03] MEDS: PRIMIDONE 50 MG TAB PO SCH (23:09)
[2018-01-03] MEDS: TOPIRAMATE 25 MG TAB PO SCH (23:09)
[2018-01-03] MEDS: tiZANidine 4 MG TAB PO SCH (23:09)
[2018-01-04] MEDS: MEROPENEM 1 GM in SODIUM CHLORIDE 0.9% 100 ML IVPB SCH ×3 (00:06→16:11)
--- NOTE | 2018-01-04 06:58 | P.PN ---
Progress Note - Text Progress Note Date: 01/04/18 Patient was cleared for discharge yesterday to [facility]. Patient received a dose of Invanz yesterday and tolerated well. His discharge was delayed due to insurance authorization for antibiotics. Pending insurance clearance, patient will be discharged today. He remains stable.
[2018-01-04] MEDS: oxyCODONE-APAP 10-325MG 1 EACH TAB PO SCH ×2 (08:23→15:30)
[2018-01-04] MEDS: TESTOSTERONE TOPICAL SCH (08:24)
[2018-01-04] MEDS: PREGABALIN 75 MG CAP PO SCH ×2 (08:25→14:12)
[2018-01-04] MEDS: amLODIPine 5 MG TAB PO SCH (08:55)
[2018-01-04] MEDS: PANTOPRAZOLE 40 MG TABLET PO SCH (08:55)
[2018-01-04] MEDS: DOCUSATE 100 MG CAP PO SCH (08:55)
[2018-01-04] MEDS: OXYBUTYNIN CHLORIDE 5 MG TAB PO SCH (08:56)
[2018-01-04] MEDS: LACTULOSE 20 GM/30 ML CUP PO SCH (08:56)
[2018-01-04] MEDS: FUROSEMIDE 20 MG TAB PO SCH (08:56)
[2018-01-04] MEDS: POLYETHYLENE GLYCOL 3350 17 GM POWD.PACK PO SCH (08:56)
[2018-01-04] MEDS: DULoxetine HCL 60 MG CAPSULE.DR PO SCH (08:56)
[2018-01-04] MEDS: FLUDROCORTISONE 0.1 MG TAB PO SCH (08:56)
[2018-01-04] MEDS: SODIUM CHLORIDE 0.9% 1,000 ML IV SCH (09:06)
[2018-01-04] MEDS: FLUTICASONE 50MCG/SPRAY NASAL 16GM EA NOSTRIL SCH (10:05)
[2018-01-04 10:33] LABS: Basophils % (A) 0 %; Eosinophils # (A) 0.3 k/uL (0-0.7); Eosinophils % (A) 3 %; HCT 35.6 % (39.0-53.0); HGB 11.1 gm/dL (13.0-17.5); Hypochromasia Moderate; Lymphocytes # (A) 1.5 k/uL (1.0-4.8); Lymphocytes % (A) 18 %; MCH 28.3 pg (25.0-35.0); MCHC 31.2 g/dL (31.0-37.0); MCV 90.8 fL (80.0-100.0); Mean Platelet Volume 7.2; Monocytes # (A) 0.6 k/uL (0-1.0); Monocytes % (A) 7 %; Neutrophils % (A) 70 %; Platelet Count 400 k/uL (150-450); RBC 3.93 m/uL (4.30-5.90); RDW 14.9 % (11.5-15.5); WBC 8.6 k/uL (3.8-10.6)
[2018-01-04 10:40] LABS: INR 3.6 (<1.2); Prothrombin Time 31.8 sec (9.0-12.0)
[2018-01-04 10:56] LABS: Anion Gap 9 mmol/L; Blood Urea Nitrogen 9 mg/dL (9-20); Calcium 8.7 mg/dL (8.4-10.2); Carbon Dioxide 26 mmol/L (22-30); Chloride 106 mmol/L (98-107); Glucose 88 mg/dL (74-99); Potassium 4.3 mmol/L (3.5-5.1); Sodium 141 mmol/L (137-145)
--- NOTE | 2018-01-04 13:11 | PN ---
PROGRESS NOTE DATE OF SERVICE: 01/04/2018 REASON FOR FOLLOWUP: ESBL E Klebsiella bacteremia and UTI. INTERVAL HISTORY: The patient is currently afebrile. He is breathing comfortably. Denies having any chest pain. No shortness of breath or cough. No abdominal pain or any diarrhea. PHYSICAL EXAMINATION: Blood pressure is 123/70 with a pulse of 69, temperature 98.1. He is 95% on room air. General description is a middle-aged male, lying in bed in no distress. RESPIRATORY SYSTEM: Unlabored breathing, clear to auscultation anteriorly. HEART: S1, S2. Regular rate and rhythm. ABDOMEN: Soft, no tenderness. LABS: Hemoglobin is 11.1, white count of 8.6, BUN of 9, creatinine 0.55. DIAGNOSTIC IMPRESSION AND PLAN: 1. Patient with ESBL Klebsiella pneumonia back x3 urinary source. Follow up blood culture has been negative. Patient is currently on meropenem, Invanz 1 g daily to finish his course of therapy total duration should be at least 2 weeks. 2. Repeat blood culture positive with coagnase-negative staph likely contamination and no need for any therapy for the same. MMODL / IJN: [id number] /
[2018-01-04 14:40] VITALS: BP 149/69; PULSE 85; TEMP 97.6
[2018-01-04 15:20] VITALS: RESP 16
== END 2018-01-04 16:35 | DRG 698 ==
LOC: EC 21:25 → 3SCARD 12-30 00:24 → 4MS4W 01-03 20:33
PROVIDERS: ADMIT Family Medicine; ATTEND Family Medicine
DX: T83.511A Infection and inflammatory reaction due to indwelling urethral catheter, initial encounter (principal); A41.59 Other Gram-negative sepsis; R65.20 Severe sepsis without septic shock; G93.41 Metabolic encephalopathy; N10 Acute pyelonephritis; E27.40 Unspecified adrenocortical insufficiency; G82.20 Paraplegia, unspecified; N31.9 Neuromuscular dysfunction of bladder, unspecified; B95.2 Enterococcus as the cause of diseases classified elsewhere; Z16.12 Extended spectrum beta lactamase (ESBL) resistance; T14.8XXS Other injury of unspecified body region, sequela; V29.9XXS Motorcycle rider (driver) (passenger) injured in unspecified traffic accident, sequela; K21.9 Gastro-esophageal reflux disease without esophagitis; K80.20 Calculus of gallbladder without cholecystitis without obstruction; M79.7 Fibromyalgia; F32.9 Major depressive disorder, single episode, unspecified; G43.909 Migraine, unspecified, not intractable, without status migrainosus; G47.00 Insomnia, unspecified; G89.29 Other chronic pain; R07.9 Chest pain, unspecified; M54.9 Dorsalgia, unspecified; E87.6 Hypokalemia; Z79.899 Other long term (current) drug therapy; Z79.01 Long term (current) use of anticoagulants; Z87.891 Personal history of nicotine dependence; Z87.440 Personal history of urinary (tract) infections; Z86.718 Personal history of other venous thrombosis and embolism; Z86.14 Personal history of Methicillin resistant Staphylococcus aureus infection; Z80.3 Family history of malignant neoplasm of breast; Z80.1 Family history of malignant neoplasm of trachea, bronchus and lung; Z84.1 Family history of disorders of kidney and ureter; Y84.6 Urinary catheterization as the cause of abnormal reaction of the patient, or of later complication, without mention of misadventure at the time of the procedure
CPT/HCPCS: 36415; 36569; 70450; 70496; 70498; 71045; 74177; 76937; 80048; 80053; 80202; 81001; 82550; 82553; 83036; 83605; 84132; 84484; 85025; 85610; 85730; 86850; 86900; 86901; 87040; 87077; 87086; 87186; 96365; 96366; 96368; 96375; 99285

== ENCOUNTER 2018-02-17 14:11 | Inpatient (IN) | payer MEDICARE, OTHER ==
[2018-02-17] MEDS ORDERED: SODIUM CHLORIDE 0.9% 500 ML 600 ML IV STA (14:35)
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
[2018-02-17] MEDS: SODIUM CHLORIDE 0.9% 500 ML 500 ML IV SCH ×2 (14:55→16:44)
[2018-02-17 15:00] LABS: Anisocytosis Slight; Basophils % (A) 0 %; Eosinophils # (A) 0.2 k/uL (0-0.7); Eosinophils % (A) 1 %; HCT 37.1 % (39.0-53.0); HGB 11.7 gm/dL (13.0-17.5); Hypochromasia Slight; Lymphocytes # (A) 2.4 k/uL (1.0-4.8); Lymphocytes % (A) 12 %; MCH 27.3 pg (25.0-35.0); MCHC 31.7 g/dL (31.0-37.0); MCV 86.2 fL (80.0-100.0); Mean Platelet Volume 6.5; Monocytes % (A) 5 %; Neutrophils # (A) 15.3 k/uL (1.3-7.7); Neutrophils % (A) 80 %; Platelet Count 324 k/uL (150-450); RBC 4.31 m/uL (4.30-5.90); RDW 16.7 % (11.5-15.5); WBC 19.1 k/uL (3.8-10.6)
[2018-02-17 15:09] LABS: ALT 13 U/L (21-72); AST 21 U/L (17-59); Albumin 3.5 g/dL (3.5-5.0); Alkaline Phosphatase 91 U/L (38-126); Anion Gap 10 mmol/L; Blood Urea Nitrogen 14 mg/dL (9-20); Calcium 8.6 mg/dL (8.4-10.2); Carbon Dioxide 20 mmol/L (22-30); Chloride 106 mmol/L (98-107); Glucose 96 mg/dL (74-99); INR 1.9 (<1.2); Potassium 3.9 mmol/L (3.5-5.1); Prothrombin Time 18.4 sec (9.0-12.0); Sodium 136 mmol/L (137-145); Total Bilirubin 0.9 mg/dL (0.2-1.3); Total Protein 6.7 g/dL (6.3-8.2)
--- NOTE | 2018-02-17 15:14 | XR ---
EXAMINATION TYPE: XR chest 2V DATE OF EXAM: 02/17/2018 COMPARISON: 12/29/2017 INDICATION: Fever, pain TECHNIQUE: Frontal and lateral views of the chest are obtained. FINDINGS: The heart size is normal. The pulmonary vasculature is normal. The lungs are clear. Postsurgical changes are in the cervical thoracic junction and along the right clavicle. IMPRESSION: 1. No acute pulmonary process.
[2018-02-17 15:59] LABS: Amorphous Sediment,Urine Moderate /hpf; Appearance,Urine Cloudy (Clear); Bacteria,Urine Occasional /hpf; Bilirubin,Urine Negative (Negative); Blood,Urine Trace (Negative); Calcium Oxalate Crystals,Urine Occasional /hpf; Color,Urine Yellow; Glucose,Urine (UA) Negative (Negative); Ketones,Urine Negative (Negative); Leukocyte Esterase,Urine Large (Negative); Mucus,Urine Occasional /hpf; Nitrite,Urine Positive (Negative); Protein,Urine Trace (Negative); RBC,Urine 4 /hpf (0-5); Specific Gravity,Urine 1.007 (1.001-1.035); Urobilinogen,Urine <2.0 mg/dL (<2.0); WBC,Urine 69 /hpf (0-5)
[2018-02-17] MEDS ORDERED: MORPHINE SULFATE 4 MG/ML SYRINGE IVP STA (16:35)
[2018-02-17] MEDS ORDERED: NALOXONE 0.4 MG/ML 1 ML VIAL IV PRN (16:40)
[2018-02-17] MEDS ORDERED: cefOXitin IN SWFI 2 GM/10 ML SYRINGE IVP STA (16:43)
[2018-02-17] MEDS ORDERED: LEVOFLOXACIN 750MG-D5W PMX 750 MG in DEXTROSE/WATER 1 150ML.BAG IVPB STA (16:43)
[2018-02-17] MEDS: SODIUM CHLORIDE 0.9% 1,000 ML IV SCH (17:14)
[2018-02-17] MEDS ORDERED: DULoxetine HCL 30 MG CAPSULE.DR PO PRN (21:33)
[2018-02-17] MEDS ORDERED: FLUDROCORTISONE 0.1 MG TAB PO PRN (21:33)
[2018-02-17] MEDS ORDERED: SUMAtriptan SUCCINATE 50 MG TAB PO PRN (21:33)
[2018-02-17] MEDS ORDERED: WARFARIN 5 MG TAB PO SCH ×2 (21:45→23:00)
[2018-02-17] MEDS: ZOLPIDEM 5 MG TAB PO PRN (22:21)
[2018-02-17] MEDS: TOPIRAMATE 25 MG TAB PO SCH (22:21)
[2018-02-17] MEDS: OXYBUTYNIN CHLORIDE 5 MG TAB PO SCH (22:21)
[2018-02-17] MEDS: traZODone HCL 100 MG TAB PO SCH (22:21)
[2018-02-17] MEDS: DOCUSATE 100 MG CAP PO SCH (22:21)
[2018-02-17] MEDS: amLODIPine 5 MG TAB PO SCH (22:21)
[2018-02-17] MEDS: oxyCODONE-APAP 10-325MG 1 EACH TAB PO PRN (22:21)
[2018-02-17] MEDS: PRIMIDONE 50 MG TAB PO SCH (22:21)
[2018-02-17] MEDS: PREGABALIN 75 MG CAP PO SCH (22:21)
[2018-02-17] MEDS: tiZANidine 4 MG TAB PO SCH (23:18)
[2018-02-18] MEDS ORDERED: cefOXitin IN SWFI 2 GM/10 ML SYRINGE IVP SCH
[2018-02-18] MEDS: DOCUSATE 100 MG CAP PO SCH ×2 (07:57→21:24)
[2018-02-18] MEDS: FLUTICASONE 50MCG/SPRAY NASAL 16GM EA NOSTRIL SCH (07:58)
[2018-02-18] MEDS: LACTULOSE 20 GM/30 ML CUP PO SCH (07:58)
[2018-02-18] MEDS: PREGABALIN 75 MG CAP PO SCH ×3 (07:58→21:25)
[2018-02-18] MEDS: amLODIPine 5 MG TAB PO SCH ×2 (07:58→21:24)
[2018-02-18] MEDS: OXYBUTYNIN CHLORIDE 5 MG TAB PO SCH ×2 (07:58→21:26)
[2018-02-18] MEDS: FUROSEMIDE 20 MG TAB PO SCH (07:58)
[2018-02-18 08:38] LABS: INR 1.7 (<1.2); Prothrombin Time 17.2 sec (9.0-12.0)
[2018-02-18 08:47] LABS: Anion Gap 9 mmol/L; Blood Urea Nitrogen 10 mg/dL (9-20); Calcium 8.8 mg/dL (8.4-10.2); Carbon Dioxide 19 mmol/L (22-30); Chloride 110 mmol/L (98-107); Glucose 129 mg/dL (74-99); Sodium 138 mmol/L (137-145)
[2018-02-18 08:54] LABS: Anisocytosis Slight; Basophils # (A) 0.1 k/uL (0-0.2); Basophils % (A) 0 %; Eosinophils # (A) 0.2 k/uL (0-0.7); Eosinophils % (A) 1 %; HCT 38.5 % (39.0-53.0); Hypochromasia Moderate; Lymphocytes # (A) 1.9 k/uL (1.0-4.8); Lymphocytes % (A) 11 %; MCH 27.5 pg (25.0-35.0); MCV 88.5 fL (80.0-100.0); Mean Platelet Volume 6.7; Monocytes # (A) 0.6 k/uL (0-1.0); Monocytes % (A) 3 %; Neutrophils # (A) 14.6 k/uL (1.3-7.7); Neutrophils % (A) 83 %; Platelet Count 291 k/uL (150-450); RBC 4.35 m/uL (4.30-5.90); RDW 16.5 % (11.5-15.5); WBC 17.5 k/uL (3.8-10.6)
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
[2018-02-18] MEDS: oxyCODONE-APAP 10-325MG 1 EACH TAB PO PRN ×2 (13:20→21:27)
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
[2018-02-18] MEDS: SODIUM CHLORIDE 0.9% 1,000 ML IV SCH (16:41)
[2018-02-18] MEDS: LEVOFLOXACIN 750MG-D5W PMX 750 MG in DEXTROSE/WATER 1 150ML.BAG IVPB SCH (17:38)
[2018-02-18] MEDS ORDERED: WARFARIN 7.5 MG TAB PO ONE (18:00)
[2018-02-18] MEDS: tiZANidine 4 MG TAB PO SCH (21:24)
[2018-02-18] MEDS: TOPIRAMATE 25 MG TAB PO SCH (21:25)
[2018-02-18] MEDS: PRIMIDONE 50 MG TAB PO SCH (21:26)
[2018-02-18] MEDS: traZODone HCL 100 MG TAB PO SCH (21:26)
[2018-02-18] MEDS: ZOLPIDEM 5 MG TAB PO PRN (21:26)
[2018-02-19] MEDS: DOCUSATE 100 MG CAP PO SCH ×2 (08:25→21:07)
[2018-02-19] MEDS: PREGABALIN 75 MG CAP PO SCH ×3 (08:25→21:07)
[2018-02-19] MEDS: amLODIPine 5 MG TAB PO SCH ×2 (08:25→21:07)
[2018-02-19] MEDS: FUROSEMIDE 20 MG TAB PO SCH (08:25)
[2018-02-19] MEDS: FLUTICASONE 50MCG/SPRAY NASAL 16GM EA NOSTRIL SCH (08:26)
[2018-02-19] MEDS: OXYBUTYNIN CHLORIDE 5 MG TAB PO SCH ×2 (08:26→21:07)
[2018-02-19] MEDS: oxyCODONE-APAP 10-325MG 1 EACH TAB PO PRN ×3 (08:26→21:08)
[2018-02-19] MEDS: LACTULOSE 20 GM/30 ML CUP PO SCH (08:26)
[2018-02-19 09:49] LABS: Anisocytosis Slight; Basophils % (A) 0 %; Eosinophils # (A) 0.3 k/uL (0-0.7); Eosinophils % (A) 3 %; HCT 37.9 % (39.0-53.0); HGB 11.6 gm/dL (13.0-17.5); Hypochromasia Marked; Lymphocytes # (A) 2.2 k/uL (1.0-4.8); Lymphocytes % (A) 20 %; MCH 27.4 pg (25.0-35.0); MCHC 30.5 g/dL (31.0-37.0); Mean Platelet Volume 6.8; Monocytes # (A) 0.5 k/uL (0-1.0); Monocytes % (A) 4 %; Neutrophils # (A) 7.9 k/uL (1.3-7.7); Neutrophils % (A) 71 %; Platelet Count 280 k/uL (150-450); RBC 4.21 m/uL (4.30-5.90); RDW 16.6 % (11.5-15.5); WBC 11.2 k/uL (3.8-10.6)
[2018-02-19 09:57] LABS: INR 2.4 (<1.2); Prothrombin Time 23.2 sec (9.0-12.0)
[2018-02-19 10:13] LABS: Anion Gap 9 mmol/L; Blood Urea Nitrogen 12 mg/dL (9-20); Carbon Dioxide 21 mmol/L (22-30); Chloride 110 mmol/L (98-107); Glucose 99 mg/dL (74-99); Magnesium 2.1 mg/dL (1.6-2.3); Potassium 4.4 mmol/L (3.5-5.1); Sodium 140 mmol/L (137-145)
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
[2018-02-19] MEDS: SODIUM CHLORIDE 0.9% 1,000 ML IV SCH (15:17)
[2018-02-19] MEDS: LEVOFLOXACIN 750MG-D5W PMX 750 MG in DEXTROSE/WATER 1 150ML.BAG IVPB SCH (17:37)
[2018-02-19] MEDS: ACETAMINOPHEN TAB 325 MG TAB PO PRN (17:58)
[2018-02-19] MEDS ORDERED: WARFARIN 5 MG TAB PO ONE (18:00)
[2018-02-19] MEDS: TOPIRAMATE 25 MG TAB PO SCH (21:08)
[2018-02-19] MEDS: PRIMIDONE 50 MG TAB PO SCH (21:08)
[2018-02-19] MEDS: traZODone HCL 100 MG TAB PO SCH (21:08)
[2018-02-19] MEDS: ZOLPIDEM 5 MG TAB PO PRN (22:53)
[2018-02-19] MEDS: tiZANidine 4 MG TAB PO SCH (22:53)
[2018-02-20] MEDS: DOCUSATE 100 MG CAP PO SCH ×2 (08:27→20:49)
[2018-02-20] MEDS: PREGABALIN 75 MG CAP PO SCH ×3 (08:27→20:49)
[2018-02-20] MEDS: amLODIPine 5 MG TAB PO SCH ×2 (08:27→20:49)
[2018-02-20] MEDS: FUROSEMIDE 20 MG TAB PO SCH (08:27)
[2018-02-20] MEDS: LACTULOSE 20 GM/30 ML CUP PO SCH (08:27)
[2018-02-20] MEDS: OXYBUTYNIN CHLORIDE 5 MG TAB PO SCH ×2 (08:27→20:49)
[2018-02-20] MEDS: FLUTICASONE 50MCG/SPRAY NASAL 16GM EA NOSTRIL SCH (08:28)
[2018-02-20 09:53] LABS: Anisocytosis Slight; Basophils % (A) 0 %; Eosinophils # (A) 0.4 k/uL (0-0.7); Eosinophils % (A) 5 %; HCT 38.3 % (39.0-53.0); HGB 11.8 gm/dL (13.0-17.5); Hypochromasia Moderate; Lymphocytes % (A) 26 %; MCH 27.3 pg (25.0-35.0); MCHC 30.8 g/dL (31.0-37.0); MCV 88.7 fL (80.0-100.0); Monocytes # (A) 0.3 k/uL (0-1.0); Monocytes % (A) 5 %; Neutrophils # (A) 4.7 k/uL (1.3-7.7); Neutrophils % (A) 62 %; Platelet Count 314 k/uL (150-450); RBC 4.31 m/uL (4.30-5.90); RDW 16.5 % (11.5-15.5); WBC 7.5 k/uL (3.8-10.6)
[2018-02-20 10:02] LABS: INR 2.8 (<1.2); Prothrombin Time 26.7 sec (9.0-12.0)
[2018-02-20 10:13] LABS: Anion Gap 10 mmol/L; Blood Urea Nitrogen 11 mg/dL (9-20); Calcium 8.6 mg/dL (8.4-10.2); Carbon Dioxide 20 mmol/L (22-30); Chloride 111 mmol/L (98-107); Glucose 86 mg/dL (74-99); Magnesium 2.2 mg/dL (1.6-2.3); Sodium 141 mmol/L (137-145)
[2018-02-20 10:28] LABS: Potassium 4.3 mmol/L (3.5-5.1)
[2018-02-20] MEDS: SULFAMETHOX-TMP 800-160MG 1 EACH TAB PO SCH ×2 (11:14→20:49)
[2018-02-20] MEDS: oxyCODONE-APAP 10-325MG 1 EACH TAB PO PRN ×2 (14:29→23:17)
[2018-02-20] MEDS: SODIUM CHLORIDE 0.9% 1,000 ML IV SCH (17:07)
[2018-02-20] MEDS ORDERED: WARFARIN 5 MG TAB PO ONE (18:00)
[2018-02-20] MEDS: PRIMIDONE 50 MG TAB PO SCH (20:49)
[2018-02-20] MEDS: traZODone HCL 100 MG TAB PO SCH (20:50)
[2018-02-20] MEDS: TOPIRAMATE 25 MG TAB PO SCH (20:50)
[2018-02-20] MEDS: tiZANidine 4 MG TAB PO SCH (20:50)
[2018-02-20 23:26] VITALS: RESP 18
[2018-02-21] MEDS: ACETAMINOPHEN TAB 325 MG TAB PO PRN (05:27)
[2018-02-21 06:27] VITALS: BP 115/69; PULSE 78; TEMP 99.3
[2018-02-21] MEDS: OXYBUTYNIN CHLORIDE 5 MG TAB PO SCH (07:51)
[2018-02-21] MEDS: FUROSEMIDE 20 MG TAB PO SCH (07:51)
[2018-02-21] MEDS: amLODIPine 5 MG TAB PO SCH (07:51)
[2018-02-21] MEDS: DOCUSATE 100 MG CAP PO SCH (07:51)
[2018-02-21] MEDS: PREGABALIN 75 MG CAP PO SCH (07:51)
[2018-02-21] MEDS: LACTULOSE 20 GM/30 ML CUP PO SCH (07:51)
[2018-02-21] MEDS: SULFAMETHOX-TMP 800-160MG 1 EACH TAB PO SCH (07:51)
[2018-02-21] MEDS: FLUTICASONE 50MCG/SPRAY NASAL 16GM EA NOSTRIL SCH (07:52)
[2018-02-21] MEDS: oxyCODONE-APAP 10-325MG 1 EACH TAB PO PRN (07:52)
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
--- NOTE | 2018-03-17 09:31 | CDI ---
Documentation Clarification Form Date: 02/24/18 From: EBER Holguin Phone: If you have question, contact Rosemary Bautista at [phone] M-F 8:30 am to 6pm Admit Date: 02/20/2018 4:45:00 PM Patient Name: Dioni Linton Visit Number: [id number] Discharge Date: 02/21/2018 1:22:00 PM ATTENTION: The Clinical Documentation Specialists (CDI) and [facility] Coding Staff appreciate your assistance in clarifying documentation. Please respond to the clarification below the line at the bottom and electronically sign. The CDI & [facility] Coding staff will review the response and follow-up if needed. Please note: Queries are made part of the Legal Health Record. If you have any questions, please contact the author of this message via ITS. Dr. Chandana Roger Mr. Linton is a paraplegic with neurogenic bladder that is being managed with indwelling catheter. He has a history of recurrent UTIs and catheter obstructions that have led to multiple admissions in the past. A diagnosis of UTI, culture positive for MRSA, has been documented throughout the chart. In your professional opinion, can you please clarify the etiology of the UTI, if known? Rodriguez catheter UTI not related to catheter/urostomy Other condition, please specify Unable to determine MTDD
== END 2018-02-21 13:22 | DRG 690 ==
LOC: EC 14:11 → 4MS4W 16:40 → OBSVTOIN 02-20 16:45
PROVIDERS: ADMIT Family Medicine; ATTEND Family Medicine
DX: N39.0 Urinary tract infection, site not specified (principal); G82.20 Paraplegia, unspecified; D62 Acute posthemorrhagic anemia; E27.40 Unspecified adrenocortical insufficiency; Z68.42 Body mass index [BMI] 45.0-49.9, adult; M79.7 Fibromyalgia; K21.9 Gastro-esophageal reflux disease without esophagitis; R51 Headache; N45.1 Epididymitis; N31.9 Neuromuscular dysfunction of bladder, unspecified; F32.9 Major depressive disorder, single episode, unspecified; E66.9 Obesity, unspecified; B95.62 Methicillin resistant Staphylococcus aureus infection as the cause of diseases classified elsewhere; Z16.29 Resistance to other single specified antibiotic; I10 Essential (primary) hypertension; R79.1 Abnormal coagulation profile; Z86.14 Personal history of Methicillin resistant Staphylococcus aureus infection; Z87.440 Personal history of urinary (tract) infections; Z79.01 Long term (current) use of anticoagulants; Z79.891 Long term (current) use of opiate analgesic; Z79.899 Other long term (current) drug therapy; Z86.718 Personal history of other venous thrombosis and embolism; Z87.891 Personal history of nicotine dependence; Z80.3 Family history of malignant neoplasm of breast
CPT/HCPCS: 36415; 71046; 80048; 80053; 81001; 83605; 83735; 85025; 85610; 85730; 87040; 87077; 87086; 87186; 93005; 96361; 96365; 96375; 99285

== ENCOUNTER 2018-07-04 13:04 | Inpatient (IN) | payer MEDICARE, OTHER ==
[2018-07-04] MEDS ORDERED: SODIUM CHLORIDE 0.9% 1,000 ML IV STA (13:19)
[2018-07-04] MEDS ORDERED: ONDANSETRON 4 MG/2 ML VIAL IVP STA (13:47)
[2018-07-04] MEDS ORDERED: SUMAtriptan SUCCINATE 50 MG TAB PO STA (13:47)
[2018-07-04 14:13] LABS: ALT 20 U/L (21-72); AST 15 U/L (17-59); Albumin 3.7 g/dL (3.5-5.0); Alkaline Phosphatase 92 U/L (38-126); Anion Gap 10 mmol/L; Blood Urea Nitrogen 15 mg/dL (9-20); Carbon Dioxide 23 mmol/L (22-30); Chloride 105 mmol/L (98-107); Glucose 126 mg/dL (74-99); Lipase 23 U/L (23-300); Potassium 3.9 mmol/L (3.5-5.1); Sodium 138 mmol/L (137-145); Total Bilirubin 1.3 mg/dL (0.2-1.3); Total Protein 6.6 g/dL (6.3-8.2)
[2018-07-04 14:15] LABS: Basophils # (A) 0.1 k/uL (0-0.2); Basophils % (A) 0 %; Eosinophils # (A) 0.4 k/uL (0-0.7); Eosinophils % (A) 3 %; HCT 39.3 % (39.0-53.0); HGB 12.3 gm/dL (13.0-17.5); Hypochromasia Slight; Lymphocytes # (A) 1.7 k/uL (1.0-4.8); Lymphocytes % (A) 13 %; MCH 27.9 pg (25.0-35.0); MCHC 31.4 g/dL (31.0-37.0); MCV 88.8 fL (80.0-100.0); Mean Platelet Volume 7.1; Monocytes # (A) 0.7 k/uL (0-1.0); Monocytes % (A) 5 %; Neutrophils # (A) 10.4 k/uL (1.3-7.7); Neutrophils % (A) 77 %; Platelet Count 284 k/uL (150-450); RBC 4.43 m/uL (4.30-5.90); RDW 15.7 % (11.5-15.5); WBC 13.4 k/uL (3.8-10.6)
[2018-07-04 14:20] LABS: Amorphous Sediment,Urine Occasional /hpf; Appearance,Urine Turbid (Clear); Bacteria,Urine Moderate /hpf; Bilirubin,Urine Negative (Negative); Blood,Urine Small (Negative); Color,Urine Yellow; Glucose,Urine (UA) Negative (Negative); Ketones,Urine Negative (Negative); Leukocyte Esterase,Urine Large (Negative); Mucus,Urine Moderate /hpf; Nitrite,Urine Positive (Negative); Protein,Urine Negative (Negative); Specific Gravity,Urine 1.014 (1.001-1.035); Squamous Epithelial Cell,Urine 2 /hpf (0-4)
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
[2018-07-04] MEDS ORDERED: cefTRIAXone IN SWFI 1,000 MG/10 ML SYRINGE IVP STA (14:26)
[2018-07-04] MEDS ORDERED: VANCOMYCIN IV PER PHARMACY 1 EACH MISC MISCELLANE PRN (14:34)
[2018-07-04] MEDS ORDERED: ACETAMINOPHEN TAB 325 MG TAB PO PRN (14:36)
[2018-07-04] MEDS ORDERED: ONDANSETRON 4 MG/2 ML VIAL IVP PRN (14:36)
[2018-07-04] MEDS ORDERED: VANCOMYCIN 2,500 MG in SODIUM CHLORIDE 0.9% 500 ML 500 ML IVPB STA (14:50)
[2018-07-04] MEDS: SODIUM CHLORIDE 0.9% 1,000 ML IV SCH (14:55)
[2018-07-04] MEDS ORDERED: FLUDROCORTISONE 0.1 MG TAB PO PRN (20:21)
[2018-07-04] MEDS ORDERED: SUMAtriptan SUCCINATE 50 MG TAB PO PRN (20:21)
[2018-07-04] MEDS ORDERED: WARFARIN SODIUM 4 MG PO SCH (21:00)
[2018-07-04 21:03] LABS: INR 1.6 (<1.2); Prothrombin Time 15.6 sec (9.0-12.0)
[2018-07-04] MEDS ORDERED: WARFARIN 5 MG TAB PO ONE (21:30)
[2018-07-04] MEDS: traZODone HCL 100 MG TAB PO SCH (21:51)
[2018-07-04] MEDS: MELATONIN 5 MG TABLET PO SCH (21:51)
[2018-07-04] MEDS: DOCUSATE 100 MG CAP PO SCH (21:51)
[2018-07-04] MEDS: OXYBUTYNIN CHLORIDE 5 MG TAB PO SCH (21:51)
[2018-07-04] MEDS: amLODIPine 5 MG TAB PO SCH (21:52)
[2018-07-04] MEDS: PRIMIDONE 50 MG TAB PO SCH (21:52)
[2018-07-04] MEDS: TOPIRAMATE 25 MG TAB PO SCH (21:52)
[2018-07-04] MEDS: PREGABALIN 75 MG CAP PO SCH (21:52)
[2018-07-04] MEDS: DULoxetine HCL 30 MG CAPSULE.DR PO SCH (21:52)
[2018-07-04] MEDS: tiZANidine 4 MG TAB PO SCH (21:52)
[2018-07-05] MEDS: SODIUM CHLORIDE 0.9% 1,000 ML IV SCH ×3 (03:14→20:03)
[2018-07-05] MEDS: VANCOMYCIN 2,250 MG in SODIUM CHLORIDE 0.9% 500 ML 500 ML IVPB SCH ×2 (05:29→17:36)
[2018-07-05] MEDS: FUROSEMIDE 20 MG TAB PO SCH (09:45)
[2018-07-05] MEDS: PANTOPRAZOLE 40 MG TABLET PO SCH (09:45)
[2018-07-05] MEDS: DOCUSATE 100 MG CAP PO SCH ×2 (09:45→19:54)
[2018-07-05] MEDS: OXYBUTYNIN CHLORIDE 5 MG TAB PO SCH ×2 (09:45→19:55)
[2018-07-05] MEDS: LACTULOSE 20 GM/30 ML CUP PO SCH (09:46)
[2018-07-05] MEDS: amLODIPine 5 MG TAB PO SCH ×2 (09:46→19:55)
[2018-07-05] MEDS: DULoxetine HCL 30 MG CAPSULE.DR PO SCH (09:46)
[2018-07-05] MEDS: PREGABALIN 75 MG CAP PO SCH ×3 (09:47→19:56)
[2018-07-05] MEDS: TESTOSTERONE TOPICAL SCH (09:47)
[2018-07-05 10:09] LABS: INR 1.7 (<1.2)
[2018-07-05 10:12] LABS: ALT 23 U/L (21-72); AST 16 U/L (17-59); Albumin 3.2 g/dL (3.5-5.0); Alkaline Phosphatase 83 U/L (38-126); Anion Gap 8 mmol/L; Blood Urea Nitrogen 13 mg/dL (9-20); Calcium 8.5 mg/dL (8.4-10.2); Carbon Dioxide 21 mmol/L (22-30); Chloride 108 mmol/L (98-107); Glucose 104 mg/dL (74-99); Magnesium 1.9 mg/dL (1.6-2.3); Potassium 4.2 mmol/L (3.5-5.1); Sodium 137 mmol/L (137-145); Total Protein 5.9 g/dL (6.3-8.2)
[2018-07-05] MEDS ORDERED: SUMAtriptan SUCCINATE 6 MG/0.5 ML VIAL SQ STA (12:32)
--- NOTE | 2018-07-05 13:55 | CT ---
EXAMINATION TYPE: CT brain wo con DATE OF EXAM: 07/05/2018 COMPARISON: 12/31/2017 HISTORY: [facility] CT DLP: 1099.[address] of the brain was performed. The ventricles, basal cisterns and sulci overlying the cerebral convexities demonstrate mild enlargem ent. There is no evidence for intracranial hemorrhage or sulcal effacement. There is decreased attenuation about the periventricular white matter and deep white matter of both c erebral hemispheres, compatible with chronic small vessel ischemia. Differential diagnosis does inclu de demyelination. No mass effects are seen.No midline shift. Osseous calvarium is intact. If symptoms persist consider MRI. IMPRESSION: 1. Age related atrophic and chronic small vessel ischemic change without acute intracranial process s een at this time.
--- NOTE | 2018-07-05 14:15 | CT ---
EXAMINATION TYPE: CT abdomen pelvis wo con DATE OF EXAM: 07/05/2018 HISTORY: generalized abd pain CT DLP: 2598 mGycm. Automated Exposure Control for Dose Reduction was Utilized. TECHNIQUE: CT scan of the abdomen and pelvis is performed without oral or IV contrast. COMPARISON: CT abdomen and pelvis December 29, 2017 FINDINGS: Exam noted suboptimal secondary to patient's large body habitus similar to prior CT. Withi n the limitations of a non-contrast study, the following observations are made. LUNG BASES: Suspect right-sided gynecomastia axial image 1, correlate clinically. LIVER/GB: Dependent density in gallbladder favors small stones and/or sludge. Liver is hypodense rela tive to spleen consistent with mild diffuse fatty infiltration. PANCREAS: Mild generalized fat replaced atrophy of pancreas in the head and uncinate process is redem onstrated. SPLEEN: No significant abnormality is seen. ADRENALS: No significant abnormality is seen. KIDNEYS: New 2 to 3 mm calculus right kidney midpole level axial image 81. There is 1 to 2 mm calculu s midpole of the left kidney coronal image 71. No hydronephrosis or obstructing ureter calculi are cl early seen bilaterally. Rodriguez catheter is seen in decompressed bladder which is thus suboptimally betty luated. Surgical clips in the pelvis axial image 166 is redemonstrated presumed posterior to bladder wall. Scattered left-sided pelvic phleboliths are redemonstrated. BOWEL: No significant abnormality is seen. GENITAL ORGANS: No gross abnormality seen. LYMPH NODES: No greater than 1cm abdominal or pelvic lymph nodes are appreciated. OSSEOUS STRUCTURES: Patient has age-indeterminate comminuted displaced intertrochanteric fracture of right proximal femur. Large fracture fragment involving the lesser trochanter is noted. Multilevel sp urring throughout the spine is present. There is facet arthropathy lower lumbar spine. OTHER: No significant additional abnormality is seen. IMPRESSION: New acute displaced comminuted intertrochanteric fracture of right proximal femur. Critical results communicated to patient's nurse via telephone at time of dictation. Patient is nonam bulatory and paraplegic per nurse. Orthopedic consultation advised. A Yellow level critical message alert has been initiated for Chandana Roger MD via the [employer]iddy Critical Results System on 07/05/2018 2:13 PM. This message alert has been sent to Chandana Roger MD via the preferences provided by the clinician for the receipt of Radiology Critical Findings. [facility] [place] [id number].
--- NOTE | 2018-07-05 15:31 | XR ---
EXAMINATION TYPE: XR Hip Limited RT DATE OF EXAM: 07/05/2018 CLINICAL HISTORY: TECHNIQUE: Single portable view of the right hip is submitted. COMPARISON: None. FINDINGS: Limited evaluation right hip demonstrates a right sided intertrochanteric fracture. Mild cr anial migration distal fracture component. No additional fracture seen with certainty. Degenerative n arrowing right hip joint space. IMPRESSION: Limited evaluation right hip demonstrates a right sided intertrochanteric fracture.
[2018-07-05] MEDS ORDERED: WARFARIN 5 MG TAB PO ONE (18:00)
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
[2018-07-05] MEDS: traZODone HCL 100 MG TAB PO SCH (19:55)
[2018-07-05] MEDS: MELATONIN 5 MG TABLET PO SCH (19:55)
[2018-07-05] MEDS: TOPIRAMATE 25 MG TAB PO SCH (19:56)
[2018-07-05] MEDS: PRIMIDONE 50 MG TAB PO SCH (19:57)
[2018-07-05] MEDS: ACETAMINOPHEN TAB 325 MG TAB PO PRN (20:02)
[2018-07-05] MEDS: tiZANidine 4 MG TAB PO SCH (22:35)
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
[2018-07-06 02:59] LABS: Appearance,Urine Clear (Clear); Bacteria,Urine Rare /hpf; Bilirubin,Urine Negative (Negative); Blood,Urine Small (Negative); Color,Urine Yellow; Glucose,Urine (UA) Negative (Negative); Ketones,Urine Negative (Negative); Leukocyte Esterase,Urine Large (Negative); Mucus,Urine Rare /hpf; Nitrite,Urine Negative (Negative); PH, Urine 6.5 (5.0-8.0); Protein,Urine Trace (Negative); RBC,Urine 3 /hpf (0-5); Specific Gravity,Urine 1.009 (1.001-1.035)
[2018-07-06] MEDS: ACETAMINOPHEN TAB 325 MG TAB PO PRN ×2 (04:28→17:58)
[2018-07-06] MEDS: VANCOMYCIN 2,250 MG in SODIUM CHLORIDE 0.9% 500 ML 500 ML IVPB SCH (06:08)
[2018-07-06 08:27] LABS: INR 2.2 (<1.2); Prothrombin Time 21.5 sec (9.0-12.0)
[2018-07-06 08:31] LABS: Basophils % (A) 0 %; Eosinophils # (A) 0.4 k/uL (0-0.7); Eosinophils % (A) 4 %; HCT 36.5 % (39.0-53.0); HGB 11.5 gm/dL (13.0-17.5); Hypochromasia Slight; Lymphocytes # (A) 1.3 k/uL (1.0-4.8); Lymphocytes % (A) 13 %; MCH 28.3 pg (25.0-35.0); MCHC 31.5 g/dL (31.0-37.0); MCV 89.9 fL (80.0-100.0); Mean Platelet Volume 7.3; Monocytes # (A) 0.5 k/uL (0-1.0); Monocytes % (A) 5 %; Neutrophils # (A) 7.5 k/uL (1.3-7.7); Neutrophils % (A) 76 %; Platelet Count 273 k/uL (150-450); RBC 4.07 m/uL (4.30-5.90); RDW 15.8 % (11.5-15.5); WBC 9.9 k/uL (3.8-10.6)
[2018-07-06 09:06] LABS: Anion Gap 7 mmol/L; Blood Urea Nitrogen 10 mg/dL (9-20); Calcium 8.7 mg/dL (8.4-10.2); Carbon Dioxide 24 mmol/L (22-30); Chloride 109 mmol/L (98-107); Glucose 111 mg/dL (74-99); Potassium 4.1 mmol/L (3.5-5.1); Sodium 140 mmol/L (137-145)
[2018-07-06] MEDS: oxyCODONE-APAP 10-325MG 1 EACH TAB PO PRN ×2 (10:48→15:40)
[2018-07-06] MEDS: PANTOPRAZOLE 40 MG TABLET PO SCH (10:49)
[2018-07-06] MEDS: DULoxetine HCL 30 MG CAPSULE.DR PO SCH (10:50)
[2018-07-06] MEDS: DOCUSATE 100 MG CAP PO SCH ×2 (10:50→20:31)
[2018-07-06] MEDS: amLODIPine 5 MG TAB PO SCH ×2 (10:50→20:31)
[2018-07-06] MEDS: LACTULOSE 20 GM/30 ML CUP PO SCH (10:51)
[2018-07-06] MEDS: FUROSEMIDE 20 MG TAB PO SCH (10:51)
[2018-07-06] MEDS: PREGABALIN 75 MG CAP PO SCH ×3 (10:52→20:32)
[2018-07-06] MEDS: OXYBUTYNIN CHLORIDE 5 MG TAB PO SCH ×2 (10:52→20:31)
[2018-07-06] MEDS: SODIUM CHLORIDE 0.9% 1,000 ML IV SCH ×2 (12:31→19:40)
[2018-07-06] MEDS: TESTOSTERONE TOPICAL SCH (12:32)
--- NOTE | 2018-07-06 15:37 | PN ---
PROGRESS NOTE DATE OF SERVICE: 07/06/2018 REASON FOR FOLLOWUP: Gram-negative [id number] infection. INTERVAL HISTORY: The patient did spike a fever last evening of 101.1 degrees Fahrenheit. The patient did have subsequently fever of 99.7, afebrile since then. The patient denies having any chest pain. Complaining of some headache. No nausea, vomiting, abdominal pain, or any diarrhea. PHYSICAL EXAMINATION: Blood pressure is 104/65 with a pulse of 98, temperature 97.9, he is 94% on room air. General description is a middle-aged male, lying in bed in no distress. RESPIRATORY SYSTEM: Unlabored breathing, clear to auscultation anteriorly. HEART: S1, S2. Regular rate and rhythm. ABDOMEN: Soft, no tenderness. LABS: Hemoglobin is 11.5, white count of 9.8. BUN of 10, creatinine 0.65. Urine showing a gram-negative. DIAGNOSTIC IMPRESSION AND PLAN: Patient with gram-negative catheter systemic infection. Patient to be adjusted to Rocephin 2 g daily instead of q.12 hours dosing and discontinue vancomycin as no gram- positive organism has been grown. MMODL / IJN: [id number] /
[2018-07-06] MEDS ORDERED: WARFARIN 2 MG TAB PO ONE (18:00)
[2018-07-06] MEDS: MELATONIN 5 MG TABLET PO SCH (20:31)
[2018-07-06] MEDS: PRIMIDONE 50 MG TAB PO SCH (20:32)
[2018-07-06] MEDS: TOPIRAMATE 25 MG TAB PO SCH (20:32)
[2018-07-06] MEDS: traZODone HCL 100 MG TAB PO SCH (20:32)
[2018-07-06] MEDS: tiZANidine 4 MG TAB PO SCH (22:39)
[2018-07-07 01:45] VITALS: RESP 15
[2018-07-07] MEDS: SODIUM CHLORIDE 0.9% 1,000 ML IV SCH (03:16)
[2018-07-07] MEDS ORDERED: VANCOMYCIN TROUGH DUE 1 EACH MISC MISCELLANE ONE (05:00)
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
[2018-07-07 08:05] LABS: Basophils % (A) 0 %; Eosinophils # (A) 0.5 k/uL (0-0.7); Eosinophils % (A) 6 %; HCT 34.7 % (39.0-53.0); HGB 10.8 gm/dL (13.0-17.5); Hypochromasia Slight; Lymphocytes # (A) 1.3 k/uL (1.0-4.8); Lymphocytes % (A) 16 %; MCH 28.5 pg (25.0-35.0); MCHC 31.2 g/dL (31.0-37.0); MCV 91.3 fL (80.0-100.0); Mean Platelet Volume 6.8; Monocytes # (A) 0.4 k/uL (0-1.0); Monocytes % (A) 5 %; Neutrophils # (A) 5.8 k/uL (1.3-7.7); Neutrophils % (A) 71 %; Platelet Count 267 k/uL (150-450); RBC 3.79 m/uL (4.30-5.90); RDW 15.9 % (11.5-15.5); WBC 8.2 k/uL (3.8-10.6)
[2018-07-07 08:15] LABS: INR 2.7 (<1.2); Prothrombin Time 26.2 sec (9.0-12.0)
[2018-07-07 08:31] VITALS: BP 180/63; PULSE 79; TEMP 98.3
[2018-07-07 08:31] LABS: Anion Gap 6 mmol/L; Blood Urea Nitrogen 12 mg/dL (9-20); Calcium 8.4 mg/dL (8.4-10.2); Carbon Dioxide 24 mmol/L (22-30); Chloride 110 mmol/L (98-107); Glucose 107 mg/dL (74-99); Sodium 140 mmol/L (137-145)
[2018-07-07] MEDS: oxyCODONE-APAP 10-325MG 1 EACH TAB PO PRN ×2 (08:41→14:40)
[2018-07-07] MEDS: amLODIPine 5 MG TAB PO SCH (08:41)
[2018-07-07] MEDS: PANTOPRAZOLE 40 MG TABLET PO SCH (08:41)
[2018-07-07] MEDS: OXYBUTYNIN CHLORIDE 5 MG TAB PO SCH (08:41)
[2018-07-07] MEDS: FUROSEMIDE 20 MG TAB PO SCH (08:41)
[2018-07-07] MEDS: DOCUSATE 100 MG CAP PO SCH (08:41)
[2018-07-07] MEDS: PREGABALIN 75 MG CAP PO SCH ×2 (08:41→12:36)
[2018-07-07] MEDS: DULoxetine HCL 30 MG CAPSULE.DR PO SCH (08:42)
[2018-07-07] MEDS: LACTULOSE 20 GM/30 ML CUP PO SCH (08:42)
[2018-07-07] MEDS: TESTOSTERONE TOPICAL SCH (08:43)
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
--- NOTE | 2018-07-07 10:28 | P.PN ---
Subjective Progress Note Date: 07/07/18 Principal diagnosis: Paraplegia. UTI sepsis. Right intertrochanteric fracture. his is a 62-year-old male who we are following regarding his intertrochanteric fracture of the right hip. The patient is paraplegic with no feeling from the nipple line down. Intertrochanteric fracture of the right hip was found incidentally on CT of the abdomen and pelvis. He has no new complaints or concerns today. Objective - Vital Signs Vital signs: Vital Signs Temp 98.3 F 07/07/18 07:35 Pulse 79 07/07/18 07:35 Resp 15 07/07/18 01:18 BP 180/63 07/07/18 07:35 Pulse Ox 94 L 07/07/18 07:35 Intake & Output 07/06/18 07/07/18 07/07/18 18:59 06:59 18:59 Intake Total 600 1200 Output Total 650 600 Balance -50 600 Intake: Intake, IV Titration 600 1200 Amount Sodium Chloride 0.9% 1, 600 1200 000 ml @ 100 mls/hr IV . Q10H [facility] Rx#:[id number] Output: Urine 650 600 Uretheral (Rodriguez) 600 Other: Voiding Method Indwelling Catheter Indwelling Catheter Indwelling Catheter # Bowel Movements 1 - Exam This is a 62-year-old male in no acute distress. He is alert and oriented. Orthopedic e no new findings. xam is essentially unchanged. - Labs CBC & Chem 7: 07/07/18 07:40 07/07/18 07:40 Labs: Abnormal Lab Results - Last 24 Hours (Table) 07/07/18 07/07/18 07/07/18 Range/Units 07:40 07:40 07:40 RBC 3.79 L (4.30-5.90) m/uL Hgb 10.8 L (13.0-17.5) gm/dL Hct 34.7 L (39.0-53.0) % RDW 15.9 H (11.5-15.5) % PT 26.2 H (9.0-12.0) sec INR 2.7 H (<1.2) Chloride 110 H (98-107) mmol/L Creatinine 0.64 L (0.66-1.25) mg/dL Glucose 107 H (74-99) mg/dL Microbiology - Last 24 Hours (Table) 07/04/18 14:02 Urine Culture - Final Urine,Voided Escherichia coli 07/04/18 13:44 Blood Culture - Preliminary Blood No Growth after 48 hours 07/06/18 01:00 Urine Culture - Preliminary Urine,Voided Assessment and Plan (1) Intertrochanteric fracture of right femur Current Visit: Yes Status: Acute Code(s): S72.141A - DISPLACED INTERTROCHANTERIC FRACTURE OF RIGHT FEMUR, INIT SNOMED Code(s): 149597400 (2) Sepsis secondary to UTI Current Visit: Yes Status: Acute Code(s): A41.9 - SEPSIS, UNSPECIFIED ORGANISM; N39.0 - URINARY TRACT INFECTION, SITE NOT SPECIFIED SNOMED Code(s): 801099976 (3) Paraplegia Current Visit: Yes Status: Acute Code(s): G82.20 - PARAPLEGIA, UNSPECIFIED SNOMED Code(s): 19824895 Plan: The clinical and x-ray findings are discussed the patient. Treatment options are discussed. With his history of paraplegia and multiple medical comorbidities, It is recommended that the patient continue with conservative treatment for the fracture. The patient is offered follow up Xrays but he states that he will just follow up as needed. He may continue to transfer with assistance as tolerated.
--- NOTE | 2018-07-07 14:39 | PN ---
PROGRESS NOTE DATE OF SERVICE: 07/07/2018 REASON FOR FOLLOWUP: E coli urinary tract infection. INTERVAL HISTORY: The patient is currently afebrile. Patient is breathing comfortably. His headache has improved. No nausea, no vomiting. No abdominal pain, no diarrhea. PHYSICAL EXAMINATION: Blood pressure is 180/63 with a pulse of 79, temperature 98.3, he is 94% on room air. General description is a middle-aged male, lying in bed in no distress. RESPIRATORY SYSTEM: Unlabored breathing, clear to auscultation anteriorly. HEART: S1, S2. Regular rate and rhythm. ABDOMEN: Soft, no tenderness. LABS: Hemoglobin is 10.1, white count of 8.2 with a BUN of 12 and creatinine 0.64. Urine with an E coli that is sensitive pathogen. DIAGNOSTIC IMPRESSION AND PLAN: Patient with an Escherichia coli urinary tract infection, catheter associated. Rodriguez catheter has been changed. Currently on Rocephin. Recommend a short course of oral Cipro to finish a course of therapy. Continue supportive care. MMODL / IJN: [id number] /
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
[2018-07-07] MEDS ORDERED: WARFARIN 3 MG TAB PO ONE (18:00)
== END 2018-07-07 17:54 | disposition home health service (06) | DRG 698 ==
LOC: EC 13:04 → 3NMEDONC 14:53 → 4SSUR 16:02 → OBSVTOIN 07-05 08:09
PROVIDERS: ADMIT Family Medicine; ATTEND Family Medicine
DX: T83.511A Infection and inflammatory reaction due to indwelling urethral catheter, initial encounter (principal); A41.51 Sepsis due to Escherichia coli [E. coli]; S72.141A Displaced intertrochanteric fracture of right femur, initial encounter for closed fracture; G82.20 Paraplegia, unspecified; E27.40 Unspecified adrenocortical insufficiency; N31.9 Neuromuscular dysfunction of bladder, unspecified; K76.0 Fatty (change of) liver, not elsewhere classified; N39.0 Urinary tract infection, site not specified; Z79.52 Long term (current) use of systemic steroids; M79.7 Fibromyalgia; K21.9 Gastro-esophageal reflux disease without esophagitis; G47.00 Insomnia, unspecified; G43.909 Migraine, unspecified, not intractable, without status migrainosus; F32.9 Major depressive disorder, single episode, unspecified; N20.0 Calculus of kidney; K56.41 Fecal impaction; Z79.01 Long term (current) use of anticoagulants; Z79.899 Other long term (current) drug therapy; Z86.718 Personal history of other venous thrombosis and embolism; Z87.01 Personal history of pneumonia (recurrent); Z87.440 Personal history of urinary (tract) infections; Z86.14 Personal history of Methicillin resistant Staphylococcus aureus infection; Z87.891 Personal history of nicotine dependence; Z80.3 Family history of malignant neoplasm of breast
CPT/HCPCS: 36415; 70450; 73501; 74176; 80048; 80053; 81001; 83605; 83690; 83735; 85025; 85610; 87040; 87077; 87086; 87186; 87502; 96361; 96365; 96375; 99285

== ENCOUNTER 2018-08-17 14:34 | Emergency (ER) | payer MEDICARE, OTHER ==
[2018-08-17 14:46] VITALS: RESP 18
--- NOTE | 2018-08-17 17:22 | XR ---
EXAMINATION TYPE: XR foot complete LT DATE OF EXAM: 08/17/2018 COMPARISON: NONE HISTORY: Pain TECHNIQUE: 3 views FINDINGS: There is osteopenia. Metatarsals appear intact. There is a large plantar calcaneal spur. Th ere is soft tissue swelling of the foot. I see no fracture nor dislocation. IMPRESSION: Soft tissue swelling. No fracture. No sign of osteomyelitis.
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
[2018-08-17 18:12] VITALS: BP 122/68; PULSE 68; TEMP 97.6
== END 2018-08-17 18:12 | disposition home or self-care (01) ==
LOC: EC 14:34
DX: S91.312A Laceration without foreign body, left foot, initial encounter (principal); G82.20 Paraplegia, unspecified; K21.9 Gastro-esophageal reflux disease without esophagitis; M79.7 Fibromyalgia; N31.9 Neuromuscular dysfunction of bladder, unspecified; K59.00 Constipation, unspecified; F32.9 Major depressive disorder, single episode, unspecified; G89.29 Other chronic pain; Z87.891 Personal history of nicotine dependence; Z79.01 Long term (current) use of anticoagulants; Z79.899 Other long term (current) drug therapy; Z86.14 Personal history of Methicillin resistant Staphylococcus aureus infection; Z86.718 Personal history of other venous thrombosis and embolism; Z96.0 Presence of urogenital implants; Z86.69 Personal history of other diseases of the nervous system and sense organs
CPT/HCPCS: 12001; 99283

== ENCOUNTER → 2018-08-17 | Outpatient (CLI) | payer MEDICARE, OTHER | END | disposition home or self-care (01) | LOC: LABWHC1 10:45 | PROVIDERS: ATTEND Family Medicine | DX: R53.83 Other fatigue (principal); E29.1 Testicular hypofunction | CPT/HCPCS: 36415; 82040; 84153; 84270; 84403 ==

== ENCOUNTER → 2018-08-18 | Outpatient (CLI) | payer MEDICARE, OTHER | END | disposition home or self-care (01) | LOC: LABWHC1 10:47 | PROVIDERS: ATTEND Family Medicine | DX: E29.0 Testicular hyperfunction (principal); R53.83 Other fatigue | CPT/HCPCS: 36415; 82040; 84270; 84403 ==

== ENCOUNTER 2018-10-25 10:09 | Emergency (ER) | payer MEDICARE, OTHER ==
[2018-10-25] MEDS ORDERED: ACETAMINOPHEN TAB 500 MG TAB PO STA (10:33)
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
[2018-10-25 11:05] LABS: Anisocytosis Slight; Basophils # (A) 0.1 k/uL (0-0.2); Basophils % (A) 1 %; Eosinophils # (A) 0.7 k/uL (0-0.7); Eosinophils % (A) 6 %; HCT 36.8 % (39.0-53.0); HGB 11.9 gm/dL (13.0-17.5); Lymphocytes # (A) 2.2 k/uL (1.0-4.8); Lymphocytes % (A) 20 %; MCH 27.3 pg (25.0-35.0); MCHC 32.4 g/dL (31.0-37.0); MCV 84.3 fL (80.0-100.0); Monocytes # (A) 0.4 k/uL (0-1.0); Monocytes % (A) 3 %; Neutrophils # (A) 7.7 k/uL (1.3-7.7); Neutrophils % (A) 69 %; Platelet Count 256 k/uL (150-450); RBC 4.37 m/uL (4.30-5.90); RDW 17.6 % (11.5-15.5); WBC 11.2 k/uL (3.8-10.6)
[2018-10-25 11:14] LABS: ALT 16 U/L (21-72); AST 14 U/L (17-59); African American GFR (CKD) >90 (>60 ml/min/1.73 sqM); Albumin 3.4 g/dL (3.5-5.0); Alkaline Phosphatase 144 U/L (38-126); Anion Gap 8 mmol/L; Blood Urea Nitrogen 18 mg/dL (9-20); Calcium 8.7 mg/dL (8.4-10.2); Carbon Dioxide 25 mmol/L (22-30); Chloride 104 mmol/L (98-107); Glucose 108 mg/dL (74-99); Potassium 3.8 mmol/L (3.5-5.1); Sodium 137 mmol/L (137-145); Total Bilirubin 0.8 mg/dL (0.2-1.3); Total Protein 6.5 g/dL (6.3-8.2)
[2018-10-25 11:17] LABS: Appearance,Urine Cloudy (Clear); Bacteria,Urine Occasional /hpf; Bilirubin,Urine Negative (Negative); Blood,Urine Small (Negative); Calcium Oxalate Crystals,Urine Few /hpf; Color,Urine Yellow; Glucose,Urine (UA) Negative (Negative); Ketones,Urine Negative (Negative); Leukocyte Esterase,Urine Large (Negative); Mucus,Urine Rare /hpf; Nitrite,Urine Negative (Negative); Protein,Urine Negative (Negative); RBC,Urine 7 /hpf (0-5); Squamous Epithelial Cell,Urine <1 /hpf (0-4); Urobilinogen,Urine <2.0 mg/dL (<2.0); WBC,Urine 39 /hpf (0-5)
[2018-10-25 11:23] LABS: INR 1.5 (<1.2); Partial Thromboplastin Time 30.4 sec (22.0-30.0); Prothrombin Time 15.4 sec (9.0-12.0)
[2018-10-25 11:57] VITALS: RESP 16
--- NOTE | 2018-10-25 12:03 | XR ---
EXAMINATION TYPE: XR chest 2V DATE OF EXAM: 10/25/2018 COMPARISON: 02/17/2018 INDICATION: Fever sepsis pain TECHNIQUE: Frontal and lateral views of the chest are obtained. FINDINGS: The heart size is upper limits of normal. The pulmonary vasculature is normal. Lower lobe infiltrate may be present. This is less well appreciated on the frontal projection. IMPRESSION: 1. Suspected posterior infiltrate. Correlate for pneumonia. Atelectasis could be considered. Follow-u p can be performed.
--- NOTE | 2018-10-25 12:05 | XR ---
EXAMINATION TYPE: XR femur bilateral DATE OF EXAM: 10/25/2018 COMPARISON: None HISTORY: Pain sepsis fall from wheelchair TECHNIQUE: Two-view bilateral femurs FINDINGS: Femoral heads articulate with the acetabulum. No acute fracture is evident. Degenerative ch anges are at the left knee. There is a fracture of the right proximal diaphyseal hip. This appears to be old with nonunion. No ad ditional fractures are evident. IMPRESSION: 1. 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 2. Left hip appears intact.
--- NOTE | 2018-10-25 12:08 | XR ---
EXAMINATION TYPE: XR foot limited bilateral DATE OF EXAM: 10/25/2018 COMPARISON: 08/17/2018 left foot HISTORY: Fall from wheelchair pain and sepsis TECHNIQUE: Two-view bilateral feet FINDINGS: Right foot: No acute fracture or dislocation is evident. Plantar calcaneal heel spur is pre sent. Diffuse soft tissue swelling is present Left foot: No acute fractures are evident. There is some deformity at the distal metatarsal regions o f the second and third digit which is an interval change suggestive for old fracture. Large plantar c alcaneal heel spur is present. IMPRESSION: 1. There may be old fractures of the distal third and fourth metatarsals left foot. This is a change from August 2018. 2. Right foot appears intact. 3. Bilateral plantar calcaneal heel spurs.
--- NOTE | 2018-10-25 12:11 | XR ---
EXAMINATION TYPE: XR tibia fibula bilateral DATE OF EXAM: 10/25/2018 COMPARISON: None HISTORY: Fall from wheelchair sepsis pain TECHNIQUE: 2 view bilateral tibia and fibula FINDINGS: There appears to be some diffuse osteoporosis through the bilateral tibia and fibula. No acute fractu res are evident. Joint spaces are limited. IMPRESSION: 1. No acute fractures bilateral tibia and fibula.
[2018-10-25] MEDS ORDERED: cefTRIAXone IN SWFI 1,000 MG/10 ML SYRINGE IVP STA (13:00)
[2018-10-25 13:14] VITALS: TEMP 98.8
[2018-10-25 13:15] VITALS: BP 101/65; PULSE 71
== END 2018-10-25 14:59 | disposition home or self-care (01) ==
LOC: EC 10:09
DX: J18.9 Pneumonia, unspecified organism (principal); S90.416A Abrasion, unspecified lesser toe(s), initial encounter; R60.0 Localized edema; G82.20 Paraplegia, unspecified; N39.0 Urinary tract infection, site not specified; N31.9 Neuromuscular dysfunction of bladder, unspecified; E27.40 Unspecified adrenocortical insufficiency; K59.00 Constipation, unspecified; F32.9 Major depressive disorder, single episode, unspecified; Z87.891 Personal history of nicotine dependence; Z79.01 Long term (current) use of anticoagulants; Z79.51 Long term (current) use of inhaled steroids; Z79.52 Long term (current) use of systemic steroids; Z79.899 Other long term (current) drug therapy; Z86.14 Personal history of Methicillin resistant Staphylococcus aureus infection; Z86.718 Personal history of other venous thrombosis and embolism; Z87.828 Personal history of other (healed) physical injury and trauma; Z86.69 Personal history of other diseases of the nervous system and sense organs; Z99.3 Dependence on wheelchair; Z96.698 Presence of other orthopedic joint implants; Z80.1 Family history of malignant neoplasm of trachea, bronchus and lung; W05.0XXA Fall from non-moving wheelchair, initial encounter
CPT/HCPCS: 36415; 93005; 80053; 83605; 85025; 85610; 85730; 81001; 87040; 87086; 73590; 73620; 73552; 71046; 99284; 96374; J0696

== ENCOUNTER 2019-04-13 10:54 | Observation (INO) | payer MEDICARE, OTHER ==
[2019-04-13] MEDS ORDERED: ACETAMINOPHEN TAB 325 MG TAB PO STA (11:47)
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
[2019-04-13] MEDS: SODIUM CHLORIDE 0.9% 500 ML 500 ML IV SCH ×2 (12:18→12:19)
[2019-04-13 12:44] LABS: Basophils # (A) 0.1 k/uL (0-0.2); Basophils % (A) 1 %; Eosinophils # (A) 0.4 k/uL (0-0.7); Eosinophils % (A) 3 %; HCT 44.9 % (39.0-53.0); HGB 14.2 gm/dL (13.0-17.5); Lymphocytes # (A) 2.7 k/uL (1.0-4.8); Lymphocytes % (A) 20 %; MCHC 31.6 g/dL (31.0-37.0); MCV 91.6 fL (80.0-100.0); Mean Platelet Volume 7.4; Monocytes # (A) 0.6 k/uL (0-1.0); Monocytes % (A) 5 %; Neutrophils # (A) 9.1 k/uL (1.3-7.7); Neutrophils % (A) 69 %; Platelet Count 307 k/uL (150-450); RBC 4.91 m/uL (4.30-5.90); RDW 15.2 % (11.5-15.5); WBC 13.1 k/uL (3.8-10.6)
[2019-04-13 12:57] LABS: ALT 14 U/L (4-49); AST 18 U/L (17-59); African American GFR (CKD) >90 (>60 ml/min/1.73 sqM); Albumin 3.9 g/dL (3.5-5.0); Alkaline Phosphatase 136 U/L (38-126); Anion Gap 8 mmol/L; Blood Urea Nitrogen 12 mg/dL (9-20); Calcium 9.1 mg/dL (8.4-10.2); Carbon Dioxide 24 mmol/L (22-30); Chloride 104 mmol/L (98-107); Glucose 113 mg/dL (74-99); Non-African American GFR(CKD) >90 (>60 ml/min/1.73 sqM); Potassium 3.8 mmol/L (3.5-5.1); Sodium 136 mmol/L (137-145); Total Bilirubin 0.8 mg/dL (0.2-1.3); Total Protein 7.3 g/dL (6.3-8.2)
[2019-04-13 13:07] LABS: INR 1.3 (<1.2); Partial Thromboplastin Time 28.1 sec (22.0-30.0); Prothrombin Time 13.4 sec (9.0-12.0)
[2019-04-13 13:37] LABS: Appearance,Urine Clear (Clear); Bacteria,Urine Moderate /hpf; Bilirubin,Urine Negative (Negative); Blood,Urine Moderate (Negative); Color,Urine Light Yellow; Glucose,Urine (UA) Negative (Negative); Ketones,Urine Negative (Negative); Leukocyte Esterase,Urine Large (Negative); Mucus,Urine Rare /hpf; Nitrite,Urine Positive (Negative); PH, Urine 6.5 (5.0-8.0); Protein,Urine Negative (Negative); RBC,Urine 35 /hpf (0-5); Specific Gravity,Urine 1.004 (1.001-1.035); Squamous Epithelial Cell,Urine 1 /hpf (0-4); Urobilinogen,Urine <2.0 mg/dL (<2.0); WBC,Urine 25 /hpf (0-5)
--- NOTE | 2019-04-13 13:41 | XR ---
EXAMINATION TYPE: XR chest 2V DATE OF EXAM: 04/13/2019 COMPARISON: 10/25/2018 INDICATION: Fever TECHNIQUE: Frontal and lateral views of the chest are obtained. FINDINGS: The heart size is normal. The pulmonary vasculature is normal. Some mild posterior infiltrate is not excluded. This area is diminished comparison.. IMPRESSION: 1. Mild posterior infiltrate should be considered. 2. Exam is otherwise unremarkable
[2019-04-13] MEDS ORDERED: AZITHROMYCIN 500 MG in SODIUM CHLORIDE 0.9% 250 ML IVPB STA (14:18)
[2019-04-13] MEDS ORDERED: MORPHINE SULFATE 4 MG/ML SYRINGE IVP STA (14:20)
[2019-04-13] MEDS ORDERED: NALOXONE 0.4 MG/ML 1 ML VIAL IV PRN (14:43)
[2019-04-13] MEDS ORDERED: SODIUM CHLORIDE 0.9% 500 ML 500 ML IV ONE ×2 (14:44→15:28)
[2019-04-13] MEDS: SODIUM CHLORIDE 0.9% 1,000 ML IV SCH ×2 (16:58→23:42)
[2019-04-13] MEDS ORDERED: WARFARIN 2 MG TAB PO ONE (22:00)
[2019-04-13] MEDS: traZODone HCL 50 MG TAB PO SCH (22:27)
[2019-04-13] MEDS: DOCUSATE 100 MG CAP PO SCH (22:27)
[2019-04-13] MEDS: oxyCODONE-APAP 10-325MG 1 EACH TAB PO SCH (22:27)
[2019-04-13] MEDS: TOPIRAMATE 25 MG TAB PO SCH (22:27)
[2019-04-13] MEDS: PRIMIDONE 50 MG TAB PO SCH (22:28)
[2019-04-13] MEDS: FUROSEMIDE 20 MG TAB PO SCH (22:28)
[2019-04-13] MEDS: DULoxetine HCL 30 MG CAPSULE.DR PO SCH (22:28)
[2019-04-13] MEDS: PREGABALIN 75 MG CAP PO SCH (22:29)
[2019-04-13] MEDS ORDERED: WARFARIN 5 MG TAB PO ONE (22:30)
[2019-04-14] MEDS: SODIUM CHLORIDE 0.9% 1,000 ML IV SCH ×2 (05:05→11:11)
[2019-04-14 08:18] LABS: INR 1.3 (<1.2); Prothrombin Time 13.1 sec (9.0-12.0)
[2019-04-14] MEDS ORDERED: DOXYCYCLINE 100 MG CAP PO SCH (09:00)
[2019-04-14] MEDS: LACTULOSE 20 GM/30 ML CUP PO SCH (09:59)
[2019-04-14] MEDS: PANTOPRAZOLE 40 MG TABLET PO SCH (10:08)
[2019-04-14] MEDS: oxyCODONE-APAP 10-325MG 1 EACH TAB PO SCH ×3 (10:08→21:33)
[2019-04-14] MEDS: FUROSEMIDE 20 MG TAB PO SCH ×2 (10:08→21:32)
[2019-04-14] MEDS: amLODIPine 5 MG TAB PO SCH ×2 (10:09→21:33)
[2019-04-14] MEDS: DOCUSATE 100 MG CAP PO SCH ×2 (10:09→21:32)
[2019-04-14] MEDS: PREGABALIN 75 MG CAP PO SCH ×3 (10:10→21:33)
[2019-04-14] MEDS: OXYBUTYNIN 15 MG TAB.ER.24 PO SCH (10:11)
[2019-04-14] MEDS: FLUDROCORTISONE 0.1 MG TAB PO SCH (10:13)
[2019-04-14 10:20] LABS: Basophils # (A) 0.1 k/uL (0-0.2); Basophils % (A) 1 %; Eosinophils # (A) 0.4 k/uL (0-0.7); Eosinophils % (A) 4 %; HCT 40.4 % (39.0-53.0); HGB 12.6 gm/dL (13.0-17.5); Hypochromasia Slight; Lymphocytes # (A) 2.1 k/uL (1.0-4.8); Lymphocytes % (A) 22 %; MCH 29.2 pg (25.0-35.0); MCHC 31.1 g/dL (31.0-37.0); MCV 93.8 fL (80.0-100.0); Mean Platelet Volume 7.7; Monocytes # (A) 0.5 k/uL (0-1.0); Monocytes % (A) 6 %; Neutrophils # (A) 6.4 k/uL (1.3-7.7); Neutrophils % (A) 66 %; Platelet Count 290 k/uL (150-450); WBC 9.8 k/uL (3.8-10.6)
[2019-04-14 10:32] LABS: African American GFR (CKD) >90 (>60 ml/min/1.73 sqM); Anion Gap 6 mmol/L; Blood Urea Nitrogen 11 mg/dL (9-20); Calcium 8.6 mg/dL (8.4-10.2); Carbon Dioxide 23 mmol/L (22-30); Chloride 108 mmol/L (98-107); Glucose 88 mg/dL (74-99); Non-African American GFR(CKD) >90 (>60 ml/min/1.73 sqM); Potassium 4.4 mmol/L (3.5-5.1); Sodium 137 mmol/L (137-145)
[2019-04-14] MEDS: AZITHROMYCIN 500 MG in SODIUM CHLORIDE 0.9% 250 ML IVPB SCH (11:11)
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
[2019-04-14] MEDS: HEPARIN SODIUM,PORCINE 5,000 UNIT/ML 1 ML VIAL SQ SCH ×3 (11:44→15:18)
--- NOTE | 2019-04-14 11:44 | XR ---
EXAMINATION TYPE: XR chest 1V portable DATE OF EXAM: 04/14/2019 HISTORY: pneumonia. REFERENCE: Previous study dated 04/13/2019. FINDINGS: There has been previous internal fixation of the right clavicle. There is been a posterior fusion at the level of the upper thoracic spine. Heart size upper limits of normal. The lungs are clear. Pleural spaces are clear. IMPRESSION: NO ACTIVE INTRATHORACIC DISEASE.
[2019-04-14] MEDS ORDERED: WARFARIN 5 MG TAB PO ONE (18:00)
[2019-04-14] MEDS ORDERED: WARFARIN 2 MG TAB PO SCH (18:00)
[2019-04-14] MEDS: DULoxetine HCL 30 MG CAPSULE.DR PO SCH (21:32)
[2019-04-14] MEDS: PRIMIDONE 50 MG TAB PO SCH (21:32)
[2019-04-14] MEDS: traZODone HCL 50 MG TAB PO SCH (21:33)
[2019-04-14] MEDS: TOPIRAMATE 25 MG TAB PO SCH (21:33)
[2019-04-15] MEDS: HEPARIN SODIUM,PORCINE 5,000 UNIT/ML 1 ML VIAL SQ SCH ×3 (01:07→16:25)
[2019-04-15] MEDS: SODIUM CHLORIDE 0.9% 1,000 ML IV SCH ×2 (01:07→16:28)
[2019-04-15 07:58] LABS: INR 1.5 (<1.2); Prothrombin Time 15.1 sec (9.0-12.0)
[2019-04-15] MEDS: AZITHROMYCIN 500 MG in SODIUM CHLORIDE 0.9% 250 ML IVPB SCH (08:59)
[2019-04-15] MEDS: amLODIPine 5 MG TAB PO SCH ×2 (08:59→21:05)
[2019-04-15] MEDS: DOCUSATE 100 MG CAP PO SCH ×2 (09:00→21:05)
[2019-04-15] MEDS: FUROSEMIDE 20 MG TAB PO SCH ×2 (09:01→21:05)
[2019-04-15] MEDS: FLUDROCORTISONE 0.1 MG TAB PO SCH (09:01)
[2019-04-15] MEDS: OXYBUTYNIN 15 MG TAB.ER.24 PO SCH (09:02)
[2019-04-15] MEDS: LACTULOSE 20 GM/30 ML CUP PO SCH (09:02)
[2019-04-15] MEDS: oxyCODONE-APAP 10-325MG 1 EACH TAB PO SCH ×3 (09:02→21:05)
[2019-04-15] MEDS: PREGABALIN 75 MG CAP PO SCH ×3 (09:03→21:06)
[2019-04-15] MEDS: PANTOPRAZOLE 40 MG TABLET PO SCH (09:03)
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
[2019-04-15] MEDS ORDERED: WARFARIN 3 MG TAB PO ONE (18:00)
[2019-04-15] MEDS: DULoxetine HCL 30 MG CAPSULE.DR PO SCH (21:05)
[2019-04-15] MEDS: traZODone HCL 50 MG TAB PO SCH (21:05)
[2019-04-15] MEDS: TOPIRAMATE 25 MG TAB PO SCH (21:05)
[2019-04-15] MEDS: PRIMIDONE 50 MG TAB PO SCH (21:05)
[2019-04-16] MEDS: HEPARIN SODIUM,PORCINE 5,000 UNIT/ML 1 ML VIAL SQ SCH ×2 (00:28→07:28)
[2019-04-16] MEDS: SODIUM CHLORIDE 0.9% 1,000 ML IV SCH (03:21)
[2019-04-16 06:59] LABS: Basophils % (A) 1 %; Eosinophils # (A) 0.3 k/uL (0-0.7); Eosinophils % (A) 4 %; HCT 39.8 % (39.0-53.0); HGB 12.8 gm/dL (13.0-17.5); Lymphocytes # (A) 2.5 k/uL (1.0-4.8); Lymphocytes % (A) 30 %; MCH 29.6 pg (25.0-35.0); MCHC 32.1 g/dL (31.0-37.0); MCV 92.1 fL (80.0-100.0); Mean Platelet Volume 7.2; Monocytes # (A) 0.4 k/uL (0-1.0); Monocytes % (A) 4 %; Neutrophils % (A) 59 %; Platelet Count 337 k/uL (150-450); RBC 4.32 m/uL (4.30-5.90); RDW 14.9 % (11.5-15.5); WBC 8.5 k/uL (3.8-10.6)
[2019-04-16 07:09] LABS: INR 1.7 (<1.2); Prothrombin Time 16.7 sec (9.0-12.0)
[2019-04-16 07:10] LABS: African American GFR (CKD) >90 (>60 ml/min/1.73 sqM); Anion Gap 7 mmol/L; Blood Urea Nitrogen 9 mg/dL (9-20); Calcium 8.8 mg/dL (8.4-10.2); Carbon Dioxide 26 mmol/L (22-30); Chloride 104 mmol/L (98-107); Glucose 104 mg/dL (74-99); Non-African American GFR(CKD) >90 (>60 ml/min/1.73 sqM); Sodium 137 mmol/L (137-145)
[2019-04-16 07:26] VITALS: RESP 16; TEMP 98
[2019-04-16] MEDS: DOCUSATE 100 MG CAP PO SCH (07:27)
[2019-04-16] MEDS: PREGABALIN 75 MG CAP PO SCH (07:27)
[2019-04-16] MEDS: oxyCODONE-APAP 10-325MG 1 EACH TAB PO SCH (07:27)
[2019-04-16] MEDS: PANTOPRAZOLE 40 MG TABLET PO SCH (07:28)
[2019-04-16] MEDS: FLUDROCORTISONE 0.1 MG TAB PO SCH (07:29)
[2019-04-16] MEDS: FUROSEMIDE 20 MG TAB PO SCH (07:29)
[2019-04-16] MEDS: OXYBUTYNIN 15 MG TAB.ER.24 PO SCH (07:29)
[2019-04-16] MEDS: LACTULOSE 20 GM/30 ML CUP PO SCH ×2 (07:29→07:31)
[2019-04-16] MEDS: amLODIPine 5 MG TAB PO SCH (07:29)
[2019-04-16] MEDS: AZITHROMYCIN 500 MG in SODIUM CHLORIDE 0.9% 250 ML IVPB SCH (08:28)
[2019-04-16 12:29] VITALS: BP 124/78; PULSE 82
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
[2019-04-16] MEDS ORDERED: WARFARIN 5 MG TAB PO ONE (18:00)
== END 2019-04-16 16:35 | disposition home health service (06) ==
LOC: EC 10:54 → INTOOBSV 15:57 → UNDOADMIN 15:57 → 4SSUR 15:57 → UNDODISIN 04-16 16:35
PROVIDERS: ADMIT Family Medicine; ATTEND Family Medicine
DX: T83.511A Infection and inflammatory reaction due to indwelling urethral catheter, initial encounter (principal); G82.50 Quadriplegia, unspecified; J18.9 Pneumonia, unspecified organism; E27.40 Unspecified adrenocortical insufficiency; N39.0 Urinary tract infection, site not specified; B96.20 Unspecified Escherichia coli [E. coli] as the cause of diseases classified elsewhere; F32.9 Major depressive disorder, single episode, unspecified; G89.29 Other chronic pain; M79.7 Fibromyalgia; N31.9 Neuromuscular dysfunction of bladder, unspecified; G43.909 Migraine, unspecified, not intractable, without status migrainosus; G47.00 Insomnia, unspecified; K21.9 Gastro-esophageal reflux disease without esophagitis; M54.9 Dorsalgia, unspecified; R07.9 Chest pain, unspecified; E66.01 Morbid (severe) obesity due to excess calories; Z68.39 Body mass index [BMI] 39.0-39.9, adult; G93.41 Metabolic encephalopathy; Z79.01 Long term (current) use of anticoagulants; Z79.52 Long term (current) use of systemic steroids; Z79.899 Other long term (current) drug therapy; Z86.718 Personal history of other venous thrombosis and embolism; Z87.440 Personal history of urinary (tract) infections; Z87.891 Personal history of nicotine dependence; Z80.3 Family history of malignant neoplasm of breast; Z80.1 Family history of malignant neoplasm of trachea, bronchus and lung; Z16.12 Extended spectrum beta lactamase (ESBL) resistance; Z16.22 Resistance to vancomycin related antibiotics; Z74.01 Bed confinement status
CPT/HCPCS: 96368 ×2; 96361 ×4; 96366 ×3; 96372 ×3; 96365; 96367; 96375; 99285; 36415; 94760; 93005; 80053; 80048 ×2; 83605; 84484; 85025 ×3; 85610 ×4; 85730; 81001; 87040 ×2; 87086; 87077; 87186; 87502; 71045; 71046; G0378 ×4; J2270; J1644 ×3; J0456 ×4; J0696 ×4

== ENCOUNTER 2019-04-23 08:52 | Observation (INO) | payer MEDICARE, OTHER ==
[2019-04-23] MEDS ORDERED: SODIUM CHLORIDE 0.9% 1,000 ML IV STA (09:10)
[2019-04-23 09:36] LABS: Bacteria,Urine Occasional /hpf; Mucus,Urine Occasional /hpf; RBC,Urine >182 /hpf (0-5); Squamous Epithelial Cell,Urine <1 /hpf (0-4); WBC,Urine >182 /hpf (0-5)
[2019-04-23 09:38] LABS: Appearance,Urine Clear (Clear); Color,Urine Yellow; Specific Gravity,Urine 1.025 (1.001-1.035)
[2019-04-23 09:39] LABS: Bilirubin,Urine Negative (Negative); Blood,Urine Large (Negative); Glucose,Urine (UA) Negative (Negative); Ketones,Urine Negative (Negative); Leukocyte Esterase,Urine Large (Negative); Nitrite,Urine Negative (Negative); Protein,Urine 1+ (Negative)
[2019-04-23 10:09] LABS: Albumin 4.2 g/dL (3.5-5.0); Calcium 9.6 mg/dL (8.4-10.2); Magnesium 2.1 mg/dL (1.6-2.3); Potassium 4.7 mmol/L (3.5-5.1); Total Bilirubin 0.6 mg/dL (0.2-1.3); Total Protein 7.8 g/dL (6.3-8.2)
[2019-04-23] MEDS ORDERED: ACETAMINOPHEN TAB 325 MG TAB PO STA (10:16)
[2019-04-23 10:17] LABS: HCT 50.8 % (39.0-53.0); HGB 15.8 gm/dL (13.0-17.5); Hypochromasia Moderate; MCH 29.6 pg (25.0-35.0); MCHC 31.2 g/dL (31.0-37.0); Mean Platelet Volume 6.9; Platelet Count 365 k/uL (150-450); RBC 5.34 m/uL (4.30-5.90); RDW 14.8 % (11.5-15.5)
[2019-04-23 10:31] LABS: Nucleated Red Blood Cells 0 /100 WBC (0-0)
[2019-04-23 10:33] LABS: Band Neutrophils % 5 %; Lymphocytes # (M) 0.56 k/uL (1.0-4.8); Monocytes # (M) 1.68 k/uL (0-1.0); Neutrophils % (M) 88 %; Total Cells Counted 200
[2019-04-23 10:34] LABS: Poikilocytosis (M) Present
--- NOTE | 2019-04-23 10:35 | XR ---
EXAMINATION TYPE: XR chest 1V DATE OF EXAM: 04/23/2019 COMPARISON: 04/14/2019 HISTORY: 63-year-old male with fever TECHNIQUE: Single frontal view of the chest is obtained. FINDINGS: The patient is rotated towards the right altering normal cardiac and mediastinal contours and limitin g assessment. This cast increased density over the left hemithorax. Heart appears borderline to mildl y enlarged. No obvious consolidation. No sizable effusion. Posterior fusion hardware cervicothoracic junction. Plate and screw fixation right clavicle. IMPRESSION: 1. Borderline to mild cardiomegaly. 2. Very limited, markedly rotated exam.
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
[2019-04-23] MEDS ORDERED: SODIUM CHLORIDE 0.9% 1,000 ML IV ONE (10:38)
[2019-04-23] MEDS ORDERED: ACETAMINOPHEN TAB 325 MG TAB PO PRN (10:46)
[2019-04-23] MEDS ORDERED: oxyCODONE-APAP 10-325MG 1 EACH TAB PO SCH (16:00)
[2019-04-23] MEDS: SODIUM CHLORIDE 0.9% 1,000 ML IV SCH ×2 (16:34→21:32)
[2019-04-23 16:53] LABS: INR 1.8 (<1.2); Prothrombin Time 17.2 sec (9.0-12.0)
[2019-04-23] MEDS: PANTOPRAZOLE 40 MG/10 ML VIAL IVP SCH (17:11)
[2019-04-23] MEDS: PREGABALIN 75 MG CAP PO SCH ×2 (17:11→21:31)
[2019-04-23] MEDS: LACTULOSE 20 GM/30 ML CUP PO SCH (17:12)
[2019-04-23] MEDS: oxyCODONE-APAP 10-325MG 1 EACH TAB PO PRN (17:20)
[2019-04-23] MEDS: FLUDROCORTISONE 0.1 MG TAB PO SCH (17:20)
[2019-04-23] MEDS: OXYBUTYNIN 15 MG TAB.ER.24 PO SCH (17:20)
[2019-04-23] MEDS: FLUTICASONE 50MCG/SPRAY NASAL 16GM EA NOSTRIL SCH (17:21)
[2019-04-23] MEDS: WARFARIN 2 MG TAB PO SCH (18:40)
[2019-04-23] MEDS ORDERED: SODIUM CHLORIDE 0.9% 500 ML 500 ML IV ONE (19:29)
[2019-04-23] MEDS: amLODIPine 5 MG TAB PO SCH (21:00)
[2019-04-23] MEDS: PRIMIDONE 50 MG TAB PO SCH (21:31)
[2019-04-23] MEDS: DULoxetine HCL 30 MG CAPSULE.DR PO SCH (21:32)
[2019-04-23] MEDS: DOCUSATE 100 MG CAP PO SCH (21:32)
[2019-04-23] MEDS: TOPIRAMATE 25 MG TAB PO SCH (21:32)
[2019-04-23] MEDS: traZODone HCL 50 MG TAB PO SCH (21:32)
[2019-04-24] MEDS: oxyCODONE-APAP 10-325MG 1 EACH TAB PO PRN (02:42)
[2019-04-24] MEDS: SODIUM CHLORIDE 0.9% 1,000 ML IV SCH ×3 (04:28→20:12)
[2019-04-24 09:22] LABS: African American GFR (CKD) >90 (>60 ml/min/1.73 sqM); Anion Gap 7 mmol/L; Blood Urea Nitrogen 13 mg/dL (9-20); Calcium 8.1 mg/dL (8.4-10.2); Carbon Dioxide 20 mmol/L (22-30); Chloride 108 mmol/L (98-107); Glucose 108 mg/dL (74-99); Non-African American GFR(CKD) >90 (>60 ml/min/1.73 sqM); Potassium 4.4 mmol/L (3.5-5.1); Sodium 135 mmol/L (137-145)
[2019-04-24 09:23] LABS: Basophils % (A) 0 %; Eosinophils # (A) 0.1 k/uL (0-0.7); Eosinophils % (A) 1 %; HCT 39.2 % (39.0-53.0); Hypochromasia Slight; Lymphocytes # (A) 0.9 k/uL (1.0-4.8); Lymphocytes % (A) 10 %; MCH 28.9 pg (25.0-35.0); MCHC 31.3 g/dL (31.0-37.0); MCV 92.3 fL (80.0-100.0); Monocytes # (A) 0.3 k/uL (0-1.0); Monocytes % (A) 3 %; Neutrophils # (A) 8.4 k/uL (1.3-7.7); Neutrophils % (A) 85 %; Platelet Count 316 k/uL (150-450); RBC 4.24 m/uL (4.30-5.90); WBC 9.9 k/uL (3.8-10.6)
[2019-04-24 09:28] LABS: INR 1.6 (<1.2)
[2019-04-24 09:30] LABS: HGB 12.3 gm/dL (13.0-17.5)
[2019-04-24] MEDS: PREGABALIN 75 MG CAP PO SCH ×3 (09:34→22:13)
[2019-04-24] MEDS: DOCUSATE 100 MG CAP PO SCH ×2 (09:34→22:13)
[2019-04-24] MEDS: FLUTICASONE 50MCG/SPRAY NASAL 16GM EA NOSTRIL SCH (09:34)
[2019-04-24] MEDS: PANTOPRAZOLE 40 MG/10 ML VIAL IVP SCH (09:34)
[2019-04-24] MEDS: FLUDROCORTISONE 0.1 MG TAB PO SCH (09:34)
[2019-04-24] MEDS: OXYBUTYNIN 15 MG TAB.ER.24 PO SCH (09:34)
[2019-04-24] MEDS: LACTULOSE 20 GM/30 ML CUP PO SCH ×2 (09:34→09:44)
[2019-04-24] MEDS ORDERED: SUMAtriptan SUCCINATE 50 MG TAB PO PRN ×2 (10:12→11:49)
[2019-04-24 12:13] VITALS: BMI 40.8
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
[2019-04-24] MEDS: WARFARIN 2 MG TAB PO SCH (20:20)
[2019-04-24] MEDS: amLODIPine 5 MG TAB PO SCH (22:13)
[2019-04-24] MEDS: TOPIRAMATE 25 MG TAB PO SCH (22:13)
[2019-04-24] MEDS: DULoxetine HCL 30 MG CAPSULE.DR PO SCH (22:13)
[2019-04-24] MEDS: PRIMIDONE 50 MG TAB PO SCH (22:13)
[2019-04-24] MEDS: traZODone HCL 50 MG TAB PO SCH (22:13)
[2019-04-25] MEDS: SODIUM CHLORIDE 0.9% 1,000 ML IV SCH ×4 (05:53→22:31)
[2019-04-25] MEDS: oxyCODONE-APAP 10-325MG 1 EACH TAB PO PRN ×2 (06:37→22:30)
[2019-04-25] MEDS: FLUTICASONE 50MCG/SPRAY NASAL 16GM EA NOSTRIL SCH (09:06)
[2019-04-25] MEDS: LACTULOSE 20 GM/30 ML CUP PO SCH (09:07)
[2019-04-25] MEDS: DOCUSATE 100 MG CAP PO SCH ×2 (09:07→22:28)
[2019-04-25] MEDS: PREGABALIN 75 MG CAP PO SCH ×3 (09:07→22:28)
[2019-04-25] MEDS: PANTOPRAZOLE 40 MG TABLET PO SCH (09:07)
[2019-04-25] MEDS: FLUDROCORTISONE 0.1 MG TAB PO SCH (09:07)
[2019-04-25] MEDS: OXYBUTYNIN 15 MG TAB.ER.24 PO SCH (09:07)
[2019-04-25 10:40] LABS: Basophils % (A) 1 %; Eosinophils # (A) 0.2 k/uL (0-0.7); Eosinophils % (A) 4 %; HCT 38.7 % (39.0-53.0); HGB 12.1 gm/dL (13.0-17.5); Lymphocytes # (A) 1.6 k/uL (1.0-4.8); Lymphocytes % (A) 27 %; MCH 28.9 pg (25.0-35.0); MCHC 31.2 g/dL (31.0-37.0); MCV 92.6 fL (80.0-100.0); Mean Platelet Volume 6.9; Monocytes # (A) 0.4 k/uL (0-1.0); Monocytes % (A) 6 %; Neutrophils # (A) 3.6 k/uL (1.3-7.7); Neutrophils % (A) 59 %; Platelet Count 290 k/uL (150-450); RBC 4.18 m/uL (4.30-5.90); RDW 14.9 % (11.5-15.5)
[2019-04-25 10:44] LABS: INR 1.2 (<1.2); Prothrombin Time 12.4 sec (9.0-12.0)
[2019-04-25 10:46] LABS: African American GFR (CKD) >90 (>60 ml/min/1.73 sqM); Anion Gap 3 mmol/L; Blood Urea Nitrogen 8 mg/dL (9-20); Calcium 8.5 mg/dL (8.4-10.2); Carbon Dioxide 27 mmol/L (22-30); Chloride 109 mmol/L (98-107); Glucose 174 mg/dL (74-99); Magnesium 2.3 mg/dL (1.6-2.3); Non-African American GFR(CKD) >90 (>60 ml/min/1.73 sqM); Potassium 4.1 mmol/L (3.5-5.1); Sodium 139 mmol/L (137-145)
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
[2019-04-25] MEDS ORDERED: WARFARIN 5 MG TAB PO ONE (18:00)
[2019-04-25] MEDS: amLODIPine 5 MG TAB PO SCH (22:28)
[2019-04-25] MEDS: DULoxetine HCL 30 MG CAPSULE.DR PO SCH (22:28)
[2019-04-25] MEDS: TOPIRAMATE 25 MG TAB PO SCH (22:28)
[2019-04-25] MEDS: traZODone HCL 50 MG TAB PO SCH (22:28)
[2019-04-25] MEDS: PRIMIDONE 50 MG TAB PO SCH (22:28)
[2019-04-26 05:52] VITALS: RESP 16
[2019-04-26] MEDS: SODIUM CHLORIDE 0.9% 1,000 ML IV SCH ×2 (06:14→08:50)
[2019-04-26] MEDS: OXYBUTYNIN 15 MG TAB.ER.24 PO SCH (08:46)
[2019-04-26] MEDS: FLUDROCORTISONE 0.1 MG TAB PO SCH (08:46)
[2019-04-26] MEDS: DOCUSATE 100 MG CAP PO SCH (08:46)
[2019-04-26] MEDS: PANTOPRAZOLE 40 MG TABLET PO SCH (08:46)
[2019-04-26] MEDS: LACTULOSE 20 GM/30 ML CUP PO SCH (08:46)
[2019-04-26] MEDS: FLUTICASONE 50MCG/SPRAY NASAL 16GM EA NOSTRIL SCH (08:47)
[2019-04-26] MEDS: PREGABALIN 75 MG CAP PO SCH (08:47)
[2019-04-26 09:47] LABS: Basophils % (A) 1 %; Eosinophils # (A) 0.4 k/uL (0-0.7); Eosinophils % (A) 6 %; HCT 40.6 % (39.0-53.0); Lymphocytes # (A) 2.2 k/uL (1.0-4.8); Lymphocytes % (A) 35 %; MCH 29.1 pg (25.0-35.0); MCHC 31.9 g/dL (31.0-37.0); MCV 91.2 fL (80.0-100.0); Mean Platelet Volume 7.6; Monocytes # (A) 0.3 k/uL (0-1.0); Monocytes % (A) 5 %; Neutrophils # (A) 3.1 k/uL (1.3-7.7); Neutrophils % (A) 50 %; Platelet Count 296 k/uL (150-450); RBC 4.45 m/uL (4.30-5.90); WBC 6.2 k/uL (3.8-10.6)
[2019-04-26 09:48] LABS: INR 1.3 (<1.2); Prothrombin Time 13.4 sec (9.0-12.0)
[2019-04-26 09:59] LABS: African American GFR (CKD) >90 (>60 ml/min/1.73 sqM); Anion Gap 9 mmol/L; Blood Urea Nitrogen 8 mg/dL (9-20); Calcium 8.6 mg/dL (8.4-10.2); Carbon Dioxide 19 mmol/L (22-30); Chloride 109 mmol/L (98-107); Glucose 143 mg/dL (74-99); Non-African American GFR(CKD) >90 (>60 ml/min/1.73 sqM); Potassium 3.7 mmol/L (3.5-5.1); Sodium 137 mmol/L (137-145)
[2019-04-26 12:07] VITALS: BP 133/94; PULSE 71; TEMP 97.8
[2019-04-26] MEDS ORDERED: WARFARIN 3 MG TAB PO ONE (18:00)
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
== END 2019-04-26 16:54 | disposition home health service (06) ==
LOC: EC 08:52 → INTOOBSV 10:46 → 6NMEDSUR 10:46 → UNDODISIN 04-26 16:54
PROVIDERS: ADMIT Family Medicine; ATTEND Family Medicine
DX: T83.511A Infection and inflammatory reaction due to indwelling urethral catheter, initial encounter (principal); A41.81 Sepsis due to Enterococcus; N39.0 Urinary tract infection, site not specified; G93.41 Metabolic encephalopathy; Z78.9 Other specified health status; Z79.01 Long term (current) use of anticoagulants; N31.9 Neuromuscular dysfunction of bladder, unspecified; G82.20 Paraplegia, unspecified; M79.7 Fibromyalgia; K21.9 Gastro-esophageal reflux disease without esophagitis; J98.6 Disorders of diaphragm; E27.40 Unspecified adrenocortical insufficiency; G43.909 Migraine, unspecified, not intractable, without status migrainosus; G89.29 Other chronic pain; R07.9 Chest pain, unspecified; M54.9 Dorsalgia, unspecified; G47.00 Insomnia, unspecified; F32.9 Major depressive disorder, single episode, unspecified; I51.7 Cardiomegaly; E66.9 Obesity, unspecified; Z68.41 Body mass index [BMI] 40.0-44.9, adult; Z16.21 Resistance to vancomycin; Z87.440 Personal history of urinary (tract) infections; Z96.0 Presence of urogenital implants; Z87.01 Personal history of pneumonia (recurrent); Z79.899 Other long term (current) drug therapy; Z79.52 Long term (current) use of systemic steroids; Z86.718 Personal history of other venous thrombosis and embolism; Z87.828 Personal history of other (healed) physical injury and trauma; Z87.19 Personal history of other diseases of the digestive system; Z87.09 Personal history of other diseases of the respiratory system; Z86.19 Personal history of other infectious and parasitic diseases; Z86.14 Personal history of Methicillin resistant Staphylococcus aureus infection; Z90.89 Acquired absence of other organs; Z98.890 Other specified postprocedural states; Z86.69 Personal history of other diseases of the nervous system and sense organs; Z87.2 Personal history of diseases of the skin and subcutaneous tissue; Z80.1 Family history of malignant neoplasm of trachea, bronchus and lung; Z80.3 Family history of malignant neoplasm of breast; Z84.1 Family history of disorders of kidney and ureter
CPT/HCPCS: 96376; 96361 ×4; 96366 ×2; 96375; 96365; 99285; 51702; 36415; 93005; 80053; 80048 ×3; 84443; 83605; 83735 ×2; 85025 ×4; 85610 ×4; 81001; 87040; 87086; 87077; 87186; 87502; 71045; G0378 ×4; J0696 ×4; C9113 ×2

== ENCOUNTER 2019-09-26 11:57 | Inpatient (IN) | payer MEDICARE, OTHER ==
[2019-09-26] MEDS ORDERED: SODIUM CHLORIDE 0.9% 1,000 ML IV STA ×2 (12:19)
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
--- NOTE | 2019-09-26 13:01 | XR ---
EXAMINATION TYPE: XR chest 2V DATE OF EXAM: 09/26/2019 COMPARISON: 04/23/2019 TECHNIQUE: PA and lateral views submitted. HISTORY: Syncope FINDINGS: The lungs are clear and there is no pneumothorax, pleural effusion, or focal pneumonia. Postsurgica l change involving the vertebral column and clavicle. No overt failure. Heart size prominent. Hypertr ophic change of the spine. Patient is rotated limiting exam. Arthropathy of the shoulders. IMPRESSION: 1. No acute process.
[2019-09-26 13:09] LABS: Basophils % (A) 0 %; Eosinophils # (A) 0.1 k/uL (0-0.7); Eosinophils % (A) 1 %; HCT 47.4 % (39.0-53.0); HGB 15.5 gm/dL (13.0-17.5); Lymphocytes # (A) 2.5 k/uL (1.0-4.8); Lymphocytes % (A) 25 %; MCH 30.5 pg (25.0-35.0); MCHC 32.7 g/dL (31.0-37.0); MCV 93.4 fL (80.0-100.0); Mean Platelet Volume 7.3; Monocytes # (A) 0.5 k/uL (0-1.0); Monocytes % (A) 5 %; Neutrophils # (A) 6.7 k/uL (1.3-7.7); Neutrophils % (A) 68 %; Platelet Count 313 k/uL (150-450); RBC 5.08 m/uL (4.30-5.90); RDW 14.7 % (11.5-15.5)
[2019-09-26 13:24] LABS: ALT 15 U/L (4-49); AST 18 U/L (17-59); African American GFR (CKD) >90 (>60 ml/min/1.73 sqM); Albumin 4.2 g/dL (3.5-5.0); Alkaline Phosphatase 159 U/L (38-126); Anion Gap 11 mmol/L; Blood Urea Nitrogen 18 mg/dL (9-20); Calcium 9.4 mg/dL (8.4-10.2); Carbon Dioxide 23 mmol/L (22-30); Chloride 107 mmol/L (98-107); Glucose 117 mg/dL (74-99); Magnesium 2.2 mg/dL (1.6-2.3); Non-African American GFR(CKD) >90 (>60 ml/min/1.73 sqM); Sodium 141 mmol/L (137-145); Total Bilirubin 0.6 mg/dL (0.2-1.3); Total Protein 7.4 g/dL (6.3-8.2)
[2019-09-26 13:26] LABS: INR 2.1 (<1.2); Partial Thromboplastin Time 34.7 sec (22.0-30.0); Prothrombin Time 20.5 sec (9.0-12.0)
[2019-09-26 13:54] LABS: Appearance,Urine Clear (Clear); Bilirubin,Urine Negative (Negative); Blood,Urine Trace (Negative); Color,Urine Light Yellow; Glucose,Urine (UA) Negative (Negative); Ketones,Urine Negative (Negative); Leukocyte Esterase,Urine Large (Negative); Nitrite,Urine Negative (Negative); Protein,Urine Negative (Negative); RBC,Urine 3 /hpf (0-5); Specific Gravity,Urine 1.005 (1.001-1.035); Urobilinogen,Urine <2.0 mg/dL (<2.0); WBC,Urine 41 /hpf (0-5)
[2019-09-26] MEDS ORDERED: AMPICILLIN 1,000 MG in SODIUM CHLORIDE 0.9% 50 ML IVPB STA (14:47)
[2019-09-26] MEDS ORDERED: SODIUM CHLORIDE 0.9% 1,000 ML IV ONE (14:55)
[2019-09-26] MEDS ORDERED: MORPHINE SULFATE 4 MG/ML SYRINGE IV PRN (15:11)
[2019-09-26] MEDS ORDERED: ONDANSETRON 4 MG/2 ML VIAL IVP PRN (15:11)
[2019-09-26] MEDS ORDERED: NALOXONE 0.4 MG/ML 1 ML VIAL IV PRN (15:11)
[2019-09-26] MEDS ORDERED: Acetaminophen-Codeine 300-30mg TAB PO PRN (15:11)
[2019-09-26] MEDS ORDERED: ACETAMINOPHEN TAB 325 MG TAB PO PRN ×2 (15:11→17:34)
[2019-09-26] MEDS ORDERED: IBUPROFEN 400 MG TAB PO PRN (15:11)
[2019-09-26] MEDS ORDERED: SUMAtriptan succinate 50 MG TAB PO PRN (17:30)
[2019-09-26] MEDS: PREGABALIN 75 MG CAP PO SCH ×2 (17:48→22:07)
[2019-09-26] MEDS: oxyCODONE-APAP 10-325MG 1 EACH TAB PO PRN (17:48)
[2019-09-26] MEDS: SODIUM CHLORIDE 0.9% 1,000 ML IV SCH (17:50)
[2019-09-26] MEDS: DOXYCYCLINE 100 MG CAP PO SCH (21:58)
[2019-09-26] MEDS: DOCUSATE 100 MG CAP PO SCH (21:58)
[2019-09-26] MEDS: DULoxetine HCL 30 MG CAPSULE.DR PO SCH (21:58)
[2019-09-26] MEDS: MELATONIN 5 MG TABLET PO SCH (21:59)
[2019-09-26] MEDS: FUROSEMIDE 20 MG TAB PO SCH (21:59)
[2019-09-26] MEDS: traZODone HCL 100 MG TAB PO SCH (21:59)
[2019-09-26] MEDS: PRIMIDONE 50 MG TAB PO SCH (21:59)
[2019-09-26] MEDS: TOPIRAMATE 25 MG TAB PO SCH (21:59)
[2019-09-26] MEDS: amLODIPine 5 MG TAB PO SCH (21:59)
[2019-09-26] MEDS: WARFARIN 2 MG TAB PO SCH (22:00)
[2019-09-27] MEDS: SODIUM CHLORIDE 0.9% 1,000 ML IV SCH ×3 (06:18→20:23)
[2019-09-27 08:01] LABS: Prothrombin Time 19.2 sec (9.0-12.0)
[2019-09-27] MEDS: PANTOPRAZOLE 40 MG TABLET PO SCH (09:56)
[2019-09-27] MEDS: amLODIPine 5 MG TAB PO SCH ×2 (09:56→10:19)
[2019-09-27] MEDS: DOCUSATE 100 MG CAP PO SCH ×2 (09:57→20:09)
[2019-09-27] MEDS: DOXYCYCLINE 100 MG CAP PO SCH ×2 (09:57→20:13)
[2019-09-27] MEDS: FLUDROCORTISONE 0.1 MG TAB PO SCH (09:58)
[2019-09-27] MEDS: FLUTICASONE 50MCG/SPRAY NASAL 16GM EA NOSTRIL SCH (09:58)
[2019-09-27] MEDS: OXYBUTYNIN 15 MG TAB.ER.24 PO SCH (09:59)
[2019-09-27] MEDS: PREGABALIN 75 MG CAP PO SCH ×3 (09:59→20:18)
[2019-09-27] MEDS: FUROSEMIDE 20 MG TAB PO SCH ×2 (09:59→20:22)
[2019-09-27] MEDS: LACTULOSE 20 GM/30 ML CUP PO SCH (10:00)
[2019-09-27] MEDS: PUMP TOPICAL SCH (10:58)
[2019-09-27] MEDS: TESTOSTERONE TOPICAL SCH (10:58)
[2019-09-27] MEDS ORDERED: Magnesium Replacement Protocol 1 EACH MISC MISCELLANE PRN (12:06)
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
[2019-09-27 12:34] LABS: African American GFR (CKD) >90 (>60 ml/min/1.73 sqM); Anion Gap 6 mmol/L; Blood Urea Nitrogen 16 mg/dL (9-20); Calcium 8.8 mg/dL (8.4-10.2); Carbon Dioxide 25 mmol/L (22-30); Chloride 108 mmol/L (98-107); Glucose 94 mg/dL (74-99); Magnesium 2.1 mg/dL (1.6-2.3); Non-African American GFR(CKD) >90 (>60 ml/min/1.73 sqM); Sodium 139 mmol/L (137-145)
[2019-09-27 12:47] LABS: Potassium 4.4 mmol/L (3.5-5.1)
[2019-09-27 12:52] LABS: HCT 39.2 % (39.0-53.0); HGB 12.7 gm/dL (13.0-17.5); Hypochromasia Slight; MCH 30.7 pg (25.0-35.0); MCHC 32.5 g/dL (31.0-37.0); MCV 94.6 fL (80.0-100.0); Mean Platelet Volume 8.6; Platelet Count 272 k/uL (150-450); RBC 4.14 m/uL (4.30-5.90); RDW 14.9 % (11.5-15.5); WBC 7.3 k/uL (3.8-10.6)
[2019-09-27] MEDS: WARFARIN 2 MG TAB PO SCH (18:18)
[2019-09-27] MEDS: traZODone HCL 100 MG TAB PO SCH (20:09)
[2019-09-27] MEDS: DULoxetine HCL 30 MG CAPSULE.DR PO SCH (20:10)
[2019-09-27] MEDS: MELATONIN 5 MG TABLET PO SCH (20:12)
[2019-09-27] MEDS: TOPIRAMATE 25 MG TAB PO SCH (20:12)
[2019-09-27] MEDS: PRIMIDONE 50 MG TAB PO SCH (20:13)
[2019-09-27 21:11] VITALS: RESP 16
[2019-09-27 23:39] VITALS: PULSE 66
[2019-09-28 07:29] LABS: Basophils % (A) 0 %; Eosinophils # (A) 0.2 k/uL (0-0.7); Eosinophils % (A) 3 %; HCT 40.3 % (39.0-53.0); HGB 12.7 gm/dL (13.0-17.5); Lymphocytes # (A) 1.9 k/uL (1.0-4.8); Lymphocytes % (A) 25 %; MCH 28.9 pg (25.0-35.0); MCHC 31.5 g/dL (31.0-37.0); MCV 91.8 fL (80.0-100.0); Mean Platelet Volume 7.2; Monocytes # (A) 0.4 k/uL (0-1.0); Monocytes % (A) 6 %; Neutrophils % (A) 65 %; Platelet Count 282 k/uL (150-450); RBC 4.39 m/uL (4.30-5.90); RDW 14.9 % (11.5-15.5); WBC 7.7 k/uL (3.8-10.6)
[2019-09-28 07:32] LABS: INR 2.1 (<1.2)
[2019-09-28 07:51] LABS: African American GFR (CKD) >90 (>60 ml/min/1.73 sqM); Anion Gap 6 mmol/L; Blood Urea Nitrogen 16 mg/dL (9-20); Calcium 8.4 mg/dL (8.4-10.2); Carbon Dioxide 25 mmol/L (22-30); Chloride 107 mmol/L (98-107); Glucose 98 mg/dL (74-99); Non-African American GFR(CKD) >90 (>60 ml/min/1.73 sqM); Potassium 4.3 mmol/L (3.5-5.1); Sodium 138 mmol/L (137-145)
[2019-09-28] MEDS: DOCUSATE 100 MG CAP PO SCH (08:51)
[2019-09-28] MEDS: DOXYCYCLINE 100 MG CAP PO SCH (08:51)
[2019-09-28] MEDS: FLUDROCORTISONE 0.1 MG TAB PO SCH (08:51)
[2019-09-28] MEDS: FLUTICASONE 50MCG/SPRAY NASAL 16GM EA NOSTRIL SCH (08:51)
[2019-09-28] MEDS: FUROSEMIDE 20 MG TAB PO SCH (08:52)
[2019-09-28] MEDS: LACTULOSE 20 GM/30 ML CUP PO SCH (08:53)
[2019-09-28] MEDS: OXYBUTYNIN 15 MG TAB.ER.24 PO SCH (08:53)
[2019-09-28] MEDS: PANTOPRAZOLE 40 MG TABLET PO SCH (08:57)
[2019-09-28] MEDS: TESTOSTERONE TOPICAL SCH (09:14)
[2019-09-28] MEDS: PUMP TOPICAL SCH (09:14)
[2019-09-28] MEDS: PREGABALIN 75 MG CAP PO SCH (09:21)
[2019-09-28] MEDS: SODIUM CHLORIDE 0.9% 1,000 ML IV SCH (09:53)
[2019-09-28] MEDS: oxyCODONE-APAP 10-325MG 1 EACH TAB PO PRN (10:56)
--- NOTE | 2019-09-28 11:00 | ECHOF ---
Referral Reason:lv fx MEASUREMENTS -------- HEIGHT: 182.9 cm WEIGHT: 158.8 kg BP: RVIDd: 3.8 cm (< 3.3) IVSd: 1.2 cm (0.6 - 1.1) LVIDd: 5.6 cm (3.9 - 5.3) LVPWd: 1.3 cm (0.6 - 1.1) IVSs: 1.7 cm LVIDs: 3.8 cm LVPWs: 1.4 cm LA Diam: 3.8 cm (2.7 - 3.8) Ao Diam: 3.7 cm (2.0 - 3.7) MV EXCURSION: 19.913 mm (> 18.000) MV EF SLOPE: 97 mm/s (70 - 150) MV E Paxton: 0.75 m/s MV DecT: 160 ms MV A [place]: 0.57 m/s MV E/A Ratio: 1.32 RAP: 5.00 mmHg RVSP: 50.98 mmHg FINDINGS -------- Sinus rhythm. Morbid Obesity The left ventricular size is normal. There is mild concentric left ventricular hypertrophy. Overa ll left ventricular systolic function is low-normal with, an EF between 50 - 55 %. The right ventricle is moderately enlarged. The left atrial size is normal. The right atrial size is normal. 5.0mg OF [place] UTLIZED: 2 OR MORE WALL SEGMENTS NOT VISUALIZED. There is mild aortic valve sclerosis. There is no evidence of aortic regurgitation. Mild mitral regurgitation is present. Mild tricuspid regurgitation present. There is moderate pulmonary hypertension. The right ventric ular systolic pressure, as measured by Doppler, is 50.98mmHg. There is no pulmonic regurgitation present. The aortic root size is normal. Echo free space represents a pericardial fat pad. CONCLUSIONS -------- 1. Sinus rhythm. 2. Morbid Obesity 3. The left ventricular size is normal. 4. There is mild concentric left ventricular hypertrophy. 5. Overall left ventricular systolic function is low-normal with, an EF between 50 - 55 %. 6. The right ventricle is moderately enlarged. 7. The left atrial size is normal. 8. The right atrial size is normal. 9. 5.0mg OF [place] UTLIZED: 2 OR MORE WALL SEGMENTS NOT VISUALIZED. 10. There is mild aortic valve sclerosis. 11. Mild mitral regurgitation is present. 12. Mild tricuspid regurgitation present. 13. There is moderate pulmonary hypertension. 14. The right ventricular systolic pressure, as measured by Doppler, is 50.98mmHg. 15. There is no pulmonic regurgitation present. 16. The aortic root size is normal. 17. Echo free space represents a pericardial fat pad. SLURRY BLENDER: Dorothea Dhillon RDCS
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
[2019-09-28 14:16] VITALS: BP 119/77; TEMP 97.8
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
== END 2019-09-28 15:43 | disposition home or self-care (01) | DRG 698 ==
LOC: EC 11:57 → 5NMEDONC 15:13 → OBSVTOIN 15:15 → 5NMEDONC 21:35
PROVIDERS: ADMIT Family Medicine; ATTEND Family Medicine
DX: T83.518A Infection and inflammatory reaction due to other urinary catheter, initial encounter (principal); A41.51 Sepsis due to Escherichia coli [E. coli]; E27.40 Unspecified adrenocortical insufficiency; G82.20 Paraplegia, unspecified; Z68.41 Body mass index [BMI] 40.0-44.9, adult; N39.0 Urinary tract infection, site not specified; Z11.59 Encounter for screening for other viral diseases; I27.20 Pulmonary hypertension, unspecified; I95.9 Hypotension, unspecified; E66.01 Morbid (severe) obesity due to excess calories; R55 Syncope and collapse; M79.7 Fibromyalgia; K21.9 Gastro-esophageal reflux disease without esophagitis; N31.9 Neuromuscular dysfunction of bladder, unspecified; G47.00 Insomnia, unspecified; G43.909 Migraine, unspecified, not intractable, without status migrainosus; G89.29 Other chronic pain; Z96.7 Presence of other bone and tendon implants; F32.9 Major depressive disorder, single episode, unspecified; E86.1 Hypovolemia; R07.9 Chest pain, unspecified; F17.220 Nicotine dependence, chewing tobacco, uncomplicated; R94.31 Abnormal electrocardiogram [ECG] [EKG]; I10 Essential (primary) hypertension; T14.8XXS Other injury of unspecified body region, sequela; V29.9XXS Motorcycle rider (driver) (passenger) injured in unspecified traffic accident, sequela; Z79.52 Long term (current) use of systemic steroids; Z79.899 Other long term (current) drug therapy; Z79.01 Long term (current) use of anticoagulants; Z86.718 Personal history of other venous thrombosis and embolism; Z87.440 Personal history of urinary (tract) infections; Z87.01 Personal history of pneumonia (recurrent); Z86.14 Personal history of Methicillin resistant Staphylococcus aureus infection; Z98.890 Other specified postprocedural states; Z80.3 Family history of malignant neoplasm of breast; Z80.1 Family history of malignant neoplasm of trachea, bronchus and lung
CPT/HCPCS: 36415; 51702; 71046; 80048; 80053; 81001; 83735; 83880; 84484; 85025; 85027; 85610; 85730; 87040; 87086; 93005; 93306; 96361; 96365; 99285

== ENCOUNTER 2020-03-23 18:06 | Observation (INO) | payer MEDICARE, OTHER ==
[2020-03-23] MEDS ORDERED: SODIUM CHLORIDE 0.9% 1,000 ML IV STA (18:32)
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
[2020-03-23 19:06] LABS: Basophils # (A) 0.1 k/uL (0-0.2); Basophils % (A) 1 %; Eosinophils # (A) 0.2 k/uL (0-0.7); Eosinophils % (A) 2 %; HCT 45.7 % (39.0-53.0); HGB 15.1 gm/dL (13.0-17.5); Lymphocytes # (A) 2.4 k/uL (1.0-4.8); Lymphocytes % (A) 25 %; MCH 29.2 pg (25.0-35.0); MCHC 33.2 g/dL (31.0-37.0); MCV 88.2 fL (80.0-100.0); Mean Platelet Volume 6.9; Monocytes # (A) 0.5 k/uL (0-1.0); Monocytes % (A) 5 %; Neutrophils # (A) 6.5 k/uL (1.3-7.7); Neutrophils % (A) 67 %; Platelet Count 341 k/uL (150-450); RBC 5.18 m/uL (4.30-5.90); RDW 14.7 % (11.5-15.5); WBC 9.7 k/uL (3.8-10.6)
[2020-03-23 19:17] LABS: Albumin 3.3 g/dL (3.5-5.0); Calcium 8.8 mg/dL (8.4-10.2); INR 1.3 (<1.2); Partial Thromboplastin Time 28.2 sec (22.0-30.0); Potassium 3.8 mmol/L (3.5-5.1); Prothrombin Time 13.6 sec (9.0-12.0); Total Bilirubin 0.6 mg/dL (0.2-1.3); Total Protein 6.6 g/dL (6.3-8.2)
[2020-03-23 19:27] LABS: Amorphous Sediment,Urine Rare /hpf; Appearance,Urine Turbid (Clear); Bacteria,Urine Occasional /hpf; Bilirubin,Urine Negative (Negative); Blood,Urine Large (Negative); Color,Urine Yellow; Glucose,Urine (UA) Negative (Negative); Ketones,Urine Negative (Negative); Leukocyte Esterase,Urine Large (Negative); Mucus,Urine Occasional /hpf; Nitrite,Urine Negative (Negative); Protein,Urine 1+ (Negative); RBC,Urine >182 /hpf (0-5); Specific Gravity,Urine 1.013 (1.001-1.035); Urobilinogen,Urine <2.0 mg/dL (<2.0); WBC,Urine >182 /hpf (0-5)
--- NOTE | 2020-03-23 19:38 | XR ---
EXAMINATION TYPE: XR chest 2V DATE OF EXAM: 03/23/2020 COMPARISON: 09/26/2019. HISTORY: Thickness. TECHNIQUE: Frontal and lateral views of the chest are obtained. FINDINGS: There is no focal air space opacity, pleural effusion, or pneumothorax seen. The cardiac silhouette size is within normal limits. The osseous structures are without acute abnormality. Prio r right distal clavicle ORIF and cervical spine fusion noted. IMPRESSION: No acute cardiopulmonary process.
[2020-03-23] MEDS ORDERED: PIPERACILLIN-TAZOBACTAM 3.375 GM in SODIUM CHLORIDE 0.9% 100 ML IVPB STA (19:59)
[2020-03-23] MEDS ORDERED: NALOXONE 0.4 MG/ML 1 ML VIAL IV PRN (20:01)
[2020-03-23] MEDS ORDERED: LACTULOSE 20 GM/30 ML CUP PO PRN (20:43)
[2020-03-23] MEDS: SODIUM CHLORIDE 0.9% 1,000 ML IV SCH (20:44)
[2020-03-23] MEDS ORDERED: WARFARIN 2 MG TAB PO ONE (21:15)
[2020-03-23] MEDS: traZODone HCL 50 MG TAB PO SCH (22:22)
[2020-03-23] MEDS: FUROSEMIDE 20 MG TAB PO SCH (22:22)
[2020-03-23] MEDS: PREGABALIN 75 MG CAP PO SCH (22:22)
[2020-03-23] MEDS: oxyCODONE-APAP 10-325MG 1 EACH TAB PO SCH (22:23)
[2020-03-23] MEDS: DOCUSATE 100 MG CAP PO SCH (22:23)
[2020-03-23] MEDS: TOPIRAMATE 25 MG TAB PO SCH (22:24)
[2020-03-23] MEDS: OXYBUTYNIN 15 MG TAB.ER.24 PO SCH (22:24)
[2020-03-23] MEDS: PRIMIDONE 50 MG TAB PO SCH (22:24)
[2020-03-23] MEDS: amLODIPine 5 MG TAB PO SCH (22:38)
[2020-03-24] MEDS: SODIUM CHLORIDE 0.9% 1,000 ML IV SCH ×2 (00:54→17:32)
[2020-03-24 05:31] LABS: Basophils % (A) 0 %; Eosinophils # (A) 0.2 k/uL (0-0.7); Eosinophils % (A) 2 %; HCT 41.8 % (39.0-53.0); HGB 13.5 gm/dL (13.0-17.5); Lymphocytes # (A) 1.4 k/uL (1.0-4.8); Lymphocytes % (A) 14 %; MCH 28.6 pg (25.0-35.0); MCHC 32.3 g/dL (31.0-37.0); MCV 88.5 fL (80.0-100.0); Monocytes # (A) 0.4 k/uL (0-1.0); Monocytes % (A) 4 %; Neutrophils # (A) 8.1 k/uL (1.3-7.7); Neutrophils % (A) 79 %; Platelet Count 291 k/uL (150-450); RBC 4.72 m/uL (4.30-5.90); RDW 14.9 % (11.5-15.5); WBC 10.3 k/uL (3.8-10.6)
[2020-03-24 09:20] LABS: INR 1.45 (0.90-1.11); Prothrombin Time 15.2 sec (9.9-11.9)
[2020-03-24 09:25] LABS: African American GFR (CKD) 93.1 (60.0-200.0); Anion Gap 5.2 mmol/L (4.00-12.00); Calcium 8.4 mg/dL (8.7-10.3); Carbon Dioxide 26.8 mmol/L (21.6-31.8); Non-African American GFR(CKD) 80.3 (60.0-200.0); Potassium 3.5 mmol/L (3.5-5.5)
[2020-03-24] MEDS: DOCUSATE 100 MG CAP PO SCH ×2 (09:39→21:48)
[2020-03-24] MEDS: PANTOPRAZOLE 40 MG TABLET PO SCH (09:40)
[2020-03-24] MEDS: PREGABALIN 75 MG CAP PO SCH ×3 (09:40→21:47)
[2020-03-24] MEDS: FLUDROCORTISONE 0.1 MG TAB PO SCH (09:40)
[2020-03-24] MEDS: amLODIPine 5 MG TAB PO SCH ×2 (09:40→21:48)
[2020-03-24] MEDS: DULoxetine HCL 30 MG CAPSULE.DR PO SCH (09:41)
[2020-03-24] MEDS: oxyCODONE-APAP 10-325MG 1 EACH TAB PO SCH ×3 (09:41→21:47)
[2020-03-24] MEDS: FUROSEMIDE 20 MG TAB PO SCH ×2 (09:42→21:48)
[2020-03-24] MEDS: FLUTICASONE 50MCG/SPRAY NASAL 16GM EA NOSTRIL SCH (09:42)
[2020-03-24] MEDS ORDERED: NON FORMULARY DRUG (Warfarin Sodium [Warfarin Sodium] 4 MG Tablet) PO SCH (14:00)
[2020-03-24] MEDS: PIPERACILLIN-TAZOBACTAM 3.375 GM in SODIUM CHLORIDE 0.9% 100 ML IVPB SCH (16:12)
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
[2020-03-24] MEDS ORDERED: WARFARIN 2 MG TAB PO ONE (18:00)
[2020-03-24] MEDS: PRIMIDONE 50 MG TAB PO SCH (21:47)
[2020-03-24] MEDS: TOPIRAMATE 25 MG TAB PO SCH (21:47)
[2020-03-24] MEDS: traZODone HCL 50 MG TAB PO SCH (21:48)
[2020-03-24] MEDS: OXYBUTYNIN 15 MG TAB.ER.24 PO SCH (21:48)
[2020-03-25] MEDS: PIPERACILLIN-TAZOBACTAM 3.375 GM in SODIUM CHLORIDE 0.9% 100 ML IVPB SCH ×3 (00:25→17:40)
[2020-03-25] MEDS: SODIUM CHLORIDE 0.9% 1,000 ML IV SCH ×2 (03:01→14:39)
[2020-03-25 05:01] LABS: Basophils % (A) 0 %; Eosinophils # (A) 0.1 k/uL (0-0.7); Eosinophils % (A) 1 %; HCT 42.5 % (39.0-53.0); HGB 13.9 gm/dL (13.0-17.5); Lymphocytes # (A) 1.5 k/uL (1.0-4.8); Lymphocytes % (A) 14 %; MCH 29.2 pg (25.0-35.0); MCHC 32.7 g/dL (31.0-37.0); MCV 89.4 fL (80.0-100.0); Mean Platelet Volume 7.1; Monocytes # (A) 0.6 k/uL (0-1.0); Monocytes % (A) 6 %; Neutrophils # (A) 7.9 k/uL (1.3-7.7); Neutrophils % (A) 76 %; Platelet Count 258 k/uL (150-450); RBC 4.75 m/uL (4.30-5.90); RDW 14.6 % (11.5-15.5); WBC 10.4 k/uL (3.8-10.6)
[2020-03-25] MEDS: DOCUSATE 100 MG CAP PO SCH ×2 (07:44→21:25)
[2020-03-25] MEDS: PANTOPRAZOLE 40 MG TABLET PO SCH (07:44)
[2020-03-25] MEDS: PREGABALIN 75 MG CAP PO SCH ×3 (07:44→21:26)
[2020-03-25] MEDS: amLODIPine 5 MG TAB PO SCH ×2 (07:44→21:26)
[2020-03-25] MEDS: DULoxetine HCL 30 MG CAPSULE.DR PO SCH (07:45)
[2020-03-25] MEDS: FLUDROCORTISONE 0.1 MG TAB PO SCH (07:45)
[2020-03-25] MEDS: oxyCODONE-APAP 10-325MG 1 EACH TAB PO SCH ×3 (07:45→21:25)
[2020-03-25] MEDS: FUROSEMIDE 20 MG TAB PO SCH ×2 (07:45→21:26)
[2020-03-25] MEDS: FLUTICASONE 50MCG/SPRAY NASAL 16GM EA NOSTRIL SCH (07:46)
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
[2020-03-25 09:58] LABS: African American GFR (CKD) 93.1 (60.0-200.0); Calcium 8.4 mg/dL (8.7-10.3); Magnesium 1.5 mg/dL (1.5-2.4); Non-African American GFR(CKD) 80.3 (60.0-200.0); Potassium 3.3 mmol/L (3.5-5.5)
[2020-03-25 10:35] LABS: INR 1.95 (0.90-1.11)
[2020-03-25] MEDS ORDERED: Magnesium Replacement Protocol 1 EACH MISC MISCELLANE PRN (11:35)
[2020-03-25] MEDS ORDERED: Potassium Replacement Protocol 1 EACH MISC MISCELLANE PRN (11:35)
[2020-03-25] MEDS: MAGNESIUM SULFATE-D5W PMX 1 GM in DEXTROSE/WATER 1 100ML.BAG IVPB SCH ×2 (12:51→14:36)
[2020-03-25] MEDS: POTASSIUM CHLORIDE ER 20 MEQ TAB.ER PO SCH ×2 (12:51→14:36)
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
[2020-03-25] MEDS ORDERED: WARFARIN 2 MG TAB PO ONE (18:00)
[2020-03-25] MEDS: PRIMIDONE 50 MG TAB PO SCH (21:26)
[2020-03-25] MEDS: traZODone HCL 50 MG TAB PO SCH (21:26)
[2020-03-25] MEDS: OXYBUTYNIN 15 MG TAB.ER.24 PO SCH (21:26)
[2020-03-25] MEDS: TOPIRAMATE 25 MG TAB PO SCH (21:26)
[2020-03-26] MEDS: PIPERACILLIN-TAZOBACTAM 3.375 GM in SODIUM CHLORIDE 0.9% 100 ML IVPB SCH ×4 (00:06→23:05)
[2020-03-26] MEDS: SODIUM CHLORIDE 0.9% 1,000 ML IV SCH ×4 (00:07→23:03)
[2020-03-26 06:43] LABS: Basophils # (A) 0.1 k/uL (0-0.2); Basophils % (A) 1 %; Eosinophils # (A) 0.3 k/uL (0-0.7); Eosinophils % (A) 4 %; HCT 38.7 % (39.0-53.0); HGB 12.5 gm/dL (13.0-17.5); Lymphocytes # (A) 1.6 k/uL (1.0-4.8); Lymphocytes % (A) 19 %; MCH 28.9 pg (25.0-35.0); MCHC 32.3 g/dL (31.0-37.0); MCV 89.5 fL (80.0-100.0); Mean Platelet Volume 7.1; Monocytes # (A) 0.5 k/uL (0-1.0); Monocytes % (A) 6 %; Neutrophils # (A) 5.6 k/uL (1.3-7.7); Neutrophils % (A) 69 %; Platelet Count 271 k/uL (150-450); RBC 4.32 m/uL (4.30-5.90); RDW 14.6 % (11.5-15.5); WBC 8.1 k/uL (3.8-10.6)
[2020-03-26] MEDS: PREGABALIN 75 MG CAP PO SCH ×3 (07:40→23:02)
[2020-03-26] MEDS: DOCUSATE 100 MG CAP PO SCH ×2 (07:40→23:02)
[2020-03-26] MEDS: POTASSIUM CHLORIDE ER 20 MEQ TAB.ER PO SCH ×2 (07:40→10:15)
[2020-03-26] MEDS: amLODIPine 5 MG TAB PO SCH ×2 (07:40→23:02)
[2020-03-26] MEDS: DULoxetine HCL 30 MG CAPSULE.DR PO SCH (07:40)
[2020-03-26] MEDS: FUROSEMIDE 20 MG TAB PO SCH ×2 (07:41→23:03)
[2020-03-26] MEDS: oxyCODONE-APAP 10-325MG 1 EACH TAB PO SCH ×3 (07:41→23:03)
[2020-03-26] MEDS: PANTOPRAZOLE 40 MG TABLET PO SCH (07:41)
[2020-03-26] MEDS: FLUDROCORTISONE 0.1 MG TAB PO SCH (07:44)
[2020-03-26] MEDS: FLUTICASONE 50MCG/SPRAY NASAL 16GM EA NOSTRIL SCH (07:44)
[2020-03-26 09:52] LABS: INR 2.02 (0.90-1.11); Prothrombin Time 20.7 sec (9.9-11.9)
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
[2020-03-26 10:19] LABS: INR 2.2 (<1.2); Prothrombin Time 21.8 sec (9.0-12.0)
[2020-03-26 10:28] LABS: African American GFR (CKD) 93.1 (60.0-200.0); Anion Gap 6.3 mmol/L (4.00-12.00); Calcium 8.3 mg/dL (8.7-10.3); Carbon Dioxide 28.7 mmol/L (21.6-31.8); Magnesium 1.9 mg/dL (1.5-2.4); Non-African American GFR(CKD) 80.3 (60.0-200.0); Potassium 3.7 mmol/L (3.5-5.5)
[2020-03-26] MEDS ORDERED: WARFARIN 2 MG TAB PO ONE (18:00)
[2020-03-26] MEDS: OXYBUTYNIN 15 MG TAB.ER.24 PO SCH (23:02)
[2020-03-26] MEDS: TOPIRAMATE 25 MG TAB PO SCH (23:02)
[2020-03-26] MEDS: traZODone HCL 50 MG TAB PO SCH (23:02)
[2020-03-26] MEDS: PRIMIDONE 50 MG TAB PO SCH (23:02)
[2020-03-27] MEDS: PIPERACILLIN-TAZOBACTAM 3.375 GM in SODIUM CHLORIDE 0.9% 100 ML IVPB SCH (07:28)
[2020-03-27] MEDS: PANTOPRAZOLE 40 MG TABLET PO SCH (07:29)
[2020-03-27] MEDS: FLUDROCORTISONE 0.1 MG TAB PO SCH (07:29)
[2020-03-27] MEDS: DULoxetine HCL 30 MG CAPSULE.DR PO SCH (07:29)
[2020-03-27] MEDS: amLODIPine 5 MG TAB PO SCH (07:29)
[2020-03-27] MEDS: DOCUSATE 100 MG CAP PO SCH (07:29)
[2020-03-27] MEDS: FUROSEMIDE 20 MG TAB PO SCH (07:29)
[2020-03-27] MEDS: PREGABALIN 75 MG CAP PO SCH (07:29)
[2020-03-27] MEDS: oxyCODONE-APAP 10-325MG 1 EACH TAB PO SCH (07:29)
[2020-03-27] MEDS: FLUTICASONE 50MCG/SPRAY NASAL 16GM EA NOSTRIL SCH (07:30)
[2020-03-27 09:00] LABS: INR 2.1 (0.90-1.11); Prothrombin Time 21.5 sec (9.9-11.9)
[2020-03-27 09:50] VITALS: BP 137/88; PULSE 68; RESP 20; TEMP 97.9
[2020-03-27] MEDS ORDERED: WARFARIN 5 MG TAB PO ONE (18:00)
[2020-03-29 20:44] LABS: Albumin, LC/MS/MS 2.7 g/dL (3.6-5.1); Testosterone, Free, LC/MS/MS 10.4 pg/mL (46.0-224.0)
== END 2020-03-27 13:45 | disposition home health service (06) ==
LOC: EC 18:06 → 6NMEDSUR 20:03 → INTOOBSV 20:03 → UNDODISIN 03-27 13:45
PROVIDERS: ADMIT Family Medicine; ATTEND Family Medicine
DX: T83.518A Infection and inflammatory reaction due to other urinary catheter, initial encounter (principal); N31.9 Neuromuscular dysfunction of bladder, unspecified; G82.50 Quadriplegia, unspecified; Z51.81 Encounter for therapeutic drug level monitoring; G43.709 Chronic migraine without aura, not intractable, without status migrainosus; Z87.440 Personal history of urinary (tract) infections; B95.2 Enterococcus as the cause of diseases classified elsewhere; Z16.22 Resistance to vancomycin related antibiotics; Z86.718 Personal history of other venous thrombosis and embolism; M79.7 Fibromyalgia; K21.9 Gastro-esophageal reflux disease without esophagitis; I10 Essential (primary) hypertension; M19.90 Unspecified osteoarthritis, unspecified site; Z86.19 Personal history of other infectious and parasitic diseases; E27.40 Unspecified adrenocortical insufficiency; F32.9 Major depressive disorder, single episode, unspecified; G89.29 Other chronic pain; M54.9 Dorsalgia, unspecified; R07.9 Chest pain, unspecified; G47.00 Insomnia, unspecified; Z86.14 Personal history of Methicillin resistant Staphylococcus aureus infection; Z90.89 Acquired absence of other organs; Z98.1 Arthrodesis status; Z98.890 Other specified postprocedural states; F17.290 Nicotine dependence, other tobacco product, uncomplicated; Z80.1 Family history of malignant neoplasm of trachea, bronchus and lung; Z80.3 Family history of malignant neoplasm of breast; Z84.1 Family history of disorders of kidney and ureter; Z79.01 Long term (current) use of anticoagulants; Z79.891 Long term (current) use of opiate analgesic; Z79.52 Long term (current) use of systemic steroids; Z79.899 Other long term (current) drug therapy
CPT/HCPCS: 96361 ×2; 96366 ×5; 96367; 96365; 99285; 36415; 93005; 97162; 80053; 80048 ×3; 84443; 82550; 83605 ×2; 83735 ×2; 84132; 84484; 85025 ×4; 85610 ×5; 85730; 81001; 87040; 84270; 82040; 84403; 87086; 87077; 87186; 71046; G0378 ×5; J2543 ×5; J3475

== ENCOUNTER 2020-04-07 09:24 | Inpatient (IN) | payer MEDICARE, OTHER ==
[2020-04-07] MEDS ORDERED: ACETAMINOPHEN TAB 500 MG TAB PO STA (09:44)
[2020-04-07] MEDS ORDERED: ALBUTEROL HFA INHALER INHALATION PRN (09:44)
[2020-04-07] MEDS ORDERED: ALBUTEROL HFA INHALER INHALATION STA (09:44)
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
[2020-04-07 10:15] LABS: Basophils # (A) 0.1 k/uL (0-0.2); Basophils % (A) 1 %; Eosinophils # (A) 0.1 k/uL (0-0.7); Eosinophils % (A) 0 %; HCT 38.4 % (39.0-53.0); HGB 12.9 gm/dL (13.0-17.5); Lymphocytes # (A) 1.1 k/uL (1.0-4.8); Lymphocytes % (A) 10 %; MCH 29.4 pg (25.0-35.0); MCHC 33.7 g/dL (31.0-37.0); MCV 87.3 fL (80.0-100.0); Mean Platelet Volume 7.2; Monocytes # (A) 0.4 k/uL (0-1.0); Monocytes % (A) 4 %; Neutrophils # (A) 8.7 k/uL (1.3-7.7); Neutrophils % (A) 83 %; Platelet Count 364 k/uL (150-450); RDW 14.6 % (11.5-15.5); WBC 10.4 k/uL (3.8-10.6)
--- NOTE | 2020-04-07 10:19 | XR ---
EXAMINATION TYPE: XR chest 2V DATE OF EXAM: 04/07/2020 COMPARISON: 03/23/2020 HISTORY: Shortness of breath TECHNIQUE: Frontal and lateral views of the chest are obtained. FINDINGS: Scattered senescent parenchymal changes noted. Hyperinflation compatible with COPD. No evidence for infiltrate. No evidence for atelectasis. Heart size is stable. Mediastinal structures are stable and grossly unremarkable. No evidence for hilar prominence. Degenerative changes dorsal spine. IMPRESSION: 1. No evidence for acute pulmonary disease.
[2020-04-07 10:31] LABS: Calcium 8.4 mg/dL (8.4-10.2); Magnesium 2.1 mg/dL (1.6-2.3); Potassium 3.4 mmol/L (3.5-5.1); Total Bilirubin 2.4 mg/dL (0.2-1.3); Total Protein 6.7 g/dL (6.3-8.2)
[2020-04-07 10:43] LABS: C Reactive Protein 262.6 mg/L (<10.0)
[2020-04-07 10:59] LABS: Appearance,Urine Turbid (Clear); Bacteria,Urine Many /hpf; Bilirubin,Urine 1+ (Negative); Blood,Urine Moderate (Negative); Color,Urine Dark Yellow; Glucose,Urine (UA) Negative (Negative); Ketones,Urine Negative (Negative); Leukocyte Esterase,Urine Large (Negative); Mucus,Urine Many /hpf; Nitrite,Urine Negative (Negative); PH, Urine 5.5 (5.0-8.0); Protein,Urine 1+ (Negative); RBC,Urine 24 /hpf (0-5); Specific Gravity,Urine 1.017 (1.001-1.035); WBC,Urine >182 /hpf (0-5)
[2020-04-07 11:05] LABS: INR 1.4 (<1.2); Partial Thromboplastin Time 29.8 sec (22.0-30.0)
[2020-04-07] MEDS ORDERED: PIPERACILLIN-TAZOBACTAM 3.375 GM in SODIUM CHLORIDE 0.9% 100 ML IVPB STA (12:51)
[2020-04-07] MEDS ORDERED: NALOXONE 0.4 MG/ML 1 ML VIAL IV PRN (13:08)
[2020-04-07] MEDS: SODIUM CHLORIDE 0.9% 1,000 ML IV SCH (15:14)
[2020-04-07] MEDS ORDERED: SUMAtriptan succinate 50 MG TAB PO PRN (15:24)
[2020-04-07] MEDS ORDERED: NON FORMULARY DRUG (Esomeprazole Magnesium [Nexium] 40 MG Capsule.Dr) PO SCH (15:30)
[2020-04-07] MEDS: ALBUTEROL HFA INHALER INHALATION SCH ×2 (16:00→20:17)
[2020-04-07] MEDS: OXYBUTYNIN 15 MG TAB.ER.24 PO SCH (16:18)
[2020-04-07] MEDS: PREGABALIN 75 MG CAP PO SCH ×2 (16:18→21:54)
[2020-04-07] MEDS: FLUDROCORTISONE 0.1 MG TAB PO SCH (16:18)
[2020-04-07] MEDS: FLUTICASONE 50MCG/SPRAY NASAL 16GM EA NOSTRIL SCH (16:21)
[2020-04-07 16:38] LABS: Ferritin 370.9 ng/mL (22.0-322.0)
[2020-04-07] MEDS: WARFARIN 2 MG TAB PO SCH (17:29)
[2020-04-07] MEDS: PIPERACILLIN-TAZOBACTAM 3.375 GM in SODIUM CHLORIDE 0.9% 100 ML IVPB SCH (21:52)
[2020-04-07] MEDS: MELATONIN 3 MG TABLET PO SCH (21:54)
[2020-04-07] MEDS: traZODone HCL 50 MG TAB PO SCH (21:54)
[2020-04-07] MEDS: PRIMIDONE 50 MG TAB PO SCH (21:55)
[2020-04-07] MEDS: TOPIRAMATE 25 MG TAB PO SCH (21:55)
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
[2020-04-08] MEDS: ALBUTEROL HFA INHALER INHALATION SCH ×4 (00:10→20:32)
[2020-04-08] MEDS: ACETAMINOPHEN TAB 500 MG TAB PO PRN (02:28)
[2020-04-08] MEDS: PIPERACILLIN-TAZOBACTAM 3.375 GM in SODIUM CHLORIDE 0.9% 100 ML IVPB SCH ×3 (04:59→20:17)
[2020-04-08] MEDS: PANTOPRAZOLE 40 MG/10 ML VIAL IV SCH (08:23)
[2020-04-08] MEDS: PREGABALIN 75 MG CAP PO SCH ×3 (08:23→20:17)
[2020-04-08] MEDS: OXYBUTYNIN 15 MG TAB.ER.24 PO SCH (08:24)
[2020-04-08] MEDS: DULoxetine HCL 30 MG CAPSULE.DR PO SCH (08:25)
[2020-04-08] MEDS: FLUDROCORTISONE 0.1 MG TAB PO SCH (08:25)
[2020-04-08] MEDS: FLUTICASONE 50MCG/SPRAY NASAL 16GM EA NOSTRIL SCH (08:30)
[2020-04-08 09:17] LABS: INR 1.36 (0.90-1.11); Prothrombin Time 14.5 sec (9.9-11.9)
[2020-04-08 09:26] LABS: Basophils # (A) 0.04 X 10*3/uL (0.00-0.10); Basophils % (A) 0.4 %; Eosinophils # (A) 0.06 X 10*3/uL (0.04-0.35); Eosinophils % (A) 0.5 %; HCT 38.7 % (39.6-50.0); HGB 12.5 g/dL (13.0-17.0); Lymphocytes # (A) 1.31 X 10*3/uL (0.90-5.00); MCH 28.6 pg (27.0-32.0); MCHC 32.3 g/dL (32.0-37.0); MCV 88.6 fL (80.0-97.0); Monocytes # (A) 0.74 X 10*3/uL (0.20-1.00); Monocytes % (A) 6.8 %; Neutrophils # (A) 8.63 X 10*3/uL (1.80-7.70); Neutrophils % (A) 78.8 %; Platelet Count 372 X 10*3/uL (140-440); RBC 4.37 X 10*6/uL (4.40-5.60); RDW 15.5 % (11.5-14.5); WBC 10.94 X 10*3/uL (4.50-10.00)
[2020-04-08 09:47] LABS: Anion Gap 11.8 mmol/L (4.00-12.00); BUN/Creat Ratio 19.33 Ratio (12.00-20.00); Calcium 8.3 mg/dL (8.7-10.3); Carbon Dioxide 27.2 mmol/L (21.6-31.8); Non-African American GFR(CKD) 49.2 (60.0-200.0); Potassium 3.4 mmol/L (3.5-5.5)
[2020-04-08] MEDS: OXYBUTYNIN CHLORIDE 5 MG TAB PO SCH (10:47)
[2020-04-08 15:04] VITALS: BMI 49.1
[2020-04-08] MEDS ORDERED: Potassium Replacement Protocol 1 EACH MISC MISCELLANE PRN ×3 (17:01→21:19)
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
[2020-04-08] MEDS ORDERED: Magnesium Replacement Protocol 1 EACH MISC MISCELLANE PRN (17:09)
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
[2020-04-08] MEDS: POTASSIUM CHLORIDE ER 20 MEQ TAB.ER PO SCH ×4 (18:12→22:59)
[2020-04-08] MEDS: WARFARIN 2 MG TAB PO SCH (18:13)
[2020-04-08] MEDS: SODIUM CHLORIDE 0.9% 1,000 ML IV SCH (18:30)
--- NOTE | 2020-04-08 18:35 | PN ---
PROGRESS NOTE DATE OF SERVICE: 04/08/2020 REASON FOR FOLLOWUP: Catheter-associated urinary tract infection. INTERVAL HISTORY: The patient did spike a fever of 101.9 around 3 in the morning. The patient has been afebrile since then. He seems to be feeling slightly better. The patient denies having any chest pain or shortness of breath. Occasional cough. No abdominal pain or diarrhea. PHYSICAL EXAMINATION: Blood pressure 113/76, pulse of 91, temperature 98.6. He is 93% on 3 L nasal cannula. General description is a middle-aged male lying in bed in no distress. RESPIRATORY SYSTEM: Unlabored breathing. Clear to auscultation anteriorly. HEART: S1, S2. Regular rate and rhythm. ABDOMEN: Soft. No tenderness. LABS: Hemoglobin is 12.5, white count 10.94, BUN of 29, creatinine is 1.5. DIAGNOSTIC IMPRESSION AND PLAN: Patient with catheter-associated urinary tract infection. Urine is showing a Gram- negative. Blood culture also showing a gram-negative. Patient is covered with Zosyn. Blood cultures will be repeated to document clearance of the bacteremia. He will need IV antibiotic on discharge. Continue with supportive care. MMODL / IJN: [id number] /
[2020-04-08] MEDS: PRIMIDONE 50 MG TAB PO SCH (20:17)
[2020-04-08] MEDS: traZODone HCL 50 MG TAB PO SCH (20:17)
[2020-04-08] MEDS: MELATONIN 3 MG TABLET PO SCH (20:17)
[2020-04-08] MEDS: TOPIRAMATE 25 MG TAB PO SCH (20:18)
[2020-04-08] MEDS: oxyCODONE-APAP 10-325MG 1 EACH TAB PO SCH (21:21)
[2020-04-09] MEDS: ALBUTEROL HFA INHALER INHALATION SCH ×4 (00:49→20:50)
[2020-04-09] MEDS ORDERED: Potassium Replacement Protocol 1 EACH MISC MISCELLANE PRN (04:32)
[2020-04-09] MEDS: POTASSIUM CHLORIDE ER 20 MEQ TAB.ER PO SCH ×2 (05:18→06:02)
[2020-04-09] MEDS: PIPERACILLIN-TAZOBACTAM 3.375 GM in SODIUM CHLORIDE 0.9% 100 ML IVPB SCH ×3 (05:18→22:00)
[2020-04-09] MEDS: OXYBUTYNIN CHLORIDE 5 MG TAB PO SCH (07:55)
[2020-04-09] MEDS: FLUTICASONE 50MCG/SPRAY NASAL 16GM EA NOSTRIL SCH (08:03)
[2020-04-09] MEDS: PREGABALIN 75 MG CAP PO SCH ×3 (08:03→22:01)
[2020-04-09] MEDS: PANTOPRAZOLE 40 MG/10 ML VIAL IV SCH (08:04)
[2020-04-09] MEDS: DULoxetine HCL 30 MG CAPSULE.DR PO SCH (08:04)
[2020-04-09] MEDS: OXYBUTYNIN 15 MG TAB.ER.24 PO SCH (08:04)
[2020-04-09] MEDS: FLUDROCORTISONE 0.1 MG TAB PO SCH (08:04)
--- NOTE | 2020-04-09 09:26 | US ---
EXAMINATION TYPE: US kidneys/renal and bladder DATE OF EXAM: 04/08/2020 COMPARISON: CT 07/05/2018 CLINICAL HISTORY: UTI. EXAM MEASUREMENTS: Right Kidney: 12.4 x 5.4 x 6.6 cm Left Kidney: 13.6 x 7.0 x 5.1 cm Right Kidney: Hypoechoic, indistinct area seen medially measuring 1.6 x 1.3 x 1.3 cm. Hyperechoic ar ea seen upper-mid pole measuring 0.5 x 0.6 x 0.4 cm. Left Kidney: Cortical medullary differentiation is maintained bilaterally, no hydronephrosis bilatera lly. Cystic focus seen on prior scan is not seen definitively on today's ultrasound. Bladder: Not visualized. Patient has Rodriguez catheter in place. Bilateral Jets seen: No Incidental finding- Spleen measures 13.8 cm. IMPRESSION: Possible nonobstructive calculus right kidney. Splenomegaly. Exam may be somewhat limited by patient body habitus.
[2020-04-09 09:44] LABS: Magnesium 2.1 mg/dL (1.5-2.4); Potassium 3.7 mmol/L (3.5-5.5)
[2020-04-09 12:27] LABS: INR 1.51 (0.90-1.11)
[2020-04-09] MEDS: SODIUM CHLORIDE 0.9% 1,000 ML IV SCH (13:10)
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
[2020-04-09 15:13] LABS: HCT 38.3 % (39.0-53.0); HGB 12.1 gm/dL (13.0-17.5); Hypochromasia Slight; MCH 28.6 pg (25.0-35.0); MCHC 31.7 g/dL (31.0-37.0); MCV 90.2 fL (80.0-100.0); Mean Platelet Volume 7.1; Platelet Count 334 k/uL (150-450); RBC 4.25 m/uL (4.30-5.90); WBC 7.2 k/uL (3.8-10.6)
[2020-04-09 15:23] LABS: African American GFR (CKD) >90 (>60 ml/min/1.73 sqM); Anion Gap 10 mmol/L; Blood Urea Nitrogen 26 mg/dL (9-20); Calcium 8.4 mg/dL (8.4-10.2); Carbon Dioxide 24 mmol/L (22-30); Chloride 100 mmol/L (98-107); Glucose 139 mg/dL (74-99); Non-African American GFR(CKD) 86 (>60 ml/min/1.73 sqM); Sodium 134 mmol/L (137-145)
[2020-04-09] MEDS: oxyCODONE-APAP 10-325MG 1 EACH TAB PO SCH (17:20)
[2020-04-09] MEDS ORDERED: WARFARIN 3 MG TAB PO ONE (18:00)
[2020-04-09] MEDS: MELATONIN 3 MG TABLET PO SCH (22:00)
[2020-04-09] MEDS: PRIMIDONE 50 MG TAB PO SCH (22:01)
[2020-04-09] MEDS: TOPIRAMATE 25 MG TAB PO SCH (22:01)
[2020-04-09] MEDS: traZODone HCL 50 MG TAB PO SCH (22:01)
--- NOTE | 2020-04-09 23:21 | PN ---
PROGRESS NOTE DATE OF SERVICE: 04/09/2020 REASON FOR FOLLOWUP: Complicated urinary tract infection with bacteremia. INTERVAL HISTORY: The patient is currently afebrile. The patient is breathing slightly comfortably. Denies having any chest pain or shortness of breath. Occasional cough. No abdominal pain or diarrhea. PHYSICAL EXAMINATION: Blood pressure 100/69 with a pulse of 68, temperature 98.2. He is 94% on room air. General description is a middle-aged male lying in bed in no distress. RESPIRATORY SYSTEM: Unlabored breathing. Clear to auscultation anteriorly. HEART: S1, S2. Regular rate and rhythm. ABDOMEN: Soft. No tenderness. LABS: Hemoglobin is 12.1, white count 7.2, BUN of 26, creatinine 0.95. DIAGNOSTIC IMPRESSION AND PLAN: Patient with pseudomonas, klebsiella urinary tract infection with Gram-negative bacteremia. Will wait for the final on the Gram-negative in the blood and also to make sure repeat blood culture is negative before placing a midline for outpatient IV antibiotic therapy. The patient is currently covered with Zosyn; to continue, which should cover both pathogens. Monitor his clinical course closely. MMODL / IJN: [id number] /
[2020-04-10] MEDS: ALBUTEROL HFA INHALER INHALATION SCH ×4 (01:23→19:25)
[2020-04-10] MEDS: PIPERACILLIN-TAZOBACTAM 3.375 GM in SODIUM CHLORIDE 0.9% 100 ML IVPB SCH ×3 (05:34→20:18)
[2020-04-10 06:59] LABS: Glucose,Whole Blood 107 mg/dL (75-99)
[2020-04-10 07:47] LABS: Prothrombin Time 19.2 sec (9.0-12.0)
[2020-04-10] MEDS: PANTOPRAZOLE 40 MG TABLET PO SCH (07:50)
[2020-04-10] MEDS: FLUTICASONE 50MCG/SPRAY NASAL 16GM EA NOSTRIL SCH (07:50)
[2020-04-10] MEDS: PREGABALIN 75 MG CAP PO SCH ×3 (07:50→20:19)
[2020-04-10] MEDS: DULoxetine HCL 30 MG CAPSULE.DR PO SCH (07:51)
[2020-04-10] MEDS: FLUDROCORTISONE 0.1 MG TAB PO SCH (07:51)
[2020-04-10] MEDS: OXYBUTYNIN 15 MG TAB.ER.24 PO SCH (07:51)
[2020-04-10] MEDS: SODIUM CHLORIDE 0.9% 1,000 ML IV SCH (07:52)
[2020-04-10 11:24] LABS: Basophils # (A) 0.05 X 10*3/uL (0.00-0.10); Basophils % (A) 0.7 %; Eosinophils # (A) 0.24 X 10*3/uL (0.04-0.35); Eosinophils % (A) 3.3 %; HCT 37.8 % (39.6-50.0); HGB 11.8 g/dL (13.0-17.0); Lymphocytes % (A) 23.3 %; MCHC 31.2 g/dL (32.0-37.0); MCV 89.6 fL (80.0-97.0); Mean Platelet Volume 9.9 fL (9.5-12.2); Monocytes # (A) 0.57 X 10*3/uL (0.20-1.00); Monocytes % (A) 7.8 %; Neutrophils # (A) 4.62 X 10*3/uL (1.80-7.70); Neutrophils % (A) 63.3 %; Platelet Count 456 X 10*3/uL (140-440); RBC 4.22 X 10*6/uL (4.40-5.60); RDW 15.8 % (11.5-14.5)
[2020-04-10 12:20] LABS: African American GFR (CKD) 105.7 (60.0-200.0); Anion Gap 9.6 mmol/L (4.00-12.00); BUN/Creat Ratio 23.33 Ratio (12.00-20.00); Calcium 8.4 mg/dL (8.7-10.3); Carbon Dioxide 28.4 mmol/L (21.6-31.8); Non-African American GFR(CKD) 91.2 (60.0-200.0); Potassium 3.6 mmol/L (3.5-5.5)
[2020-04-10] MEDS: oxyCODONE-APAP 10-325MG 1 EACH TAB PO SCH (13:38)
[2020-04-10] MEDS ORDERED: Magnesium Replacement Protocol 1 EACH MISC MISCELLANE PRN (14:35)
--- NOTE | 2020-04-10 15:31 | PN ---
PROGRESS NOTE DATE OF SERVICE: 04/10/2020. REASON FOR FOLLOWUP: Catheter-associated urinary tract infection and bacteremia. INTERVAL HISTORY: The patient is currently afebrile. Patient is breathing comfortably. Denies having any chest pain or shortness of breath. He did have a cough probably. No abdominal pain or diarrhea. PHYSICAL EXAMINATION: Blood pressure 142/84 with a pulse of 78, temperature 97.7. He is 95% on room air. General description is a middle-aged male lying in bed in no distress. RESPIRATORY SYSTEM: Unlabored breathing, clear to auscultation anteriorly. HEART: S1, S2. Regular rate and rhythm. ABDOMEN: Soft, no tenderness. LABS: Hemoglobin 11.8, white count 7.3 with BUN of 21, creatinine 0.9. DIAGNOSTIC IMPRESSION AND PLAN: Patient with catheter-associated urinary tract infection with urine showing Klebsiella and Pseudomonas. Blood cultures are Gram negative. Patient is covered with Zosyn. He will need Midline IV antibiotic on discharge. Continue supportive care. MMODL / IJN: [id number] /
[2020-04-10] MEDS ORDERED: WARFARIN 2 MG TAB PO ONE (18:00)
[2020-04-10] MEDS: traZODone HCL 50 MG TAB PO SCH (20:18)
[2020-04-10] MEDS: MELATONIN 3 MG TABLET PO SCH (20:19)
[2020-04-10] MEDS: PRIMIDONE 50 MG TAB PO SCH (20:19)
[2020-04-10] MEDS: TOPIRAMATE 25 MG TAB PO SCH (20:20)
[2020-04-11] MEDS ORDERED: POTASSIUM CHLORIDE ER 20 MEQ TAB.ER PO STA (02:24)
[2020-04-11] MEDS ORDERED: SODIUM CHLORIDE 0.9% 2,000 ML IV ONE (02:25)
[2020-04-11] MEDS: SODIUM CHLORIDE 0.9% 1,000 ML IV SCH ×4 (02:35→16:26)
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
[2020-04-11] MEDS: PIPERACILLIN-TAZOBACTAM 3.375 GM in SODIUM CHLORIDE 0.9% 100 ML IVPB SCH ×3 (05:36→20:46)
[2020-04-11] MEDS: ALBUTEROL HFA INHALER INHALATION SCH ×3 (08:11→20:16)
[2020-04-11] MEDS ORDERED: DEXTROSE 5% IN WATER 100 ML with AMIODARONE 300 MG IV ONE (09:02)
[2020-04-11] MEDS: DULoxetine HCL 30 MG CAPSULE.DR PO SCH (09:12)
[2020-04-11] MEDS: PANTOPRAZOLE 40 MG TABLET PO SCH (09:12)
[2020-04-11] MEDS: FLUDROCORTISONE 0.1 MG TAB PO SCH (09:12)
[2020-04-11] MEDS: PREGABALIN 75 MG CAP PO SCH ×3 (09:12→20:46)
[2020-04-11] MEDS: OXYBUTYNIN 15 MG TAB.ER.24 PO SCH (09:12)
[2020-04-11 09:24] LABS: INR 2.4 (<1.2); Prothrombin Time 23.2 sec (9.0-12.0)
[2020-04-11 10:07] LABS: Basophils # (A) 0.05 X 10*3/uL (0.00-0.10); Basophils % (A) 0.7 %; Eosinophils # (A) 0.24 X 10*3/uL (0.04-0.35); Eosinophils % (A) 3.2 %; HCT 35.1 % (39.6-50.0); Lymphocytes # (A) 1.78 X 10*3/uL (0.90-5.00); MCH 28.8 pg (27.0-32.0); MCHC 31.3 g/dL (32.0-37.0); MCV 91.9 fL (80.0-97.0); Mean Platelet Volume 9.7 fL (9.5-12.2); Monocytes # (A) 0.41 X 10*3/uL (0.20-1.00); Monocytes % (A) 5.5 %; Neutrophils # (A) 4.81 X 10*3/uL (1.80-7.70); Neutrophils % (A) 64.8 %; Platelet Count 433 X 10*3/uL (140-440); RBC 3.82 X 10*6/uL (4.40-5.60); RDW 15.9 % (11.5-14.5); WBC 7.42 X 10*3/uL (4.50-10.00)
[2020-04-11 10:45] LABS: Anion Gap 7.2 mmol/L (4.00-12.00); BUN/Creat Ratio 21.25 Ratio (12.00-20.00); Calcium 8.2 mg/dL (8.7-10.3); Carbon Dioxide 25.8 mmol/L (21.6-31.8); Magnesium 2.1 mg/dL (1.5-2.4); Non-African American GFR(CKD) 95.7 (60.0-200.0); Potassium 3.9 mmol/L (3.5-5.5)
--- NOTE | 2020-04-11 10:59 | ECHOF ---
Referral Reason:new afib MEASUREMENTS -------- HEIGHT: 185.4 cm WEIGHT: 169.2 kg BP: 92/66 RVIDd: 4.4 cm (< 3.3) IVSd: 1.7 cm (0.6 - 1.1) LVIDd: 4.0 cm (3.9 - 5.3) LVPWd: 1.7 cm (0.6 - 1.1) IVSs: 2.0 cm LVIDs: 3.1 cm LVPWs: 1.8 cm LAESV Index (A-L): 21.52 ml/m RAP: 5.00 mmHg RVSP: 26.79 mmHg FINDINGS -------- Atrial fibrillation. This was a technically difficult study with suboptimal views. The left ventricular size is normal. There is severe concentric left ventricular hypertrophy. Ove rall left ventricular systolic function is low-normal with, an EF between 50 - 55 %. Left ventricul ar fillimg pressure cannot be estimated due to Atrial fibrillation. The right ventricle is moderate to severely enlarged. Normal LA size by volume 22+/-6 ml/m2. The right atrium is mildly enlarged. xx ml of Lumason was utilized for enhancement of images. Interatrial and interventricular septum intact. The aortic valve was not well visualized. There is no evidence of aortic regurgitation. There is no evidence of aortic stenosis. The mitral valve was not well visualized. Mild mitral regurgitation is present. The tricuspid valve was not well visualized. Mild tricuspid regurgitation present. There is no ev idence of pulmonary hypertension. The right ventricular systolic pressure, as measured by Doppler, is 26.79mmHg. The pulmonic valve was not well visualized. The aortic root size is normal. IVC Not well visulized. There is no pericardial effusion. CONCLUSIONS -------- 1. The left ventricular size is normal. 2. There is severe concentric left ventricular hypertrophy. 3. Overall left ventricular systolic function is low-normal with, an EF between 50 - 55 %. 4. Left ventricular fillimg pressure cannot be estimated due to Atrial fibrillation. 5. The right ventricle is moderate to severely enlarged. 6. The right atrium is mildly enlarged. 7. Mild mitral regurgitation is present. 8. Mild tricuspid regurgitation present. DUSTLESS OPERATOR: Lima Mantilla RUST
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
--- NOTE | 2020-04-11 14:23 | PN ---
PROGRESS NOTE DATE OF SERVICE: 04/11/2020 REASON FOR FOLLOWUP: Catheter-associated UTI and bacteremia. INTERVAL HISTORY: The patient is currently afebrile. The patient developed atrial fibrillation with RVR and has been transferred to the telemetry unit. The patient denies having any chest pain or cough. No abdominal pain. No vomiting. No diarrhea. PHYSICAL EXAMINATION: Blood pressure is 104/68 with a pulse of 85, temperature is 97.7. He is 95% on room air. General description is a middle-aged male lying in bed in no distress. RESPIRATORY SYSTEM: Unlabored breathing, clear to auscultation anteriorly. HEART: S1, S2. Regular rate and rhythm. ABDOMEN: Soft, no tenderness. LABS: Hemoglobin 11, white count 7.42, creatinine 0.8. Blood culture with gram-negative rods has not been identified. Repeat blood culture so far negative. DIAGNOSTIC IMPRESSION AND PLAN: Patient with catheter-associated urinary tract infection with secondary bacteremia. Covered with Zosyn with the discharge option could be either Zosyn versus meropenem. Will discuss with infusion and monitor his clinical course closely. MMODL / IJN: [id number] /
[2020-04-11] MEDS: oxyCODONE-APAP 10-325MG 1 EACH TAB PO SCH ×2 (15:21→16:46)
[2020-04-11] MEDS: FLUTICASONE 50MCG/SPRAY NASAL 16GM EA NOSTRIL SCH (15:21)
[2020-04-11] MEDS: WARFARIN 2 MG TAB PO SCH (16:26)
[2020-04-11] MEDS: PRIMIDONE 50 MG TAB PO SCH (20:46)
[2020-04-11] MEDS: traZODone HCL 50 MG TAB PO SCH (20:47)
[2020-04-11] MEDS: MELATONIN 3 MG TABLET PO SCH (20:47)
[2020-04-11] MEDS: TOPIRAMATE 25 MG TAB PO SCH (20:47)
[2020-04-11] MEDS: ACETAMINOPHEN TAB 500 MG TAB PO PRN (20:48)
[2020-04-12] MEDS: PIPERACILLIN-TAZOBACTAM 3.375 GM in SODIUM CHLORIDE 0.9% 100 ML IVPB SCH ×3 (04:25→20:25)
[2020-04-12] MEDS: SODIUM CHLORIDE 0.9% 1,000 ML IV SCH ×5 (04:26→23:50)
[2020-04-12] MEDS: PANTOPRAZOLE 40 MG TABLET PO SCH (06:29)
[2020-04-12 07:12] LABS: Basophils # (A) 0.1 k/uL (0-0.2); Basophils % (A) 1 %; Eosinophils # (A) 0.2 k/uL (0-0.7); Eosinophils % (A) 3 %; HCT 37.4 % (39.0-53.0); HGB 11.5 gm/dL (13.0-17.5); Hypochromasia Moderate; INR 2.4 (<1.2); Lymphocytes # (A) 1.9 k/uL (1.0-4.8); Lymphocytes % (A) 30 %; MCH 28.2 pg (25.0-35.0); MCHC 30.8 g/dL (31.0-37.0); MCV 91.6 fL (80.0-100.0); Mean Platelet Volume 6.9; Monocytes # (A) 0.2 k/uL (0-1.0); Monocytes % (A) 4 %; Neutrophils # (A) 3.8 k/uL (1.3-7.7); Neutrophils % (A) 60 %; Platelet Count 512 k/uL (150-450); Prothrombin Time 23.4 sec (9.0-12.0); RBC 4.08 m/uL (4.30-5.90); RDW 15.3 % (11.5-15.5); WBC 6.4 k/uL (3.8-10.6)
[2020-04-12 07:24] LABS: African American GFR (CKD) >90 (>60 ml/min/1.73 sqM); Anion Gap 3 mmol/L; Blood Urea Nitrogen 14 mg/dL (9-20); Calcium 8.5 mg/dL (8.4-10.2); Carbon Dioxide 27 mmol/L (22-30); Chloride 107 mmol/L (98-107); Glucose 99 mg/dL (74-99); Non-African American GFR(CKD) >90 (>60 ml/min/1.73 sqM); Potassium 3.8 mmol/L (3.5-5.1); Sodium 137 mmol/L (137-145)
[2020-04-12] MEDS: ALBUTEROL HFA INHALER INHALATION SCH ×3 (08:50→19:20)
[2020-04-12] MEDS: ACETAMINOPHEN TAB 500 MG TAB PO PRN (09:22)
[2020-04-12] MEDS: DULoxetine HCL 30 MG CAPSULE.DR PO SCH (09:23)
[2020-04-12] MEDS: PREGABALIN 75 MG CAP PO SCH ×3 (09:23→20:25)
[2020-04-12] MEDS: OXYBUTYNIN 15 MG TAB.ER.24 PO SCH (09:23)
[2020-04-12] MEDS: FLUDROCORTISONE 0.1 MG TAB PO SCH (09:23)
[2020-04-12] MEDS: FLUTICASONE 50MCG/SPRAY NASAL 16GM EA NOSTRIL SCH (09:41)
--- NOTE | 2020-04-12 12:49 | P.PN ---
Subjective Progress Note Date: 04/12/20 Principal diagnosis: Weakness, recurrent UTI 8-year-old morbidly obese paraplegic patient with recent treatment of UTI and was discharged from hospital and reprocess into the emergency room with increasing weakness, fatigue questionable fevers. Patient was placed on broad-spectrum antibiotics and was admitted to the floor. Patient developed atrial fibrillation in early 04/11/2020 in which cardiology was consulted his heart rate increases 120 130s with noted hypertension. Cardizem drip was initiated patient subsequently converted back into normal sinus rhythm. Repeat blood cultures show no growth this time at 48 hours. Midline IV access was placed yesterday without issue. Patient currently sitting up in bed with no complaints at this time. Denies fever, shortness of breath, difficulty breathing, nausea or vomiting, or mental status changes. Os recent set of vit als are 98 orally, heart rate 66 normal sinus rhythm as per strip, respiratory 18, blood pressure 132/89, is maintaining oxygen saturation 95% on room air. Most recent set of lab work WBC 6.4, hemoglobin 1.5, hematocrit 37.4 platelet count 512. Chemistry reveals a sodium 137, potassium 3.8, chloride of 107, carbon monoxide 27, CARISSA of 14, creatinine of 0.84. Neck was completed yesterday is noted for mild tricuspid regurgitation, mild mitral regurgitation right atrium is mildly enlarged, right ventricle is moderately severely enlarged with ejection fraction of approximately 50-55%. Objective - Vital Signs Vital signs: Vital Signs Temp 97.8 F 04/12/20 09:00 Pulse 68 04/12/20 09:00 Resp 20 04/12/20 09:00 BP 112/73 04/12/20 09:00 Pulse Ox 95 04/12/20 09:00 Intake & Output 04/11/20 04/12/20 04/12/20 18:59 06:59 18:59 Intake Total 2120 475 Output Total 980 1 Balance 1140 474 Weight 179.5 kg Intake: Intake, IV Titration 2000 Amount Dextrose 5% in Water 100 100 ml @ 618 mls/hr IV .Q11M ONE with Amiodarone 300 mg Rx#:[id number] Piperacillin-Tazobactam 3 100 .375 gm In Sodium Chloride 0.9% 100 ml @ 25 mls/hr IVPB Q8H [facility] Rx#: [id number] Sodium Chloride 0.9% 1, 1800 000 ml @ 150 mls/hr IV . Q6H40M [facility] Rx#:[id number] Oral 120 475 Output: Urine 980 Stool 1 Other: Voiding Method Indwelling Catheter Indwelling Catheter # Bowel Movements 1 - Exam GENERAL: Well-appearing, well-nourished, morbidly obese and in no acute distress. HEAD: Atraumatic, normocephalic. EYES: Pupils equal round and reactive to light, extraocular movements intact, sclera anicteric, conjunctiva are normal. ENT:nares patent, oropharynx clear without exudates. Moist mucous membranes. NECK: Normal range of motion, supple without lymphadenopathy or JVD, no thyromegaly LUNGS: Breath sounds clear and diminished to auscultation bilaterally and equal. No wheezes rales or rhonchi. HEART: Regular rate and rhythm without murmurs, rubs or gallops.S1S2 Normal ABDOMEN: Soft, nontender, normoactive bowel sounds. No guarding, no rebound. No masses appreciated, exam was limited due to body habitus. EXTREMITIES: Normal range of motion of upper extremities, no movement of lower extremities is he is paraplegic, +1 edema lower extremities. No clubbing or cyanosis. Midline right arm. NEUROLOGICAL: Cranial nerves II through XII grossly intact. Normal speech, normal gait. PSYCH: Normal mood, normal affect. SKIN: Warm, Dry, normal turgor, no rashes or lesions noted. - Labs CBC & Chem 7: 04/12/20 06:30 04/12/20 06:30 Labs: Abnormal Lab Results - Last 24 Hours (Table) 04/12/20 04/12/20 Range/Units 06:30 06:30 RBC 4.08 L (4.30-5.90) m/uL Hgb 11.5 L (13.0-17.5) gm/dL Hct 37.4 L (39.0-53.0) % MCHC 30.8 L (31.0-37.0) g/dL Plt Count 512 H (150-450) k/uL PT 23.4 H (9.0-12.0) sec INR 2.4 H (<1.2) Microbiology - Last 24 Hours (Table) 04/07/20 09:50 Blood Culture - Preliminary Blood No Growth after 120 hours 04/09/20 05:58 Blood Culture - Preliminary Blood No Growth after 72 hours 04/07/20 11:08 Blood Culture Gram Stain - Final Blood Blood Culture - Final Grm Neg Rods Lactose Fermentor Assessment and Plan (1) New onset a-fib Current Visit: Yes Status: Acute Code(s): I48.91 - UNSPECIFIED ATRIAL FIBRILLATION SNOMED Code(s): 47557912 (2) Stage II pressure ulcer of heel Current Visit: Yes Status: Acute Code(s): L89.602 - PRESSURE ULCER OF UNSPECIFIED HEEL, STAGE 2 SNOMED Code(s): 080433252 (3) Sepsis Current Visit: Yes Status: Acute Code(s): A41.9 - SEPSIS, UNSPECIFIED ORGANISM SNOMED Code(s): 86060351 (4) UTI (urinary tract infection) Current Visit: Yes Status: Acute Code(s): N39.0 - URINARY TRACT INFECTION, SITE NOT SPECIFIED SNOMED Code(s): 40365136 (5) Bacteremia due to Gram-negative bacteria Current Visit: No Status: Acute Code(s): R78.81 - BACTEREMIA SNOMED Code(s): 844331450414 (6) Headache Current Visit: No Status: Acute Code(s): R51 - HEADACHE * DO NOT USE * SNOMED Code(s): 53993990 (7) Neurogenic bladder Current Visit: No Status: Acute Code(s): N31.9 - NEUROMUSCULAR DYSFUNCTION OF BLADDER, UNSPECIFIED SNOMED Code(s): 407112380 (8) Sepsis secondary to UTI Current Visit: No Status: Acute Code(s): A41.9 - SEPSIS, UNSPECIFIED ORGANISM; N39.0 - URINARY TRACT INFECTION, SITE NOT SPECIFIED SNOMED Code(s): 633233419 (9) Chronic migraine Current Visit: No Status: Chronic Code(s): G43.709 - CHRONIC MIGRAINE W/O AURA, NOT INTRACTABLE, W/O STAT MIGR SNOMED Code(s): 773427639 Plan: 1. Continue current medication regimen this time. 2. Patient remained Zosyn for antibody coverage. 3. Continue follow with cardiology and ID recommendations. 4. Continue to monitor labs and vitals and treat accordingly. 5. GI prophylaxis covered 6. Closely monitor stage II left heel was present on admission. 7. Physical therapy and occupational therapy to see patient. 8. Social work for subacute rehab. 9. We'll reevaluate again tomorrow Time with Patient: Greater than 30
[2020-04-12] MEDS: oxyCODONE-APAP 10-325MG 1 EACH TAB PO SCH (13:19)
--- NOTE | 2020-04-12 14:59 | P.PN ---
Subjective Progress Note Date: 04/12/20 The patient is resting comfortably in bed. No acute distress. He states his overall feeling relatively well. GENERAL: Obese male in no acute distress. NECK: Supple without JVD or thyromegaly. LUNGS: Breath sounds diminished to auscultation bilaterally. Respiration equal and unlabored. No wheezes, rales or rhonchi. HEART: Regular rate and rhythm without murmurs, rubs or gallops. S1 and S2 heard. EXTREMITIES: Normal range of motion, no edema. No clubbing or cyanosis. Weak peripheral pulses. VITALS: Blood pressure 112/73, pulse rate 68, respiratory rate 20, SpO2 95% on room air, temperature 97.8F TELEMETRY: Sinus rhythm with heart rates in the 60s LABS: WBC 6.4, hemoglobin 11.5, hematocrit 37.4, platelets 512, sodium 137, potassium 3.8, BUN 14, creatinine 0.84 IMPRESSION: #1 new-onset paroxysmal atrial fibrillation #2 history of DVT, on oral anticoagulation #3 urinary tract infection #4 hypertension #5 morbid obesity, BMI 51 PLAN: Patient received one 300 mg bolus of amiodarone. He continues to maintain sinus rhythm. Patient is already on anticoagulation for DVT No further recommendations at this time. Please do not hesitate to contact if there are any changes in his clinical status. The patient has been seen and evaluated. Plan of care has been reviewed and agreed upon by Dr Guzmán. Objective - Vital Signs Vital signs: Vital Signs Temp 98 F 04/12/20 12:00 Pulse 66 04/12/20 12:00 Resp 18 04/12/20 12:00 BP 132/89 04/12/20 12:00 Pulse Ox 95 04/12/20 12:00 Intake & Output 04/11/20 04/12/20 04/12/20 18:59 06:59 18:59 Intake Total 2120 475 Output Total 980 1 1000 Balance 1140 474 -1000 Weight 179.5 kg Intake: Intake, IV Titration 2000 Amount Dextrose 5% in Water 100 100 ml @ 618 mls/hr IV .Q11M ONE with Amiodarone 300 mg Rx#:[id number] Piperacillin-Tazobactam 3 100 .375 gm In Sodium Chloride 0.9% 100 ml @ 25 mls/hr IVPB Q8H [facility] Rx#: [id number] Sodium Chloride 0.9% 1, 1800 000 ml @ 150 mls/hr IV . Q6H40M [facility] Rx#:[id number] Oral 120 475 Output: Urine 980 1000 Stool 1 Other: Voiding Method Indwelling Catheter Indwelling Catheter # Bowel Movements 1 - Labs CBC & Chem 7: 04/12/20 06:30 04/12/20 06:30 Labs: Abnormal Lab Results - Last 24 Hours (Table) 04/12/20 04/12/20 Range/Units 06:30 06:30 RBC 4.08 L (4.30-5.90) m/uL Hgb 11.5 L (13.0-17.5) gm/dL Hct 37.4 L (39.0-53.0) % MCHC 30.8 L (31.0-37.0) g/dL Plt Count 512 H (150-450) k/uL PT 23.4 H (9.0-12.0) sec INR 2.4 H (<1.2) Microbiology - Last 24 Hours (Table) 04/07/20 09:50 Blood Culture - Preliminary Blood No Growth after 120 hours 04/09/20 05:58 Blood Culture - Preliminary Blood No Growth after 72 hours
[2020-04-12] MEDS: WARFARIN 2 MG TAB PO SCH (17:03)
--- NOTE | 2020-04-12 19:08 | PN ---
PROGRESS NOTE DATE OF SERVICE: 04/12/2020 REASON FOR FOLLOWUP: Catheter-associated urinary tract infection and bacteremia. INTERVAL HISTORY: The patient is currently afebrile, has come with some stomach upset, but no vomiting. No chest pain, shortness of breath or cough. No abdominal pain. No diarrhea. PHYSICAL EXAMINATION: Blood pressure 132/89 with pulse of 66, temperature 98. He is 95% on room air. General description is a middle-aged male lying in bed in no distress. Respiratory system: Unlabored breathing. Clear to auscultation anteriorly. HEART: S1, S2. Regular rate and rhythm. ABDOMEN: Soft, no tenderness. LABS: Hemoglobin is 11.5, white count 6.4, BUN of 14, creatinine 0.84. DIAGNOSTIC IMPRESSION AND PLAN: Patient with Klebsiella pneumoniae Pseudomonas catheter associated urinary tract infection with Gram-negative bacteremia. Patient is covered with Zosyn. Blood culture repeat has been negative. Once cleared by Cardiology, will go home on IV antibiotics to finish a course of therapy. Continue supportive care. MMODL / IJN: [id number] /
[2020-04-12] MEDS: TOPIRAMATE 25 MG TAB PO SCH (20:25)
[2020-04-12] MEDS: PRIMIDONE 50 MG TAB PO SCH (20:25)
[2020-04-12] MEDS: MELATONIN 3 MG TABLET PO SCH (20:25)
[2020-04-12] MEDS: traZODone HCL 50 MG TAB PO SCH (20:25)
[2020-04-13] MEDS: PIPERACILLIN-TAZOBACTAM 3.375 GM in SODIUM CHLORIDE 0.9% 100 ML IVPB SCH ×3 (05:05→22:20)
[2020-04-13] MEDS: SODIUM CHLORIDE 0.9% 1,000 ML IV SCH ×4 (05:06→18:45)
[2020-04-13] MEDS: PANTOPRAZOLE 40 MG TABLET PO SCH (06:38)
[2020-04-13 07:42] LABS: Basophils % (A) 0 %; Eosinophils # (A) 0.2 k/uL (0-0.7); Eosinophils % (A) 4 %; HCT 36.4 % (39.0-53.0); HGB 11.3 gm/dL (13.0-17.5); Hypochromasia Slight; Lymphocytes # (A) 1.7 k/uL (1.0-4.8); Lymphocytes % (A) 26 %; MCHC 30.9 g/dL (31.0-37.0); MCV 90.7 fL (80.0-100.0); Mean Platelet Volume 6.9; Monocytes # (A) 0.3 k/uL (0-1.0); Monocytes % (A) 4 %; Neutrophils # (A) 4.1 k/uL (1.3-7.7); Neutrophils % (A) 64 %; Platelet Count 507 k/uL (150-450); RBC 4.02 m/uL (4.30-5.90); RDW 15.4 % (11.5-15.5); WBC 6.4 k/uL (3.8-10.6)
[2020-04-13 07:47] LABS: INR 2.8 (<1.2); Prothrombin Time 27.5 sec (9.0-12.0)
[2020-04-13 08:00] LABS: ALT 23 U/L (4-49); AST 35 U/L (17-59); African American GFR (CKD) >90 (>60 ml/min/1.73 sqM); Albumin 2.5 g/dL (3.5-5.0); Alkaline Phosphatase 84 U/L (38-126); Anion Gap 6 mmol/L; Blood Urea Nitrogen 9 mg/dL (9-20); Calcium 8.3 mg/dL (8.4-10.2); Carbon Dioxide 25 mmol/L (22-30); Chloride 108 mmol/L (98-107); Glucose 101 mg/dL (74-99); Non-African American GFR(CKD) >90 (>60 ml/min/1.73 sqM); Potassium 3.9 mmol/L (3.5-5.1); Sodium 139 mmol/L (137-145); Total Bilirubin 0.6 mg/dL (0.2-1.3); Total Protein 5.7 g/dL (6.3-8.2)
[2020-04-13] MEDS: ALBUTEROL HFA INHALER INHALATION SCH ×3 (08:37→20:52)
[2020-04-13] MEDS: DULoxetine HCL 30 MG CAPSULE.DR PO SCH (09:51)
[2020-04-13] MEDS: OXYBUTYNIN 15 MG TAB.ER.24 PO SCH (09:51)
[2020-04-13] MEDS: FLUDROCORTISONE 0.1 MG TAB PO SCH (09:51)
[2020-04-13] MEDS: PREGABALIN 75 MG CAP PO SCH ×3 (09:51→22:20)
[2020-04-13] MEDS: ACETAMINOPHEN TAB 500 MG TAB PO PRN (09:51)
[2020-04-13] MEDS: FLUTICASONE 50MCG/SPRAY NASAL 16GM EA NOSTRIL SCH (10:00)
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
[2020-04-13] MEDS: oxyCODONE-APAP 10-325MG 1 EACH TAB PO SCH (12:55)
--- NOTE | 2020-04-13 15:38 | XR ---
EXAMINATION TYPE: XR chest 1V portable DATE OF EXAM: 04/13/2020 COMPARISON: 04/07/2020 HISTORY: Short of breath TECHNIQUE: 2 views FINDINGS: There is no heart failure nor confluent pneumonic infiltrate. Costophrenic angles are clear . There are chest leads. There is cervical spine fusion surgery. There is a plate fixing the right cl avicle. IMPRESSION: No active cardiopulmonary disease. No significant change.
[2020-04-13] MEDS: WARFARIN 2 MG TAB PO SCH (17:12)
[2020-04-13] MEDS: TOPIRAMATE 25 MG TAB PO SCH (22:20)
[2020-04-13] MEDS: MELATONIN 3 MG TABLET PO SCH (22:20)
[2020-04-13] MEDS: amLODIPine 5 MG TAB PO SCH (22:20)
[2020-04-13] MEDS: traZODone HCL 50 MG TAB PO SCH (22:20)
[2020-04-13] MEDS: PRIMIDONE 50 MG TAB PO SCH (22:26)
--- NOTE | 2020-04-13 23:13 | PN ---
PROGRESS NOTE DATE OF SERVICE: 04/13/2020 REASON FOR FOLLOWUP: Catheter associated UTI and bacteremia. INTERVAL HISTORY: Patient is currently afebrile, has been breathing comfortably. The patient denies having any chest pain. However has been complaining of wheezing and cough. No sputum production. No vomiting. No abdominal pain. No diarrhea. PHYSICAL EXAMINATION: Blood pressure 150/100 with a pulse of 70, temperature 98. He is 96% on room air. General description: The patient is a middle-aged male lying in bed in no distress. Respiratory system: Unlabored breathing, decreased breath sounds in the base. No wheeze. Heart S1, S2. Regular rate and rhythm. Abdomen soft. No tenderness. LABS: Hemoglobin is 11.1, white count 6.4. BUN of 9, creatinine 0.73. DIAGNOSTIC IMPRESSION AND PLAN: Patient with catheter associated urinary tract infection with bacteremia. Urine showing Pseudomonas. Blood culture The patient is currently covered with Zosyn. Plan for either Zosyn or Meropenem on discharge for another 10 days to finish a course of therapy. Continue supportive care. MMODL / IJN: [id number] /
[2020-04-14] MEDS: SODIUM CHLORIDE 0.9% 1,000 ML IV SCH ×4 (01:27→12:25)
[2020-04-14] MEDS: PIPERACILLIN-TAZOBACTAM 3.375 GM in SODIUM CHLORIDE 0.9% 100 ML IVPB SCH (05:15)
[2020-04-14] MEDS: PANTOPRAZOLE 40 MG TABLET PO SCH (06:51)
[2020-04-14 07:38] LABS: Prothrombin Time 28.8 sec (9.0-12.0)
[2020-04-14 07:49] LABS: Basophils % (A) 1 %; Eosinophils # (A) 0.2 k/uL (0-0.7); Eosinophils % (A) 3 %; HGB 11.9 gm/dL (13.0-17.5); Hypochromasia Slight; Lymphocytes # (A) 1.7 k/uL (1.0-4.8); Lymphocytes % (A) 23 %; MCH 28.9 pg (25.0-35.0); MCHC 32.2 g/dL (31.0-37.0); MCV 89.7 fL (80.0-100.0); Monocytes # (A) 0.3 k/uL (0-1.0); Monocytes % (A) 5 %; Neutrophils # (A) 4.9 k/uL (1.3-7.7); Neutrophils % (A) 67 %; Platelet Count 523 k/uL (150-450); RBC 4.13 m/uL (4.30-5.90); RDW 15.3 % (11.5-15.5); WBC 7.3 k/uL (3.8-10.6)
[2020-04-14 07:51] LABS: ALT 25 U/L (4-49); AST 32 U/L (17-59); African American GFR (CKD) >90 (>60 ml/min/1.73 sqM); Albumin 2.7 g/dL (3.5-5.0); Alkaline Phosphatase 86 U/L (38-126); Anion Gap 6 mmol/L; Blood Urea Nitrogen 8 mg/dL (9-20); Calcium 8.5 mg/dL (8.4-10.2); Carbon Dioxide 23 mmol/L (22-30); Chloride 110 mmol/L (98-107); Glucose 105 mg/dL (74-99); Non-African American GFR(CKD) >90 (>60 ml/min/1.73 sqM); Potassium 3.9 mmol/L (3.5-5.1); Sodium 139 mmol/L (137-145); Total Bilirubin 0.5 mg/dL (0.2-1.3)
[2020-04-14] MEDS: ALBUTEROL HFA INHALER INHALATION SCH ×2 (07:58→11:39)
[2020-04-14] MEDS: DULoxetine HCL 30 MG CAPSULE.DR PO SCH (08:42)
[2020-04-14] MEDS: amLODIPine 5 MG TAB PO SCH (08:42)
[2020-04-14] MEDS: ACETAMINOPHEN TAB 500 MG TAB PO PRN (08:43)
[2020-04-14] MEDS: FLUDROCORTISONE 0.1 MG TAB PO SCH (08:43)
[2020-04-14] MEDS: OXYBUTYNIN 15 MG TAB.ER.24 PO SCH (08:43)
[2020-04-14] MEDS: PREGABALIN 75 MG CAP PO SCH (08:43)
[2020-04-14] MEDS: FLUTICASONE 50MCG/SPRAY NASAL 16GM EA NOSTRIL SCH (08:44)
[2020-04-14] MEDS ORDERED: MEROPENEM 1 GM in SODIUM CHLORIDE 0.9% 100 ML IVPB STA (11:34)
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
[2020-04-14] MEDS: oxyCODONE-APAP 10-325MG 1 EACH TAB PO SCH (16:10)
[2020-04-14 16:16] VITALS: BP 131/89; PULSE 72; RESP 16; TEMP 97.5
[2020-04-14] MEDS ORDERED: WARFARIN 1 MG TAB PO ONE (18:00)
--- NOTE | 2020-04-14 21:30 | PN ---
PROGRESS NOTE DATE OF SERVICE: 04/14/2020 REASON FOR FOLLOWUP: Pseudomonas aeruginosa catheter-associated UTI and Gram-negative bacteremia. INTERVAL HISTORY: The patient is currently afebrile. The patient is breathing comfortably. The patient denies having any chest pain. Occasional cough. No abdominal pain. No diarrhea. The patient is constipated. PHYSICAL EXAMINATION: Blood pressure 157/98 with a pulse of 69, temperature 97.3. He is 95% on room air. General description is a middle-aged male lying in bed in no distress. RESPIRATORY SYSTEM: Unlabored breathing. Clear to auscultation anteriorly. HEART: S1, S2. Regular rate and rhythm. ABDOMEN: Soft. No tenderness. LABS: Hemoglobin is 11.9, white count 7.3. Creatinine 0.72. INR is 3.0. DIAGNOSTIC IMPRESSION AND PLAN: Patient with catheter-associated urinary tract infection with Gram-negative bacteremia, on Zosyn; to continue for another 8-9 days to finish a 2-week course of therapy and close outpatient followup. MMODL / IJN: [id number] /
== END 2020-04-14 16:12 | disposition home health service (06) | DRG 698 ==
LOC: EC 09:24 → 4SSUR 13:08 → 3SCARD 04-11 02:42
PROVIDERS: ADMIT Family Medicine; ATTEND Family Medicine
PROC: 05HD33Z Insertion of Infusion Device into Right Cephalic Vein, Percutaneous Approach (ICD-10-PCS; principal; 2020-04-11 14:05)
DX: T83.511A Infection and inflammatory reaction due to indwelling urethral catheter, initial encounter (principal); G82.50 Quadriplegia, unspecified; A41.59 Other Gram-negative sepsis; Z68.43 Body mass index [BMI] 50.0-59.9, adult; E27.40 Unspecified adrenocortical insufficiency; I82.509 Chronic embolism and thrombosis of unspecified deep veins of unspecified lower extremity; Z16.21 Resistance to vancomycin; N39.0 Urinary tract infection, site not specified; S14.109S Unspecified injury at unspecified level of cervical spinal cord, sequela; L89.622 Pressure ulcer of left heel, stage 2; I95.9 Hypotension, unspecified; I11.9 Hypertensive heart disease without heart failure; I48.0 Paroxysmal atrial fibrillation; E66.01 Morbid (severe) obesity due to excess calories; Z20.822 Contact with and (suspected) exposure to COVID-19; M79.7 Fibromyalgia; K21.9 Gastro-esophageal reflux disease without esophagitis; V89.2XXS Person injured in unspecified motor-vehicle accident, traffic, sequela; G43.909 Migraine, unspecified, not intractable, without status migrainosus; N31.9 Neuromuscular dysfunction of bladder, unspecified; G47.00 Insomnia, unspecified; F32.9 Major depressive disorder, single episode, unspecified; E87.6 Hypokalemia; N32.89 Other specified disorders of bladder; R16.1 Splenomegaly, not elsewhere classified; I08.1 Rheumatic disorders of both mitral and tricuspid valves; K59.00 Constipation, unspecified; Y84.6 Urinary catheterization as the cause of abnormal reaction of the patient, or of later complication, without mention of misadventure at the time of the procedure; Z71.3 Dietary counseling and surveillance; Z79.01 Long term (current) use of anticoagulants; Z79.52 Long term (current) use of systemic steroids; Z79.899 Other long term (current) drug therapy; Z86.14 Personal history of Methicillin resistant Staphylococcus aureus infection; Z87.440 Personal history of urinary (tract) infections; Z87.01 Personal history of pneumonia (recurrent); Z98.890 Other specified postprocedural states; Z87.891 Personal history of nicotine dependence; Z80.3 Family history of malignant neoplasm of breast; Z80.1 Family history of malignant neoplasm of trachea, bronchus and lung
CPT/HCPCS: 36410; 36415; 71045; 71046; 76770; 76937; 80048; 80053; 81001; 82728; 83605; 83615; 83735; 83880; 84132; 84145; 84443; 85025; 85027; 85610; 85730; 86140; 87040; 87077; 87086; 87186; 87502; 87635; 93005; 93306; 94640; 94760; 96365; 99291

== ENCOUNTER 2020-05-19 11:30 | Inpatient (IN) | payer MEDICARE, OTHER ==
[2020-05-19] MEDS ORDERED: SODIUM CHLORIDE 0.9% 1,000 ML IV ONE ×2 (12:12→23:26)
[2020-05-19 12:32] LABS: Amorphous Sediment,Urine Few /hpf; Appearance,Urine Turbid (Clear); Bacteria,Urine Rare /hpf; Bilirubin,Urine Negative (Negative); Blood,Urine Small (Negative); Color,Urine Yellow; Glucose,Urine (UA) Negative (Negative); Ketones,Urine Negative (Negative); Leukocyte Esterase,Urine Large (Negative); Mucus,Urine Rare /hpf; Nitrite,Urine Positive (Negative); PH, Urine 8.5 (5.0-8.0); Protein,Urine 2+ (Negative); RBC,Urine 4 /hpf (0-5); Specific Gravity,Urine 1.008 (1.001-1.035); Squamous Epithelial Cell,Urine <1 /hpf (0-4); Urobilinogen,Urine <2.0 mg/dL (<2.0); WBC,Urine 7 /hpf (0-5)
[2020-05-19 12:45] LABS: Anisocytosis Slight; Basophils % (A) 0 %; Eosinophils # (A) 0.1 k/uL (0-0.7); Eosinophils % (A) 0 %; HCT 51.2 % (39.0-53.0); Lymphocytes # (A) 1.4 k/uL (1.0-4.8); Lymphocytes % (A) 10 %; MCH 29.2 pg (25.0-35.0); MCHC 32.8 g/dL (31.0-37.0); MCV 89.2 fL (80.0-100.0); Mean Platelet Volume 6.9; Monocytes # (A) 0.8 k/uL (0-1.0); Monocytes % (A) 6 %; Neutrophils # (A) 11.5 k/uL (1.3-7.7); Neutrophils % (A) 83 %; Platelet Count 389 k/uL (150-450); RBC 5.74 m/uL (4.30-5.90); RDW 16.5 % (11.5-15.5); WBC 13.8 k/uL (3.8-10.6)
[2020-05-19 12:46] LABS: Albumin 4.3 g/dL (3.5-5.0); Calcium 9.7 mg/dL (8.4-10.2); Potassium 4.7 mmol/L (3.5-5.1); Total Bilirubin 0.7 mg/dL (0.2-1.3); Total Protein 8.2 g/dL (6.3-8.2)
[2020-05-19 12:55] LABS: HGB 16.8 gm/dL (13.0-17.5)
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
[2020-05-19] MEDS ORDERED: ACETAMINOPHEN TAB 325 MG TAB PO PRN ×2 (14:24→16:55)
[2020-05-19] MEDS ORDERED: NALOXONE 0.4 MG/ML 1 ML VIAL IV PRN (14:24)
[2020-05-19 15:08] LABS: Appearance,Urine Turbid (Clear); Bilirubin,Urine Negative (Negative); Blood,Urine Large (Negative); Budding Yeast,Urine Few /hpf; Color,Urine Yellow; Glucose,Urine (UA) Negative (Negative); Ketones,Urine Negative (Negative); Leukocyte Esterase,Urine Large (Negative); Nitrite,Urine Positive (Negative); PH, Urine 7.5 (5.0-8.0); Protein,Urine 2+ (Negative); RBC,Urine 148 /hpf (0-5); Specific Gravity,Urine 1.015 (1.001-1.035); Urobilinogen,Urine <2.0 mg/dL (<2.0); WBC,Urine >182 /hpf (0-5)
[2020-05-19] MEDS: PIPERACILLIN-TAZOBACTAM 3.375 GM in SODIUM CHLORIDE 0.9% 100 ML IVPB SCH ×2 (15:38→23:01)
[2020-05-19] MEDS: SODIUM CHLORIDE 0.9% 1,000 ML IV SCH ×2 (15:42→22:41)
[2020-05-19 15:51] LABS: INR 2.1 (<1.2); Partial Thromboplastin Time 33.6 sec (22.0-30.0); Prothrombin Time 20.5 sec (9.0-12.0)
[2020-05-19] MEDS ORDERED: SUMAtriptan succinate 50 MG TAB PO PRN (16:55)
[2020-05-19] MEDS: FLUDROCORTISONE 0.1 MG TAB PO SCH (21:00)
[2020-05-19] MEDS: MELATONIN 3 MG TABLET PO SCH (21:29)
[2020-05-19] MEDS: DOCUSATE 100 MG CAP PO SCH (21:29)
[2020-05-19] MEDS: TOPIRAMATE 25 MG TAB PO SCH (21:29)
[2020-05-19] MEDS: traZODone HCL 50 MG TAB PO SCH (21:30)
[2020-05-19] MEDS: PRIMIDONE 50 MG TAB PO SCH (21:39)
[2020-05-19] MEDS: PREGABALIN 75 MG CAP PO SCH (21:39)
[2020-05-19] MEDS: oxyCODONE-APAP 7.5-325MG 1 EACH TAB PO PRN (21:40)
--- NOTE | 2020-05-19 23:47 | XR ---
EXAMINATION TYPE: XR chest 1V portable DATE OF EXAM: 05/19/2020 COMPARISON: 721 HISTORY: Short of breath TECHNIQUE: FINDINGS: There is no heart failure nor confluent pneumonic infiltrate. Costophrenic angles are clear . There is cervical thoracic spine fusion surgery. There are no hilar masses. Heart size is normal. T here are chest leads. IMPRESSION: No active cardiopulmonary disease. No change.
--- NOTE | 2020-05-20 00:41 | P.EN ---
A team called to evaluate patient for hypotension and altered mental status 64 year old male with frequent UTI h/o ESBL chronic shirley cath , DVT on coumadin patient comes in due to weakness and decrease urine output patient admitted suspected of sepsis secondary to UTI, lactic acidosis , he was given 1 L bolus inthe ED and started on zosyn on the medical floor , patient found to have hypotension in the 60s, and became more lethargic . patient evaluated, he moans to verbal stimulation , and follows simple commands. blood pressure systolic in the 60s, heart rate 98 lungs clear to auscultation , with gargling sound over his throat. no wheezing heart tachycardiac trace leg edema bilaterally morbidly obese septic shock due to suspected recurrent UTI lactic acidosis improving acute metabolic encephalopathy plan give another 1 L normal saline bolus , with reevaluation and potential for another 500-1000 cc if despite above patient continues to be lethargic and hypotensive , will consider transfer to the ICU for pressors continue with zosyn for now continue to monitor urine output and vital signs CXR ordered and reviewed, no acute cardiopulmonary process, clear costophrenic angles 32 minutes spent in critical care service in the care of this patient
[2020-05-20] MEDS: SODIUM CHLORIDE 0.9% 1,000 ML IV SCH ×3 (06:24→20:27)
[2020-05-20] MEDS: PANTOPRAZOLE 40 MG TABLET PO SCH (06:24)
[2020-05-20 06:29] LABS: Anisocytosis Slight; Basophils % (A) 0 %; Eosinophils # (A) 0.2 k/uL (0-0.7); Eosinophils % (A) 2 %; HCT 37.1 % (39.0-53.0); Lymphocytes # (A) 2.2 k/uL (1.0-4.8); Lymphocytes % (A) 22 %; MCH 29.9 pg (25.0-35.0); MCV 90.8 fL (80.0-100.0); Mean Platelet Volume 6.9; Monocytes # (A) 0.6 k/uL (0-1.0); Monocytes % (A) 5 %; Neutrophils # (A) 7.1 k/uL (1.3-7.7); Neutrophils % (A) 69 %; Platelet Count 287 k/uL (150-450); RBC 4.09 m/uL (4.30-5.90); RDW 16.8 % (11.5-15.5); WBC 10.3 k/uL (3.8-10.6)
[2020-05-20 06:35] LABS: INR 1.7 (<1.2); Prothrombin Time 16.8 sec (9.0-12.0)
[2020-05-20 06:43] LABS: Calcium 8.6 mg/dL (8.4-10.2)
[2020-05-20 07:02] LABS: HGB 12.2 gm/dL (13.0-17.5)
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
[2020-05-20] MEDS: FLUDROCORTISONE 0.1 MG TAB PO SCH (09:50)
[2020-05-20] MEDS: PIPERACILLIN-TAZOBACTAM 3.375 GM in SODIUM CHLORIDE 0.9% 100 ML IVPB SCH ×3 (09:51→22:56)
[2020-05-20] MEDS: DOCUSATE 100 MG CAP PO SCH ×2 (09:51→20:25)
[2020-05-20] MEDS: OXYBUTYNIN 15 MG TAB.ER.24 PO SCH (09:51)
[2020-05-20] MEDS: DULoxetine HCL 30 MG CAPSULE.DR PO SCH (09:51)
[2020-05-20] MEDS: PREGABALIN 75 MG CAP PO SCH ×3 (09:51→20:25)
[2020-05-20] MEDS: FLUTICASONE 50MCG/SPRAY NASAL 16GM EA NOSTRIL SCH (09:51)
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
[2020-05-20] MEDS: TOPIRAMATE 25 MG TAB PO SCH (20:25)
[2020-05-20] MEDS: traZODone HCL 50 MG TAB PO SCH (20:25)
[2020-05-20] MEDS: MELATONIN 3 MG TABLET PO SCH (20:25)
[2020-05-20] MEDS: PRIMIDONE 50 MG TAB PO SCH (20:25)
[2020-05-21] MEDS: oxyCODONE-APAP 7.5-325MG 1 EACH TAB PO PRN ×2 (06:04→17:33)
[2020-05-21] MEDS: PANTOPRAZOLE 40 MG TABLET PO SCH (06:05)
[2020-05-21] MEDS: SODIUM CHLORIDE 0.9% 1,000 ML IV SCH ×3 (06:08→17:32)
[2020-05-21 07:30] LABS: Anisocytosis Slight; Basophils % (A) 0 %; Eosinophils # (A) 0.2 k/uL (0-0.7); Eosinophils % (A) 3 %; HCT 34.3 % (39.0-53.0); HGB 11.1 gm/dL (13.0-17.5); Hypochromasia Slight; Lymphocytes # (A) 1.6 k/uL (1.0-4.8); Lymphocytes % (A) 20 %; MCH 29.1 pg (25.0-35.0); MCHC 32.2 g/dL (31.0-37.0); MCV 90.4 fL (80.0-100.0); Mean Platelet Volume 6.6; Monocytes # (A) 0.3 k/uL (0-1.0); Monocytes % (A) 3 %; Neutrophils # (A) 5.6 k/uL (1.3-7.7); Neutrophils % (A) 72 %; Platelet Count 264 k/uL (150-450); RBC 3.79 m/uL (4.30-5.90); RDW 16.8 % (11.5-15.5); WBC 7.8 k/uL (3.8-10.6)
[2020-05-21 07:51] LABS: African American GFR (CKD) >90 (>60 ml/min/1.73 sqM); Anion Gap 7 mmol/L; Blood Urea Nitrogen 21 mg/dL (9-20); Calcium 8.4 mg/dL (8.4-10.2); Carbon Dioxide 21 mmol/L (22-30); Chloride 109 mmol/L (98-107); Glucose 98 mg/dL (74-99); Non-African American GFR(CKD) 87 (>60 ml/min/1.73 sqM); Potassium 3.6 mmol/L (3.5-5.1); Sodium 137 mmol/L (137-145)
[2020-05-21] MEDS: PIPERACILLIN-TAZOBACTAM 3.375 GM in SODIUM CHLORIDE 0.9% 100 ML IVPB SCH ×3 (10:32→18:39)
[2020-05-21] MEDS: DOCUSATE 100 MG CAP PO SCH ×2 (10:32→21:58)
[2020-05-21] MEDS: FLUDROCORTISONE 0.1 MG TAB PO SCH (10:34)
[2020-05-21] MEDS: FLUTICASONE 50MCG/SPRAY NASAL 16GM EA NOSTRIL SCH (10:35)
[2020-05-21] MEDS: OXYBUTYNIN 15 MG TAB.ER.24 PO SCH (10:35)
[2020-05-21] MEDS: DULoxetine HCL 30 MG CAPSULE.DR PO SCH (10:38)
[2020-05-21] MEDS: PREGABALIN 75 MG CAP PO SCH ×3 (10:38→21:58)
[2020-05-21] MEDS ORDERED: Potassium Replacement Protocol 1 EACH MISC MISCELLANE PRN (13:32)
[2020-05-21] MEDS ORDERED: Magnesium Replacement Protocol 1 EACH MISC MISCELLANE PRN (13:33)
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
[2020-05-21 14:19] LABS: INR 1.4 (<1.2); Prothrombin Time 14.4 sec (9.0-12.0)
[2020-05-21 16:54] LABS: Glucose,Whole Blood 120 mg/dL (75-99)
[2020-05-21] MEDS ORDERED: WARFARIN 2 MG TAB PO SCH (18:00)
[2020-05-21 20:33] LABS: Glucose,Whole Blood 122 mg/dL (75-99)
[2020-05-21] MEDS: TOPIRAMATE 25 MG TAB PO SCH (21:58)
[2020-05-21] MEDS: MELATONIN 3 MG TABLET PO SCH (21:58)
[2020-05-21] MEDS: traZODone HCL 50 MG TAB PO SCH (21:58)
[2020-05-21] MEDS: PRIMIDONE 50 MG TAB PO SCH (21:58)
[2020-05-22] MEDS ORDERED: PIPERACILLIN-TAZOBACTAM 3.375 GM in SODIUM CHLORIDE 0.9% 100 ML IVPB STA (00:20)
[2020-05-22] MEDS ORDERED: PIPERACILLIN-TAZOBACTAM 3.375 GM in SODIUM CHLORIDE 0.9% 100 ML IVPB ONE (00:25)
[2020-05-22] MEDS: SODIUM CHLORIDE 0.9% 1,000 ML IV SCH ×3 (00:46→13:16)
[2020-05-22 05:01] VITALS: RESP 18
[2020-05-22 06:16] LABS: Glucose,Whole Blood 88 mg/dL (75-99)
[2020-05-22] MEDS: PANTOPRAZOLE 40 MG TABLET PO SCH (06:32)
[2020-05-22 07:55] LABS: Anisocytosis Slight; Basophils % (A) 1 %; Eosinophils # (A) 0.2 k/uL (0-0.7); Eosinophils % (A) 4 %; HCT 35.1 % (39.0-53.0); HGB 11.4 gm/dL (13.0-17.5); Hypochromasia Slight; Lymphocytes % (A) 34 %; MCH 30.2 pg (25.0-35.0); MCHC 32.4 g/dL (31.0-37.0); Monocytes # (A) 0.3 k/uL (0-1.0); Monocytes % (A) 5 %; Neutrophils # (A) 3.2 k/uL (1.3-7.7); Neutrophils % (A) 55 %; Platelet Count 269 k/uL (150-450); RBC 3.78 m/uL (4.30-5.90); RDW 16.7 % (11.5-15.5); WBC 5.8 k/uL (3.8-10.6)
[2020-05-22 08:15] LABS: African American GFR (CKD) >90 (>60 ml/min/1.73 sqM); Anion Gap 4 mmol/L; Blood Urea Nitrogen 15 mg/dL (9-20); Calcium 8.3 mg/dL (8.4-10.2); Carbon Dioxide 23 mmol/L (22-30); Chloride 109 mmol/L (98-107); Glucose 89 mg/dL (74-99); Non-African American GFR(CKD) >90 (>60 ml/min/1.73 sqM); Potassium 3.8 mmol/L (3.5-5.1); Sodium 136 mmol/L (137-145)
[2020-05-22 08:17] LABS: INR 1.3 (<1.2); Prothrombin Time 13.4 sec (9.0-12.0)
[2020-05-22] MEDS: PIPERACILLIN-TAZOBACTAM 3.375 GM in SODIUM CHLORIDE 0.9% 100 ML IVPB SCH ×3 (10:11→23:15)
[2020-05-22] MEDS: oxyCODONE-APAP 7.5-325MG 1 EACH TAB PO PRN ×3 (10:11→23:15)
[2020-05-22] MEDS: DOCUSATE 100 MG CAP PO SCH ×2 (10:12→20:08)
[2020-05-22] MEDS: OXYBUTYNIN 15 MG TAB.ER.24 PO SCH (10:12)
[2020-05-22] MEDS: FLUDROCORTISONE 0.1 MG TAB PO SCH (10:12)
[2020-05-22] MEDS: DULoxetine HCL 30 MG CAPSULE.DR PO SCH (10:12)
[2020-05-22] MEDS: PREGABALIN 75 MG CAP PO SCH ×3 (10:13→20:08)
[2020-05-22 11:57] LABS: Glucose,Whole Blood 111 mg/dL (75-99)
[2020-05-22] MEDS: FLUTICASONE 50MCG/SPRAY NASAL 16GM EA NOSTRIL SCH (13:12)
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
[2020-05-22 17:05] LABS: Glucose,Whole Blood 102 mg/dL (75-99)
[2020-05-22] MEDS ORDERED: WARFARIN 3 MG TAB PO ONE (18:00)
[2020-05-22] MEDS: PRIMIDONE 50 MG TAB PO SCH (20:07)
[2020-05-22] MEDS: MELATONIN 3 MG TABLET PO SCH (20:07)
[2020-05-22] MEDS: traZODone HCL 50 MG TAB PO SCH (20:08)
[2020-05-22] MEDS: TOPIRAMATE 25 MG TAB PO SCH (20:08)
[2020-05-22 20:32] LABS: Glucose,Whole Blood 111 mg/dL (75-99)
[2020-05-23] MEDS: SODIUM CHLORIDE 0.9% 1,000 ML IV SCH ×3 (03:48→17:12)
[2020-05-23] MEDS: PANTOPRAZOLE 40 MG TABLET PO SCH (06:23)
[2020-05-23 06:31] LABS: Glucose,Whole Blood 89 mg/dL (75-99)
[2020-05-23 08:02] LABS: Anisocytosis Slight; Basophils % (A) 1 %; Eosinophils # (A) 0.3 k/uL (0-0.7); Eosinophils % (A) 4 %; HCT 37.4 % (39.0-53.0); HGB 12.1 gm/dL (13.0-17.5); Lymphocytes # (A) 1.9 k/uL (1.0-4.8); Lymphocytes % (A) 27 %; MCH 29.6 pg (25.0-35.0); MCHC 32.3 g/dL (31.0-37.0); MCV 91.4 fL (80.0-100.0); Mean Platelet Volume 6.8; Monocytes # (A) 0.3 k/uL (0-1.0); Monocytes % (A) 5 %; Neutrophils # (A) 4.4 k/uL (1.3-7.7); Neutrophils % (A) 63 %; Platelet Count 285 k/uL (150-450); RBC 4.09 m/uL (4.30-5.90); RDW 16.6 % (11.5-15.5)
[2020-05-23 08:07] LABS: INR 1.4 (<1.2)
[2020-05-23 08:08] LABS: Prothrombin Time 14.1 sec (9.0-12.0)
[2020-05-23 08:17] LABS: African American GFR (CKD) >90 (>60 ml/min/1.73 sqM); Anion Gap 5 mmol/L; Blood Urea Nitrogen 10 mg/dL (9-20); Calcium 8.9 mg/dL (8.4-10.2); Carbon Dioxide 25 mmol/L (22-30); Chloride 107 mmol/L (98-107); Glucose 97 mg/dL (74-99); Non-African American GFR(CKD) >90 (>60 ml/min/1.73 sqM); Potassium 3.7 mmol/L (3.5-5.1); Sodium 137 mmol/L (137-145)
[2020-05-23] MEDS: PIPERACILLIN-TAZOBACTAM 3.375 GM in SODIUM CHLORIDE 0.9% 100 ML IVPB SCH ×2 (09:12→15:27)
[2020-05-23 09:18] VITALS: TEMP 97.8
[2020-05-23] MEDS: DOCUSATE 100 MG CAP PO SCH (09:18)
[2020-05-23] MEDS: FLUTICASONE 50MCG/SPRAY NASAL 16GM EA NOSTRIL SCH (09:19)
[2020-05-23] MEDS: PREGABALIN 75 MG CAP PO SCH ×2 (09:19→16:00)
[2020-05-23] MEDS: DULoxetine HCL 30 MG CAPSULE.DR PO SCH (09:19)
[2020-05-23] MEDS: OXYBUTYNIN 15 MG TAB.ER.24 PO SCH (09:20)
[2020-05-23] MEDS: oxyCODONE-APAP 7.5-325MG 1 EACH TAB PO PRN (10:30)
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
[2020-05-23 12:10] LABS: Glucose,Whole Blood 103 mg/dL (75-99)
[2020-05-23 12:36] VITALS: BP 147/98; PULSE 64
[2020-05-23] MEDS: FLUDROCORTISONE 0.1 MG TAB PO SCH (12:36)
[2020-05-23 16:50] LABS: Glucose,Whole Blood 98 mg/dL (75-99)
[2020-05-23] MEDS ORDERED: WARFARIN 5 MG TAB PO ONE (18:00)
== END 2020-05-23 18:34 | disposition home or self-care (01) | DRG 698 ==
LOC: EC 11:30 → 3SCARD 14:24
PROVIDERS: ADMIT Family Medicine; ATTEND Family Medicine
DX: T83.511A Infection and inflammatory reaction due to indwelling urethral catheter, initial encounter (principal); A41.89 Other specified sepsis; R65.21 Severe sepsis with septic shock; G93.41 Metabolic encephalopathy; G82.50 Quadriplegia, unspecified; E27.40 Unspecified adrenocortical insufficiency; E87.2 Acidosis; N39.0 Urinary tract infection, site not specified; B96.4 Proteus (mirabilis) (morganii) as the cause of diseases classified elsewhere; E87.6 Hypokalemia; F32.9 Major depressive disorder, single episode, unspecified; G43.909 Migraine, unspecified, not intractable, without status migrainosus; M79.7 Fibromyalgia; N31.9 Neuromuscular dysfunction of bladder, unspecified; T14.90XS Injury, unspecified, sequela; V29.9XXS Motorcycle rider (driver) (passenger) injured in unspecified traffic accident, sequela; Z20.822 Contact with and (suspected) exposure to COVID-19; Z79.01 Long term (current) use of anticoagulants; Z79.52 Long term (current) use of systemic steroids; Z79.899 Other long term (current) drug therapy; Z80.3 Family history of malignant neoplasm of breast; Z86.718 Personal history of other venous thrombosis and embolism; Z87.440 Personal history of urinary (tract) infections; Z87.442 Personal history of urinary calculi; Z87.891 Personal history of nicotine dependence; Z80.1 Family history of malignant neoplasm of trachea, bronchus and lung; G47.00 Insomnia, unspecified; G89.29 Other chronic pain; R07.9 Chest pain, unspecified; M54.9 Dorsalgia, unspecified; Z90.89 Acquired absence of other organs; Z86.14 Personal history of Methicillin resistant Staphylococcus aureus infection
CPT/HCPCS: 36415; 71045; 80048; 80053; 81001; 83605; 83735; 85025; 85610; 85730; 87040; 87077; 87086; 87186; 87635; 93005; 99285

== ENCOUNTER 2020-12-18 09:52 | Inpatient (IN) | payer MEDICARE, OTHER ==
[2020-12-18] MEDS ORDERED: SODIUM CHLORIDE 0.9% 1,000 ML IV STA (10:28)
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
[2020-12-18] MEDS ORDERED: SODIUM CHLORIDE 0.9% 500 ML 500 ML IV SCH (10:30)
[2020-12-18 12:04] LABS: Anisocytosis Slight; Basophils % (A) 0 %; Eosinophils % (A) 0 %; HCT 46.6 % (39.0-53.0); HGB 14.8 gm/dL (13.0-17.5); Lymphocytes # (A) 1.8 k/uL (1.0-4.8); Lymphocytes % (A) 13 %; MCHC 31.9 g/dL (31.0-37.0); MCV 90.9 fL (80.0-100.0); Mean Platelet Volume 7.1; Monocytes # (A) 0.9 k/uL (0-1.0); Monocytes % (A) 6 %; Neutrophils # (A) 10.7 k/uL (1.3-7.7); Neutrophils % (A) 78 %; Platelet Count 297 k/uL (150-450); RBC 5.12 m/uL (4.30-5.90); RDW 17.9 % (11.5-15.5); WBC 13.7 k/uL (3.8-10.6)
--- NOTE | 2020-12-18 12:09 | XR ---
EXAMINATION TYPE: XR chest 2V DATE OF EXAM: 12/18/2020 COMPARISON: Chest x-ray 05/19/2020 HISTORY: Fever, urinary tract infection, altered mental status TECHNIQUE: Frontal and lateral views of the chest are obtained. FINDINGS: There is no pleural effusion or pneumothorax seen. Some minimal patchy basilar density no norma. The cardiac silhouette size is within normal limits, stable. Trauma to the pulmonary artery cou ld be indicative of pulmonary artery hypertension. The osseous structures are stable, postoperative c hanges noted to the upper thoracic spine, right clavicle. Patient is again rotated. IMPRESSION: Increasing basilar atelectasis, follow-up is indicated if pneumonia is suspected clinica lawanda
[2020-12-18 12:16] LABS: ALT 11 U/L (4-49); AST 18 U/L (17-59); African American GFR (CKD) >90 (>60 ml/min/1.73 sqM); Albumin 3.4 g/dL (3.5-5.0); Alkaline Phosphatase 154 U/L (38-126); Anion Gap 10 mmol/L; Blood Urea Nitrogen 16 mg/dL (9-20); Calcium 8.9 mg/dL (8.4-10.2); Carbon Dioxide 22 mmol/L (22-30); Chloride 104 mmol/L (98-107); Glucose 110 mg/dL (74-99); Non-African American GFR(CKD) 78 (>60 ml/min/1.73 sqM); Sodium 136 mmol/L (137-145); Total Bilirubin 0.7 mg/dL (0.2-1.3); Total Protein 6.6 g/dL (6.3-8.2)
[2020-12-18 12:16] LABS: Appearance,Urine Turbid (Clear); Bacteria,Urine Occasional /hpf; Bilirubin,Urine Negative (Negative); Blood,Urine Moderate (Negative); Color,Urine Yellow; Glucose,Urine (UA) Negative (Negative); Ketones,Urine Trace (Negative); Leukocyte Esterase,Urine Large (Negative); Mucus,Urine Rare /hpf; Nitrite,Urine Negative (Negative); PH, Urine 6.5 (5.0-8.0); Protein,Urine 2+ (Negative); RBC,Urine 21 /hpf (0-5); Specific Gravity,Urine 1.014 (1.001-1.035); Urobilinogen,Urine <2.0 mg/dL (<2.0); WBC,Urine >182 /hpf (0-5)
[2020-12-18 12:33] LABS: INR 2.1 (<1.2); Partial Thromboplastin Time 32.9 sec (22.0-30.0); Prothrombin Time 20.6 sec (9.0-12.0)
[2020-12-18] MEDS ORDERED: cefTRIAXone IN SWFI 1,000 MG/10 ML SYRINGE IVP STA (12:40)
[2020-12-18] MEDS ORDERED: CEFEPIME 2 GM in SODIUM CHLORIDE 0.9% 100 ML IVPB STA (13:09)
[2020-12-18] MEDS ORDERED: NALOXONE 0.4 MG/ML 1 ML VIAL IV PRN (13:17)
[2020-12-18] MEDS: SODIUM CHLORIDE 0.9% 1,000 ML IV SCH (13:52)
[2020-12-18] MEDS: PANTOPRAZOLE 40 MG/10 ML VIAL IVP SCH (16:22)
[2020-12-18] MEDS ORDERED: SODIUM CHLORIDE 0.9% 500 ML 500 ML IV ONE (16:42)
[2020-12-18 17:40] LABS: Appearance,Urine Turbid (Clear); Bilirubin,Urine Negative (Negative); Blood,Urine Moderate (Negative); Color,Urine Yellow; Glucose,Urine (UA) Negative (Negative); Ketones,Urine Trace (Negative); Leukocyte Esterase,Urine Large (Negative); Mucus,Urine Rare /hpf; Nitrite,Urine Negative (Negative); PH, Urine 6.5 (5.0-8.0); Protein,Urine 2+ (Negative); RBC,Urine 60 /hpf (0-5); Specific Gravity,Urine 1.021 (1.001-1.035); Squamous Epithelial Cell,Urine 6 /hpf (0-4); WBC,Urine >182 /hpf (0-5)
[2020-12-18] MEDS: CEFEPIME 2 GM in SODIUM CHLORIDE 0.9% 100 ML IVPB SCH (19:49)
[2020-12-18] MEDS: TOPIRAMATE 25 MG TAB PO SCH (19:50)
[2020-12-18] MEDS: OXYBUTYNIN CHLORIDE 5 MG TAB PO SCH (19:50)
[2020-12-18] MEDS: WARFARIN 2 MG TAB PO SCH (19:51)
[2020-12-19] MEDS: SODIUM CHLORIDE 0.9% 1,000 ML IV SCH ×2 (04:55→16:43)
[2020-12-19] MEDS: CEFEPIME 2 GM in SODIUM CHLORIDE 0.9% 100 ML IVPB SCH ×3 (04:55→21:02)
[2020-12-19 07:52] LABS: Anisocytosis Slight; Basophils % (A) 0 %; Eosinophils # (A) 0.2 k/uL (0-0.7); Eosinophils % (A) 2 %; HCT 41.9 % (39.0-53.0); Hypochromasia Slight; Lymphocytes % (A) 20 %; MCH 28.4 pg (25.0-35.0); MCHC 31.1 g/dL (31.0-37.0); MCV 91.4 fL (80.0-100.0); Mean Platelet Volume 7.2; Monocytes # (A) 0.6 k/uL (0-1.0); Monocytes % (A) 6 %; Neutrophils # (A) 6.8 k/uL (1.3-7.7); Neutrophils % (A) 70 %; Platelet Count 277 k/uL (150-450); RBC 4.59 m/uL (4.30-5.90); RDW 17.7 % (11.5-15.5); WBC 9.9 k/uL (3.8-10.6)
[2020-12-19 07:57] LABS: INR 2.1 (<1.2); Prothrombin Time 20.2 sec (9.0-12.0)
[2020-12-19] MEDS: OXYBUTYNIN CHLORIDE 5 MG TAB PO SCH ×2 (08:00→19:52)
[2020-12-19] MEDS: PANTOPRAZOLE 40 MG/10 ML VIAL IVP SCH (08:00)
[2020-12-19] MEDS: FLUDROCORTISONE 0.1 MG TAB PO SCH (08:00)
[2020-12-19] MEDS: DULoxetine HCL 30 MG CAPSULE.DR PO SCH (08:00)
[2020-12-19 08:11] LABS: African American GFR (CKD) >90 (>60 ml/min/1.73 sqM); Anion Gap 9 mmol/L; Blood Urea Nitrogen 15 mg/dL (9-20); Calcium 8.6 mg/dL (8.4-10.2); Carbon Dioxide 21 mmol/L (22-30); Chloride 106 mmol/L (98-107); Glucose 89 mg/dL (74-99); Non-African American GFR(CKD) >90 (>60 ml/min/1.73 sqM); Potassium 3.6 mmol/L (3.5-5.1); Sodium 136 mmol/L (137-145)
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
[2020-12-19] MEDS ORDERED: SUMAtriptan succinate 50 MG TAB PO STA (16:34)
--- NOTE | 2020-12-19 17:56 | PN ---
PROGRESS NOTE DATE OF SERVICE: 12/19/2020 REASON FOR FOLLOWUP: Urinary tract infection. INTERVAL HISTORY: The patient is afebrile. The patient is breathing comfortably. Denies any chest pain or shortness of breath or cough. Some pain to the back area. Nausea but no vomiting and no diarrhea. PHYSICAL EXAMINATION: Blood pressure 156/91 with a pulse of 83, temperature 98. He is 97% on room air. General description is a middle-aged male lying in bed in no distress. RESPIRATORY SYSTEM: Unlabored breathing. Clear to auscultation anteriorly. HEART: S1, S2. Regular rate and rhythm. ABDOMEN: Soft. No tenderness. LABS: Hemoglobin is 13, white count 9.9, creatinine 0.79. DIAGNOSTIC IMPRESSION AND PLAN: Patient with a urinary tract infection. Urine culture pending. Patient clinically responded to cefepime; to continue while waiting for the culture to finalize and monitor his clinical course closely. MMODL / IJN: [id number] /
[2020-12-19] MEDS: TOPIRAMATE 25 MG TAB PO SCH (19:52)
[2020-12-19] MEDS: WARFARIN 2 MG TAB PO SCH (19:52)
[2020-12-19] MEDS: oxyCODONE-APAP 10-325MG 1 EACH TAB PO PRN (22:14)
[2020-12-20] MEDS: CEFEPIME 2 GM in SODIUM CHLORIDE 0.9% 100 ML IVPB SCH ×3 (05:27→20:02)
[2020-12-20] MEDS: SODIUM CHLORIDE 0.9% 1,000 ML IV SCH ×3 (05:28→21:27)
[2020-12-20] MEDS: PANTOPRAZOLE 40 MG TABLET PO SCH (06:16)
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
[2020-12-20] MEDS: FLUDROCORTISONE 0.1 MG TAB PO SCH (08:48)
[2020-12-20] MEDS: OXYBUTYNIN CHLORIDE 5 MG TAB PO SCH ×2 (08:48→20:01)
[2020-12-20] MEDS: DULoxetine HCL 30 MG CAPSULE.DR PO SCH (08:48)
[2020-12-20 09:13] LABS: INR 2.1 (<1.2); Prothrombin Time 20.8 sec (9.0-12.0)
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
[2020-12-20] MEDS: amLODIPine 5 MG TAB PO SCH ×2 (11:52→20:01)
[2020-12-20] MEDS: FUROSEMIDE 20 MG TAB PO SCH ×2 (11:52→20:01)
[2020-12-20] MEDS: oxyCODONE-APAP 10-325MG 1 EACH TAB PO PRN ×2 (13:32→20:01)
--- NOTE | 2020-12-20 17:41 | PN ---
PROGRESS NOTE DATE OF SERVICE: 12/20/2020 REASON FOR FOLLOWUP: Catheter-associated urinary tract infection. INTERVAL HISTORY: The patient is afebrile. The patient is feeling better, breathing comfortably. Denies having any chest pain, shortness of breath or cough. No nausea, vomiting. No abdominal pain or diarrhea. PHYSICAL EXAMINATION: Blood pressure 147/95 with a pulse of 77, temperature 98.2. He is 97% on room air. General description is a middle-aged male lying in bed in no distress. RESPIRATORY SYSTEM: Unlabored breathing. Clear to auscultation anteriorly. HEART: S1, S2. Regular rate and rhythm. ABDOMEN: Soft. No tenderness. LABS: Hemoglobin is 13, white count of 9.1, creatinine 0.79. DIAGNOSTIC IMPRESSION AND PLAN: Patient with catheter-associated urinary tract infection. Urine showing Gram-negative bacilli with ID and sensitivities pending. Patient is covered with cefepime; to continue while waiting for the culture to finalize to determine his discharge antibiotics. Continue supportive care. MMODL / IJN: [id number] /
[2020-12-20] MEDS: TOPIRAMATE 25 MG TAB PO SCH (20:01)
[2020-12-20] MEDS: WARFARIN 2 MG TAB PO SCH (20:01)
[2020-12-21] MEDS: oxyCODONE-APAP 10-325MG 1 EACH TAB PO PRN ×2 (03:18→09:35)
[2020-12-21] MEDS ORDERED: LORazepam 2 MG/ML INJ IV ONE (03:51)
[2020-12-21] MEDS: CEFEPIME 2 GM in SODIUM CHLORIDE 0.9% 100 ML IVPB SCH ×3 (05:00→21:47)
[2020-12-21] MEDS: PANTOPRAZOLE 40 MG TABLET PO SCH (06:18)
[2020-12-21 08:33] LABS: Anisocytosis Slight; Basophils % (A) 0 %; Eosinophils # (A) 0.1 k/uL (0-0.7); Eosinophils % (A) 1 %; HCT 45.5 % (39.0-53.0); HGB 14.5 gm/dL (13.0-17.5); Lymphocytes # (A) 1.8 k/uL (1.0-4.8); Lymphocytes % (A) 16 %; MCH 29.2 pg (25.0-35.0); MCV 91.4 fL (80.0-100.0); Mean Platelet Volume 7.1; Monocytes # (A) 0.6 k/uL (0-1.0); Monocytes % (A) 5 %; Neutrophils # (A) 8.2 k/uL (1.3-7.7); Neutrophils % (A) 75 %; Platelet Count 325 k/uL (150-450); RBC 4.98 m/uL (4.30-5.90); RDW 18.2 % (11.5-15.5); WBC 10.9 k/uL (3.8-10.6)
[2020-12-21 08:41] LABS: INR 2.9 (<1.2); Prothrombin Time 27.6 sec (9.0-12.0)
[2020-12-21 08:46] LABS: African American GFR (CKD) >90 (>60 ml/min/1.73 sqM); Anion Gap 12 mmol/L; Blood Urea Nitrogen 11 mg/dL (9-20); Calcium 9.1 mg/dL (8.4-10.2); Carbon Dioxide 19 mmol/L (22-30); Chloride 106 mmol/L (98-107); Glucose 105 mg/dL (74-99); Magnesium 2.1 mg/dL (1.6-2.3); Non-African American GFR(CKD) >90 (>60 ml/min/1.73 sqM); Potassium 3.6 mmol/L (3.5-5.1); Sodium 137 mmol/L (137-145)
[2020-12-21] MEDS: FLUDROCORTISONE 0.1 MG TAB PO SCH (09:30)
[2020-12-21] MEDS: FUROSEMIDE 20 MG TAB PO SCH ×2 (09:30→21:47)
[2020-12-21] MEDS: OXYBUTYNIN CHLORIDE 5 MG TAB PO SCH ×2 (09:30→21:47)
[2020-12-21] MEDS: amLODIPine 5 MG TAB PO SCH ×2 (09:30→21:47)
[2020-12-21] MEDS: DULoxetine HCL 30 MG CAPSULE.DR PO SCH (09:30)
[2020-12-21] MEDS: SODIUM CHLORIDE 0.9% 1,000 ML IV SCH ×2 (09:31→21:46)
[2020-12-21] MEDS ORDERED: LORazepam 2 MG/ML INJ IV PRN (11:26)
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
--- NOTE | 2020-12-21 12:31 | CT ---
EXAMINATION TYPE: CT brain wo con DATE OF EXAM: 12/21/2020 COMPARISON: 03/26/2018 HISTORY: Altered mental status TECHNIQUE: CT scan of the head without contrast CT DLP: 1349.4 mGycm Automated exposure control for dose reduction was used. FINDINGS: No acute intracranial hemorrhage, midline shift or mass effect. Lorenzo-white matter differentiation is preserved. CSF spaces and ventricles are prominent in keeping with mild brain volume loss. No acute orbital, osseous or soft tissue abnormality. Paranasal sinuses and mastoid air cells are aerated. IMPRESSION: NO ACUTE INTRACRANIAL HEMORRHAGE, MIDLINE SHIFT OR MASS EFFECT.
--- NOTE | 2020-12-21 12:34 | XR ---
EXAMINATION TYPE: XR chest 2V DATE OF EXAM: 12/21/2020 COMPARISON: 12/18/2020 HISTORY: 65 years Male. STUDY INDICATION GIVEN: atelectasis and confusion . TECHNIQUE: Frontal lateral chest radiographs IMPRESSION: There are low lung volumes and decreased bibasilar linear opacities. There is somewhat patchy appeari ng opacity in the right lower lobe which has also decreased in the appearance. Findings suggesting mi ld pulmonary vascular congestion/edema bibasilar subsegmental atelectasis with overall mild improveme nt. Pneumonic infiltrate cannot be entirely excluded. There is mild cardiomegaly similar to prior study. No pneumothorax or pleural effusion. Postsurgical changes in the cervical spine and right clavicle again seen.
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
[2020-12-21] MEDS: PREGABALIN 75 MG CAP PO SCH ×3 (13:05→21:49)
[2020-12-21] MEDS: PRIMIDONE 50 MG TAB PO SCH (21:47)
[2020-12-21] MEDS: WARFARIN 2 MG TAB PO SCH (21:47)
[2020-12-21] MEDS: TOPIRAMATE 25 MG TAB PO SCH (21:47)
--- NOTE | 2020-12-21 23:13 | PN ---
PROGRESS NOTE DATE OF SERVICE: 12/21/2020 REASON FOR FOLLOWUP: Catheter associated urinary tract infection. INTERVAL HISTORY: Patient is afebrile. The patient is breathing comfortably. He is hemodynamically stable. Denies any chest pain or cough. No abdominal pain or diarrhea. Currently on room air. PHYSICAL EXAMINATION: Blood pressure 130/86, pulse of 76. Temperature 99.2. He is 95% on room air. General description is a middle-aged male lying in bed in no distress. Respiratory system: Unlabored breathing, clear to auscultation anteriorly. Heart S1, S2. Regular rate and rhythm. Abdomen soft, no tenderness. LABS: Hemoglobin is 14.5, white count 10.9, creatinine 0.70. Urine has been finalized with Klebsiella and Proteus, more sensitive to cefepime and DIAGNOSTIC IMPRESSION AND PLAN: Patient with catheter associated urinary tract infection with Klebsiella and Proteus improving with cefepime. Transition to oral Cipro on discharge. Continue supportive care. MMODL / IJN: [id number] /
[2020-12-22] MEDS: oxyCODONE-APAP 10-325MG 1 EACH TAB PO PRN ×2 (04:59→21:00)
[2020-12-22] MEDS: SODIUM CHLORIDE 0.9% 1,000 ML IV SCH ×2 (05:00→09:43)
[2020-12-22] MEDS: PANTOPRAZOLE 40 MG TABLET PO SCH (06:11)
[2020-12-22] MEDS: CEFEPIME 2 GM in SODIUM CHLORIDE 0.9% 100 ML IVPB SCH ×3 (06:11→21:08)
[2020-12-22 07:21] LABS: Anisocytosis Slight; Basophils % (A) 0 %; Eosinophils # (A) 0.2 k/uL (0-0.7); Eosinophils % (A) 3 %; HCT 41.7 % (39.0-53.0); HGB 13.1 gm/dL (13.0-17.5); Hypochromasia Slight; Lymphocytes % (A) 22 %; MCH 28.8 pg (25.0-35.0); MCHC 31.3 g/dL (31.0-37.0); Mean Platelet Volume 7.2; Monocytes # (A) 0.5 k/uL (0-1.0); Monocytes % (A) 6 %; Neutrophils # (A) 6.3 k/uL (1.3-7.7); Neutrophils % (A) 67 %; Platelet Count 279 k/uL (150-450); RBC 4.53 m/uL (4.30-5.90); RDW 17.9 % (11.5-15.5); WBC 9.4 k/uL (3.8-10.6)
[2020-12-22 07:42] LABS: INR 3.4 (<1.2); Prothrombin Time 32.9 sec (9.0-12.0)
[2020-12-22 07:48] LABS: African American GFR (CKD) >90 (>60 ml/min/1.73 sqM); Anion Gap 6 mmol/L; Blood Urea Nitrogen 13 mg/dL (9-20); Carbon Dioxide 22 mmol/L (22-30); Chloride 108 mmol/L (98-107); Glucose 83 mg/dL (74-99); Magnesium 2.1 mg/dL (1.6-2.3); Non-African American GFR(CKD) >90 (>60 ml/min/1.73 sqM); Potassium 3.6 mmol/L (3.5-5.1); Sodium 136 mmol/L (137-145)
[2020-12-22] MEDS: OXYBUTYNIN CHLORIDE 5 MG TAB PO SCH ×2 (09:44→21:00)
[2020-12-22] MEDS: FLUDROCORTISONE 0.1 MG TAB PO SCH (09:44)
[2020-12-22] MEDS: PREGABALIN 75 MG CAP PO SCH ×3 (09:44→20:59)
[2020-12-22] MEDS: amLODIPine 5 MG TAB PO SCH ×2 (09:44→20:59)
[2020-12-22] MEDS: DULoxetine HCL 30 MG CAPSULE.DR PO SCH (09:44)
[2020-12-22] MEDS: FUROSEMIDE 20 MG TAB PO SCH ×2 (09:44→21:00)
--- NOTE | 2020-12-22 13:44 | PN ---
PROGRESS NOTE DATE OF SERVICE: 12/22/2020 REASON FOR FOLLOW UP: Urinary tract infection. INTERVAL HISTORY: Patient is afebrile. The patient is breathing comfortably. Denies any chest pain, shortness of breath or cough. No abdominal pain or diarrhea. PHYSICAL EXAMINATION: Blood pressure is 113/64, pulse of 73, temperature 98.6, 96% on room air. General description is a middle-aged male lying in bed in no distress. Respiratory system: Unlabored breathing clear to auscultation anteriorly. Heart S1, S2. Regular rate and rhythm. Abdomen soft, no tenderness. LABS: Hemoglobin is 13.8, white count 9.4. INR is 3.4. Creatinine 0.73. DIAGNOSTIC IMPRESSION AND PLAN: Patient with catheter associated urinary tract infection, urine with Klebsiella and Proteus. Finish therapy with oral Ceftin or Flagyl for about a week. INR needs to be monitored closely. antibiotics. Continue supportive care. MMODL / IJN: [id number] /
--- NOTE | 2020-12-22 16:59 | P.PN ---
Subjective Progress Note Date: 12/22/20 Principal diagnosis: UTI Ptient is awake and alert oriented times 1 vss afebril, patient not responding appropreately to questions. Objective - Vital Signs Vital signs: Vital Signs Temp 98.1 F 12/22/20 15:50 Pulse 80 12/22/20 15:50 Resp 18 12/22/20 15:50 BP 94/61 12/22/20 15:50 Pulse Ox 96 12/22/20 15:50 Intake & Output 12/21/20 12/22/20 12/22/20 18:59 06:59 18:59 Intake Total 480 Output Total 1100 325 Balance -1100 -325 480 Weight 143.426 kg Intake: Oral 480 Output: Urine 1100 325 Other: Voiding Method Indwelling Catheter Indwelling Catheter Indwelling Catheter # Bowel Movements 1 - Exam heent: head normal cephalic atraumatic, Aleah, E MELISSA Neck: bruit and no JBD Heart: HRR w/o Murmur Lungs: CTAB Abd: Obese, soft, positive bowl sounds, mild diffuse super pubic tenderness, Extremes: Flacid paralysis to all 4 extremes Neuro: alert and oriented times 1 mental status change probably secondary to encephalopathy secondary to uti - Labs CBC & Chem 7: 12/22/20 06:53 12/22/20 06:53 Labs: Abnormal Lab Results - Last 24 Hours (Table) 12/22/20 12/22/20 12/22/20 Range/Units 06:53 06:53 06:53 RDW 17.9 H (11.5-15.5) % PT 32.9 H (9.0-12.0) sec INR 3.4 H (<1.2) Sodium 136 L (137-145) mmol/L Chloride 108 H (98-107) mmol/L Microbiology - Last 24 Hours (Table) 12/18/20 11:30 Blood Culture - Preliminary Blood No Growth after 96 hours 12/18/20 11:15 Blood Culture - Preliminary Blood No Growth after 96 hours Assessment and Plan (1) Acute encephalopathy Current Visit: Yes Status: Acute Code(s): G93.40 - ENCEPHALOPATHY, UNS PECIFIED SNOMED Code(s): 32991488 (2) Leukocytosis Current Visit: Yes Status: Acute Code(s): D72.829 - ELEVATED WHITE BLOOD CELL COUNT, UNSPECIFIED SNOMED Code(s): 113146008 (3) UTI (urinary tract infection) Current Visit: Yes Status: Acute Code(s): N39.0 - URINARY TRACT INFECTION, SITE NOT SPECIFIED SNOMED Code(s): 40848083 Plan: continue antibiotic therapy, awaiting Neuro consult, anticipate disharge to rehab with 24-48 hours Time with Patient: Greater than 30
[2020-12-22] MEDS ORDERED: WARFARIN 0.5 MG TAB PO ONE (18:00)
[2020-12-22] MEDS: TOPIRAMATE 25 MG TAB PO SCH (20:59)
[2020-12-22] MEDS: PRIMIDONE 50 MG TAB PO SCH (21:00)
[2020-12-23] MEDS: oxyCODONE-APAP 10-325MG 1 EACH TAB PO PRN ×3 (02:10→15:58)
[2020-12-23] MEDS: SODIUM CHLORIDE 0.9% 1,000 ML IV SCH ×3 (02:21→21:49)
[2020-12-23] MEDS: PANTOPRAZOLE 40 MG TABLET PO SCH (06:18)
[2020-12-23] MEDS: CEFEPIME 2 GM in SODIUM CHLORIDE 0.9% 100 ML IVPB SCH ×3 (06:18→21:44)
[2020-12-23 07:54] LABS: INR 3.2 (<1.2); Prothrombin Time 30.9 sec (9.0-12.0)
[2020-12-23] MEDS ORDERED: WARFARIN 0.5 MG TAB PO ONE (08:15)
[2020-12-23] MEDS: FUROSEMIDE 20 MG TAB PO SCH ×2 (09:38→21:44)
[2020-12-23] MEDS: OXYBUTYNIN CHLORIDE 5 MG TAB PO SCH ×2 (09:38→21:44)
[2020-12-23] MEDS: DULoxetine HCL 30 MG CAPSULE.DR PO SCH (09:39)
[2020-12-23] MEDS: PREGABALIN 75 MG CAP PO SCH ×3 (09:39→21:44)
[2020-12-23] MEDS: FLUDROCORTISONE 0.1 MG TAB PO SCH (09:40)
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
[2020-12-23] MEDS: amLODIPine 5 MG TAB PO SCH ×2 (10:20→21:44)
--- NOTE | 2020-12-23 12:53 | PN ---
PROGRESS NOTE DATE OF SERVICE: 12/23/2020. REASON FOR FOLLOWUP: Catheter associated urinary tract infection. INTERVAL HISTORY: Patient is afebrile. The patient is breathing comfortably. The patient denies having any chest pain. No shortness of breath. No cough. No vomiting. No abdominal pain. No diarrhea. PHYSICAL EXAMINATION: Blood pressure 103/70 with a pulse of , temperature of 98. He is 96% on room air. General description is a middle-aged male lying in bed in no distress. Respiratory system: Unlabored breathing, clear to auscultation anteriorly. Heart S1, S2. Regular rate and rhythm. Abdomen soft, no tenderness. LABS: . DIAGNOSTIC IMPRESSION AND PLAN: Patient with Klebsiella and Proteus catheter associated urinary tract infection. The patient overall improvement with cefepime to finish a course of oral Ceftin and monitor closely. Continue supportive care. MMODL / IJN: [id number] /
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
[2020-12-23] MEDS: FOLIC ACID 1 MG TAB PO SCH (15:58)
[2020-12-23] MEDS: PRIMIDONE 50 MG TAB PO SCH (21:44)
[2020-12-23] MEDS: TOPIRAMATE 25 MG TAB PO SCH (21:44)
[2020-12-24] MEDS: SODIUM CHLORIDE 0.9% 1,000 ML IV SCH (04:46)
[2020-12-24] MEDS: PANTOPRAZOLE 40 MG TABLET PO SCH (06:38)
[2020-12-24] MEDS: CEFEPIME 2 GM in SODIUM CHLORIDE 0.9% 100 ML IVPB SCH (06:42)
[2020-12-24 08:23] VITALS: TEMP 98.6
[2020-12-24] MEDS: PREGABALIN 75 MG CAP PO SCH (08:23)
[2020-12-24] MEDS: OXYBUTYNIN CHLORIDE 5 MG TAB PO SCH (08:23)
[2020-12-24] MEDS: amLODIPine 5 MG TAB PO SCH (08:23)
[2020-12-24] MEDS: FLUDROCORTISONE 0.1 MG TAB PO SCH (08:23)
[2020-12-24] MEDS: DULoxetine HCL 30 MG CAPSULE.DR PO SCH (08:23)
[2020-12-24] MEDS: FUROSEMIDE 20 MG TAB PO SCH (08:23)
[2020-12-24] MEDS: FOLIC ACID 1 MG TAB PO SCH (08:23)
[2020-12-24 10:37] LABS: African American GFR (CKD) >90 (>60 ml/min/1.73 sqM); Anion Gap 7 mmol/L; Blood Urea Nitrogen 14 mg/dL (9-20); Calcium 8.5 mg/dL (8.4-10.2); Carbon Dioxide 25 mmol/L (22-30); Chloride 105 mmol/L (98-107); Glucose 127 mg/dL (74-99); Non-African American GFR(CKD) >90 (>60 ml/min/1.73 sqM); Potassium 3.7 mmol/L (3.5-5.1); Sodium 137 mmol/L (137-145)
[2020-12-24 10:57] LABS: Prothrombin Time 19.5 sec (9.0-12.0)
[2020-12-24 13:10] VITALS: BP 110/76; PULSE 98; RESP 16
[2020-12-24] MEDS: oxyCODONE-APAP 10-325MG 1 EACH TAB PO PRN (14:53)
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
--- NOTE | 2020-12-24 15:51 | PN ---
PROGRESS NOTE DATE OF SERVICE: 12/24/2020 REASON FOR FOLLOWUP: Catheter-associated urinary tract infection. INTERVAL HISTORY: The patient is afebrile. Still complaining of feeling freezing. The patient denies having any chest pain, cough. No abdominal pain or diarrhea. PHYSICAL EXAMINATION: Blood pressure 110/76, pulse of 90, temperature 98.6. He is 98% on room air. General description is a middle-aged male lying in bed in no distress. RESPIRATORY SYSTEM: Unlabored breathing. Clear to auscultation anteriorly. HEART: S1, S2. Regular rate and rhythm. ABDOMEN: Soft. No tenderness. LABS: INR is 2.0. Creatinine 0.75. Blood culture negative. Urine with Klebsiella and Proteus. DIAGNOSTIC IMPRESSION AND PLAN: Patient with Proteus and Klebsiella catheter-associated urinary tract infection. Plan is for oral Ceftin for 7 days to complete a course of therapy and INR needs to be monitored closely. Continue supportive care. MMNEISHAL / SHANEN: [id number] /
[2020-12-24] MEDS ORDERED: WARFARIN 3 MG TAB PO ONE (18:00)
== END 2020-12-24 15:29 | disposition home or self-care (01) | DRG 698 ==
LOC: EC 09:52 → 3SCARD 13:00
PROVIDERS: ADMIT Family Medicine; ATTEND Family Medicine
DX: T83.511A Infection and inflammatory reaction due to indwelling urethral catheter, initial encounter (principal); J18.9 Pneumonia, unspecified organism; G82.50 Quadriplegia, unspecified; G93.41 Metabolic encephalopathy; G82.20 Paraplegia, unspecified; Z16.24 Resistance to multiple antibiotics; G93.40 Encephalopathy, unspecified; J98.11 Atelectasis; E27.40 Unspecified adrenocortical insufficiency; Z20.822 Contact with and (suspected) exposure to COVID-19; M79.7 Fibromyalgia; B96.4 Proteus (mirabilis) (morganii) as the cause of diseases classified elsewhere; B96.1 Klebsiella pneumoniae [K. pneumoniae] as the cause of diseases classified elsewhere; K21.9 Gastro-esophageal reflux disease without esophagitis; L72.3 Sebaceous cyst; E87.6 Hypokalemia; N39.0 Urinary tract infection, site not specified; G43.909 Migraine, unspecified, not intractable, without status migrainosus; E86.0 Dehydration; I95.9 Hypotension, unspecified; G25.0 Essential tremor; L89.91 Pressure ulcer of unspecified site, stage 1; N31.9 Neuromuscular dysfunction of bladder, unspecified; N32.89 Other specified disorders of bladder; F32.9 Major depressive disorder, single episode, unspecified; Z87.440 Personal history of urinary (tract) infections; Z79.52 Long term (current) use of systemic steroids; Z79.899 Other long term (current) drug therapy; Z79.01 Long term (current) use of anticoagulants; Z87.891 Personal history of nicotine dependence; Z86.718 Personal history of other venous thrombosis and embolism; Y84.6 Urinary catheterization as the cause of abnormal reaction of the patient, or of later complication, without mention of misadventure at the time of the procedure; Z80.3 Family history of malignant neoplasm of breast; Z87.828 Personal history of other (healed) physical injury and trauma; Z86.14 Personal history of Methicillin resistant Staphylococcus aureus infection
CPT/HCPCS: 36415; 70450; 71046; 80048; 80053; 81001; 82140; 82607; 82746; 83605; 83735; 84443; 85025; 85610; 85730; 87040; 87077; 87086; 87186; 87635; 93005; 96360; 96361; 99285

== ENCOUNTER 2021-02-15 13:48 | Inpatient (IN) | payer MEDICARE, OTHER ==
[2021-02-15] MEDS ORDERED: SODIUM CHLORIDE 0.9% 1,000 ML IV ONE ×2 (14:15)
[2021-02-15 15:43] LABS: Anisocytosis Slight; Basophils % (A) 0 %; Eosinophils # (A) 0.6 k/uL (0-0.7); Eosinophils % (A) 5 %; HCT 36.9 % (39.0-53.0); HGB 11.5 gm/dL (13.0-17.5); Hypochromasia Moderate; Lymphocytes # (A) 1.3 k/uL (1.0-4.8); Lymphocytes % (A) 12 %; MCH 28.9 pg (25.0-35.0); MCHC 31.2 g/dL (31.0-37.0); MCV 92.5 fL (80.0-100.0); Mean Platelet Volume 8.2; Monocytes # (A) 0.5 k/uL (0-1.0); Monocytes % (A) 5 %; Neutrophils # (A) 8.5 k/uL (1.3-7.7); Neutrophils % (A) 77 %; Platelet Count 265 k/uL (150-450); RBC 3.99 m/uL (4.30-5.90)
[2021-02-15 15:53] LABS: INR 1.6 (<1.2); Partial Thromboplastin Time 29.3 sec (22.0-30.0)
[2021-02-15 16:11] LABS: ALT 12 U/L (4-49); AST 20 U/L (17-59); African American GFR (CKD) >90 (>60 ml/min/1.73 sqM); Albumin 3.3 g/dL (3.5-5.0); Alkaline Phosphatase 93 U/L (38-126); Anion Gap 10 mmol/L; Blood Urea Nitrogen 18 mg/dL (9-20); Calcium 7.9 mg/dL (8.4-10.2); Carbon Dioxide 23 mmol/L (22-30); Chloride 97 mmol/L (98-107); Glucose 135 mg/dL (74-99); Non-African American GFR(CKD) >90 (>60 ml/min/1.73 sqM); Sodium 130 mmol/L (137-145); Total Protein 6.7 g/dL (6.3-8.2)
[2021-02-15 16:18] LABS: Potassium 4.2 mmol/L (3.5-5.1)
--- NOTE | 2021-02-15 16:54 | XR ---
EXAMINATION TYPE: XR femur bilateral DATE OF EXAM: 02/15/2021 COMPARISON: None HISTORY: Fell from the wheelchair. TECHNIQUE: 4 views each femur FINDINGS: There is old intertrochanteric fracture right femur. There is acute nondisplaced supracondy lar fracture of the right femur. There is no dislocation at the right hip joint. There is no dislocat ion of the right knee. There is some spurring of the left side femoral condyles. Left hip joint appears intact. There is ost eopenia. There is lucent line over the posterior distal left femur on the lateral view that could be a nondisplaced acute fracture. There is left knee joint effusion also suspicious for fracture. IMPRESSION: Acute supracondylar fracture of the right femur with comminution and no significant displ acement. Possible nondisplaced transcondylar fracture of the distal left femur. Left knee joint effusion.
--- NOTE | 2021-02-15 16:55 | XR ---
EXAMINATION TYPE: XR foot limited bilateral DATE OF EXAM: 02/15/2021 COMPARISON: NONE HISTORY: Fall. Pain. TECHNIQUE: 2 views each foot FINDINGS: There is mild left side forefoot varus deformity. There is vascular calcification. The meta tarsals are intact. There is bilateral plantar calcaneal spurring. There is osteopenia. There is mode rate soft tissue swelling of the right forefoot. IMPRESSION: No fracture seen. Degenerative spurring. Soft tissue swelling of the right foot.
--- NOTE | 2021-02-15 16:57 | XR ---
EXAMINATION TYPE: XR tibia fibula bilateral DATE OF EXAM: 02/15/2021 COMPARISON: NONE HISTORY: Fall. Pain. TECHNIQUE: 4 views each tibia and fibula FINDINGS: Tibia and fibula appear intact bilaterally. I see no fracture. Ankle mortise appears anatom ic. There is evidence of a supracondylar fracture distal right femur and transcondylar fracture dista l left femur. IMPRESSION: Bilateral distal femur fractures. No evidence of fracture of the tibia and fibula.
--- NOTE | 2021-02-15 17:04 | XR ---
EXAMINATION TYPE: XR pelvis AP view DATE OF EXAM: 02/15/2021 COMPARISON: NONE HISTORY: Fall. Pain TECHNIQUE: 2 views FINDINGS: The pelvic ring appears intact. There is osteopenia. There is acetabular spurring. Sacroili ac joints are intact. IMPRESSION: Osteopenia. No pelvic fracture seen.
--- NOTE | 2021-02-15 17:06 | XR ---
EXAMINATION TYPE: XR knee limited bilateral DATE OF EXAM: 02/15/2021 COMPARISON: NONE HISTORY: Pain TECHNIQUE: 2 views each knee FINDINGS: There is acute nondisplaced transcondylar fracture distal femur. There is slight impaction. There is comminuted supracondylar fracture distal right femur without significant displacement. There is bilateral knee joint effusions. There is no dislocation. IMPRESSION: Bilateral distal femur fractures as above.
--- NOTE | 2021-02-15 17:08 | XR ---
EXAMINATION TYPE: XR chest 2V DATE OF EXAM: 02/15/2021 COMPARISON: 12/21/2020 HISTORY: Confusion TECHNIQUE: 2 views FINDINGS: There is no heart failure nor confluent pneumonic infiltrate. Costophrenic angles are clear . There are no hilar masses. There is cervical spine and upper thoracic spine fusion surgery. There i s slight blunting left costophrenic angle. IMPRESSION: Minimal pleural reaction left lung base appears new compared to old exam. No heart failur e.
--- NOTE | 2021-02-15 17:16 | CT ---
EXAMINATION TYPE: CT brain wo con DATE OF EXAM: 02/15/2021 COMPARISON: 12/21/2020 HISTORY: Altered mental status CT DLP: 1162.4 mGycm Automated exposure control for dose reduction was used. Images obtained of the brain without contrast. There is cerebral cortical atrophy. There is no mass effect nor midline shift. There is no sign of in tracranial hemorrhage. Calvarium is intact skull base is intact. There is incomplete pneumatization o f the mastoid sinuses. IMPRESSION: No acute intracranial abnormality. No change compared to old exam.
[2021-02-15 17:26] LABS: Lactic Acid, Venous 1.1 mmol/L (0.7-2.0)
[2021-02-15 17:39] LABS: Amorphous Sediment,Urine Occasional /hpf; Appearance,Urine Turbid (Clear); Bacteria,Urine Rare /hpf; Bilirubin,Urine 1+ (Negative); Blood,Urine Negative (Negative); Color,Urine Yellow; Glucose,Urine (UA) Negative (Negative); Ketones,Urine Negative (Negative); Leukocyte Esterase,Urine Large (Negative); Mucus,Urine Moderate /hpf; Nitrite,Urine Positive (Negative); PH, Urine 8.5 (5.0-8.0); Protein,Urine 2+ (Negative); RBC,Urine 9 /hpf (0-5); Specific Gravity,Urine 1.017 (1.001-1.035); Squamous Epithelial Cell,Urine 3 /hpf (0-4); Triple Phosphate Crystal,Urine Many /hpf; WBC,Urine 58 /hpf (0-5)
[2021-02-15 17:41] LABS: Amphetamine Screen,Urine Not Detected (NotDetected); Barbiturate Screen,Urine Detected (NotDetected); Benzodiazepines Screen,Urine Not Detected (NotDetected); Cocaine Screen,Urine Not Detected (NotDetected); Methadone Screen, Urine Not Detected (NotDetected); Opiate Screen,Urine Detected (NotDetected); Oxycodone Screen, Urine Detected (NotDetected); Phencyclidine Screen,Urine Not Detected (NotDetected); Tricyclic Antidepressant,Urine Not Detected (NotDetected); Urn Cannabinoid Scrn Detected (NotDetected)
[2021-02-15] MEDS ORDERED: KETOROLAC 30 MG/ML 1 ML VIAL IVP PRN (18:24)
[2021-02-15] MEDS ORDERED: NALOXONE 0.4 MG/ML 1 ML VIAL IV PRN (18:24)
[2021-02-15] MEDS ORDERED: ONDANSETRON 4 MG/2 ML VIAL IVP PRN (18:24)
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
[2021-02-15] MEDS ORDERED: WARFARIN 2 MG TAB PO ONE (21:00)
[2021-02-15] MEDS: FUROSEMIDE 20 MG TAB PO SCH (21:39)
[2021-02-15] MEDS: oxyCODONE-APAP 10-325MG 1 EACH TAB PO SCH (21:41)
[2021-02-15] MEDS: amLODIPine 5 MG TAB PO SCH (21:41)
[2021-02-15] MEDS: PRIMIDONE 50 MG TAB PO SCH (21:41)
[2021-02-15] MEDS: DULoxetine HCL 30 MG CAPSULE.DR PO SCH (21:42)
[2021-02-15] MEDS: OXYBUTYNIN CHLORIDE 5 MG TAB PO SCH (21:42)
[2021-02-15] MEDS: SODIUM CHLORIDE 0.9% 1,000 ML IV SCH ×2 (21:43→22:17)
[2021-02-15] MEDS: MORPHINE SULFATE 4 MG/ML SYRINGE IV PRN (22:16)
[2021-02-15] MEDS: TOPIRAMATE 25 MG TAB PO SCH (22:16)
[2021-02-15] MEDS: PREGABALIN 75 MG CAP PO SCH (22:16)
[2021-02-15] MEDS: traZODone HCL 50 MG TAB PO SCH (22:16)
[2021-02-16 06:08] LABS: Anisocytosis Slight; Basophils % (A) 0 %; Eosinophils # (A) 0.7 k/uL (0-0.7); Eosinophils % (A) 8 %; HCT 33.7 % (39.0-53.0); HGB 10.4 gm/dL (13.0-17.5); Hypochromasia Marked; Lymphocytes # (A) 1.7 k/uL (1.0-4.8); Lymphocytes % (A) 19 %; MCH 28.9 pg (25.0-35.0); MCV 93.3 fL (80.0-100.0); Monocytes # (A) 0.4 k/uL (0-1.0); Monocytes % (A) 5 %; Neutrophils # (A) 5.9 k/uL (1.3-7.7); Neutrophils % (A) 66 %; Platelet Count 230 k/uL (150-450); RBC 3.61 m/uL (4.30-5.90)
[2021-02-16 06:30] LABS: Prothrombin Time 19.3 sec (9.0-12.0)
[2021-02-16] MEDS: oxyCODONE-APAP 10-325MG 1 EACH TAB PO SCH ×3 (08:12→21:10)
[2021-02-16] MEDS: OXYBUTYNIN CHLORIDE 5 MG TAB PO SCH ×2 (08:12→21:10)
[2021-02-16] MEDS: PREGABALIN 75 MG CAP PO SCH ×3 (08:12→21:10)
[2021-02-16] MEDS: amLODIPine 5 MG TAB PO SCH ×2 (08:13→21:10)
[2021-02-16] MEDS: FLUDROCORTISONE 0.1 MG TAB PO SCH (08:13)
[2021-02-16] MEDS: PANTOPRAZOLE 40 MG TABLET PO SCH (08:13)
[2021-02-16] MEDS: FUROSEMIDE 20 MG TAB PO SCH ×2 (08:13→16:01)
[2021-02-16] MEDS ORDERED: ENOXAPARIN 40 MG/0.4 ML SYRINGE SQ SCH (09:00)
[2021-02-16 09:13] LABS: African American GFR (CKD) 110.2 (60.0-200.0); Anion Gap 8.4 mmol/L (10.00-18.00); BUN/Creat Ratio 18.13 Ratio (12.00-20.00); Blood Urea Nitrogen 14.5 mg/dL (9.0-27.0); Carbon Dioxide 23.6 mmol/L (20.0-27.5); Magnesium 2.1 mg/dL (1.5-2.4); Non-African American GFR(CKD) 95.1 (60.0-200.0); Potassium 3.4 mmol/L (3.5-5.5)
[2021-02-16] MEDS ORDERED: Potassium Replacement Protocol 1 EACH MISC MISCELLANE PRN (10:39)
[2021-02-16] MEDS: POTASSIUM CHLORIDE ER 20 MEQ TAB.ER PO SCH ×2 (12:20→14:23)
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
[2021-02-16] MEDS ORDERED: WARFARIN 2 MG TAB PO ONE (18:00)
[2021-02-16] MEDS: traZODone HCL 50 MG TAB PO SCH (21:09)
[2021-02-16] MEDS: PRIMIDONE 50 MG TAB PO SCH (21:10)
[2021-02-16] MEDS: TOPIRAMATE 25 MG TAB PO SCH (21:10)
[2021-02-16] MEDS: DULoxetine HCL 30 MG CAPSULE.DR PO SCH (21:10)
[2021-02-16] MEDS: SODIUM CHLORIDE 0.9% 1,000 ML IV SCH (21:13)
[2021-02-17 05:03] LABS: Anisocytosis Slight; Basophils % (A) 0 %; Eosinophils # (A) 0.6 k/uL (0-0.7); Eosinophils % (A) 8 %; HCT 34.2 % (39.0-53.0); HGB 10.3 gm/dL (13.0-17.5); Hypochromasia Marked; Lymphocytes # (A) 1.6 k/uL (1.0-4.8); Lymphocytes % (A) 23 %; MCH 28.4 pg (25.0-35.0); MCV 94.6 fL (80.0-100.0); Mean Platelet Volume 7.6; Monocytes # (A) 0.3 k/uL (0-1.0); Monocytes % (A) 4 %; Neutrophils # (A) 4.5 k/uL (1.3-7.7); Neutrophils % (A) 62 %; Platelet Count 245 k/uL (150-450); RBC 3.62 m/uL (4.30-5.90); RDW 17.1 % (11.5-15.5); WBC 7.2 k/uL (3.8-10.6)
[2021-02-17 05:16] LABS: INR 2.7 (<1.2); Prothrombin Time 25.9 sec (9.0-12.0)
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
[2021-02-17] MEDS: FLUDROCORTISONE 0.1 MG TAB PO SCH (08:46)
[2021-02-17] MEDS: OXYBUTYNIN CHLORIDE 5 MG TAB PO SCH ×2 (08:46→22:11)
[2021-02-17] MEDS: FUROSEMIDE 20 MG TAB PO SCH ×2 (08:46→17:00)
[2021-02-17] MEDS: PANTOPRAZOLE 40 MG TABLET PO SCH (08:46)
[2021-02-17] MEDS: amLODIPine 5 MG TAB PO SCH ×2 (08:46→22:12)
[2021-02-17] MEDS: PREGABALIN 75 MG CAP PO SCH ×3 (08:46→22:09)
[2021-02-17] MEDS: oxyCODONE-APAP 10-325MG 1 EACH TAB PO SCH ×3 (08:46→22:09)
[2021-02-17] MEDS: SODIUM CHLORIDE 0.9% 1,000 ML IV SCH ×2 (08:52→22:13)
[2021-02-17 11:18] LABS: African American GFR (CKD) 111.3 (60.0-200.0); Anion Gap 11.3 mmol/L (10.00-18.00); BUN/Creat Ratio 16.01 Ratio (12.00-20.00); Blood Urea Nitrogen 12.5 mg/dL (9.0-27.0); Carbon Dioxide 22.9 mmol/L (20.0-27.5); Potassium 3.7 mmol/L (3.5-5.5)
--- NOTE | 2021-02-17 13:17 | P.PN ---
Subjective Progress Note Date: 02/17/21 Principal diagnosis: Bilateral femur fractures Patient is a pleasant 65-year-old male seen at bedside this afternoon. We have been following him for bilateral distal femur fractures. He has been a below chest paraplegic since 2017. No surgical intervention is immediately planned and we have recommended him maintaining knee immobilizers for his fractures as well as ice and elevation. He has no new complaints today. Objective - Vital Signs Vital signs: Vital Signs Temp 97.7 F 02/17/21 05:00 Pulse 68 02/17/21 05:00 Resp 18 02/17/21 05:00 BP 106/68 02/17/21 05:00 Pulse Ox 96 02/17/21 05:00 Intake & Output 02/16/21 02/17/21 02/17/21 18:59 06:59 18:59 Intake Total 1980 240 Output Total 1850 600 Balance 130 -360 Intake: Intake, IV Titration 900 Amount Sodium Chloride 0.9% 1, 900 000 ml @ 75 mls/hr IV . [id number] [facility] Rx#:[id number] Oral 1080 240 Output: Urine 1850 600 Coude 600 Other: Voiding Method Indwelling Catheter Indwelling Catheter - Exam Exam is unchanged from yesterday. He has no deformity of the lower extremities. He has acute on chronic bilateral lower extremity edema right worse than left. Thighs and calves are soft. He has no motor or sensation in the lower extremities. There are no wounds or erythema. 1+ dorsalis pedis pulses and l ess than 2 second capillary refill present. - Constitutional General appearance: Present: no acute distress - Labs CBC & Chem 7: 02/17/21 04:35 02/17/21 04:35 Labs: Abnormal Lab Results - Last 24 Hours (Table) 02/16/21 02/17/21 02/17/21 Range/Units 05:36 04:35 04:35 RBC 3.62 L (4.30-5.90) m/uL Hgb 10.3 L (13.0-17.5) gm/dL Hct 34.2 L (39.0-53.0) % MCHC 30.0 L (31.0-37.0) g/dL RDW 17.1 H (11.5-15.5) % PT (9.0-12.0) sec INR (<1.2) Calcium 8.0 L (8.7-10.3) mg/dL Creatine Kinase 27 L (35-257) U/L 02/17/21 Range/Units 04:35 RBC (4.30-5.90) m/uL Hgb (13.0-17.5) gm/dL Hct (39.0-53.0) % MCHC (31.0-37.0) g/dL RDW (11.5-15.5) % PT 25.9 H (9.0-12.0) sec INR 2.7 H (<1.2) Calcium (8.7-10.3) mg/dL Creatine Kinase (35-257) U/L Microbiology - Last 24 Hours (Table) 02/15/21 14:55 Blood Culture - Preliminary Blood No Growth after 24 hours 02/15/21 15:11 Blood Culture - Preliminary Blood No Growth after 24 hours 02/15/21 15:11 Urine Culture - Preliminary Urine,Voided Gram Neg Bacilli Assessment and Plan (1) Femur fracture, left Narrative/Plan: Recommend continue use of knee immobilizers, elevation, ice. Continue DVT prophylaxis and medical management. He may be discharged from an orthopedic standpoint follow up with us in office in 2 weeks or when necessary Current Visit: Yes Status: Acute Priority: Medium Code(s): S72.92XA - UNSP FRACTURE OF LEFT FEMUR, INIT ENCNTR FOR CLOSED FRACTURE SNOMED Code(s): 74899124 (2) Femur fracture, right Current Visit: Yes Status: Acute Priority: Medium Code(s): S72.91XA - UNSP FRACTURE OF RIGHT FEMUR, INIT FOR CLOS FX SNOMED Code(s): 21123958 Time with Patient: Less than 30
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
[2021-02-17] MEDS ORDERED: WARFARIN 2 MG TAB PO ONE (18:00)
[2021-02-17] MEDS: traZODone HCL 50 MG TAB PO SCH (22:10)
[2021-02-17] MEDS: TOPIRAMATE 25 MG TAB PO SCH (22:10)
[2021-02-17] MEDS: PRIMIDONE 50 MG TAB PO SCH (22:11)
[2021-02-17] MEDS: DULoxetine HCL 30 MG CAPSULE.DR PO SCH (22:11)
[2021-02-18 06:00] LABS: INR 2.8 (<1.2); Prothrombin Time 27.1 sec (9.0-12.0)
[2021-02-18] MEDS: oxyCODONE-APAP 10-325MG 1 EACH TAB PO SCH ×3 (09:38→22:08)
[2021-02-18] MEDS: FLUDROCORTISONE 0.1 MG TAB PO SCH (09:39)
[2021-02-18] MEDS: PANTOPRAZOLE 40 MG TABLET PO SCH (09:39)
[2021-02-18] MEDS: OXYBUTYNIN CHLORIDE 5 MG TAB PO SCH ×2 (09:39→22:06)
[2021-02-18] MEDS: PREGABALIN 75 MG CAP PO SCH ×3 (09:39→22:07)
[2021-02-18] MEDS: amLODIPine 5 MG TAB PO SCH ×2 (09:39→22:06)
[2021-02-18] MEDS: FUROSEMIDE 20 MG TAB PO SCH ×2 (09:39→16:21)
[2021-02-18] MEDS: SODIUM CHLORIDE 0.9% 1,000 ML IV SCH (14:42)
[2021-02-18] MEDS ORDERED: WARFARIN 2 MG TAB PO ONE (18:00)
[2021-02-18] MEDS: DULoxetine HCL 30 MG CAPSULE.DR PO SCH (22:06)
[2021-02-18] MEDS: traZODone HCL 50 MG TAB PO SCH (22:07)
[2021-02-18] MEDS: TOPIRAMATE 25 MG TAB PO SCH (22:07)
[2021-02-18] MEDS: PRIMIDONE 50 MG TAB PO SCH (22:07)
[2021-02-19] MEDS: SODIUM CHLORIDE 0.9% 1,000 ML IV SCH ×2 (04:42→17:20)
[2021-02-19] MEDS: MORPHINE SULFATE 4 MG/ML SYRINGE IV PRN (05:56)
[2021-02-19 07:51] LABS: INR 2.8 (<1.2); Prothrombin Time 27.3 sec (9.0-12.0)
[2021-02-19] MEDS: FUROSEMIDE 20 MG TAB PO SCH ×2 (08:12→15:44)
[2021-02-19] MEDS: PREGABALIN 75 MG CAP PO SCH ×3 (08:12→22:05)
[2021-02-19] MEDS: amLODIPine 5 MG TAB PO SCH ×2 (08:12→22:05)
[2021-02-19] MEDS: OXYBUTYNIN CHLORIDE 5 MG TAB PO SCH ×2 (08:12→22:05)
[2021-02-19] MEDS: PANTOPRAZOLE 40 MG TABLET PO SCH (08:12)
[2021-02-19] MEDS: oxyCODONE-APAP 10-325MG 1 EACH TAB PO SCH ×3 (08:12→22:02)
[2021-02-19] MEDS: FLUDROCORTISONE 0.1 MG TAB PO SCH (08:12)
[2021-02-19 13:08] VITALS: BMI 42.0
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
[2021-02-19] MEDS ORDERED: WARFARIN 2 MG TAB PO ONE (18:00)
[2021-02-19] MEDS: TOPIRAMATE 25 MG TAB PO SCH (22:03)
[2021-02-19] MEDS: DULoxetine HCL 30 MG CAPSULE.DR PO SCH (22:04)
[2021-02-19] MEDS: PRIMIDONE 50 MG TAB PO SCH (22:06)
[2021-02-19] MEDS: traZODone HCL 50 MG TAB PO SCH (22:06)
[2021-02-20 06:14] LABS: INR 2.8 (<1.2); Prothrombin Time 26.9 sec (9.0-12.0)
[2021-02-20] MEDS: SODIUM CHLORIDE 0.9% 1,000 ML IV SCH (08:00)
[2021-02-20] MEDS: oxyCODONE-APAP 10-325MG 1 EACH TAB PO SCH ×3 (10:02→21:56)
[2021-02-20] MEDS: amLODIPine 5 MG TAB PO SCH ×2 (10:02→21:56)
[2021-02-20] MEDS: PREGABALIN 75 MG CAP PO SCH ×3 (10:02→21:56)
[2021-02-20] MEDS: FUROSEMIDE 20 MG TAB PO SCH ×2 (10:02→17:20)
[2021-02-20] MEDS: PANTOPRAZOLE 40 MG TABLET PO SCH (10:02)
[2021-02-20] MEDS: OXYBUTYNIN CHLORIDE 5 MG TAB PO SCH ×2 (10:04→21:56)
[2021-02-20] MEDS: FLUDROCORTISONE 0.1 MG TAB PO SCH (10:04)
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
[2021-02-20] MEDS: CEFDINIR 300 MG CAP PO SCH (17:20)
[2021-02-20] MEDS ORDERED: WARFARIN 2 MG TAB PO ONE (18:00)
[2021-02-20] MEDS ORDERED: CEFDINIR 300 MG CAP PO SCH (21:00)
[2021-02-20] MEDS: PRIMIDONE 50 MG TAB PO SCH (21:56)
[2021-02-20] MEDS: traZODone HCL 50 MG TAB PO SCH (21:56)
[2021-02-20] MEDS: DULoxetine HCL 30 MG CAPSULE.DR PO SCH (21:56)
[2021-02-20] MEDS: TOPIRAMATE 25 MG TAB PO SCH (21:56)
[2021-02-21 04:34] LABS: INR 2.5 (<1.2); Prothrombin Time 23.9 sec (9.0-12.0)
[2021-02-21] MEDS: PREGABALIN 75 MG CAP PO SCH ×3 (08:37→21:37)
[2021-02-21] MEDS: oxyCODONE-APAP 10-325MG 1 EACH TAB PO SCH ×3 (08:37→21:38)
[2021-02-21] MEDS: amLODIPine 5 MG TAB PO SCH ×2 (08:37→21:38)
[2021-02-21] MEDS: CEFDINIR 300 MG CAP PO SCH ×2 (08:38→21:38)
[2021-02-21] MEDS: OXYBUTYNIN CHLORIDE 5 MG TAB PO SCH ×2 (08:38→21:38)
[2021-02-21] MEDS: PANTOPRAZOLE 40 MG TABLET PO SCH (08:38)
[2021-02-21] MEDS: FUROSEMIDE 20 MG TAB PO SCH ×2 (08:38→16:00)
[2021-02-21] MEDS: FLUDROCORTISONE 0.1 MG TAB PO SCH (08:38)
--- NOTE | 2021-02-21 13:35 | P.PN ---
Subjective Progress Note Date: 02/21/21 Principal diagnosis: Functional quadriplegia on the recent fall with femur fracture Patient is a morbidly obese white male known to our practice awaiting inpatient rehab placement patient unable to rehab at home is debilitated and wheelchair bound secondary to multiple sclerosis and has limited assistance at home requiring inpatient. The waiting on insurance approval Objective - Vital Signs Vital signs: Vital Signs Temp 95.0 F L 02/21/21 12:50 Pulse 75 02/21/21 12:50 Resp 16 02/21/21 12:50 BP 92/59 02/21/21 12:50 Pulse Ox 97 02/21/21 12:50 Intake & Output 02/20/21 02/21/21 02/21/21 18:59 06:59 18:59 Intake Total 590 Output Total 2000 500 Balance -2000 90 Intake: Oral 590 Output: Urine 1999 500 Coude 1000 Other: Voiding Method Toilet Indwelling Catheter Indwelling Catheter Indwelling Catheter - Exam General: [Patient awake, alert and oriented times 3. Patient in no acute distress.] Functional paraplegia HEENT: [PERRL. EOMI. No pharyngeal erythema or exudate.] Neck: [No adenopathy.] Cardiac: [Heart regular in rate and rhythm. No S3. No S4. No clicks, rubs. No m urmur.] Lungs: [Clear to auscultation bilaterally.] Abdomen: [No mass. No organomegaly. Bowel sounds presnt and normoactive in all 4 quadrants.] Extremes: [No edema no cyanosis no claudication normal pulses] flaccid quadriplegia : Normal male genitalia Rodriguez catheter intact Musculoskeletal: [No joint erythema, edema or tenderness.] Skin: [No rash.] Neurologic: [No lateralizing deficits. 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 Current Visit: Yes Status: Acute Code(s): G83.9 - PARALYTIC SYNDROME, UNSP ECIFIED SNOMED Code(s): 047550348 (2) Dehydration Current Visit: Yes Status: Acute Code(s): E86.0 - DEHYDRATION SNOMED Code(s): 74372039 (3) Femur fracture, left Current Visit: Yes Status: Acute Priority: Medium Code(s): S72.92XA - UNSP FRACTURE OF LEFT FEMUR, INIT ENCNTR FOR CLOSED FRACTURE SNOMED Code(s): 82726748 (4) Femur fracture, right Current Visit: Yes Status: Acute Priority: Medium Code(s): S72.91XA - UNSP FRACTURE OF RIGHT FEMUR, INIT FOR CLOS FX SNOMED Code(s): 12394753 (5) UTI (urinary tract infection) Current Visit: Yes Status: Acute Code(s): N39.0 - URINARY TRACT INFECTION, SITE NOT SPECIFIED SNOMED Code(s): 14821350 Plan: currently waiting on insurance approval 4 inpatient rehab placement Time with Patient: Greater than 30
[2021-02-21] MEDS ORDERED: WARFARIN 3 MG TAB PO ONE (18:00)
[2021-02-21] MEDS: traZODone HCL 50 MG TAB PO SCH (21:37)
[2021-02-21] MEDS: DULoxetine HCL 30 MG CAPSULE.DR PO SCH (21:37)
[2021-02-21] MEDS: TOPIRAMATE 25 MG TAB PO SCH (21:38)
[2021-02-21] MEDS: PRIMIDONE 50 MG TAB PO SCH (21:38)
[2021-02-22 05:18] LABS: INR 2.3 (<1.2); Prothrombin Time 22.5 sec (9.0-12.0)
--- NOTE | 2021-02-22 08:15 | P.PN ---
Subjective Progress Note Date: 02/22/21 Principal diagnosis: Functional quadriplegia recent fall with femur fracture Patient is a morbidly obese white male known to our practice awaiting inpatient rehab placement patient unable to rehab at home is debilitated and wheelchair bound secondary to multiple sclerosis and has limited assistance at home requiring inpatient. The waiting on insurance approval Objective - Vital Signs Vital signs: Vital Signs Temp 99.4 F 02/22/21 04:54 Pulse 74 02/22/21 04:54 Resp 16 02/22/21 04:54 BP 144/83 02/22/21 04:54 Pulse Ox 94 L 02/22/21 04:54 Intake & Output 02/21/21 02/22/21 02/22/21 18:59 06:59 18:59 Intake Total 590 Output Total 400 800 Balance -400 -210 Intake: Oral 590 Output: Urine 400 800 Coude 800 Other: Voiding Method Indwelling Catheter Indwelling Catheter - Exam General: [Patient awake, alert and oriented times 3. Patient in no acute distress.] Functional paraplegia HEENT: [PERRL. EOMI. No pharyngeal erythema or exudate.] Neck: [No adenopathy.] Cardiac: [Heart regular in rate and rhythm. No S3. No S4. No clicks, rubs. No murmur.] Lungs: [Clear to auscultation bilaterally.] Abdomen: [No mass. No organomegaly. Bowel sounds presnt and normoactive in all 4 quadrants.] Extremes: [No edema no cyanosis no claudication normal pulses functional quadriplegia has use of upper extremes : Normal male genitalia Rodriguez catheter intact Musculoskeletal: [No joint erythema, edema or tenderness.] Skin: [No rash.] Neurologic: Functional quadriplegia has use of upper extremes CN II - XII grossly intact. 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 Current Visit: Yes Status: Acute Code(s): G83.9 - PARALYTIC SYNDROME, UNS PECIFIED SNOMED Code(s): 897650645 (2) Dehydration Current Visit: Yes Status: Acute Code(s): E86.0 - DEHYDRATION SNOMED Code(s): 01030924 (3) Femur fracture, left Current Visit: Yes Status: Acute Priority: Medium Code(s): S72.92XA - UNSP FRACTURE OF LEFT FEMUR, INIT ENCNTR FOR CLOSED FRACTURE SNOMED Code(s): 88347899 (4) Femur fracture, right Current Visit: Yes Status: Acute Priority: Medium Code(s): S72.91XA - UNSP FRACTURE OF RIGHT FEMUR, INIT FOR CLOS FX SNOMED Code(s): 26592899 (5) UTI (urinary tract infection) Current Visit: Yes Status: Acute Code(s): N39.0 - URINARY TRACT INFECTION, SITE NOT SPECIFIED SNOMED Code(s): 36239192 Plan: currently waiting on insurance approval 4 inpatient rehab placement Time with Patient: Greater than 30
[2021-02-22] MEDS: CEFDINIR 300 MG CAP PO SCH ×2 (08:25→22:13)
[2021-02-22] MEDS: FLUDROCORTISONE 0.1 MG TAB PO SCH (08:26)
[2021-02-22] MEDS: PANTOPRAZOLE 40 MG TABLET PO SCH (08:26)
[2021-02-22] MEDS: amLODIPine 5 MG TAB PO SCH ×2 (08:26→22:14)
[2021-02-22] MEDS: PREGABALIN 75 MG CAP PO SCH ×3 (08:26→22:13)
[2021-02-22] MEDS: FUROSEMIDE 20 MG TAB PO SCH ×2 (08:26→17:56)
[2021-02-22] MEDS: oxyCODONE-APAP 10-325MG 1 EACH TAB PO SCH ×3 (08:27→22:16)
[2021-02-22] MEDS: OXYBUTYNIN CHLORIDE 5 MG TAB PO SCH ×2 (08:27→22:14)
[2021-02-22] MEDS ORDERED: WARFARIN 3 MG TAB PO ONE (18:00)
[2021-02-22] MEDS: traZODone HCL 50 MG TAB PO SCH (22:13)
[2021-02-22] MEDS: TOPIRAMATE 25 MG TAB PO SCH (22:14)
[2021-02-22] MEDS: DULoxetine HCL 30 MG CAPSULE.DR PO SCH (22:14)
[2021-02-22] MEDS: PRIMIDONE 50 MG TAB PO SCH (22:14)
[2021-02-23 07:24] LABS: INR 1.8 (<1.2); Prothrombin Time 17.7 sec (9.0-12.0)
[2021-02-23] MEDS: CEFDINIR 300 MG CAP PO SCH ×2 (09:04→21:35)
[2021-02-23] MEDS: OXYBUTYNIN CHLORIDE 5 MG TAB PO SCH ×2 (09:04→22:07)
[2021-02-23] MEDS: PANTOPRAZOLE 40 MG TABLET PO SCH (09:04)
[2021-02-23] MEDS: FLUDROCORTISONE 0.1 MG TAB PO SCH (09:04)
[2021-02-23] MEDS: PREGABALIN 75 MG CAP PO SCH ×3 (09:04→21:43)
[2021-02-23] MEDS: amLODIPine 5 MG TAB PO SCH ×2 (09:05→21:35)
[2021-02-23] MEDS: FUROSEMIDE 20 MG TAB PO SCH ×2 (09:05→17:43)
[2021-02-23] MEDS: oxyCODONE-APAP 10-325MG 1 EACH TAB PO SCH ×3 (09:05→21:36)
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
[2021-02-23] MEDS ORDERED: WARFARIN 2 MG TAB PO ONE (18:00)
[2021-02-23] MEDS: DULoxetine HCL 30 MG CAPSULE.DR PO SCH (21:35)
[2021-02-23] MEDS: traZODone HCL 50 MG TAB PO SCH (21:35)
[2021-02-23] MEDS: PRIMIDONE 50 MG TAB PO SCH (22:07)
[2021-02-23] MEDS: TOPIRAMATE 25 MG TAB PO SCH (22:07)
[2021-02-24 06:10] LABS: Anisocytosis Slight; Basophils # (A) 0.1 k/uL (0-0.2); Basophils % (A) 1 %; Eosinophils # (A) 0.3 k/uL (0-0.7); Eosinophils % (A) 4 %; HGB 11.1 gm/dL (13.0-17.5); Hypochromasia Marked; Lymphocytes % (A) 25 %; MCH 27.8 pg (25.0-35.0); MCHC 29.9 g/dL (31.0-37.0); MCV 93.1 fL (80.0-100.0); Mean Platelet Volume 7.8; Monocytes # (A) 0.4 k/uL (0-1.0); Monocytes % (A) 5 %; Neutrophils # (A) 5.2 k/uL (1.3-7.7); Neutrophils % (A) 64 %; Platelet Count 436 k/uL (150-450); RBC 3.98 m/uL (4.30-5.90); WBC 8.2 k/uL (3.8-10.6)
[2021-02-24 10:00] LABS: African American GFR (CKD) 116.4 (60.0-200.0); Anion Gap 8.5 mmol/L (10.00-18.00); BUN/Creat Ratio 15.43 Ratio (12.00-20.00); Blood Urea Nitrogen 10.8 mg/dL (9.0-27.0); Calcium 8.4 mg/dL (8.7-10.3); Carbon Dioxide 25.5 mmol/L (20.0-27.5); Non-African American GFR(CKD) 100.4 (60.0-200.0); Potassium 4.1 mmol/L (3.5-5.5)
[2021-02-24] MEDS: oxyCODONE-APAP 10-325MG 1 EACH TAB PO SCH ×3 (10:07→21:24)
[2021-02-24] MEDS: amLODIPine 5 MG TAB PO SCH ×2 (10:07→21:24)
[2021-02-24] MEDS: CEFDINIR 300 MG CAP PO SCH ×2 (10:07→21:24)
[2021-02-24] MEDS: PANTOPRAZOLE 40 MG TABLET PO SCH (10:07)
[2021-02-24] MEDS: FUROSEMIDE 20 MG TAB PO SCH ×2 (10:07→16:24)
[2021-02-24] MEDS: PREGABALIN 75 MG CAP PO SCH ×3 (10:07→21:23)
[2021-02-24] MEDS: OXYBUTYNIN CHLORIDE 5 MG TAB PO SCH ×2 (10:08→21:24)
[2021-02-24] MEDS: FLUDROCORTISONE 0.1 MG TAB PO SCH (10:09)
[2021-02-24 10:15] LABS: INR 1.65 (0.90-1.11); Prothrombin Time 18.2 sec (9.9-11.9)
--- NOTE | 2021-02-24 14:16 | P.PN ---
Progress Note - Text 02/24/2021; patient is stable waiting on insurance auth for transfer to [facility]
[2021-02-24] MEDS ORDERED: polyethylene glycoL 3350 17 GM POWD.PACK PO SCH (17:00)
[2021-02-24] MEDS ORDERED: WARFARIN 2 MG TAB PO ONE (18:00)
[2021-02-24] MEDS: DULoxetine HCL 30 MG CAPSULE.DR PO SCH (21:22)
[2021-02-24] MEDS: traZODone HCL 50 MG TAB PO SCH (21:23)
[2021-02-24] MEDS: TOPIRAMATE 25 MG TAB PO SCH (21:23)
[2021-02-24] MEDS: PRIMIDONE 50 MG TAB PO SCH (21:24)
[2021-02-24] MEDS: DOCUSATE 100 MG CAP PO SCH (21:24)
[2021-02-25] MEDS: PREGABALIN 75 MG CAP PO SCH ×3 (10:43→20:21)
[2021-02-25] MEDS: DOCUSATE 100 MG CAP PO SCH ×2 (10:43→20:21)
[2021-02-25] MEDS: OXYBUTYNIN CHLORIDE 5 MG TAB PO SCH ×2 (10:43→20:21)
[2021-02-25] MEDS: amLODIPine 5 MG TAB PO SCH ×2 (10:43→20:21)
[2021-02-25] MEDS: CEFDINIR 300 MG CAP PO SCH ×2 (10:43→20:21)
[2021-02-25] MEDS: oxyCODONE-APAP 10-325MG 1 EACH TAB PO SCH ×3 (10:44→22:28)
[2021-02-25] MEDS: PANTOPRAZOLE 40 MG TABLET PO SCH (10:44)
[2021-02-25] MEDS: FLUDROCORTISONE 0.1 MG TAB PO SCH (10:45)
[2021-02-25] MEDS: FUROSEMIDE 20 MG TAB PO SCH ×2 (10:45→17:05)
[2021-02-25 11:46] LABS: INR 1.63 (0.90-1.11)
--- NOTE | 2021-02-25 15:46 | P.PN ---
Progress Note - Text patient is stable waiting on insurance auth for transfer to [facility] in [place] still. No change in status
[2021-02-25] MEDS ORDERED: WARFARIN 5 MG TAB PO ONE (18:00)
[2021-02-25] MEDS: DULoxetine HCL 30 MG CAPSULE.DR PO SCH (20:21)
[2021-02-25] MEDS: PRIMIDONE 50 MG TAB PO SCH (20:22)
[2021-02-25] MEDS: traZODone HCL 50 MG TAB PO SCH (20:22)
[2021-02-25] MEDS: TOPIRAMATE 25 MG TAB PO SCH (20:22)
[2021-02-26] MEDS: oxyCODONE-APAP 10-325MG 1 EACH TAB PO SCH ×3 (09:02→20:20)
[2021-02-26] MEDS: OXYBUTYNIN CHLORIDE 5 MG TAB PO SCH ×2 (09:03→22:16)
[2021-02-26] MEDS: amLODIPine 5 MG TAB PO SCH ×2 (09:03→22:15)
[2021-02-26] MEDS: PREGABALIN 75 MG CAP PO SCH ×3 (09:03→22:16)
[2021-02-26] MEDS: DOCUSATE 100 MG CAP PO SCH ×2 (09:03→22:16)
[2021-02-26] MEDS: FLUDROCORTISONE 0.1 MG TAB PO SCH (09:03)
[2021-02-26] MEDS: FUROSEMIDE 20 MG TAB PO SCH ×2 (09:03→15:59)
[2021-02-26] MEDS: PANTOPRAZOLE 40 MG TABLET PO SCH (09:03)
[2021-02-26] MEDS: CEFDINIR 300 MG CAP PO SCH ×2 (09:03→22:16)
[2021-02-26 10:15] LABS: INR 1.8 (0.90-1.11); Prothrombin Time 19.8 sec (9.9-11.9)
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
[2021-02-26] MEDS ORDERED: WARFARIN 5 MG TAB PO ONE (18:00)
[2021-02-26] MEDS: PRIMIDONE 50 MG TAB PO SCH (22:16)
[2021-02-26] MEDS: TOPIRAMATE 25 MG TAB PO SCH (22:16)
[2021-02-26] MEDS: traZODone HCL 50 MG TAB PO SCH (22:21)
[2021-02-26] MEDS: DULoxetine HCL 30 MG CAPSULE.DR PO SCH (22:21)
[2021-02-27 04:25] VITALS: RESP 18
[2021-02-27 06:07] LABS: INR 2.2 (<1.2); Prothrombin Time 21.5 sec (9.0-12.0)
[2021-02-27] MEDS: CEFDINIR 300 MG CAP PO SCH (08:10)
[2021-02-27] MEDS: amLODIPine 5 MG TAB PO SCH (08:10)
[2021-02-27] MEDS: PANTOPRAZOLE 40 MG TABLET PO SCH (08:10)
[2021-02-27] MEDS: DOCUSATE 100 MG CAP PO SCH (08:10)
[2021-02-27] MEDS: oxyCODONE-APAP 10-325MG 1 EACH TAB PO SCH ×2 (08:10→15:11)
[2021-02-27] MEDS: FLUDROCORTISONE 0.1 MG TAB PO SCH (08:10)
[2021-02-27] MEDS: OXYBUTYNIN CHLORIDE 5 MG TAB PO SCH (08:10)
[2021-02-27] MEDS: FUROSEMIDE 20 MG TAB PO SCH ×2 (08:10→15:11)
[2021-02-27] MEDS: PREGABALIN 75 MG CAP PO SCH ×2 (08:11→15:12)
[2021-02-27] MEDS ORDERED: TESTOSTERONE CYPIONATE 200 MG/ML 1ML VIAL IM SCH (09:00)
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
[2021-02-27 11:53] VITALS: TEMP 97.8
[2021-02-27 15:14] VITALS: BP 117/69; PULSE 75
[2021-02-27] MEDS ORDERED: WARFARIN 2 MG TAB PO ONE (18:00)
== END 2021-02-27 17:49 | disposition home health service (06) | DRG 533 ==
LOC: EC 13:48 → UNDOADMIN 18:25 → 5NMEDONC 18:25 → 2SICU 18:25
PROVIDERS: ADMIT Family Medicine; ATTEND Family Medicine
DX: S72.451A Displaced supracondylar fracture without intracondylar extension of lower end of right femur, initial encounter for closed fracture (principal); G93.41 Metabolic encephalopathy; R53.2 Functional quadriplegia; N39.0 Urinary tract infection, site not specified; S72.402A Unspecified fracture of lower end of left femur, initial encounter for closed fracture; E27.40 Unspecified adrenocortical insufficiency; Z68.41 Body mass index [BMI] 40.0-44.9, adult; E87.1 Hypo-osmolality and hyponatremia; B96.1 Klebsiella pneumoniae [K. pneumoniae] as the cause of diseases classified elsewhere; B96.4 Proteus (mirabilis) (morganii) as the cause of diseases classified elsewhere; D64.9 Anemia, unspecified; E66.01 Morbid (severe) obesity due to excess calories; E86.0 Dehydration; E87.6 Hypokalemia; E87.8 Other disorders of electrolyte and fluid balance, not elsewhere classified; F32.A Depression, unspecified; G43.909 Migraine, unspecified, not intractable, without status migrainosus; M79.7 Fibromyalgia; N31.9 Neuromuscular dysfunction of bladder, unspecified; Z20.822 Contact with and (suspected) exposure to COVID-19; I95.9 Hypotension, unspecified; R29.6 Repeated falls; Z79.01 Long term (current) use of anticoagulants; Z79.52 Long term (current) use of systemic steroids; Z80.3 Family history of malignant neoplasm of breast; Z79.899 Other long term (current) drug therapy; Z86.718 Personal history of other venous thrombosis and embolism; Z87.440 Personal history of urinary (tract) infections; Z87.891 Personal history of nicotine dependence; W05.0XXA Fall from non-moving wheelchair, initial encounter; Y92.008 Other place in unspecified non-institutional (private) residence as the place of occurrence of the external cause; Z86.14 Personal history of Methicillin resistant Staphylococcus aureus infection
CPT/HCPCS: 36415; 70450; 71046; 72170; 80048; 80053; 80306; 81001; 82140; 82550; 83605; 83735; 84132; 84484; 85025; 85610; 85730; 87040; 87077; 87086; 87186; 87635; 99285

== ENCOUNTER 2021-06-12 18:39 | Observation (INO) | payer MEDICARE, OTHER ==
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
[2021-06-12 19:51] LABS: Anisocytosis Slight; Basophils # (A) 0.2 k/uL (0-0.2); Basophils % (A) 2 %; Eosinophils # (A) 0.2 k/uL (0-0.7); Eosinophils % (A) 3 %; HCT 42.8 % (39.0-53.0); Hypochromasia Moderate; Lymphocytes # (A) 2.8 k/uL (1.0-4.8); Lymphocytes % (A) 33 %; MCHC 30.4 g/dL (31.0-37.0); MCV 85.7 fL (80.0-100.0); Mean Platelet Volume 7.4; Monocytes # (A) 0.5 k/uL (0-1.0); Monocytes % (A) 5 %; Neutrophils # (A) 4.5 k/uL (1.3-7.7); Neutrophils % (A) 55 %; Platelet Count 273 k/uL (150-450); RBC 4.99 m/uL (4.30-5.90); RDW 18.1 % (11.5-15.5); WBC 8.2 k/uL (3.8-10.6)
[2021-06-12 20:00] LABS: INR 1.8 (<1.2); Prothrombin Time 18.1 sec (9.0-12.0)
[2021-06-12 20:04] LABS: African American GFR (CKD) >90 (>60 ml/min/1.73 sqM); Anion Gap 6 mmol/L; Blood Urea Nitrogen 15 mg/dL (9-20); Calcium 8.3 mg/dL (8.4-10.2); Carbon Dioxide 27 mmol/L (22-30); Chloride 101 mmol/L (98-107); Glucose 84 mg/dL (74-99); Non-African American GFR(CKD) 84 (>60 ml/min/1.73 sqM); Sodium 134 mmol/L (137-145)
--- NOTE | 2021-06-12 20:08 | XR ---
EXAMINATION TYPE: XR KUB portable DATE OF EXAM: 06/12/2021 8:01 PM INDICATION: Patient age:Male; 65 years old; Reason for study: constipation, hematuria; COMPARISON: None. TECHNIQUE: One radiographic view of the abdomen was obtained. FINDINGS: The bowel gas pattern is nonspecific without dilated loops of small or large bowel. There i s a large stool burden throughout the colon. There is no evidence for organomegaly or pneumoperitoneu m. The osseous structures are intact. No abnormal calcifications are present. Fecal material and ga s are demonstrated throughout the colon and rectum. Right proximal femur remote injury suggested. De generative changes of the hips and multilevel degenerative changes of the spine. IMPRESSION: Large stool burden throughout the colon with a nonspecific bowel gas pattern without radiographic ted dence for acute process.
[2021-06-12 20:09] LABS: Appearance,Urine Bloody (Clear); Color,Urine Red; RBC,Urine >182 /hpf (0-5); WBC,Urine >182 /hpf (0-5)
[2021-06-12] MEDS ORDERED: SODIUM CHLORIDE 0.9% IRRIGATIO 3,000 ML IRRIGATION ONE (21:40)
[2021-06-12] MEDS ORDERED: ONDANSETRON 4 MG/2 ML VIAL IVP PRN (22:58)
[2021-06-12] MEDS ORDERED: NALOXONE 0.4 MG/ML 1 ML VIAL IV PRN (22:58)
--- NOTE | 2021-06-12 23:13 | CT ---
EXAMINATION TYPE: CT abdomen pelvis wo con DATE OF EXAM: 06/12/2021 COMPARISON: 07/05/2018 HISTORY: Hematuria CT DLP: 2616.4 mGycm Automated exposure control for dose reduction was used. Images obtained from the diaphragm to the floor the pelvis without contrast. There is some mild pleural thickening and atelectasis right lung base. Heart size is normal. There is no pericardial effusion. Liver spleen stomach pancreas appear intact. There are small calcified gallstones. The bile ducts are not dilated. There is no adrenal mass. Kidneys have normal size. There is no hydronephrosis. There are small bilat eral renal calculi to 3 mm. No evidence of a renal mass. There is no retroperitoneal adenopathy. Uret ers are not dilated. There is some air in the urinary bladder consistent with catheterization. There is no inguinal hernia. No free fluid in the pelvis. There is apparent calcification in the posterior urethra measuring 1 cm. There is deformity of the proximal right femur related to old intertrochanter ic fracture. There is multilevel lumbar spondylotic changes. No compression fracture. There is no ascites or free air. No mesenteric edema. No evidence of a bowel obstruction. Appendix is anterior and appears normal. IMPRESSION: Nonobstructing small renal calculi. Large calculus apparently in the posterior urethra. This calculus apparently has migrated from the base of the urinary bladder compared to old exam. Old right femoral fracture.
[2021-06-13] MEDS: OXYBUTYNIN CHLORIDE 5 MG TAB PO SCH ×3 (01:40→20:05)
[2021-06-13] MEDS: oxyCODONE-APAP 10-325MG 1 EACH TAB PO SCH ×2 (02:24→13:57)
[2021-06-13 06:47] LABS: Anisocytosis Slight; Basophils % (A) 0 %; Eosinophils # (A) 0.2 k/uL (0-0.7); Eosinophils % (A) 1 %; HCT 43.6 % (39.0-53.0); HGB 13.2 gm/dL (13.0-17.5); Hypochromasia Marked; Lymphocytes % (A) 14 %; MCH 26.4 pg (25.0-35.0); MCHC 30.3 g/dL (31.0-37.0); MCV 87.1 fL (80.0-100.0); Mean Platelet Volume 7.1; Monocytes # (A) 0.7 k/uL (0-1.0); Monocytes % (A) 5 %; Neutrophils # (A) 11.1 k/uL (1.3-7.7); Neutrophils % (A) 78 %; Platelet Count 252 k/uL (150-450); RBC 5.01 m/uL (4.30-5.90); RDW 17.8 % (11.5-15.5); WBC 14.1 k/uL (3.8-10.6)
[2021-06-13 06:50] LABS: INR 1.8 (<1.2)
[2021-06-13 07:13] LABS: African American GFR (CKD) >90 (>60 ml/min/1.73 sqM); Anion Gap 8 mmol/L; Blood Urea Nitrogen 16 mg/dL (9-20); Calcium 8.7 mg/dL (8.4-10.2); Carbon Dioxide 24 mmol/L (22-30); Chloride 104 mmol/L (98-107); Glucose 80 mg/dL (74-99); Non-African American GFR(CKD) 87 (>60 ml/min/1.73 sqM); Potassium 4.1 mmol/L (3.5-5.1); Sodium 136 mmol/L (137-145)
[2021-06-13] MEDS: FUROSEMIDE 20 MG TAB PO SCH ×2 (08:53→15:40)
[2021-06-13] MEDS: PREGABALIN 75 MG CAP PO SCH ×3 (08:53→22:53)
[2021-06-13] MEDS: PANTOPRAZOLE 40 MG TABLET PO SCH (08:54)
[2021-06-13] MEDS: FLUDROCORTISONE 0.1 MG TAB PO SCH (08:54)
[2021-06-13] MEDS: amLODIPine 5 MG TAB PO SCH ×2 (08:54→20:05)
[2021-06-13] MEDS: NON FORMULARY DRUG (Methenamine Hippurate [Methenamine Hippurate] 1 GM Tablet) PO SCH ×2 (09:01→22:53)
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
[2021-06-13] MEDS ORDERED: NON FORMULARY DRUG (Warfarin Sodium [Warfarin Sodium] 4 MG Tablet) PO SCH (14:00)
[2021-06-13] MEDS ORDERED: oxyCODONE-APAP 10-325MG 1 EACH TAB PO SCH (16:00)
[2021-06-13] MEDS ORDERED: WARFARIN 2 MG TAB PO ONE (18:00)
[2021-06-13] MEDS: ACETAMINOPHEN TAB 325 MG TAB PO PRN (18:58)
[2021-06-13] MEDS: PRIMIDONE 50 MG TAB PO SCH (20:05)
[2021-06-13] MEDS: DULoxetine HCL 30 MG CAPSULE.DR PO SCH (20:05)
[2021-06-13] MEDS: TOPIRAMATE 25 MG TAB PO SCH (20:05)
[2021-06-13] MEDS: ZOLPIDEM 5 MG TAB PO SCH (22:53)
[2021-06-13] MEDS: traZODone HCL 50 MG TAB PO SCH (22:53)
[2021-06-13] MEDS: MELATONIN 5 MG TABLET PO SCH (22:53)
[2021-06-14] MEDS: ACETAMINOPHEN TAB 325 MG TAB PO PRN (01:41)
[2021-06-14 06:22] LABS: INR 1.6 (<1.2); Prothrombin Time 16.8 sec (9.0-12.0)
[2021-06-14] MEDS: amLODIPine 5 MG TAB PO SCH ×2 (08:01→21:38)
[2021-06-14] MEDS: PANTOPRAZOLE 40 MG TABLET PO SCH (08:01)
[2021-06-14] MEDS: OXYBUTYNIN CHLORIDE 5 MG TAB PO SCH ×2 (08:01→21:38)
[2021-06-14] MEDS: PREGABALIN 75 MG CAP PO SCH ×3 (08:01→21:38)
[2021-06-14] MEDS: FLUDROCORTISONE 0.1 MG TAB PO SCH (08:01)
[2021-06-14] MEDS: FUROSEMIDE 20 MG TAB PO SCH ×2 (08:01→17:01)
[2021-06-14] MEDS: NON FORMULARY DRUG (Methenamine Hippurate [Methenamine Hippurate] 1 GM Tablet) PO SCH ×2 (08:05→22:39)
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
[2021-06-14] MEDS: CEFEPIME 2 GM in SODIUM CHLORIDE 0.9% 100 ML IVPB SCH ×3 (08:57→23:24)
[2021-06-14 09:08] LABS: Basophils # (A) 0.06 X 10*3/uL (0.00-0.10); Basophils % (A) 0.5 %; Eosinophils # (A) 0.13 X 10*3/uL (0.04-0.35); HCT 41.9 % (39.6-50.0); HGB 12.7 g/dL (13.0-17.0); Immature Grans, Automated 1.2 %; Lymphocytes # (A) 2.95 X 10*3/uL (0.90-5.00); MCH 25.8 pg (27.0-32.0); MCHC 30.3 g/dL (32.0-37.0); MCV 85.2 fL (80.0-97.0); Mean Platelet Volume 10.1 fL (9.5-12.2); Monocytes # (A) 1.27 X 10*3/uL (0.20-1.00); Monocytes % (A) 9.9 %; NRBC Per 100 WBC 0 /100 WBCS (0.0-0.0); Neutrophils # (A) 8.27 X 10*3/uL (1.80-7.70); Neutrophils % (A) 64.4 %; Platelet Count 247 X 10*3/uL (140-440); RBC 4.92 X 10*6/uL (4.40-5.60); RDW 19.9 % (11.5-14.5); WBC 12.84 X 10*3/uL (4.50-10.00)
[2021-06-14 09:30] LABS: African American GFR (CKD) 92.5 (60.0-200.0); Anion Gap 8.8 mmol/L (10.00-18.00); BUN/Creat Ratio 14.51 Ratio (12.00-20.00); Blood Urea Nitrogen 14.5 mg/dL (9.0-27.0); Carbon Dioxide 25.4 mmol/L (20.0-27.5); Magnesium 2.2 mg/dL (1.5-2.4); Non-African American GFR(CKD) 79.8 (60.0-200.0); Potassium 4.5 mmol/L (3.5-5.5)
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
[2021-06-14] MEDS: oxyCODONE-APAP 7.5-325MG 1 EACH TAB PO PRN (17:39)
[2021-06-14] MEDS ORDERED: WARFARIN 5 MG TAB PO ONE (18:00)
[2021-06-14] MEDS: TOPIRAMATE 25 MG TAB PO SCH (21:38)
[2021-06-14] MEDS: PRIMIDONE 50 MG TAB PO SCH (21:38)
[2021-06-14] MEDS: DULoxetine HCL 30 MG CAPSULE.DR PO SCH (21:38)
[2021-06-14] MEDS: MELATONIN 5 MG TABLET PO SCH (21:38)
[2021-06-14] MEDS: ZOLPIDEM 5 MG TAB PO SCH (21:40)
[2021-06-14] MEDS: traZODone HCL 50 MG TAB PO SCH (21:40)
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
[2021-06-15 04:32] LABS: INR 1.7 (<1.2); Prothrombin Time 17.6 sec (9.0-12.0)
[2021-06-15] MEDS: NON FORMULARY DRUG (Methenamine Hippurate [Methenamine Hippurate] 1 GM Tablet) PO SCH ×2 (07:52→20:15)
[2021-06-15] MEDS: PREGABALIN 75 MG CAP PO SCH ×3 (07:56→23:54)
[2021-06-15] MEDS: FLUDROCORTISONE 0.1 MG TAB PO SCH (07:57)
[2021-06-15] MEDS: FUROSEMIDE 20 MG TAB PO SCH ×2 (07:57→15:31)
[2021-06-15] MEDS: PANTOPRAZOLE 40 MG TABLET PO SCH (07:57)
[2021-06-15] MEDS: oxyCODONE-APAP 7.5-325MG 1 EACH TAB PO PRN (07:57)
[2021-06-15] MEDS: amLODIPine 5 MG TAB PO SCH ×2 (07:57→20:14)
[2021-06-15] MEDS: OXYBUTYNIN CHLORIDE 5 MG TAB PO SCH ×2 (07:57→20:13)
[2021-06-15] MEDS: CEFEPIME 2 GM in SODIUM CHLORIDE 0.9% 100 ML IVPB SCH ×3 (07:58→23:54)
[2021-06-15 09:04] LABS: Basophils # (A) 0.05 X 10*3/uL (0.00-0.10); Basophils % (A) 0.4 %; Eosinophils # (A) 0.34 X 10*3/uL (0.04-0.35); Eosinophils % (A) 2.6 %; HCT 41.6 % (39.6-50.0); HGB 12.3 g/dL (13.0-17.0); Immature Grans, Automated 1.3 %; Lymphocytes # (A) 2.83 X 10*3/uL (0.90-5.00); MCH 25.7 pg (27.0-32.0); MCHC 29.6 g/dL (32.0-37.0); Mean Platelet Volume 9.9 fL (9.5-12.2); Monocytes # (A) 0.97 X 10*3/uL (0.20-1.00); Monocytes % (A) 7.5 %; NRBC Per 100 WBC 0 /100 WBCS (0.0-0.0); Neutrophils # (A) 8.52 X 10*3/uL (1.80-7.70); Neutrophils % (A) 66.2 %; Platelet Count 237 X 10*3/uL (140-440); RBC 4.78 X 10*6/uL (4.40-5.60); RDW 19.9 % (11.5-14.5); WBC 12.88 X 10*3/uL (4.50-10.00)
[2021-06-15] MEDS ORDERED: WARFARIN 5 MG TAB PO ONE (18:00)
[2021-06-15] MEDS: MELATONIN 5 MG TABLET PO SCH (20:13)
[2021-06-15] MEDS: traZODone HCL 50 MG TAB PO SCH (20:13)
[2021-06-15] MEDS: PRIMIDONE 50 MG TAB PO SCH (20:14)
[2021-06-15] MEDS: DULoxetine HCL 30 MG CAPSULE.DR PO SCH (20:14)
[2021-06-15] MEDS: TOPIRAMATE 25 MG TAB PO SCH (20:14)
[2021-06-15] MEDS: ZOLPIDEM 5 MG TAB PO SCH (20:14)
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
[2021-06-16 06:30] LABS: INR 2.1 (<1.2); Prothrombin Time 20.8 sec (9.0-12.0)
[2021-06-16] MEDS: NON FORMULARY DRUG (Methenamine Hippurate [Methenamine Hippurate] 1 GM Tablet) PO SCH ×2 (06:36→23:27)
[2021-06-16] MEDS: FLUDROCORTISONE 0.1 MG TAB PO SCH (08:01)
[2021-06-16] MEDS: FUROSEMIDE 20 MG TAB PO SCH ×2 (08:01→15:39)
[2021-06-16] MEDS: PANTOPRAZOLE 40 MG TABLET PO SCH (08:01)
[2021-06-16] MEDS: amLODIPine 5 MG TAB PO SCH ×2 (08:01→22:56)
[2021-06-16] MEDS: OXYBUTYNIN CHLORIDE 5 MG TAB PO SCH ×2 (08:02→22:55)
[2021-06-16] MEDS: PREGABALIN 75 MG CAP PO SCH ×3 (08:02→22:55)
[2021-06-16] MEDS: CEFEPIME 2 GM in SODIUM CHLORIDE 0.9% 100 ML IVPB SCH ×3 (08:05→23:00)
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
[2021-06-16] MEDS ORDERED: WARFARIN 5 MG TAB PO SCH (18:00)
[2021-06-16] MEDS: oxyCODONE-APAP 7.5-325MG 1 EACH TAB PO PRN (20:44)
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
[2021-06-16 22:27] VITALS: RESP 16
[2021-06-16] MEDS: traZODone HCL 50 MG TAB PO SCH (22:55)
[2021-06-16] MEDS: PRIMIDONE 50 MG TAB PO SCH (22:55)
[2021-06-16] MEDS: MELATONIN 5 MG TABLET PO SCH (22:55)
[2021-06-16] MEDS: ZOLPIDEM 5 MG TAB PO SCH (22:56)
[2021-06-16] MEDS: TOPIRAMATE 25 MG TAB PO SCH (22:56)
[2021-06-16] MEDS: DULoxetine HCL 30 MG CAPSULE.DR PO SCH (22:56)
[2021-06-17 07:20] LABS: INR 2.1 (<1.2); Prothrombin Time 20.7 sec (9.0-12.0)
[2021-06-17 07:51] VITALS: TEMP 98
[2021-06-17] MEDS: amLODIPine 5 MG TAB PO SCH (08:36)
[2021-06-17] MEDS: PANTOPRAZOLE 40 MG TABLET PO SCH (08:36)
[2021-06-17] MEDS: FUROSEMIDE 20 MG TAB PO SCH ×2 (08:36→15:04)
[2021-06-17] MEDS: PREGABALIN 75 MG CAP PO SCH ×2 (08:36→15:04)
[2021-06-17] MEDS: OXYBUTYNIN CHLORIDE 5 MG TAB PO SCH (08:36)
[2021-06-17] MEDS: CEFEPIME 2 GM in SODIUM CHLORIDE 0.9% 100 ML IVPB SCH ×2 (08:37→15:04)
[2021-06-17] MEDS: FLUDROCORTISONE 0.1 MG TAB PO SCH (08:37)
[2021-06-17] MEDS: NON FORMULARY DRUG (Methenamine Hippurate [Methenamine Hippurate] 1 GM Tablet) PO SCH (08:38)
[2021-06-17 09:16] LABS: Basophils # (A) 0.08 X 10*3/uL (0.00-0.10); Basophils % (A) 0.8 %; Eosinophils # (A) 0.33 X 10*3/uL (0.04-0.35); Eosinophils % (A) 3.3 %; HCT 43.3 % (39.6-50.0); HGB 12.8 g/dL (13.0-17.0); Immature Grans, Automated 2.1 %; Lymphocytes # (A) 3.57 X 10*3/uL (0.90-5.00); Lymphocytes % (A) 35.7 %; MCH 25.4 pg (27.0-32.0); MCHC 29.6 g/dL (32.0-37.0); MCV 85.9 fL (80.0-97.0); Mean Platelet Volume 10.3 fL (9.5-12.2); Monocytes # (A) 0.75 X 10*3/uL (0.20-1.00); Monocytes % (A) 7.5 %; NRBC Per 100 WBC 0 /100 WBCS (0.0-0.0); Neutrophils # (A) 5.05 X 10*3/uL (1.80-7.70); Neutrophils % (A) 50.6 %; Platelet Count 291 X 10*3/uL (140-440); RBC 5.04 X 10*6/uL (4.40-5.60); RDW 20.1 % (11.5-14.5); WBC 9.99 X 10*3/uL (4.50-10.00)
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
--- NOTE | 2021-06-17 12:06 | P.PN ---
Progress Note - Text Progress Note Date: 06/17/21 Mr. Linton's Rodriguez catheter is intact and draining clear urine. He does report minimal urethral bleeding around the catheter. Our plan is for him to be discharged home with the Rodriguez catheter. Dr. Cuevas is making arrangements to perform outpatient removal of the urethral calculus. Please notify me if we can be of any further assistance.
[2021-06-17 13:38] LABS: African American GFR (CKD) 108.4 (60.0-200.0); Albumin 3.8 g/dL (3.8-4.9); Albumin/Globulin Ratio 1.26 (1.60-3.17); Anion Gap 16.7 mmol/L (10.00-18.00); BUN/Creat Ratio 19.11 Ratio (12.00-20.00); Blood Urea Nitrogen 15.9 mg/dL (9.0-27.0); Calcium 9.1 mg/dL (8.7-10.3); Carbon Dioxide 17.6 mmol/L (20.0-27.5); Non-African American GFR(CKD) 93.6 (60.0-200.0); Potassium 4.6 mmol/L (3.5-5.5); Total Bilirubin 0.5 mg/dL (0.30-1.20); Total Protein 6.8 g/dL (6.2-8.2)
[2021-06-17 14:56] VITALS: BP 105/70; PULSE 71
--- NOTE | 2021-06-18 12:01 | CDI ---
Documentation Clarification Form Date: 06/18/2021 11:43:00 AM From: Maki Beard Admit Date: 06/13/2021 12:38:00 AM Patient Name: Dioni Linton Visit Number: [id number] Discharge Date: 06/17/2021 05:27:00 PM ATTENTION: The Clinical Documentation Specialists (CDI) and [facility] Coding Staff appreciate your assistance in clarifying documentation. Please respond to the clarification below the line at the bottom and electronically sign. The CDI & [facility] Coding staff will review the response and follow-up if needed. Please note: Queries are made part of the Legal Health Record. If you have any questions, please contact the author of this message via ITS. Dr. Chandana Roger Catheter associated UTI is documented by ID in PN 06/14, 06/15, 06/16. The patient has a chronic indwelling shirley catheter, however; documentation also states gross hematuria more likely related to stone that seems to have mirgrated to the urethra. Additional clarification regarding the etiology of the UTI is requested. History/Risk Factors: patient has gross hematuria, chronic indwelling shirley catheter, neurogenic bladder, quadraplegic, urinary retention, kidney stone, urethral stone Clinical Indicators: Urine culture: E-Coli, multi drug resistance Treatment: IV antibiotics, ID consult, 3 way catheter continuous bladder irrigation Please clarify the etiology of the UTI, if known: [ X] Shirley catheter [ ] UTI not related to catheter [ ] Other condition, please specify [ ] Unable to determine MTDD
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
[2021-06-24] MEDS ORDERED: TESTOSTERONE CYPIONATE 200 MG/ML 1ML VIAL IM SCH (09:00)
== END 2021-06-17 17:27 | disposition home health service (06) ==
LOC: EC 18:39 → INTOOBSV 06-13 00:38 → 4SSUR 06-13 00:38 → UNDODISIN 06-17 17:27
PROVIDERS: ADMIT Family Medicine; ATTEND Family Medicine
PROC: 05HF33Z Insertion of Infusion Device into Left Cephalic Vein, Percutaneous Approach (ICD-10-PCS; principal; 2021-06-15 07:30)
DX: T83.511A Infection and inflammatory reaction due to indwelling urethral catheter, initial encounter (principal); G82.50 Quadriplegia, unspecified; E27.40 Unspecified adrenocortical insufficiency; N39.0 Urinary tract infection, site not specified; K56.41 Fecal impaction; R31.0 Gross hematuria; N21.1 Calculus in urethra; N20.0 Calculus of kidney; N31.9 Neuromuscular dysfunction of bladder, unspecified; I10 Essential (primary) hypertension; M79.7 Fibromyalgia; G43.909 Migraine, unspecified, not intractable, without status migrainosus; F32.A Depression, unspecified; K21.9 Gastro-esophageal reflux disease without esophagitis; M79.89 Other specified soft tissue disorders; G89.29 Other chronic pain; J98.6 Disorders of diaphragm; R07.9 Chest pain, unspecified; G47.00 Insomnia, unspecified; R33.9 Retention of urine, unspecified; Z90.89 Acquired absence of other organs; Y84.6 Urinary catheterization as the cause of abnormal reaction of the patient, or of later complication, without mention of misadventure at the time of the procedure; S14.109S Unspecified injury at unspecified level of cervical spinal cord, sequela; V29.9XXS Motorcycle rider (driver) (passenger) injured in unspecified traffic accident, sequela; B96.20 Unspecified Escherichia coli [E. coli] as the cause of diseases classified elsewhere; Z87.440 Personal history of urinary (tract) infections; Z16.24 Resistance to multiple antibiotics; Z79.899 Other long term (current) drug therapy; Z79.891 Long term (current) use of opiate analgesic; Z79.01 Long term (current) use of anticoagulants; Z79.52 Long term (current) use of systemic steroids; Z86.718 Personal history of other venous thrombosis and embolism; Z87.891 Personal history of nicotine dependence; Z86.711 Personal history of pulmonary embolism; Z86.14 Personal history of Methicillin resistant Staphylococcus aureus infection; Z86.19 Personal history of other infectious and parasitic diseases; Z80.3 Family history of malignant neoplasm of breast; Z80.1 Family history of malignant neoplasm of trachea, bronchus and lung; Z84.1 Family history of disorders of kidney and ureter
CPT/HCPCS: 96365; 96366 ×4; 99285; 51702; 36415; 36410; 76937; 80053; 80048 ×3; 83735; 85025 ×5; 85610 ×6; 85730; 81001; 87086; 87077; 87186; 74018; 74176; G0378 ×5; C1751; J0692 ×4

== ENCOUNTER → 2021-07-06 | Outpatient (CLI) | payer MEDICARE, OTHER | END | disposition home or self-care (01) | LOC: LABPAT 11:21 | PROVIDERS: ATTEND Urology | DX: Z53.9 Procedure and treatment not carried out, unspecified reason (principal) ==

== ENCOUNTER 2022-01-12 11:42 | Inpatient (IN) | payer MEDICARE, OTHER ==
[2022-01-12] MEDS ORDERED: SODIUM CHLORIDE 0.9% 1,000 ML IV ONE (11:46)
[2022-01-12] MEDS ORDERED: SODIUM CHLORIDE 0.9% 1,000 ML IV STA ×2 (11:47→13:54)
[2022-01-12 12:44] LABS: Appearance,Urine Turbid (Clear); Bacteria,Urine Moderate /hpf; Bilirubin,Urine Negative (Negative); Blood,Urine Large (Negative); Color,Urine Yellow; Glucose,Urine (UA) Negative (Negative); Ketones,Urine Trace (Negative); Leukocyte Esterase,Urine Large (Negative); Mucus,Urine Few /hpf; Nitrite,Urine Positive (Negative); Protein,Urine 2+ (Negative); RBC,Urine >182 /hpf (0-5); Squamous Epithelial Cell,Urine 6 /hpf (0-4); Urobilinogen,Urine <2.0 mg/dL (<2.0); WBC,Urine >182 /hpf (0-5)
[2022-01-12 12:45] LABS: Lactic Acid, Venous 1.8 mmol/L (0.7-2.0)
[2022-01-12 12:47] LABS: ALT 16 U/L (4-49); AST 19 U/L (17-59); African American GFR (CKD) 55 (>60 ml/min/1.73 sqM); Albumin 4.3 g/dL (3.5-5.0); Alcohol <10 mg/dL; Alkaline Phosphatase 143 U/L (38-126); Anion Gap 10 mmol/L; Anisocytosis Slight; Basophils % (A) 0 %; Blood Urea Nitrogen 23 mg/dL (9-20); Calcium 8.9 mg/dL (8.4-10.2); Carbon Dioxide 24 mmol/L (22-30); Chloride 101 mmol/L (98-107); Eosinophils # (A) 0.1 k/uL (0-0.7); Eosinophils % (A) 1 %; Glucose 99 mg/dL (74-99); HCT 50.9 % (39.0-53.0); HGB 15.6 gm/dL (13.0-17.5); Hypochromasia Moderate; Lymphocytes # (A) 2.4 k/uL (1.0-4.8); Lymphocytes % (A) 17 %; MCH 25.4 pg (25.0-35.0); MCHC 30.6 g/dL (31.0-37.0); Mean Platelet Volume 8.3; Microcytosis Slight; Monocytes # (A) 0.7 k/uL (0-1.0); Monocytes % (A) 5 %; Neutrophils # (A) 10.7 k/uL (1.3-7.7); Neutrophils % (A) 75 %; Non-African American GFR(CKD) 47 (>60 ml/min/1.73 sqM); Platelet Count 334 k/uL (150-450); Potassium 4.5 mmol/L (3.5-5.1); RBC 6.13 m/uL (4.30-5.90); Sodium 135 mmol/L (137-145); Total Bilirubin 1.2 mg/dL (0.2-1.3); Total Protein 7.2 g/dL (6.3-8.2); WBC 14.2 k/uL (3.8-10.6)
[2022-01-12 12:49] LABS: INR 2.5 (<1.2); Partial Thromboplastin Time 36.5 sec (22.0-30.0); Prothrombin Time 24.6 sec (9.0-12.0)
[2022-01-12 12:51] LABS: Amphetamine Screen,Urine Not Detected (NotDetected); Barbiturate Screen,Urine Detected (NotDetected); Benzodiazepines Screen,Urine Detected (NotDetected); Cocaine Screen,Urine Not Detected (NotDetected); Methadone Screen, Urine Not Detected (NotDetected); Opiate Screen,Urine Not Detected (NotDetected); Oxycodone Screen, Urine Detected (NotDetected); Phencyclidine Screen,Urine Not Detected (NotDetected); Tricyclic Antidepressant,Urine Not Detected (NotDetected); Urn Cannabinoid Scrn Detected (NotDetected)
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
--- NOTE | 2022-01-12 13:15 | CT ---
EXAMINATION TYPE: CT brain wo con CT DLP: 1182.4 mGycm, Automated exposure control for dose reduction was used. DATE OF EXAM: 01/12/2022 1:06 PM COMPARISON: CT brain 02/15/2021. CLINICAL INDICATION:Male, 66 years old with history of Altered mental status, uti, AMS TECHNIQUE: Brain: Axial CT images of the brain were obtained with coronal and sagittal reformats created and rev iewed. Contrast used: None. Oral contrast used: None. FINDINGS: Brain: Extra-axial spaces: No abnormal extra-axial fluid collections. Ventricular system: Within normal limits Cerebral parenchyma: No acute intraparenchymal hemorrhage or mass effect. The hill-white junction is well differentiated. Cerebellum: Unremarkable. Mass effect: No evidence of midline shift. Intracranial vasculature: Atherosclerotic calcifications of the intracranial vessels. Soft tissues: Normal. Calvarium/osseous structures: No depressed skull fracture. Paranasal sinuses and mastoid air cells: Mild scattered paranasal sinus disease. Visualized orbits: Orbital contents are intact. IMPRESSION: No acute intracranial process.
[2022-01-12] MEDS ORDERED: VANCOMYCIN IV PER PHARMACY 1 EACH MISC MISCELLANE PRN (13:16)
[2022-01-12] MEDS ORDERED: VANCOMYCIN 2,250 MG in SODIUM CHLORIDE 0.9% 500 ML 500 ML IVPB STA (13:23)
--- NOTE | 2022-01-12 13:48 | XR ---
EXAMINATION TYPE: XR chest 2V DATE OF EXAM: 01/12/2022 1:15 PM COMPARISON: Chest radiographs from 02/15/2021 TECHNIQUE: XR chest 2V Frontal and lateral views of the chest. CLINICAL INDICATION:Male, 66 years old with history of altered mental status; FINDINGS: Lungs/Pleura: There is no evidence of pleural effusion, focal consolidation, or pneumothorax. Pulmonary vascularity: Unremarkable. Heart/mediastinum: Cardiomediastinal silhouette is unremarkable. Musculoskeletal: No acute osseous pathology. Right clavicular fixation hardware. Lower cervical Fixation hardware. Hardware appears intact. IMPRESSION: Low lung volumes without acute cardiopulmonary disease/process.
[2022-01-12] MEDS ORDERED: ASPIRIN 81 MG PO STA (13:59)
[2022-01-12] MEDS ORDERED: CEFEPIME 2 GM in SODIUM CHLORIDE 0.9% 100 ML IVPB SCH (14:00)
[2022-01-12] MEDS ORDERED: NALOXONE 0.4 MG/ML 1 ML VIAL IV PRN (14:00)
[2022-01-12] MEDS ORDERED: SODIUM CHLORIDE 0.9% 500 ML 500 ML IV ONE (20:35)
[2022-01-12] MEDS: WARFARIN 2 MG TAB PO SCH ×2 (20:40→20:51)
[2022-01-12] MEDS: CEFEPIME 2 GM in SODIUM CHLORIDE 0.9% 100 ML IVPB SCH (20:41)
[2022-01-12] MEDS: oxyCODONE-APAP 10-325MG 1 EACH TAB PO PRN (20:54)
[2022-01-13] MEDS: FUROSEMIDE 20 MG TAB PO SCH ×2 (00:08→09:44)
[2022-01-13] MEDS: CEFEPIME 2 GM in SODIUM CHLORIDE 0.9% 100 ML IVPB SCH ×3 (03:57→22:31)
[2022-01-13] MEDS: amLODIPine 5 MG TAB PO SCH ×3 (04:02→21:08)
[2022-01-13] MEDS ORDERED: VANCOMYCIN 2,250 MG in SODIUM CHLORIDE 0.9% 500 ML 500 ML IVPB SCH (08:00)
[2022-01-13 08:04] LABS: Anisocytosis Slight; Basophils # (A) 0.1 k/uL (0-0.2); Basophils % (A) 1 %; Eosinophils # (A) 0.3 k/uL (0-0.7); Eosinophils % (A) 2 %; HCT 42.7 % (39.0-53.0); HGB 12.9 gm/dL (13.0-17.5); Hypochromasia Marked; Lymphocytes # (A) 2.2 k/uL (1.0-4.8); Lymphocytes % (A) 18 %; MCH 25.7 pg (25.0-35.0); MCHC 30.1 g/dL (31.0-37.0); MCV 85.2 fL (80.0-100.0); Mean Platelet Volume 8.3; Monocytes # (A) 0.7 k/uL (0-1.0); Monocytes % (A) 6 %; Neutrophils # (A) 8.3 k/uL (1.3-7.7); Neutrophils % (A) 70 %; Platelet Count 285 k/uL (150-450); RBC 5.01 m/uL (4.30-5.90); RDW 18.1 % (11.5-15.5); WBC 11.8 k/uL (3.8-10.6)
[2022-01-13 08:10] LABS: Calcium 7.9 mg/dL (8.4-10.2); Potassium 4.2 mmol/L (3.5-5.1)
[2022-01-13 08:23] LABS: INR 2.8 (<1.2); Prothrombin Time 27.9 sec (9.0-12.0)
[2022-01-13] MEDS: OXYBUTYNIN CHLORIDE 5 MG TAB PO SCH ×2 (09:44→21:14)
[2022-01-13] MEDS: PANTOPRAZOLE 40 MG TABLET PO SCH (09:44)
[2022-01-13] MEDS: FLUDROCORTISONE 0.1 MG TAB PO SCH (09:44)
[2022-01-13] MEDS: PREGABALIN 75 MG CAP PO SCH ×3 (09:44→21:14)
[2022-01-13] MEDS: oxyCODONE-APAP 10-325MG 1 EACH TAB PO PRN (12:36)
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
[2022-01-13] MEDS ORDERED: WARFARIN 3 MG TAB PO ONE (18:00)
[2022-01-13] MEDS ORDERED: NON FORMULARY DRUG (Warfarin Sodium [Warfarin Sodium] 4 MG Tablet) PO SCH (21:00)
[2022-01-13] MEDS ORDERED: SODIUM CHLORIDE 0.9% 500 ML 500 ML IV ONE (21:01)
[2022-01-13] MEDS: MELATONIN 5 MG TABLET PO SCH (21:14)
[2022-01-13] MEDS: DULoxetine HCL 30 MG CAPSULE.DR PO SCH (21:14)
[2022-01-13] MEDS: PRIMIDONE 50 MG TAB PO SCH (21:14)
[2022-01-13] MEDS: TOPIRAMATE 25 MG TAB PO SCH (21:14)
[2022-01-13] MEDS: ACETAMINOPHEN TAB 325 MG TAB PO PRN (21:15)
[2022-01-13] MEDS: traZODone HCL 100 MG TAB PO SCH (21:16)
[2022-01-13] MEDS: DEXTROSE 5%-0.45% NACL 1,000 ML IV SCH (22:31)
[2022-01-14] MEDS ORDERED: VANCOMYCIN 2,250 MG in SODIUM CHLORIDE 0.9% 500 ML 500 ML IVPB SCH ×2
[2022-01-14] MEDS: FUROSEMIDE 20 MG TAB PO SCH ×3 (00:43→21:19)
[2022-01-14] MEDS: CEFEPIME 2 GM in SODIUM CHLORIDE 0.9% 100 ML IVPB SCH ×3 (06:10→21:56)
[2022-01-14] MEDS: PANTOPRAZOLE 40 MG TABLET PO SCH (06:11)
[2022-01-14] MEDS: DEXTROSE 5%-0.45% NACL 1,000 ML IV SCH (06:11)
[2022-01-14 07:42] LABS: Prothrombin Time 20.3 sec (9.0-12.0)
[2022-01-14 08:03] LABS: African American GFR (CKD) >90 (>60 ml/min/1.73 sqM); Non-African American GFR(CKD) 88 (>60 ml/min/1.73 sqM)
[2022-01-14] MEDS: amLODIPine 5 MG TAB PO SCH ×2 (09:50→23:51)
[2022-01-14] MEDS: FLUDROCORTISONE 0.1 MG TAB PO SCH (09:50)
[2022-01-14] MEDS: OXYBUTYNIN CHLORIDE 5 MG TAB PO SCH ×2 (09:50→21:19)
[2022-01-14] MEDS: PREGABALIN 75 MG CAP PO SCH ×3 (09:50→21:20)
--- NOTE | 2022-01-14 10:10 | CDI ---
Documentation Clarification Form Date: 01/14/2022 09:09:06 AM From: Mera Mcgraw RN CCDS Admit Date: 01/12/2022 02:09:00 PM Patient Name: Dioni Linton Visit Number: [id number] Discharge Date: ATTENTION: The Clinical Documentation Specialists (CDI) and [facility] Coding Staff appreciate your assistance in clarifying documentation. Please respond to the clarification below the line at the bottom and electronically sign. The CDI & [facility] Coding staff will review the response and follow-up if needed. Please note: Queries are made part of the Legal Health Record. If you have any questions, please contact the author of this message via ITS. Dr. Chandana Roger Sepsis is documented H&P, 01/12 but is not noted in subsequent documentation. Clarification is requested. History/Risk Factors: 66-year-old male presents to the ED with increased lethargy. Medical History: Chronic shirley catheter, neurogenic bladder and Quadriplegia. H&P, 01/13. Clinical Indicators: VSS: 01/12 B/P 91/79; HR 60; Temp 98.8 F Oral; RR 20; SpO2 98% RA Urine culture: 01/12 Gram Neg Bacilli LABS: 01/12 Wbc 14.2; Neutrophils 10.7 Treatment: 01/12 0.9NS 2L Bolus; 01/12 0.9NS 500cc Bolus x 1; 01/13 0.9NS 500cc Bolus x 1; 01/12 Vancomycin IVPB x 1; 01/13 01/13 Vancomycin Q24H; 01/14 Vancomycin IVPB Q16H Please clarify if the Sepsis is: [ ] Sepsis, remains under treatment [ ] Sepsis confirmed, resolved [ ] Sepsis ruled out [ ] Other condition, please specify [ ] Unable to determine Documented Sepsis ruled out 01/14 Medicine progress note Tonio FULTON, Dr Hamilton (Template Last Revised: May 2020) MTDD
--- NOTE | 2022-01-14 10:11 | CDI ---
Documentation Clarification Form Date: 01/14/2022 10:00:06 AM From: Mera Mcgraw RN CCDS Admit Date: 01/12/2022 02:09:00 PM Patient Name: Dioni Linton Visit Number: [id number] Discharge Date: ATTENTION: The Clinical Documentation Specialists (CDI) and [facility] Coding Staff appreciate your assistance in clarifying documentation. Please respond to the clarification below the line at the bottom and electronically sign. The CDI & [facility] Coding staff will review the response and follow-up if needed. Please note: Queries are made part of the Legal Health Record. If you have any questions, please contact the author of this message via ITS. Dr. Chandana Roger UTI is documented [insert date, location] and patient has [insert device shirley, SP, etc]. Additional clarification regarding the etiology of the UTI is requested. History/Risk Factors: 66-year-old male presents to the ED with increased lethargy. Medical History: Chronic shirley catheter, neurogenic bladder and Quadriplegia. H&P, 01/13. Clinical Indicators: Urinalysis: 01/12 Protein 2+; Ketones, Trace; Blood, Large; Leukocyte esterase, Large; RBC >182; WBC >182; Wbc Urine clumps, few; Bacteria, Moderate. Urine culture: 01/12 Gram Neg Bacilli H&P, 01/13: Shirley catheter was changed Tuesday per significant other. Treatment: 01/12 0.9NS 2L Bolus; 01/12 0.9NS 500cc Bolus x 1; 01/13 0.9NS 500cc Bolus x 1; 01/12 Vancomycin IVPB x 1; 01/13 01/13 Vancomycin Q24H; 01/14 Vancomycin IVPB Q16H Please clarify the etiology of the UTI, if known: [ ] Shirley catheter [ ] Other condition, please specify [ ] Unable to determine Documented Recurrent acute UTI, gram negative bacilli related to chronic Shirley catheter 01/14 Medicine progress note Tonio FULTON, Dr Hamilton (Template Last Revised: May 2020) MTDD
[2022-01-14 11:21] LABS: Anisocytosis Slight; HCT 40.8 % (39.0-53.0); HGB 12.5 gm/dL (13.0-17.5); Hypochromasia Marked; MCHC 30.5 g/dL (31.0-37.0); MCV 85.1 fL (80.0-100.0); Platelet Count 230 k/uL (150-450); RBC 4.79 m/uL (4.30-5.90); WBC 5.8 k/uL (3.8-10.6)
[2022-01-14 11:33] LABS: African American GFR (CKD) >90 (>60 ml/min/1.73 sqM); Anion Gap 5 mmol/L; Blood Urea Nitrogen 10 mg/dL (9-20); Carbon Dioxide 21 mmol/L (22-30); Chloride 110 mmol/L (98-107); Glucose 121 mg/dL (74-99); Non-African American GFR(CKD) >90 (>60 ml/min/1.73 sqM); Sodium 136 mmol/L (137-145)
[2022-01-14] MEDS: VANCOMYCIN 2,250 MG in SODIUM CHLORIDE 0.9% 500 ML 500 ML IVPB SCH ×2 (12:17→23:51)
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
[2022-01-14] MEDS: oxyCODONE-APAP 10-325MG 1 EACH TAB PO PRN (17:37)
[2022-01-14] MEDS ORDERED: WARFARIN 2 MG TAB PO ONE (18:00)
[2022-01-14] MEDS: traZODone HCL 100 MG TAB PO SCH (21:19)
[2022-01-14] MEDS: PRIMIDONE 50 MG TAB PO SCH (21:19)
[2022-01-14] MEDS: DULoxetine HCL 30 MG CAPSULE.DR PO SCH (21:19)
[2022-01-14] MEDS: TOPIRAMATE 25 MG TAB PO SCH (21:20)
[2022-01-14] MEDS: MELATONIN 5 MG TABLET PO SCH (21:20)
[2022-01-15] MEDS: CEFEPIME 2 GM in SODIUM CHLORIDE 0.9% 100 ML IVPB SCH ×3 (06:40→21:18)
[2022-01-15] MEDS: PANTOPRAZOLE 40 MG TABLET PO SCH (06:40)
[2022-01-15 08:04] LABS: African American GFR (CKD) >90 (>60 ml/min/1.73 sqM); Non-African American GFR(CKD) >90 (>60 ml/min/1.73 sqM)
[2022-01-15 08:08] LABS: INR 1.7 (<1.2); Prothrombin Time 17.3 sec (9.0-12.0)
[2022-01-15] MEDS: ACETAMINOPHEN TAB 325 MG TAB PO PRN (09:05)
[2022-01-15] MEDS: PREGABALIN 75 MG CAP PO SCH ×3 (09:05→20:08)
[2022-01-15] MEDS: FUROSEMIDE 20 MG TAB PO SCH ×2 (09:05→20:08)
[2022-01-15] MEDS: OXYBUTYNIN CHLORIDE 5 MG TAB PO SCH ×2 (09:05→20:08)
[2022-01-15] MEDS: amLODIPine 5 MG TAB PO SCH ×2 (09:05→20:08)
[2022-01-15] MEDS: FLUDROCORTISONE 0.1 MG TAB PO SCH (09:06)
[2022-01-15] MEDS: VANCOMYCIN 2,250 MG in SODIUM CHLORIDE 0.9% 500 ML 500 ML IVPB SCH (15:02)
[2022-01-15] MEDS: oxyCODONE-APAP 10-325MG 1 EACH TAB PO PRN (15:46)
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
[2022-01-15] MEDS ORDERED: WARFARIN 2 MG TAB PO ONE (18:00)
[2022-01-15] MEDS: MELATONIN 5 MG TABLET PO SCH (20:07)
[2022-01-15] MEDS: traZODone HCL 100 MG TAB PO SCH (20:07)
[2022-01-15] MEDS: PRIMIDONE 50 MG TAB PO SCH (20:08)
[2022-01-15] MEDS: TOPIRAMATE 25 MG TAB PO SCH (20:08)
[2022-01-15] MEDS: DULoxetine HCL 30 MG CAPSULE.DR PO SCH (20:08)
[2022-01-15] MEDS ORDERED: VANCOMYCIN TROUGH DUE 1 EACH MISC MISCELLANE ONE (23:00)
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
[2022-01-16] MEDS: PANTOPRAZOLE 40 MG TABLET PO SCH (06:05)
[2022-01-16] MEDS: CEFEPIME 2 GM in SODIUM CHLORIDE 0.9% 100 ML IVPB SCH ×3 (06:05→22:00)
[2022-01-16 08:39] LABS: Anisocytosis Slight; Basophils % (A) 1 %; Eosinophils # (A) 0.3 k/uL (0-0.7); Eosinophils % (A) 4 %; HCT 45.2 % (39.0-53.0); HGB 13.6 gm/dL (13.0-17.5); Hypochromasia Marked; Lymphocytes # (A) 1.7 k/uL (1.0-4.8); Lymphocytes % (A) 25 %; MCH 25.8 pg (25.0-35.0); MCV 86.1 fL (80.0-100.0); Mean Platelet Volume 7.7; Monocytes # (A) 0.4 k/uL (0-1.0); Monocytes % (A) 6 %; Neutrophils # (A) 4.2 k/uL (1.3-7.7); Neutrophils % (A) 62 %; Platelet Count 271 k/uL (150-450); RBC 5.25 m/uL (4.30-5.90); RDW 17.8 % (11.5-15.5); WBC 6.9 k/uL (3.8-10.6)
[2022-01-16 08:50] LABS: INR 1.6 (<1.2); Prothrombin Time 16.4 sec (9.0-12.0)
[2022-01-16 08:51] LABS: African American GFR (CKD) >90 (>60 ml/min/1.73 sqM); Anion Gap 8 mmol/L; Blood Urea Nitrogen 12 mg/dL (9-20); Calcium 8.3 mg/dL (8.4-10.2); Carbon Dioxide 24 mmol/L (22-30); Chloride 106 mmol/L (98-107); Glucose 95 mg/dL (74-99); Non-African American GFR(CKD) >90 (>60 ml/min/1.73 sqM); Potassium 4.1 mmol/L (3.5-5.1); Sodium 138 mmol/L (137-145)
[2022-01-16] MEDS: amLODIPine 5 MG TAB PO SCH ×2 (09:16→20:06)
[2022-01-16] MEDS: FLUDROCORTISONE 0.1 MG TAB PO SCH (09:16)
[2022-01-16] MEDS: PREGABALIN 75 MG CAP PO SCH ×3 (09:16→20:06)
[2022-01-16] MEDS: FUROSEMIDE 20 MG TAB PO SCH ×2 (09:16→20:06)
[2022-01-16] MEDS: OXYBUTYNIN CHLORIDE 5 MG TAB PO SCH ×2 (09:16→20:06)
--- NOTE | 2022-01-16 15:35 | P.PN ---
Subjective Progress Note Date: 01/16/22 Principal diagnosis: Awake alert and oriented 3 no new complaints vital signs are stable patient was admitted for urosepsis Patient was admitted for urosepsis is a functional quadriplegic with a indwelling Rodriguez catheter, has decreased the amount of oral fluid intake and had stated he was getting increased sediment and blockage of his catheters and seemed to be changing L catheters a little bit more frequently, patient has been currently encouraged to increase her free water intake Objective - Vital Signs Vital signs: Vital Signs Temp 97.7 F 01/16/22 09:15 Pulse 80 01/16/22 11:20 Resp 17 01/16/22 11:20 BP 130/84 01/16/22 11:20 Pulse Ox 94 L 01/16/22 11:20 FiO2 21 01/13/22 08:32 Intake & Output 01/15/22 01/16/22 01/16/22 18:59 06:59 18:59 Intake Total 240 Output Total 2625 1350 400 Balance -2385 -1350 -400 Intake: Oral 240 Output: Urine 2625 1350 400 3-way Urethral 200 Other: Voiding Method Indwelling Catheter Indwelling Catheter Indwelling Catheter - Exam General: [Patient awake, alert and oriented times 3. Patient in no acute distress.] HEENT: [PERRL. EOMI. No pharyngeal erythema or exudate.] Neck: [No adenopathy.] Cardiac: [Heart regular in rate and rhythm. No S3. No S4. No clicks, rubs. No murmur.] Lungs: [Clear to auscultation bilaterally.] Abdomen: [No mass. No organomegaly. Bowel sounds presnt and normoactive in all 4 quadrants. Morbid obesity Extremes: [No edema no cyanosis no claudication normal pulses] : Normal male genitalia indwelling Rodriguez Musculoskeletal: [No joint erythema, edema or tenderness.] Skin: [No rash.] Neurologic: [No lateralizing deficits. CN II - XII grossly intact.] Lymphatic: [No adenopathy.] - Labs CBC & Chem 7: 01/16/22 07:55 01/16/22 07:55 Labs: Abnormal Lab Results - Last 24 Hours (Table) 01/16/22 01/16/22 01/16/22 Range/Units 07:55 07:55 07:55 MCHC 30.0 L (31.0-37.0) g/dL RDW 17.8 H (11.5-15.5) % PT 16.4 H (9.0-12.0) sec INR 1.6 H (<1.2) Calcium 8.3 L (8.4-10.2) mg/dL Microbiology - Last 24 Hours (Table) 01/12/22 12:05 Blood Culture - Preliminary Blood No Growth after 96 hours 01/12/22 12:23 Urine Culture - Final Urine,Voided Proteus mirabilis Klebsiella pneumoniae 01/12/22 13:45 Blood Culture - Preliminary Blood No Growth after 72 hours Assessment and Plan (1) CATARINA (acute kidney injury) Current Visit: Yes Status: Acute Code(s): N17.9 - ACUTE KIDNEY FAILURE, UNSPECIFIED SNOMED Code(s): 77502399 (2) Rodriguez catheter in place Current Visit: Yes Status: Acute Code(s): Z97.8 - PRESENCE OF OTHER SPECIFIED DEVICES SNOMED Code(s): 951043612 (3) Paraplegia Current Visit: Yes Status: Acute Code(s): G82.20 - PARAPLEGIA, UNSPECIFIED SNOMED Code(s): 16074612 (4) Sepsis Current Visit: Yes Status: Acute Code(s): A41.9 - SEPSIS, UNSPECIFIED ORGANISM SNOMED Code(s): 36623278 (5) Sepsis secondary to UTI Current Visit: Yes Status: Acute Code(s): A41.9 - SEPSIS, UNSPECIFIED ORGANISM; N39.0 - URINARY TRACT INFECTION, SITE NOT SPECIFIED SNOMED Code(s): 103161909 (6) UTI (urinary tract infection) Current Visit: Yes Status: Acute Code(s): N39.0 - URINARY TRACT INFECTION, SITE NOT SPECIFIED SNOMED Code(s): 57750641 Plan: UTI\urosepsis, resolving Klebsiella pneumoniae and Proteus mirabilis identified IV antibiotics changed appropriately patient being well hydrated Anticipate changing to oral antibiotics and discharging home tomorrow Will continue to follow closely Time with Patient: Greater than 30
[2022-01-16] MEDS: oxyCODONE-APAP 10-325MG 1 EACH TAB PO PRN (16:27)
[2022-01-16] MEDS ORDERED: WARFARIN 5 MG TAB PO ONE (18:00)
[2022-01-16] MEDS: DULoxetine HCL 30 MG CAPSULE.DR PO SCH (20:06)
[2022-01-16] MEDS: traZODone HCL 100 MG TAB PO SCH (20:06)
[2022-01-16] MEDS: PRIMIDONE 50 MG TAB PO SCH (20:06)
[2022-01-16] MEDS: TOPIRAMATE 25 MG TAB PO SCH (20:06)
[2022-01-16] MEDS: MELATONIN 5 MG TABLET PO SCH (20:06)
[2022-01-17] MEDS: CEFEPIME 2 GM in SODIUM CHLORIDE 0.9% 100 ML IVPB SCH ×2 (06:15→13:16)
[2022-01-17] MEDS: PANTOPRAZOLE 40 MG TABLET PO SCH (06:15)
[2022-01-17 07:31] LABS: INR 1.5 (<1.2); Prothrombin Time 15.1 sec (9.0-12.0)
[2022-01-17 07:38] VITALS: TEMP 98.3
[2022-01-17] MEDS: amLODIPine 5 MG TAB PO SCH (08:15)
[2022-01-17] MEDS: PREGABALIN 75 MG CAP PO SCH (08:15)
[2022-01-17] MEDS: OXYBUTYNIN CHLORIDE 5 MG TAB PO SCH (08:16)
[2022-01-17] MEDS: FLUDROCORTISONE 0.1 MG TAB PO SCH (08:16)
[2022-01-17] MEDS: FUROSEMIDE 20 MG TAB PO SCH (08:16)
[2022-01-17 12:24] VITALS: BP 139/82; PULSE 81; RESP 17
[2022-01-17] MEDS: oxyCODONE-APAP 10-325MG 1 EACH TAB PO PRN (13:19)
--- NOTE | 2022-01-17 13:43 | P.PN ---
Subjective Progress Note Date: 01/17/22 Principal diagnosis: Awake alert and oriented 3 no new complaints vital signs are stable patient was admitted for urosepsis Patient was admitted for urosepsis is a functional quadriplegic with a indwelling Rodriguez catheter, has decreased the amount of oral fluid intake and had stated he was getting increased sediment and blockage of his catheters and seemed to be changing L catheters a little bit more frequently, patient has been currently encouraged to increase her free water intake Objective - Vital Signs Vital signs: Vital Signs Temp 98.3 F 01/17/22 07:37 Pulse 81 01/17/22 11:05 Resp 17 01/17/22 11:05 BP 139/82 01/17/22 11:05 Pulse Ox 98 01/17/22 11:05 FiO2 21 01/13/22 08:32 Intake & Output 01/16/22 01/17/22 01/17/22 18:59 06:59 18:59 Intake Total 118 Output Total 1600 2150 Balance -1599 Intake: Oral 118 Output: Urine 1599 2150 Other: Voiding Method Indwelling Catheter Indwelling Catheter Indwelling Catheter - Exam General: [Patient awake, alert and oriented times 3. Patient in no acute distress.] HEENT: [PERRL. EOMI. No pharyngeal erythema or exudate.] Neck: [No adenopathy.] Cardiac: [Heart regular in rate and rhythm. No S3. No S4. No clicks, rubs. No murmur.] Lungs: [Clear to auscultation bilaterally.] Abdomen: [No mass. No organomegaly. Bowel sounds presnt and normoactive in all 4 quadrants. Morbid obesity Extremes: [No edema no cyanosis no claudication normal pulses] : Normal male genitalia indwelling Rodriguez Musculoskeletal: [No joint erythema, edema or tenderness.] Skin: [No rash.] Neurologic: [No lateralizing deficits. CN II - XII grossly intact.] Lymphatic: [No adenopathy.] - Labs CBC & Chem 7: 01/16/22 07:55 01/16/22 07:55 Labs: Abnormal Lab Results - Last 24 Hours (Table) 01/17/22 Range/Units 06:15 PT 15.1 H (9.0-12.0) sec INR 1.5 H (<1.2) Microbiology - Last 24 Hours (Table) 01/12/22 13:45 Blood Culture - Preliminary Blood No Growth after 96 hours 01/12/22 12:05 Blood Culture - Preliminary Blood No Growth after 96 hours Assessment and Plan (1) CATARINA (acute kidney injury) Current Visit: Yes Status: Acute Code(s): N17.9 - ACUTE KIDNEY FAILURE, UNSPECIFIED SNOMED Code(s): 05156504 (2) Rodriguez catheter in place Current Visit: Yes Status: Acute Code(s): Z97.8 - PRESENCE OF OTHER SPECIFIED DEVICES SNOMED Code(s): 788411245 (3) Paraplegia Current Visit: Yes Status: Acute Code(s): G82.20 - PARAPLEGIA, UNSPECIFIED SNOMED Code(s): 36812189 (4) Sepsis Current Visit: Yes Status: Acute Code(s): A41.9 - SEPSIS, UNSPECIFIED ORGANISM SNOMED Code(s): 99772909 (5) Sepsis secondary to UTI Current Visit: Yes Status: Acute Code(s): A41.9 - SEPSIS, UNSPECIFIED ORGANISM; N39.0 - URINARY TRACT INFECTION, SITE NOT SPECIFIED SNOMED Code(s): 548316235 (6) UTI (urinary tract infection) Current Visit: Yes Status: Acute Code(s): N39.0 - URINARY TRACT INFECTION, SITE NOT SPECIFIED SNOMED Code(s): 45194196 Plan: UTI\urosepsis, resolving Klebsiella pneumoniae and Proteus mirabilis identified IV antibiotics changed appropriately patient being well hydrated Start by mouth Cipro 500 mg twice a day Patient to be discharged home on oral antibiotic therapy will follow-up in the office next 3-5 days Will continue to follow closely Time with Patient: Greater than 30
--- NOTE | 2022-01-17 13:51 | P.DS ---
Providers Date of admission: 01/12/22 14:09 Expected date of discharge: 01/17/22 Attending physician: Chandana Roger Consults: 01/15/22 12:27 Consult Physician Routine Consulting Provider: Cruzito Lopez Consult Reason/Comments: recurrent UTI Do you want consulting provider notified?: Yes Primary care physician: Chandana Roger - Discharge Diagnosis(es) (1) CATARINA (acute kidney injury) Current Visit: Yes Status: Acute (2) Rodriguez catheter in place Current Visit: Yes Status: Acute (3) Paraplegia Current Visit: Yes Status: Acute (4) Sepsis Current Visit: Yes Status: Acute (5) Sepsis secondary to UTI Current Visit: Yes Status: Acute (6) UTI (urinary tract infection) Current Visit: Yes Status: Acute Hospital Course: Was admitted to the hospital started on IV antibiotics Patient defervesced on IV fluids and IV antibiotics Has improved significantly was changed to by mouth Cipro We'll be discharged home later today or tomorrow when ride available Patient Condition at Discharge: Good Plan - Discharge Summary Discharge Rx Participant: Yes New Discharge Prescriptions: New Ciprofloxacin [Cipro Susp] 500 mg PO AC-BID #20 ml No Action Topiramate [Topamax] 50 mg PO HS Primidone [Mysoline] 50 mg PO HS Fludrocortisone [Florinef] 0.1 mg PO DAILY Furosemide [Lasix] 20 mg PO BID Esomeprazole Magnesium [NexIUM] 40 mg PO DAILY DULoxetine HCL [Cymbalta] 90 mg PO HS amLODIPine [Norvasc] 5 mg PO BID Methenamine Hippurate 1 gm PO BID Sulfamethox-Tmp 400-80Mg [Bactrim SS 400-80 mg] 1 tab PO DAILY Warfarin Sodium 4 mg PO HS Testosterone Cypionate [Depo-Testosterone] 300 mg IM Q14D Oxybutynin Chloride 5 mg PO BID traZODone HCL 150 mg PO HS Melatonin [Melatonin ER] 10 mg PO HS #1 tab Pregabalin [Lyrica] 150 mg PO TID #9 cap oxyCODONE-APAP 10-325MG [Percocet 10-325 mg] 1 tab PO TID PRN PRN Reason: Pain Discharge Medication List Topiramate [Topamax] 50 mg PO HS 09/11/14 [History] Primidone [Mysoline] 50 mg PO HS 07/15/16 [History] Fludrocortisone [Florinef] 0.1 mg PO DAILY 02/17/18 [History] Furosemide [Lasix] 20 mg PO BID 10/25/18 [History] DULoxetine HCL [Cymbalta] 90 mg PO HS 04/13/19 [History] Esomeprazole Magnesium [NexIUM] 40 mg PO DAILY 04/13/19 [History] Oxybutynin Chloride 5 mg PO BID 12/18/20 [History] Testosterone Cypionate [Depo-Testosterone] 300 mg IM Q14D 12/18/20 [History] Methenamine Hippurate 1 gm PO BID 02/15/21 [History] amLODIPine [Norvasc] 5 mg PO BID 02/15/21 [History] traZODone HCL 150 mg PO HS 02/15/21 [History] Melatonin [Melatonin ER] 10 mg PO HS #1 tab 02/17/21 [Rx] Pregabalin [Lyrica] 150 mg PO TID #9 cap 02/17/21 [Rx] Sulfamethox-Tmp 400-80Mg [Bactrim SS 400-80 mg] 1 tab PO DAILY 01/12/22 [History] Warfarin Sodium 4 mg PO HS 01/12/22 [History] oxyCODONE-APAP 10-325MG [Percocet 10-325 mg] 1 tab PO TID PRN 01/12/22 [History] Ciprofloxacin [Cipro Susp] 500 mg PO AC-BID #20 ml 01/17/22 [Rx] Follow up Appointment(s)/Referral(s): [facility], [NON-STAFF] - Chandana Roger MD [Primary Care Provider] - 1-2 days
[2022-01-17] MEDS ORDERED: WARFARIN 5 MG TAB PO ONE (18:00)
[2022-01-17] MEDS ORDERED: CIPROFLOXACIN HCL 500 MG TAB PO SCH (21:00)
== END 2022-01-17 16:49 | disposition home or self-care (01) | DRG 698 ==
LOC: EC 11:42 → 3SCARD 14:09
PROVIDERS: ADMIT Family Medicine; ATTEND Family Medicine
DX: T83.511A Infection and inflammatory reaction due to indwelling urethral catheter, initial encounter (principal); G93.41 Metabolic encephalopathy; R53.2 Functional quadriplegia; N17.9 Acute kidney failure, unspecified; E27.40 Unspecified adrenocortical insufficiency; B96.4 Proteus (mirabilis) (morganii) as the cause of diseases classified elsewhere; B96.1 Klebsiella pneumoniae [K. pneumoniae] as the cause of diseases classified elsewhere; R00.0 Tachycardia, unspecified; Y84.6 Urinary catheterization as the cause of abnormal reaction of the patient, or of later complication, without mention of misadventure at the time of the procedure; N39.0 Urinary tract infection, site not specified; Z87.440 Personal history of urinary (tract) infections; F31.9 Bipolar disorder, unspecified; G43.909 Migraine, unspecified, not intractable, without status migrainosus; E86.0 Dehydration; Z79.01 Long term (current) use of anticoagulants; I95.9 Hypotension, unspecified; I48.91 Unspecified atrial fibrillation; M79.7 Fibromyalgia; N31.9 Neuromuscular dysfunction of bladder, unspecified; R79.1 Abnormal coagulation profile; Z79.52 Long term (current) use of systemic steroids; Z79.899 Other long term (current) drug therapy; Z86.718 Personal history of other venous thrombosis and embolism; Z87.891 Personal history of nicotine dependence; Z20.822 Contact with and (suspected) exposure to COVID-19; G89.29 Other chronic pain
CPT/HCPCS: 36415; 70450; 71046; 80048; 80053; 80202; 80306; 80320; 81001; 82140; 82565; 83605; 84484; 85025; 85027; 85610; 85730; 87040; 87077; 87086; 87186; 87502; 87635; 93005; 96374; 99291

== ENCOUNTER 2022-07-22 10:04 | Emergency (ER) | payer MEDICARE, OTHER ==
[2022-07-22 10:12] VITALS: BP 108/79; PULSE 84; RESP 18; TEMP 98.2
[2022-07-22] MEDS ORDERED: ACETAMINOPHEN TAB 500 MG TAB PO STA (11:07)
[2022-07-22] MEDS ORDERED: SODIUM CHLORIDE 0.9% 1,000 ML IV STA (11:07)
[2022-07-22] MEDS ORDERED: METOCLOPRAMIDE 5 MG/ML 2 ML VIAL IVP STA (11:07)
[2022-07-22] MEDS ORDERED: diphenhydrAMINE 50 MG/ML 1 ML VIAL IVP STA (11:07)
[2022-07-22 11:41] LABS: Anisocytosis Slight; Basophils % (A) 0 %; Eosinophils # (A) 0.2 k/uL (0-0.7); Eosinophils % (A) 2 %; HCT 48.7 % (39.0-53.0); HGB 15.3 gm/dL (13.0-17.5); Hypochromasia Moderate; Lymphocytes # (A) 2.2 k/uL (1.0-4.8); Lymphocytes % (A) 23 %; MCH 26.1 pg (25.0-35.0); MCHC 31.5 g/dL (31.0-37.0); MCV 82.9 fL (80.0-100.0); Mean Platelet Volume 7.5; Monocytes # (A) 0.5 k/uL (0-1.0); Monocytes % (A) 5 %; Neutrophils # (A) 6.4 k/uL (1.3-7.7); Neutrophils % (A) 67 %; Platelet Count 313 k/uL (150-450); RBC 5.87 m/uL (4.30-5.90); RDW 17.5 % (11.5-15.5); WBC 9.5 k/uL (3.8-10.6)
[2022-07-22 11:54] LABS: ALT 18 U/L (4-49); AST 18 U/L (17-59); African American GFR (CKD) >90 (>60 ml/min/1.73 sqM); Albumin 4.3 g/dL (3.5-5.0); Alkaline Phosphatase 135 U/L (38-126); Anion Gap 8 mmol/L; Blood Urea Nitrogen 14 mg/dL (9-20); Calcium 8.8 mg/dL (8.4-10.2); Carbon Dioxide 27 mmol/L (22-30); Chloride 102 mmol/L (98-107); Glucose 109 mg/dL (74-99); Magnesium 2.2 mg/dL (1.6-2.3); Non-African American GFR(CKD) 90 (>60 ml/min/1.73 sqM); Potassium 4.1 mmol/L (3.5-5.1); Sodium 137 mmol/L (137-145); Total Bilirubin 0.5 mg/dL (0.2-1.3); Total Protein 7.7 g/dL (6.3-8.2)
[2022-07-22 12:31] LABS: INR 2.1 (<1.2); Partial Thromboplastin Time 34.1 sec (22.0-30.0); Prothrombin Time 20.7 sec (9.0-12.0)
--- NOTE | 2022-07-22 12:32 | XR ---
EXAMINATION TYPE: XR chest 2V DATE OF EXAM: 07/22/2022 COMPARISON: 01/12/2022 INDICATION: Chest pain TECHNIQUE: Frontal and lateral views of the chest are obtained. FINDINGS: The heart size is normal. The pulmonary vasculature is normal. There is fullness of the right hilar region. Prominence of the pulmonary vasculature may be present. Underlying mass should be considered. Follow-up is recommended. This appears to be a change from the comparison.. IMPRESSION: 1. Increasing fullness right hilar region. Correlate for pulmonary hypertension or underlying hilar m ass. Additional workup is recommended.
--- NOTE | 2022-07-22 12:35 | CT ---
EXAMINATION TYPE: CT brain wo con DATE OF EXAM: 07/22/2022 COMPARISON: 01/12/2022 INDICATION: Headache x8 days. DLP: 1320.4 mGycm, Automated exposure control for dose reduction was used. CONTRAST: None CT of the brain is performed utilizing 3 mm thick sections through the posterior fossa and 3 mm thick sections through the remaining calvarium. Study is performed within 24 hours of arrival to the hosp [facility]. No abnormal hyperdensity is present to suggest an acute intracranial hemorrhage. No mass lesion is evident. No acute infarcts are evident. Subtle minimal periventricular white matter hypodensity may be present , likely on the basis of chronic white matter ischemic changes. Ventricles and sulci are slightly prominent for the patient age. Paranasal sinuses and mastoid air cells within the [id number] are clear. IMPRESSIONS: 1. There may be minimal chronic appearing periventricular white matter ischemic type changes with m ild age related atrophy. 2. No acute intracranial process definitely apparent. Follow-up MRI can be performed as clinically in dicated.
[2022-07-22 12:45] LABS: Appearance,Urine Clear (Clear); Bacteria,Urine Rare /hpf; Bilirubin,Urine Negative (Negative); Blood,Urine Small (Negative); Color,Urine Yellow; Glucose,Urine (UA) Negative (Negative); Ketones,Urine Negative (Negative); Leukocyte Esterase,Urine Large (Negative); Mucus,Urine Rare /hpf; Nitrite,Urine Positive (Negative); Protein,Urine Trace (Negative); RBC,Urine 40 /hpf (0-5); Specific Gravity,Urine 1.011 (1.001-1.035); Squamous Epithelial Cell,Urine <1 /hpf (0-4); Urobilinogen,Urine <2.0 mg/dL (<2.0); WBC,Urine 25 /hpf (0-5)
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
[2022-07-22] MEDS ORDERED: KETOROLAC 15 MG/ML 1 ML VIAL IVP STA (14:46)
== END 2022-07-22 17:02 | disposition home or self-care (01) ==
LOC: EC 10:04
DX: R51.9 Headache, unspecified (principal); K21.9 Gastro-esophageal reflux disease without esophagitis; F32.A Depression, unspecified; F12.90 Cannabis use, unspecified, uncomplicated; Z87.891 Personal history of nicotine dependence; Z79.899 Other long term (current) drug therapy
CPT/HCPCS: 36415; 93005; 80053; 83735; 84484; 85025; 85610; 85730; 81001; 87086; 87077; 87186; 71046; 70450; 99285; 96374; 96375 ×2; 96361; J1200; J2765; J1885; 99284

== ENCOUNTER 2023-02-04 15:58 | Inpatient (IN) | payer MEDICARE, OTHER ==
[2023-02-04] MEDS ORDERED: SODIUM CHLORIDE 0.9% 1,000 ML IV STA (16:30)
[2023-02-04] MEDS ORDERED: SODIUM CHLORIDE 0.9% 500 ML 500 ML IV STA (16:30)
[2023-02-04] MEDS ORDERED: ACETAMINOPHEN TAB 325 MG TAB PO STA (16:30)
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
[2023-02-04 17:24] LABS: Anisocytosis Slight; Basophils % (A) 0 %; Eosinophils # (A) 0.1 k/uL (0-0.7); Eosinophils % (A) 0 %; HCT 46.7 % (39.0-53.0); HGB 14.6 gm/dL (13.0-17.5); Hypochromasia Marked; Lymphocytes # (A) 1.1 k/uL (1.0-4.8); Lymphocytes % (A) 5 %; MCH 24.8 pg (25.0-35.0); MCHC 31.1 g/dL (31.0-37.0); MCV 79.7 fL (80.0-100.0); Mean Platelet Volume 8.2; Microcytosis Slight; Monocytes # (A) 1.1 k/uL (0-1.0); Monocytes % (A) 6 %; Neutrophils # (A) 17.8 k/uL (1.3-7.7); Neutrophils % (A) 88 %; Platelet Count 289 k/uL (150-450); RBC 5.86 m/uL (4.30-5.90); WBC 20.3 k/uL (3.8-10.6)
[2023-02-04 17:25] LABS: ALT 21 U/L (4-49); AST 19 U/L (17-59); African American GFR (CKD) >90 (>60 ml/min/1.73 sqM); Alkaline Phosphatase 108 U/L (38-126); Anion Gap 13 mmol/L; Blood Urea Nitrogen 26 mg/dL (9-20); Calcium 8.9 mg/dL (8.4-10.2); Carbon Dioxide 21 mmol/L (22-30); Chloride 102 mmol/L (98-107); Glucose 105 mg/dL (74-99); Non-African American GFR(CKD) 80 (>60 ml/min/1.73 sqM); Potassium 4.2 mmol/L (3.5-5.1); Sodium 136 mmol/L (137-145); Total Bilirubin 1.1 mg/dL (0.2-1.3); Total Protein 7.3 g/dL (6.3-8.2)
[2023-02-04] MEDS ORDERED: SODIUM CHLORIDE 0.9% 1,200 ML IV ONE (17:58)
[2023-02-04 18:18] LABS: Bacteria,Urine Moderate /hpf; Mucus,Urine Few /hpf; RBC,Urine 44 /hpf (0-5); Squamous Epithelial Cell,Urine 1 /hpf (0-4); WBC,Urine 150 /hpf (0-5)
[2023-02-04 18:22] LABS: Appearance,Urine Slightly Cloudy (Clear); Bilirubin,Urine Negative (Negative); Color,Urine Light Orange; Glucose,Urine (UA) Negative (Negative); Ketones,Urine Negative (Negative); PH, Urine 6.5 (5.0-8.0); Protein,Urine 2+ (Negative); Specific Gravity,Urine 1.015 (1.001-1.035)
[2023-02-04 18:23] LABS: Blood,Urine Small (Negative); Leukocyte Esterase,Urine Large (Negative); Nitrite,Urine Negative (Negative); Urobilinogen,Urine <0.2 mg/dL (<2.0)
--- NOTE | 2023-02-04 18:26 | XR ---
EXAMINATION TYPE: XR chest 1V portable DATE OF EXAM: 02/04/2023 COMPARISON: 11/24/2022 INDICATION: Fever weakness TECHNIQUE: Single frontal view of the chest is obtained. FINDINGS: The heart size is normal. The pulmonary vasculature is normal. Mild increased lung markings are in the right upper lobe. This is nonspecific. Consider atypical pneu monia. Fixation screws are through the thoracic cervical junction. There is prior open reduction internal fi xation of the right clavicle. IMPRESSION: 1. Mild nonspecific increased lung markings right upper lobe. Consider atypical pneumonia. Differenti al could include atelectasis.
[2023-02-04] MEDS: FAMOTIDINE 20 MG/2 ML VIAL IV SCH (20:56)
[2023-02-04] MEDS: ACETAMINOPHEN TAB 325 MG TAB PO PRN (21:56)
[2023-02-05] MEDS: HEPARIN SODIUM,PORCINE 5,000 UNIT/ML 1 ML VIAL SQ SCH ×2 (00:49→10:00)
[2023-02-05] MEDS ORDERED: SODIUM CHLORIDE 0.9% 500 ML 500 ML IV ONE (03:00)
[2023-02-05] MEDS ORDERED: SUMAtriptan succinate 50 MG TAB PO PRN (03:01)
[2023-02-05] MEDS: PREGABALIN 75 MG CAP PO SCH ×4 (03:41→19:32)
[2023-02-05] MEDS: DEXTROSE 5%-0.45% NACL 1,000 ML IV SCH ×3 (05:21→23:18)
[2023-02-05] MEDS: PANTOPRAZOLE 40 MG TABLET PO SCH (06:29)
[2023-02-05 08:08] LABS: INR 2.2 (<1.2); Prothrombin Time 21.9 sec (10.0-12.5)
[2023-02-05] MEDS: NON FORMULARY DRUG (Methenamine Hippurate [Methenamine Hippurate] 1 GM Tablet) PO SCH ×2 (09:46→19:38)
[2023-02-05] MEDS: FLUDROCORTISONE 0.1 MG TAB PO SCH (10:00)
[2023-02-05] MEDS: FAMOTIDINE 20 MG/2 ML VIAL IV SCH ×2 (10:00→19:33)
[2023-02-05] MEDS: FUROSEMIDE 20 MG TAB PO SCH ×2 (10:00→16:36)
[2023-02-05] MEDS: VORTIOXETINE HYDROBROMIDE 20 MG TABLET PO SCH (10:00)
[2023-02-05] MEDS: amLODIPine 5 MG TAB PO SCH ×2 (10:00→19:31)
[2023-02-05] MEDS: oxyBUTYnin chloride 5 MG TAB PO SCH ×2 (10:00→19:32)
[2023-02-05] MEDS ORDERED: ONDANSETRON 4 MG/2 ML VIAL IVP PRN (10:13)
[2023-02-05] MEDS: PIPERACILLIN-TAZOBACTAM 3.375 GM in SODIUM CHLORIDE 0.9% 100 ML IVPB SCH ×2 (12:39→19:32)
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
[2023-02-05] MEDS ORDERED: NON FORMULARY DRUG (Warfarin Sodium [Warfarin Sodium] 4 MG Tablet) PO SCH (14:00)
[2023-02-05] MEDS: ACETAMINOPHEN TAB 325 MG TAB PO PRN (16:35)
[2023-02-05] MEDS ORDERED: WARFARIN 2 MG TAB PO ONE (18:00)
[2023-02-05] MEDS: MELATONIN 5 MG TABLET PO SCH (19:31)
[2023-02-05] MEDS: oxyCODONE-APAP 10-325MG 1 EACH TAB PO PRN (19:32)
[2023-02-05] MEDS: PRIMIDONE 50 MG TAB PO SCH (19:37)
[2023-02-05] MEDS: TOPIRAMATE 25 MG TAB PO SCH (19:37)
[2023-02-05] MEDS: traZODone HCL 50 MG TAB PO SCH (19:37)
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
[2023-02-06] MEDS: ACETAMINOPHEN TAB 325 MG TAB PO PRN ×2 (00:31→09:14)
[2023-02-06 02:52] LABS: Glucose,Whole Blood 181 mg/dL (70-110)
[2023-02-06] MEDS ORDERED: SODIUM CHLORIDE 0.9% 500 ML 500 ML IV ONE ×3 (02:56→06:24)
[2023-02-06] MEDS: PIPERACILLIN-TAZOBACTAM 3.375 GM in SODIUM CHLORIDE 0.9% 100 ML IVPB SCH ×3 (03:04→21:41)
[2023-02-06] MEDS: MIDODRINE 5 MG TAB PO SCH ×2 (06:28→17:35)
[2023-02-06 06:40] LABS: Prothrombin Time 20.3 sec (10.0-12.5)
[2023-02-06] MEDS: VORTIOXETINE HYDROBROMIDE 20 MG TABLET PO SCH (09:02)
[2023-02-06] MEDS: FLUDROCORTISONE 0.1 MG TAB PO SCH (09:03)
[2023-02-06] MEDS: FAMOTIDINE 20 MG/2 ML VIAL IV SCH ×2 (09:03→21:39)
[2023-02-06] MEDS: oxyBUTYnin chloride 5 MG TAB PO SCH ×2 (09:03→21:40)
[2023-02-06] MEDS: PREGABALIN 75 MG CAP PO SCH ×3 (09:03→21:40)
[2023-02-06] MEDS: PANTOPRAZOLE 40 MG TABLET PO SCH (09:03)
[2023-02-06] MEDS: amLODIPine 5 MG TAB PO SCH ×3 (09:04→21:39)
[2023-02-06] MEDS: NON FORMULARY DRUG (Methenamine Hippurate [Methenamine Hippurate] 1 GM Tablet) PO SCH ×2 (09:04→21:41)
[2023-02-06] MEDS: DEXTROSE 5%-0.45% NACL 1,000 ML IV SCH ×2 (09:04→17:37)
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
[2023-02-06] MEDS: FUROSEMIDE 20 MG TAB PO SCH (13:11)
--- NOTE | 2023-02-06 13:13 | CT ---
EXAMINATION TYPE: CT brain wo con DATE OF EXAM: 02/06/2023 COMPARISON: 07/22/2022 INDICATION: Evaluate for encephalopathy DLP: 1167.7 mGycm, Automated exposure control for dose reduction was used. CONTRAST: None CT of the brain is performed utilizing 3 mm thick sections through the posterior fossa and 3 mm thick sections through the remaining calvarium. Study is performed within 24 hours of arrival to the hosp ital. No abnormal hyperdensity is present to suggest an acute intracranial hemorrhage. No mass lesion is evident. No acute infarcts are evident. Ventricles and sulci are appropriate for the patient age. Paranasal sinuses and mastoid air cells within the [id number] are clear. IMPRESSION: 1. No acute intracranial process. Follow-up MRI can be performed as clinically indicated.
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
[2023-02-06] MEDS ORDERED: WARFARIN 2 MG TAB PO ONE (18:00)
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
[2023-02-06] MEDS ORDERED: amLODIPine 5 MG TAB PO SCH (21:00)
[2023-02-06] MEDS: TOPIRAMATE 25 MG TAB PO SCH (21:40)
[2023-02-06] MEDS: PRIMIDONE 50 MG TAB PO SCH (21:40)
[2023-02-06] MEDS: traZODone HCL 50 MG TAB PO SCH (21:40)
[2023-02-06] MEDS: MELATONIN 5 MG TABLET PO SCH (21:40)
[2023-02-07] MEDS: PIPERACILLIN-TAZOBACTAM 3.375 GM in SODIUM CHLORIDE 0.9% 100 ML IVPB SCH ×3 (03:02→20:48)
[2023-02-07 06:46] LABS: INR 1.6 (<1.2); Prothrombin Time 16.6 sec (10.0-12.5)
[2023-02-07] MEDS: FUROSEMIDE 20 MG TAB PO SCH (09:18)
[2023-02-07] MEDS: amLODIPine 5 MG TAB PO SCH ×2 (09:18→20:49)
[2023-02-07] MEDS: PREGABALIN 75 MG CAP PO SCH ×3 (09:18→20:49)
[2023-02-07] MEDS: PANTOPRAZOLE 40 MG TABLET PO SCH (09:18)
[2023-02-07] MEDS: MIDODRINE 5 MG TAB PO SCH ×2 (09:18→17:41)
[2023-02-07] MEDS: oxyBUTYnin chloride 5 MG TAB PO SCH ×2 (09:18→20:50)
[2023-02-07] MEDS: FLUDROCORTISONE 0.1 MG TAB PO SCH (09:19)
[2023-02-07] MEDS: VORTIOXETINE HYDROBROMIDE 20 MG TABLET PO SCH (09:20)
[2023-02-07] MEDS: NON FORMULARY DRUG (Methenamine Hippurate [Methenamine Hippurate] 1 GM Tablet) PO SCH ×2 (10:53→20:57)
[2023-02-07] MEDS: FAMOTIDINE 20 MG/2 ML VIAL IV SCH ×2 (13:48→20:48)
[2023-02-07] MEDS: DEXTROSE 5%-0.45% NACL 1,000 ML IV SCH (16:11)
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
[2023-02-07] MEDS ORDERED: WARFARIN 3 MG TAB PO ONE (18:00)
[2023-02-07] MEDS: oxyCODONE-APAP 10-325MG 1 EACH TAB PO PRN (18:22)
[2023-02-07] MEDS: TOPIRAMATE 25 MG TAB PO SCH (20:49)
[2023-02-07] MEDS: traZODone HCL 50 MG TAB PO SCH (20:50)
[2023-02-07] MEDS: PRIMIDONE 50 MG TAB PO SCH (20:50)
[2023-02-07] MEDS: MELATONIN 5 MG TABLET PO SCH (20:50)
[2023-02-08] MEDS: CEFEPIME 2 GM in SODIUM CHLORIDE 0.9% 100 ML IVPB SCH ×2 (01:09→08:27)
[2023-02-08 02:53] VITALS: RESP 18
[2023-02-08] MEDS: PANTOPRAZOLE 40 MG TABLET PO SCH (06:14)
[2023-02-08 06:28] LABS: INR 1.7 (<1.2); Prothrombin Time 17.3 sec (10.0-12.5)
[2023-02-08] MEDS: amLODIPine 5 MG TAB PO SCH (08:27)
[2023-02-08] MEDS: oxyBUTYnin chloride 5 MG TAB PO SCH (08:27)
[2023-02-08] MEDS: FLUDROCORTISONE 0.1 MG TAB PO SCH (08:27)
[2023-02-08] MEDS: VORTIOXETINE HYDROBROMIDE 20 MG TABLET PO SCH (08:27)
[2023-02-08] MEDS: FUROSEMIDE 20 MG TAB PO SCH (08:27)
[2023-02-08] MEDS: PREGABALIN 75 MG CAP PO SCH (08:27)
[2023-02-08] MEDS: MIDODRINE 5 MG TAB PO SCH (08:28)
[2023-02-08] MEDS: FAMOTIDINE 20 MG/2 ML VIAL IV SCH (08:28)
[2023-02-08] MEDS: NON FORMULARY DRUG (Methenamine Hippurate [Methenamine Hippurate] 1 GM Tablet) PO SCH (08:28)
[2023-02-08 09:03] VITALS: BP 107/69
[2023-02-08 09:51] VITALS: PULSE 73; TEMP 97.9
[2023-02-08] MEDS ORDERED: WARFARIN 3 MG TAB PO ONE (18:00)
--- NOTE | 2023-02-09 16:20 | P.DS ---
Providers Date of admission: 02/04/23 19:45 Expected date of discharge: 02/08/23 Attending physician: Chandana Roger Consults: 02/04/23 19:43 Consult Physician Routine Consulting Provider: Cruzito Lopez Consult Reason/Comments: Tract infection. Sepsis. Do you want consulting provider notified?: Yes 02/06/23 11:25 Consult Physician Routine Consulting Provider: Kj Marquez Consult Reason/Comments: Consider SP tube, leaking chronic shirley Do you want consulting provider notified?: Yes Primary care physician: Chandana Roger Hospital Course: Final Diagnoses: (1) Sepsis Current Visit: Yes Status: Acute Code(s): A41.9 - SEPSIS, UNSPECIFIED ORGANISM SNOMED Code(s): 19142949 (2) UTI (urinary tract infection), Klebsiella pneumoniae Current Visit: Yes Status: Acute Code(s): N39.0 - URINARY TRACT INFECTION, SITE NOT SPECIFIED SNOMED Code(s): 91780702 (3) Adrenal insufficiency Current Visit: No Status: Acute Code(s): E27.40 - UNSPECIFIED ADRENOCORTICAL INSUFFICIENCY SNOMED Code(s): 354444266 (4) Catheter-associated urinary tract infection Current Visit: No Status: Acute Code(s): T83.511A - I/I REACT D/T INDWELLING URETHRAL CATHETER, INIT; N39.0 - URINARY TRACT INFECTION, SITE NOT SPECIFIED SNOMED Code(s): 729071147 (5) Chronic indwelling Shirley catheter Current Visit: No Status: Acute Code(s): Z97.8 - PRESENCE OF OTHER SPECIFIED DEVICES SNOMED Code(s): 989153302 (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 Current Visit: No Status: Acute Code(s): G83.9 - PARALYTIC SYNDROME, UNSPECIFIED SNOMED Code(s): 115573732 (7) Chronic, continuous use of opioids Current Visit: No Status: Acute Code(s): F11.90 - OPIOID USE, UNSPECIFIED, UNCOMPLICATED SNOMED Code(s): 461884162 (8) Cough Current Visit: No Status: Acute Code(s): R05 - COUGH * DO NOT USE * SNOMED Code(s): 69406522 (9) acute toxic and metabolic encephalopathy secondary to infection Hospital course: H&P Date: 02/05/23 Chief Complaint: weakness, fever this patient is a 67-year-old male well known to our practice known, paraplegic, and has indwelling Shirley catheter,present to the [facility] emergency room via EMS with complaints of fever and weakness. He has had recurrent urinary tract infections, patient states symptoms present for approximately 1 day Progress Note Date: 02/06/23 Principal diagnosis: urosepsis, versus pyelonephritis this is a 67-year-old paraplegic male well known to our practice presented to the hospital with symptoms of urosepsis including fever of 102 elevated white count of over 20,000 white cells in his urine bacteria in his urine, nausea vomiting and headache, the day before he came into the emergency room he was seen in the office and had his indwelling Shirley catheter changed, complains of urine leaking around the catheter, and now he currently complains of productive cough but is not coughing up the material just swallowing it, this gentleman has had multiple urinary tract infection with multiple admissions most recent was early in January. Does not complain of chest pain does not complain of diarrhea is not complain of shortness of breath, does not complain of other GI symptoms at this time since IV antibiotics have been initiated, patient is sleeping most the day, is developing some mental status changes as well as forgetfulness possibly secondary to toxic encephalopathy 02/07/23 continues on Zosyn as per ID. T-max 99.3. Urine culture finalized Klebsiella pneumoniae with sensitivities. Fatigued, tired. Brain CT brain no acute intracranial process. Evaluated by urology, suprapubic catheter discussed. Denies chest pain, palpitations or shortness of breath. Significant improvement. Cleared by infectious disease for discharge on 7 days of Cipro. Denies chest pain, palpitations or shortness of breath. Patient will be discharged home today in a stable condition with guarded prognosis. The impression and plan of care has been dictated as directed. : I performed a history and examination of this patient, discussed the same with the dictator. I agree with the dictator's note ,documented as a scribe. Any additional findings or plans will be noted. Patient Condition at Discharge: Stable Plan - Discharge Summary Discharge Rx Participant: Yes New Discharge Prescriptions: New Ciprofloxacin HCl [Cipro] 500 mg PO BID 7 Days #14 tab Acetaminophen Tab [Tylenol] 650 mg PO Q6HR PRN tab PRN Reason: Fever And/ Or Pain Continue Topiramate [Topamax] 50 mg PO HS Primidone [Mysoline] 50 mg PO HS Fludrocortisone [Florinef] 0.1 mg PO DAILY Furosemide [Lasix] 20 mg PO BID Esomeprazole Magnesium [NexIUM] 40 mg PO DAILY amLODIPine [Norvasc] 5 mg PO BID Methenamine Hippurate 1 gm PO BID Warfarin Sodium 4 mg PO DAILY@1400 Pregabalin [Lyrica] 150 mg PO Q8H Testosterone Cypionate [Depo-Testosterone] 300 mg IM Q14D Oxybutynin Chloride 5 mg PO BID traZODone HCL 150 mg PO HS Melatonin [Melatonin ER] 10 mg PO HS #1 tab oxyCODONE-APAP 10-325MG [Percocet 10-325 mg] 1 tab PO TID PRN PRN Reason: Pain Vortioxetine Hydrobromide [Trintellix] 20 mg PO DAILY SUMAtriptan succinate [Imitrex] 100 mg PO BID PRN PRN Reason: Migraine Headache Discharge Medication List Topiramate [Topamax] 50 mg PO HS 09/11/14 [History] Primidone [Mysoline] 50 mg PO HS 07/15/16 [History] Fludrocortisone [Florinef] 0.1 mg PO DAILY 02/17/18 [History] Furosemide [Lasix] 20 mg PO BID 10/25/18 [History] Esomeprazole Magnesium [NexIUM] 40 mg PO DAILY 04/13/19 [History] Oxybutynin Chloride 5 mg PO BID 12/18/20 [History] Testosterone Cypionate [Depo-Testosterone] 300 mg IM Q14D 12/18/20 [History] Methenamine Hippurate 1 gm PO BID 02/15/21 [History] amLODIPine [Norvasc] 5 mg PO BID 02/15/21 [History] traZODone HCL 150 mg PO HS 02/15/21 [History] Melatonin [Melatonin ER] 10 mg PO HS #1 tab 02/17/21 [Rx] Warfarin Sodium 4 mg PO DAILY@1400 01/12/22 [History] oxyCODONE-APAP 10-325MG [Percocet 10-325 mg] 1 tab PO TID PRN 01/12/22 [History] Pregabalin [Lyrica] 150 mg PO Q8H 11/24/22 [History] SUMAtriptan succinate [Imitrex] 100 mg PO BID PRN 11/24/22 [History] Vortioxetine Hydrobromide [Trintellix] 20 mg PO DAILY 11/24/22 [History] Acetaminophen Tab [Tylenol] 650 mg PO Q6HR PRN tab 02/08/23 [Rx] Ciprofloxacin HCl [Cipro] 500 mg PO BID 7 Days #14 tab 02/08/23 [Rx] Follow up Appointment(s)/Referral(s): [facility], [NON-STAFF] - As Needed Chandana Roger MD [Primary Care Provider] - 02/11/23 1:15 pm Ambulatory/Diagnostic Orders: Prothrombin Time INR [LAB.AMB] Time Frame: 02/10/23, Location: None Selected Discharge Disposition: HOME WITH HOME HEALTH SERVICES
[2023-02-12] MEDS ORDERED: TESTOSTERONE CYPIONATE 200 MG/ML 1ML VIAL IM SCH (09:00)
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
== END 2023-02-08 14:24 | disposition home health service (06) | DRG 698 ==
LOC: EC 15:58 → SUPCPDRO 15:58 → 4SSUR 19:45
PROVIDERS: ADMIT Family Medicine; ATTEND Family Medicine
DX: T83.518A Infection and inflammatory reaction due to other urinary catheter, initial encounter (principal); A41.81 Sepsis due to Enterococcus; G92.8 Other toxic encephalopathy; E27.40 Unspecified adrenocortical insufficiency; G82.20 Paraplegia, unspecified; N39.0 Urinary tract infection, site not specified; S24.102S Unspecified injury at T2-T6 level of thoracic spinal cord, sequela; N31.9 Neuromuscular dysfunction of bladder, unspecified; T83.031A Leakage of indwelling urethral catheter, initial encounter; F32.A Depression, unspecified; M79.7 Fibromyalgia; G43.909 Migraine, unspecified, not intractable, without status migrainosus; K21.9 Gastro-esophageal reflux disease without esophagitis; M54.9 Dorsalgia, unspecified; K59.00 Constipation, unspecified; Z79.01 Long term (current) use of anticoagulants; Z79.52 Long term (current) use of systemic steroids; Z79.890 Hormone replacement therapy; Z79.899 Other long term (current) drug therapy; Z87.440 Personal history of urinary (tract) infections; Z86.718 Personal history of other venous thrombosis and embolism; Z87.891 Personal history of nicotine dependence; Z87.442 Personal history of urinary calculi; Z86.14 Personal history of Methicillin resistant Staphylococcus aureus infection; Z86.19 Personal history of other infectious and parasitic diseases; Y84.6 Urinary catheterization as the cause of abnormal reaction of the patient, or of later complication, without mention of misadventure at the time of the procedure
CPT/HCPCS: 36415; 70450; 71045; 80053; 81001; 83605; 84484; 85025; 85610; 85730; 87040; 87077; 87086; 87186; 87636; 93005; 94760; 96361; 96365; 96375; 99285

== ENCOUNTER 2023-02-10 11:25 | Observation (INO) | payer MEDICARE, OTHER ==
[2023-02-10] MEDS ORDERED: ACETAMINOPHEN TAB 500 MG TAB PO STA (11:57)
[2023-02-10] MEDS ORDERED: PIPERACILLIN-TAZOBACTAM 3.375 GM in SODIUM CHLORIDE 0.9% 100 ML IVPB STA (11:57)
[2023-02-10] MEDS ORDERED: VANCOMYCIN IV PER PHARMACY 1 EACH MISC MISCELLANE PRN (11:57)
[2023-02-10] MEDS: SODIUM CHLORIDE 0.9% 500 ML 500 ML IV SCH ×4 (12:00→13:30)
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
[2023-02-10 12:26] LABS: Anisocytosis Slight; Basophils # (A) 0.1 k/uL (0-0.2); Basophils % (A) 1 %; Eosinophils # (A) 0.2 k/uL (0-0.7); Eosinophils % (A) 1 %; HCT 45.5 % (39.0-53.0); HGB 14.1 gm/dL (13.0-17.5); Hypochromasia Marked; Lymphocytes # (A) 2.3 k/uL (1.0-4.8); Lymphocytes % (A) 19 %; MCH 24.5 pg (25.0-35.0); MCHC 30.9 g/dL (31.0-37.0); MCV 79.3 fL (80.0-100.0); Mean Platelet Volume 8.1; Microcytosis Slight; Monocytes # (A) 0.4 k/uL (0-1.0); Monocytes % (A) 4 %; Neutrophils # (A) 8.9 k/uL (1.3-7.7); Neutrophils % (A) 74 %; Platelet Count 343 k/uL (150-450); RBC 5.74 m/uL (4.30-5.90); RDW 18.5 % (11.5-15.5); WBC 12.1 k/uL (3.8-10.6)
[2023-02-10 12:29] LABS: Appearance,Urine Clear (Clear); Color,Urine Light Yellow
[2023-02-10] MEDS ORDERED: VANCOMYCIN 2,000 MG in SODIUM CHLORIDE 0.9% 500 ML 500 ML IVPB ONE (12:30)
[2023-02-10 12:31] LABS: Bilirubin,Urine Negative (Negative); Blood,Urine Moderate (Negative); Glucose,Urine (UA) Negative (Negative); Ketones,Urine Negative (Negative); Nitrite,Urine Negative (Negative); Protein,Urine Trace (Negative); Urobilinogen,Urine 0.2 mg/dL (<2.0)
[2023-02-10] MEDS: SODIUM CHLORIDE 0.9% 1,000 ML IV SCH (12:31)
[2023-02-10 12:32] LABS: Leukocyte Esterase,Urine Moderate (Negative)
[2023-02-10 12:37] LABS: ALT 37 U/L (4-49); African American GFR (CKD) 75 (>60 ml/min/1.73 sqM); Albumin 4.1 g/dL (3.5-5.0); Anion Gap 15 mmol/L; Blood Urea Nitrogen 19 mg/dL (9-20); Calcium 9.2 mg/dL (8.4-10.2); Carbon Dioxide 22 mmol/L (22-30); Chloride 101 mmol/L (98-107); Glucose 136 mg/dL (74-99); Non-African American GFR(CKD) 65 (>60 ml/min/1.73 sqM); Sodium 138 mmol/L (137-145)
[2023-02-10 12:38] LABS: AST 37 U/L (17-59); Alkaline Phosphatase 86 U/L (38-126); Potassium 3.8 mmol/L (3.5-5.1)
[2023-02-10 12:41] LABS: Budding Yeast,Urine Occasional /hpf; Mucus,Urine Rare /hpf; RBC,Urine 10 /hpf (0-5); WBC,Urine 4 /hpf (0-5)
[2023-02-10] MEDS ORDERED: HYDROmorphone 0.5 MG/0.5 ML SYRINGE IVP PRN (15:43)
[2023-02-10] MEDS ORDERED: NALOXONE 0.4 MG/ML 1 ML VIAL IV PRN (15:43)
[2023-02-10] MEDS ORDERED: HYDROmorphone 1 MG/ML 1 ML SYRINGE IVP PRN (15:43)
[2023-02-10] MEDS ORDERED: ONDANSETRON 4 MG/2 ML VIAL IVP PRN (15:43)
--- NOTE | 2023-02-10 15:50 | XR ---
EXAMINATION TYPE: XR chest 2V DATE OF EXAM: 02/10/2023 COMPARISON: 02/04/2023 HISTORY: Shortness of breath TECHNIQUE: Frontal and lateral views of the chest are obtained. FINDINGS: Scattered senescent parenchymal changes noted. Hyperinflation compatible with COPD. No evidence for infiltrate. No evidence for atelectasis. Heart size is stable. Mediastinal structures are stable and grossly unremarkable. No evidence for hilar prominence. Degenerative changes dorsal spine. IMPRESSION: 1. No evidence for acute pulmonary disease.
[2023-02-10 20:12] VITALS: RESP 18
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
[2023-02-11] MEDS: SODIUM CHLORIDE 0.9% 1,000 ML IV SCH ×3 (00:01→07:40)
[2023-02-11] MEDS ORDERED: VANCOMYCIN 2,000 MG in SODIUM CHLORIDE 0.9% 500 ML 500 ML IVPB SCH (01:00)
[2023-02-11] MEDS: CEFEPIME 2 GM in SODIUM CHLORIDE 0.9% 100 ML IVPB SCH ×2 (01:17→07:40)
[2023-02-11 08:04] VITALS: BP 96/63; PULSE 77; TEMP 97.9
[2023-02-11 08:06] LABS: African American GFR (CKD) >90 (>60 ml/min/1.73 sqM); Non-African American GFR(CKD) 88 (>60 ml/min/1.73 sqM)
[2023-02-11 11:34] LABS: Basophils # (A) 0.07 X 10*3/uL (0.00-0.10); Basophils % (A) 0.7 %; Eosinophils # (A) 0.21 X 10*3/uL (0.04-0.35); HCT 42.6 % (39.6-50.0); HGB 12.8 g/dL (13.0-17.0); Lymphocytes # (A) 1.99 X 10*3/uL (0.90-5.00); MCH 23.5 pg (27.0-32.0); MCV 78.3 FL (80.0-97.0); Mean Platelet Volume 9.8 FL (9.5-12.2); Monocytes # (A) 0.61 X 10*3/uL (0.20-1.00); Monocytes % (A) 5.8 %; NRBC Per 100 WBC 0 X 10*3/uL (0.00-0.01); Neutrophils # (A) 7.26 X 10*3/uL (1.80-7.70); Neutrophils % (A) 69.5 %; Platelet Count 346 X 10*3/uL (140-440); RBC 5.44 X 10*6/uL (4.40-5.60); RDW 20.8 % (11.5-14.5); WBC 10.45 X 10*3/uL (4.50-10.00)
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
[2023-02-11] MEDS ORDERED: ACETAMINOPHEN TAB 325 MG TAB PO STA (14:22)
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
== END 2023-02-11 15:42 | disposition home health service (06) ==
LOC: EC 11:25 → INTOOBSV 15:45 → 4SSUR 15:45
PROVIDERS: ADMIT Family Medicine; ATTEND Family Medicine
DX: T83.511A Infection and inflammatory reaction due to indwelling urethral catheter, initial encounter (principal); A41.89 Other specified sepsis; N39.0 Urinary tract infection, site not specified; B96.1 Klebsiella pneumoniae [K. pneumoniae] as the cause of diseases classified elsewhere; G82.20 Paraplegia, unspecified; N31.9 Neuromuscular dysfunction of bladder, unspecified; G43.909 Migraine, unspecified, not intractable, without status migrainosus; M79.7 Fibromyalgia; K21.9 Gastro-esophageal reflux disease without esophagitis; J98.6 Disorders of diaphragm; E27.40 Unspecified adrenocortical insufficiency; F32.A Depression, unspecified; G89.29 Other chronic pain; M54.9 Dorsalgia, unspecified; R07.89 Other chest pain; E66.9 Obesity, unspecified; Z68.41 Body mass index [BMI] 40.0-44.9, adult; Y84.6 Urinary catheterization as the cause of abnormal reaction of the patient, or of later complication, without mention of misadventure at the time of the procedure; V29.99XS Rider (driver) (passenger) of other motorcycle injured in unspecified traffic accident, sequela; Z79.891 Long term (current) use of opiate analgesic; Z79.52 Long term (current) use of systemic steroids; Z79.01 Long term (current) use of anticoagulants; Z79.899 Other long term (current) drug therapy; Z86.718 Personal history of other venous thrombosis and embolism; Z98.890 Other specified postprocedural states; Z96.0 Presence of urogenital implants; Z87.01 Personal history of pneumonia (recurrent); Z87.440 Personal history of urinary (tract) infections; Z16.24 Resistance to multiple antibiotics; Z16.22 Resistance to vancomycin related antibiotics; Z16.12 Extended spectrum beta lactamase (ESBL) resistance; Z87.891 Personal history of nicotine dependence; Z80.1 Family history of malignant neoplasm of trachea, bronchus and lung; Z80.3 Family history of malignant neoplasm of breast; Z84.1 Family history of disorders of kidney and ureter
CPT/HCPCS: 96361; 96366 ×2; 96367 ×2; 96365; 99285; 36415; 93005; 97161; 97166; 80053; 82565; 83605; 84484; 85025 ×2; 81001; 87040; 71046; G0378; J2543; J3370; J0692

== ENCOUNTER → 2023-05-12 | Outpatient (CLI) | payer MEDICARE, OTHER ==
[2023-05-12 15:58] LABS: Prealbumin 15.4 mg/dL (18.0-42.0)
[2023-05-12 17:01] LABS: Basophils # (A) 0.06 X 10*3/uL (0.00-0.10); Basophils % (A) 0.6 %; Eosinophils # (A) 0.27 X 10*3/uL (0.04-0.35); Eosinophils % (A) 2.5 %; HCT 46.2 % (39.6-50.0); Lymphocytes % (A) 30.6 %; MCH 22.8 pg (27.0-32.0); MCHC 28.1 g/dL (32.0-37.0); MCV 81.2 FL (80.0-97.0); Mean Platelet Volume 9.4 FL (9.5-12.2); Monocytes # (A) 0.66 X 10*3/uL (0.20-1.00); Monocytes % (A) 6.1 %; NRBC Per 100 WBC 0 X 10*3/uL (0.00-0.01); Neutrophils # (A) 6.32 X 10*3/uL (1.80-7.70); Neutrophils % (A) 58.4 %; Platelet Count 416 X 10*3/uL (140-440); RBC 5.69 X 10*6/uL (4.40-5.60); RDW 21.2 % (11.5-14.5)
[2023-05-12 17:42] LABS: Erythrocyte Sedimentation Rate 27 mm/Hr (0-20)
[2023-05-12 18:36] LABS: ALT 15 U/L (10-49); AST 14 U/L (14-35); Albumin 3.9 g/dL (3.8-4.9); Albumin/Globulin Ratio 1.11 Ratio (1.60-3.17); Alkaline Phosphatase 113 U/L (41-126); BUN/Creat Ratio 20.75 Ratio (12.00-20.00); Blood Urea Nitrogen 16.6 mg/dL (9.0-27.0); Calcium 9.4 mg/dL (8.7-10.3); Carbon Dioxide 26.9 mmol/L (21.6-31.8); Chloride 100 mmol/L (96-109); Globulin 3.5 g/dL (1.6-3.3); Glucose 91 mg/dL (70-110); Potassium 4.5 mmol/L (3.5-5.5); Sodium 137 mmol/L (135-145); Total Bilirubin 0.3 mg/dL (0.3-1.2); Total Protein 7.4 g/dL (6.2-8.2)
== END | disposition home or self-care (01) ==
LOC: LABWHC1 10:33
PROVIDERS: ATTEND Family Medicine
DX: L89.313 Pressure ulcer of right buttock, stage 3 (principal)
CPT/HCPCS: 36415; 80053; 84134; 85025; 85652; 86140

== ENCOUNTER → 2023-06-06 | Outpatient (CLI) | payer MEDICARE, OTHER ==
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
== END | disposition home or self-care (01) ==
LOC: RADUSWWP 13:10
PROVIDERS: ATTEND Family Medicine
DX: L89.623 Pressure ulcer of left heel, stage 3 (principal); I10 Essential (primary) hypertension; Z79.01 Long term (current) use of anticoagulants
CPT/HCPCS: 93922; 93970

== ENCOUNTER 2023-07-16 17:33 | Inpatient (IN) | payer MEDICARE, OTHER ==
[2023-07-16] MEDS: MORPHINE SULFATE 4 MG/ML SYRINGE IV STA (19:14)
[2023-07-16 19:43] LABS: Anisocytosis Slight; Basophils # (A) 0.1 k/uL (0-0.2); Basophils % (A) 0 %; Eosinophils # (A) 0.1 k/uL (0-0.7); Eosinophils % (A) 1 %; HGB 11.9 gm/dL (13.0-17.5); Hypochromasia Marked; Lymphocytes # (A) 2.5 k/uL (1.0-4.8); Lymphocytes % (A) 17 %; MCH 21.4 pg (25.0-35.0); MCHC 28.3 g/dL (31.0-37.0); MCV 75.5 fL (80.0-100.0); Mean Platelet Volume 6.5; Microcytosis Moderate; Monocytes # (A) 0.8 k/uL (0-1.0); Monocytes % (A) 5 %; Neutrophils # (A) 10.9 k/uL (1.3-7.7); Neutrophils % (A) 75 %; Platelet Count 631 k/uL (150-450); Poikilocytosis Slight; RBC 5.56 m/uL (4.30-5.90); RDW 18.8 % (11.5-15.5); WBC 14.6 k/uL (3.8-10.6)
[2023-07-16 19:56] LABS: INR 1.2 (<1.2); Partial Thromboplastin Time 27.5 sec (22.0-30.0); Prothrombin Time 12.8 sec (10.0-12.5)
[2023-07-16 20:01] LABS: ALT 18 U/L (4-49); AST 31 U/L (17-59); African American GFR (CKD) >90 (>60 ml/min/1.73 sqM); Albumin 3.5 g/dL (3.5-5.0); Alkaline Phosphatase 88 U/L (38-126); Anion Gap 9 mmol/L; Blood Urea Nitrogen 23 mg/dL (9-20); Carbon Dioxide 22 mmol/L (22-30); Chloride 103 mmol/L (98-107); Glucose 157 mg/dL (74-99); Magnesium 2.2 mg/dL (1.6-2.3); Non-African American GFR(CKD) >90 (>60 ml/min/1.73 sqM); Sodium 134 mmol/L (137-145); Total Bilirubin 0.6 mg/dL (0.2-1.3); Total Protein 7.1 g/dL (6.3-8.2)
[2023-07-16 20:08] LABS: NT-Pro-B-Type Natriuretic Pept 785 pg/mL
[2023-07-16 20:25] LABS: Potassium 5.2 mmol/L (3.5-5.1)
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
[2023-07-16] MEDS ORDERED: SUMAtriptan succinate 50 MG TAB PO PRN (20:59)
[2023-07-16] MEDS ORDERED: GENTAMICIN 700 MG in SODIUM CHLORIDE 0.9% 100 ML IVPB SCH (21:00)
--- NOTE | 2023-07-16 21:25 | XR ---
EXAMINATION TYPE: XR chest 2V DATE OF EXAM: 07/16/2023 7:43 PM CLINICAL INDICATION:Male, 67 years old with history of Weakness; [facility] COMPARISON: 06/09/2023 TECHNIQUE: XR chest 2V. Frontal and lateral views of the chest.. FINDINGS: Lines/Tubes/Devices: EKG leads overlie the chest. No indwelling lines are seen. Heart/mediastinum: CM silhouette is stable. Mildly tortuous aorta. Heart appears mildly enlarged. Sim ilar mildly prominent appearance of the hilar regions likely from vascular shadows. Pulmonary vascularity: Possible mild vascular congestion. Lungs/Pleura: There is no evidence of pleural effusion, focal consolidation, or pneumothorax. Musculoskeletal: No acute osseous abnormality demonstrated in the limits of the exam. Degenerative c hanges are present. Fixation plate and screws in the right clavicle and fixation hardware in the lowe r cervical/upper thoracic spine again noted. Other findings: None. IMPRESSION: Cardiomegaly with possible mild vascular congestion. Correlate clinically with BNP for mild CHF.
[2023-07-16] MEDS ORDERED: NALOXONE 0.4 MG/ML 1 ML VIAL IV PRN (21:33)
[2023-07-16] MEDS ORDERED: ACETAMINOPHEN TAB 325 MG TAB PO PRN (21:33)
[2023-07-16] MEDS ORDERED: ONDANSETRON 4 MG/2 ML VIAL IVP PRN (21:33)
[2023-07-16] MEDS ORDERED: VANCOMYCIN IV PER PHARMACY 1 EACH MISC MISCELLANE PRN (21:51)
[2023-07-16] MEDS: NON FORMULARY DRUG (Methenamine Hippurate [Methenamine Hippurate] 1 GM Tablet) PO SCH (23:36)
--- NOTE | 2023-07-16 23:40 | CT ---
EXAM: CT Abdomen and Pelvis With Intravenous Contrast CLINICAL HISTORY: ITS.REASON CT Reason: decubitus ulcers TECHNIQUE: Axial computed tomography images of the abdomen and pelvis with intravenous contrast. CTDI is 66 mGy and DLP is 4509 mGy-cm. This CT exam was performed using one or more of the following dose reduction techniques: automated exposure control, adjustment of the mA and/or kV according to patient size, and/or use of iterative reconstruction technique. COMPARISON: No relevant prior studies available. FINDINGS: Lung bases: Unremarkable. No mass. No consolidation. ABDOMEN: Liver: Hepatic steatosis. Gallbladder and bile ducts: Contracted gallbladder. No calcified stones. No ductal dilation. Pancreas: Unremarkable. No mass. No ductal dilation. Spleen: Unremarkable. No splenomegaly. Adrenals: Unremarkable. No mass. Kidneys and ureters: Unremarkable. No solid mass. No hydronephrosis. Stomach and bowel: Unremarkable. No obstruction. No mucosal thickening. PELVIS: Appendix: No findings to suggest acute appendicitis. Bladder: Rodriguez catheter with bulb inflated in the prostate gland. Repositioning is required. Reproductive: Unremarkable as visualized. ABDOMEN and PELVIS: Intraperitoneal space: Unremarkable. No free air. No significant fluid collection. Bones/joints: Bilateral decubitus ulcers overlying the ischial tuberosities. On the LEFT side is approximately 2.4 cm deep and 4.2 cm mid-lateral. Mild bony productive changes of the ischial tuberosities, for which chronic osteomyelitis cannot be excluded. Degenerative changes of the spine. Old, healed fracture of the RIGHT subtrochanteric femur, which has healed and abnormal alignment. Soft tissues: Large RIGHT decubitus ulcer with wound measuring approximately 4.0 cm. This was approximately 3 cm deep. Vasculature: Atherosclerotic changes of the aorta. No abdominal aortic aneurysm. Lymph nodes: Unremarkable. No enlarged lymph nodes. IMPRESSION: 1. Bilateral decubitus ulcers overlying the ischial tuberosities. On the LEFT side is approximately 2.4 cm deep and 4.2 cm mid-lateral. Mild bony productive changes of the ischial tuberosities, for which chronic osteomyelitis cannot be excluded. 2. Large RIGHT decubitus ulcer with wound measuring approximately 4.0 cm. This was approximately 3 cm deep. 3. Rodriguez catheter with BULB INFLATED IN THE PROSTATE GLAND. Repositioning is required.
[2023-07-16 23:45] LABS: Appearance,Urine Clear (Clear); Bacteria,Urine Rare /hpf; Bilirubin,Urine Negative (Negative); Blood,Urine Trace (Negative); Color,Urine Light Yellow; Glucose,Urine (UA) Negative (Negative); Hyaline Casts,Urine 8 /lpf (0-2); Ketones,Urine Negative (Negative); Leukocyte Esterase,Urine Large (Negative); Mucus,Urine Occasional /hpf; Nitrite,Urine Negative (Negative); PH, Urine 6.5 (5.0-8.0); Protein,Urine 1+ (Negative); RBC,Urine 1 /hpf (0-5); Specific Gravity,Urine 1.015 (1.001-1.035); Squamous Epithelial Cell,Urine <1 /hpf (0-4); Urobilinogen,Urine <2.0 mg/dL (<2.0); WBC,Urine 47 /hpf (0-5)
[2023-07-16] MEDS: FUROSEMIDE 20 MG TAB PO SCH (23:45)
[2023-07-16] MEDS: metroNIDAZOLE 500 MG TAB PO SCH (23:45)
[2023-07-16] MEDS: PRIMIDONE 50 MG TAB PO SCH (23:45)
[2023-07-16] MEDS: PREGABALIN 50 MG CAP PO SCH (23:45)
[2023-07-16] MEDS: MELATONIN 5 MG TABLET PO SCH (23:45)
[2023-07-16] MEDS: amLODIPine 5 MG TAB PO SCH (23:45)
[2023-07-16] MEDS: SODIUM CHLORIDE 0.9% 1,000 ML IV SCH (23:46)
[2023-07-16] MEDS: VANCOMYCIN 2,500 MG in SODIUM CHLORIDE 0.9% 500 ML 500 ML IVPB ONE (23:46)
[2023-07-16] MEDS: TOPIRAMATE 25 MG TAB PO SCH (23:57)
[2023-07-17] MEDS: SODIUM CHLORIDE 0.9% 1,000 ML IV STA (00:02)
[2023-07-17] MEDS: PREGABALIN 100 MG CAP PO SCH (00:03)
[2023-07-17] MEDS: CEFEPIME 2 GM in SODIUM CHLORIDE 0.9% 100 ML IVPB SCH (00:53)
[2023-07-17] MEDS: PANTOPRAZOLE 40 MG TABLET PO SCH (06:03)
[2023-07-17 07:10] LABS: Anisocytosis Slight; Basophils # (A) 0.1 k/uL (0-0.2); Basophils % (A) 1 %; Eosinophils # (A) 0.2 k/uL (0-0.7); Eosinophils % (A) 2 %; HCT 37.6 % (39.0-53.0); HGB 10.7 gm/dL (13.0-17.5); Hypochromasia Marked; Lymphocytes # (A) 2.3 k/uL (1.0-4.8); Lymphocytes % (A) 19 %; MCH 21.7 pg (25.0-35.0); MCHC 28.4 g/dL (31.0-37.0); MCV 76.4 fL (80.0-100.0); Mean Platelet Volume 7.2; Microcytosis Moderate; Monocytes # (A) 0.7 k/uL (0-1.0); Monocytes % (A) 6 %; Neutrophils # (A) 8.8 k/uL (1.3-7.7); Neutrophils % (A) 72 %; Platelet Count 563 k/uL (150-450); Poikilocytosis Slight; RBC 4.93 m/uL (4.30-5.90); RDW 18.8 % (11.5-15.5); WBC 12.2 k/uL (3.8-10.6)
[2023-07-17 07:24] LABS: ALT 17 U/L (4-49); AST 19 U/L (17-59); African American GFR (CKD) >90 (>60 ml/min/1.73 sqM); Alkaline Phosphatase 82 U/L (38-126); Anion Gap 8 mmol/L; Blood Urea Nitrogen 23 mg/dL (9-20); C Reactive Protein 5.8 mg/dL (<1.0); Calcium 8.4 mg/dL (8.4-10.2); Carbon Dioxide 22 mmol/L (22-30); Chloride 102 mmol/L (98-107); Glucose 123 mg/dL (74-99); Non-African American GFR(CKD) >90 (>60 ml/min/1.73 sqM); Potassium 4.4 mmol/L (3.5-5.1); Sodium 132 mmol/L (137-145); Total Bilirubin 0.5 mg/dL (0.2-1.3); Total Protein 6.1 g/dL (6.3-8.2)
[2023-07-17] MEDS: VORTIOXETINE HYDROBROMIDE 20 MG TABLET PO SCH (10:45)
[2023-07-17] MEDS: FLUDROCORTISONE 0.1 MG TAB PO SCH (10:45)
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
[2023-07-17] MEDS: VANCOMYCIN 2,500 MG in SODIUM CHLORIDE 0.9% 500 ML 500 ML IVPB SCH ×2 (11:50→14:38)
[2023-07-17 12:31] LABS: Erythrocyte Sedimentation Rate 55 mm/Hr (0-20)
[2023-07-17 12:37] LABS: INR 1.25 sec (0.93-1.11); Prothrombin Time 13.3 sec (9.9-11.9)
[2023-07-17] MEDS: SODIUM CHLORIDE 0.9% 1,000 ML IV SCH (13:03)
[2023-07-17] MEDS ORDERED: NON FORMULARY DRUG (Warfarin Sodium [Warfarin Sodium] 4 MG Tablet) PO SCH (14:00)
[2023-07-17] MEDS: MORPHINE SULFATE 4 MG/ML SYRINGE IV PRN (14:56)
[2023-07-17] MEDS: WARFARIN 3 MG TAB PO ONE (18:49)
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
[2023-07-18 04:50] LABS: INR 1.3 (<1.2)
[2023-07-18 04:54] LABS: ALT 17 U/L (4-49); AST 17 U/L (17-59); African American GFR (CKD) >90 (>60 ml/min/1.73 sqM); Albumin 2.8 g/dL (3.5-5.0); Albumin/Globulin Ratio 0.9; Alkaline Phosphatase 79 U/L (38-126); Anion Gap 5 mmol/L; Blood Urea Nitrogen 18 mg/dL (9-20); Calcium 8.2 mg/dL (8.4-10.2); Carbon Dioxide 22 mmol/L (22-30); Chloride 108 mmol/L (98-107); Globulin 3.2 g/dL; Glucose 97 mg/dL (74-99); Non-African American GFR(CKD) >90 (>60 ml/min/1.73 sqM); Potassium 4.1 mmol/L (3.5-5.1); Sodium 135 mmol/L (137-145); Total Bilirubin 0.5 mg/dL (0.2-1.3)
--- NOTE | 2023-07-18 07:34 | XR ---
EXAMINATION TYPE: XR chest 2V DATE OF EXAM: 07/18/2023 COMPARISON: 07/16/2023 HISTORY: 67-year-old male vascular congestion, shortness of breath TECHNIQUE: AP and lateral views FINDINGS: Plate and screw fixation right clavicular shaft. Posterior cervical fusion hardware. Heart mildly enl arged. Interstitial/vascular prominence is noted. No allan consolidation or pleural effusion. Hazy de nsities related to portable technique and large patient body habitus. IMPRESSION: Cardiomegaly and possible mild pulmonary vascular congestion. No allan pulmonary edema or significant progression from prior.
[2023-07-18 09:14] LABS: Basophils # (A) 0.07 X 10*3/uL (0.00-0.10); Basophils % (A) 0.7 %; Eosinophils # (A) 0.18 X 10*3/uL (0.04-0.35); Eosinophils % (A) 1.7 %; HGB 10.7 g/dL (13.0-17.0); Lymphocytes # (A) 2.01 X 10*3/uL (0.90-5.00); Lymphocytes % (A) 18.7 %; MCH 21.1 pg (27.0-32.0); MCHC 28.2 g/dL (32.0-37.0); Mean Platelet Volume 8.9 FL (9.5-12.2); Monocytes % (A) 6.5 %; NRBC Per 100 WBC 0 X 10*3/uL (0.00-0.01); Neutrophils # (A) 7.45 X 10*3/uL (1.80-7.70); Neutrophils % (A) 69.2 %; Platelet Count 565 X 10*3/uL (140-440); RBC 5.07 X 10*6/uL (4.40-5.60); RDW 20.7 % (11.5-14.5); WBC 10.75 X 10*3/uL (4.50-10.00)
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
--- NOTE | 2023-07-18 15:33 | P.PN ---
Subjective Progress Note Date: 07/18/23 CHIEF COMPLAINT: Decubitus ulcer HISTORY OF PRESENT ILLNESS: Patient has large decubitus ulcer. He is scheduled for debridement today. History of paraplegia. Patient reports the ulcers are draining. Afebrile. Patient hypotensive BP 87/52 WBC 10.75 Hgb 10.7 platelets of 564 INR 1.3 creatinine 0.72 PHYSICAL EXAM: VITAL SIGNS: Reviewed. GENERAL: Well-developed in no acute distress. ABDOMEN: Soft. Nondistended. Nontender. NEUROLOGIC: Alert and oriented. Cranial nerves II through XII grossly intact. ASSESSMENT: 1. Large necrotic decubitus ulcer PLAN: -Patient is scheduled for debridement today with Dr. Price -Give 1 L fluid bolus for hypotension Physician Feather Drying Machine Operator note has been reviewed by physician. Signing provider agrees with the documented findings, assessment, and plan of care. Objective - Vital Signs Vital signs: Vital Signs Temp 97.7 F 07/18/23 13:14 Pulse 71 07/18/23 13:14 Resp 18 07/18/23 13:14 BP 87/52 07/18/23 13:14 Pulse Ox 96 07/18/23 13:14 FiO2 Intake & Output 07/17/23 07/18/23 07/18/23 18:59 06:59 18:59 Output Total 4400 800 1400 Balance -4400 -800 -1400 Weight 160.118 kg Output: Urine 4400 800 1400 Other: Voiding Method Indwelling Catheter Indwelling Catheter Indwelling Catheter - Labs CBC & Chem 7: 07/18/23 04:22 07/18/23 04:22 Labs: Abnormal Lab Results - Last 24 Hours (Table) 07/18/23 07/18/23 07/18/23 Range/Units 04:22 04:22 04:22 WBC 10.75 H (4.50-10.00) X 10*3/uL Hgb 10.7 L (13.0-17.0) g/dL Hct 38.0 L (39.6-50.0) % MCV 75.0 L (80.0-97.0) FL MCH 21.1 L (27.0-32.0) pg MCHC 28.2 L (32.0-37.0) g/dL RDW 20.7 H (11.5-14.5) % Plt Count 565 H (140-440) X 10*3/uL MPV 8.9 L (9.5-12.2) FL Immature Gran # 0.34 H (0.00-0.04) X 10*3/uL PT 14.0 H (10.0-12.5) sec INR 1.3 H (<1.2) Sodium 135 L (137-145) mmol/L Chloride 108 H (98-107) mmol/L Calcium 8.2 L (8.4-10.2) mg/dL Total Protein 6.0 L (6.3-8.2) g/dL Albumin 2.8 L (3.5-5.0) g/dL Microbiology - Last 24 Hours (Table) 07/16/23 19:05 Blood Culture - Preliminary Blood 07/16/23 19:20 Blood Culture - Preliminary Blood
[2023-07-18] MEDS: LACTATED RINGERS 1,000 ML IV ONE (15:40)
[2023-07-18] MEDS ORDERED: ROCURONIUM 10 MG/ML (5 ML VIAL) IV ONE (15:42)
[2023-07-18] MEDS ORDERED: SUGAMMADEX SODIUM 200 MG/2 ML SDV IV ONE (15:42)
[2023-07-18] MEDS ORDERED: PHENYLEPHRINE-0.9% NACL SYG 1,000 MCG/10 ML SYRINGE ONE (15:42)
[2023-07-18] MEDS ORDERED: MIDAZOLAM 2 MG/2 ML VIAL ONE (15:42)
[2023-07-18] MEDS ORDERED: LIDOCAINE 1% INJ 10MG/ML (20 ML MDV) ONE (15:42)
[2023-07-18] MEDS ORDERED: PROPOFOL 10 MG/ML 20 ML VIAL IV ONE (15:42)
[2023-07-18] MEDS: LIDOCAINE 1%-EPI 1:100,000 20 ML VIAL SQ ONE (16:18)
--- NOTE | 2023-07-18 16:50 | P.OP ---
Date of Procedure: 07/18/23 Preoperative Diagnosis: decubitus ulcer Postoperative Diagnosis: decubitus ulcer Procedure(s) Performed: debridement of decubitus ulcer Anesthesia: ERINN Surgeon: Luis Price Estimated Blood Loss (ml): 50 Pathology: other (necrotic skin and fat muscle) Condition: stable Disposition: PACU Operative Findings: right decubitus ulcermeasured 9 x 8 x 5 cm, left decubitus ulcer measures 4 x 5 x 3 cm Description of Procedure: the patient's placed on the operative table in supine position. He received general endotracheal tube anesthesia. His body was then positioned in the left side up position. The decub's ulcers were prepped and draped with Betadine. The right decubitusulcer was debrided first. Necrotic skin and fat muscle were sharply debrided with an 11 blade and he was achieved with cautery. The left decubitus ulcer was smaller andit was debrided in identical fashion. There was necrotic skin and fat and muscle wwas sharply debrided with a 11 blade. Left cautery hemostasis. The wounds were then packed with wet-to-dry Kerlix dressin gs. Patient top she will well. He was sent to recovery in stable condition.h
[2023-07-18] MEDS: HYDROmorphone 0.5 MG/0.5 ML SYRINGE IVP ONE (17:18)
[2023-07-18 19:32] LABS: Glucose,Whole Blood 161 mg/dL (70-110)
[2023-07-18] MEDS: FUROSEMIDE 10 MG/ML 4 ML VIAL IV STA (20:08)
--- NOTE | 2023-07-18 20:11 | XR ---
EXAMINATION TYPE: XR chest 1V DATE OF EXAM: 07/18/2023 7:45 PM CLINICAL INDICATION:Male, 67 years old with history of ALEJANDRA; [facility] COMPARISON: Chest radiographs from 07/17/2013. TECHNIQUE: XR chest 1V Frontal view of the chest. FINDINGS: Lungs/Pleura: There is no evidence of pleural effusion, focal consolidation, or pneumothorax. Pulmonary vascularity: Unremarkable. Heart/mediastinum: Cardiomediastinal silhouette is unremarkable. Musculoskeletal: No acute osseous pathology. There is fixation hardware in the lower cervical spine. Right clavicle fixation hardware partially visualized. Other findings: None IMPRESSION: No acute cardiopulmonary disease/process.
[2023-07-18 20:18] LABS: Anisocytosis Slight; Basophils # (A) 0.1 k/uL (0-0.2); Basophils % (A) 1 %; Eosinophils # (A) 0.1 k/uL (0-0.7); Eosinophils % (A) 1 %; HCT 45.3 % (39.0-53.0); HGB 12.2 gm/dL (13.0-17.5); Hypochromasia Marked; Lymphocytes # (A) 2.5 k/uL (1.0-4.8); Lymphocytes % (A) 17 %; MCHC 26.8 g/dL (31.0-37.0); MCV 78.4 fL (80.0-100.0); Mean Platelet Volume 6.5; Microcytosis Slight; Monocytes # (A) 0.6 k/uL (0-1.0); Monocytes % (A) 4 %; Neutrophils # (A) 11.7 k/uL (1.3-7.7); Neutrophils % (A) 77 %; Platelet Count 570 k/uL (150-450); Poikilocytosis Slight; RBC 5.78 m/uL (4.30-5.90); RDW 18.7 % (11.5-15.5); WBC 15.2 k/uL (3.8-10.6)
[2023-07-18] MEDS: SODIUM CHLORIDE 0.9% 500 ML 250 ML IV ONE (20:18)
[2023-07-18] MEDS: SODIUM CHLORIDE 0.9% 1,000 ML IV ONE (20:18)
[2023-07-18] MEDS: LACTATED RINGERS 1,000 ML IV SCH (20:18)
[2023-07-18] MEDS: WARFARIN 3 MG TAB PO ONE (21:00)
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
[2023-07-19] MEDS: SODIUM CHLORIDE 0.9% 500 ML 500 ML IV ONE (00:23)
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
[2023-07-19 03:29] LABS: % Iron Saturation 4.44 (15.00-50.00); Ferritin 47.9 ng/mL (22.0-322.0); Iron 13 UG/DL (65-175); Magnesium 2.2 mg/dL (1.5-2.4); Total Iron Binding Capacity 293 UG/DL (228-460)
[2023-07-19 07:26] LABS: Anisocytosis Slight; Basophils # (A) 0.1 k/uL (0-0.2); Basophils % (A) 1 %; Eosinophils # (A) 0.2 k/uL (0-0.7); Eosinophils % (A) 2 %; HCT 39.4 % (39.0-53.0); HGB 10.8 gm/dL (13.0-17.5); Hypochromasia Marked; Lymphocytes # (A) 1.8 k/uL (1.0-4.8); Lymphocytes % (A) 18 %; MCH 21.4 pg (25.0-35.0); MCHC 27.3 g/dL (31.0-37.0); MCV 78.4 fL (80.0-100.0); Mean Platelet Volume 7.1; Microcytosis Slight; Monocytes # (A) 0.7 k/uL (0-1.0); Monocytes % (A) 7 %; Neutrophils % (A) 71 %; Platelet Count 554 k/uL (150-450); Poikilocytosis Slight; RBC 5.03 m/uL (4.30-5.90); RDW 18.6 % (11.5-15.5); WBC 9.8 k/uL (3.8-10.6)
[2023-07-19 07:32] LABS: INR 1.5 (<1.2); Prothrombin Time 15.6 sec (10.0-12.5)
[2023-07-19 08:22] LABS: African American GFR (CKD) >90 (>60 ml/min/1.73 sqM); Anion Gap 4 mmol/L; Blood Urea Nitrogen 13 mg/dL (9-20); Carbon Dioxide 25 mmol/L (22-30); Chloride 107 mmol/L (98-107); Glucose 96 mg/dL (74-99); Non-African American GFR(CKD) >90 (>60 ml/min/1.73 sqM); Potassium 4.4 mmol/L (3.5-5.1); Sodium 136 mmol/L (137-145)
[2023-07-19] MEDS: METOPROLOL TARTRATE 25 MG TAB PO SCH (08:42)
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
[2023-07-19] MEDS: oxyCODONE-APAP 10-325MG 1 EACH TAB PO PRN (12:27)
[2023-07-19] MEDS: VANCOMYCIN TROUGH DUE 1 EACH MISC MISCELLANE ONE (12:33)
[2023-07-19 13:20] LABS: African American GFR (CKD) >90 (>60 ml/min/1.73 sqM); Non-African American GFR(CKD) >90 (>60 ml/min/1.73 sqM)
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
--- NOTE | 2023-07-19 16:58 | P.PN ---
Subjective Progress Note Date: 07/19/23 CHIEF COMPLAINT: Decubitus ulcer HISTORY OF PRESENT ILLNESS: Patient is status post debridement of the decubitus ulcers. Patient required transfer to the ICU yesterday due to hypotension and A-fib. Patient has converted to sinus rhythm. Afebrile. WBC is down from 15.2-9.8 Hgb 10.8 PHYSICAL EXAM: VITAL SIGNS: Reviewed. GENERAL: Well-developed in no acute distress. ABDOMEN: Soft. Nondistended. Nontender. NEUROLOGIC: Alert and oriented. Cranial nerves II through XII grossly intact. SKIN: Right upper gluteal decubitus ulcer, left upper posterior decubitus ulcer. Small right gluteal ulcer ASSESSMENT: 1. Right decubitus gluteal ulcer and a left upper posterior thigh decubitus ulcer status postdebridement PLAN: -Consult wound care service for wound VAC placement to both areas -Continue local wound care -Okay to resume Coumadin Physician Security Flex Officer note has been reviewed by physician. Signing provider agrees with the documented findings, assessment, and plan of care. Objective - Vital Signs Vital signs: Vital Signs Temp 97.4 F L 07/19/23 12:00 Pulse 69 07/19/23 15:00 Resp 15 07/19/23 15:00 BP 104/68 07/19/23 14:00 Pulse Ox 94 L 07/19/23 14:00 FiO2 Intake & Output 07/18/23 07/19/23 07/19/23 18:59 06:59 18:59 Intake Total 416 550 3851 Output Total 2024 1685 440 Balance -1525 -444 710 Weight 160.118 kg 166.196 kg Intake: IV 994 654 4864 Cefepime 2 gm In Sodium 100 200 Chloride 0.9% 100 ml @ 25 mls/hr IVPB Q8HR [facility] Rx# :[id number] Lactated Ringers 1,000 ml 550 450 @ 50 mls/hr IV .Q20H [facility] Rx#:[id number] Vancomycin 2,500 mg In 250 500 Sodium Chloride 0.9% 500 ml 500 ml @ 167 mls/hr IVPB Q12H [facility] Rx#: [id number] Output: Urine 1999 1685 440 Estimated Blood Loss 25 Other: Voiding Method Indwelling Catheter Indwelling Catheter Indwelling Catheter # Bowel Movements 1 - Labs CBC & Chem 7: 07/19/23 06:19 07/19/23 12:43 Labs: Abnormal Lab Results - Last 24 Hours (Table) 07/18/23 07/18/23 07/18/23 Range/Units 04:22 19:30 19:46 WBC 15.2 H (3.8-10.6) k/uL Hgb 12.2 L (13.0-17.5) gm/dL MCV 78.4 L (80.0-100.0) fL MCH 21.0 L (25.0-35.0) pg MCHC 26.8 L (31.0-37.0) g/dL RDW 18.7 H (11.5-15.5) % Plt Count 570 H (150-450) k/uL Neutrophils # 11.7 H (1.3-7.7) k/uL PT (10.0-12.5) sec INR (<1.2) Sodium (137-145) mmol/L Creatinine (0.66-1.25) mg/dL POC Glucose (mg/dL) 161 H (70-110) mg/dL Plasma Lactic Acid Boom (0.7-2.0) mmol/L Calcium (8.4-10.2) mg/dL Iron 13 L (65-175) UG/DL % Saturation 4.44 L (15.00-50.00) 07/18/23 07/19/23 07/19/23 Range/Units 19:46 06:19 06:19 WBC (3.8-10.6) k/uL Hgb 10.8 L (13.0-17.5) gm/dL MCV 78.4 L (80.0-100.0) fL MCH 21.4 L (25.0-35.0) pg MCHC 27.3 L (31.0-37.0) g/dL RDW 18.6 H (11.5-15.5) % Plt Count 554 H (150-450) k/uL Neutrophils # (1.3-7.7) k/uL PT 15.6 H (10.0-12.5) sec INR 1.5 H (<1.2) Sodium (137-145) mmol/L Creatinine (0.66-1.25) mg/dL POC Glucose (mg/dL) (70-110) mg/dL Plasma Lactic Acid Boom 3.8 H* (0.7-2.0) mmol/L Calcium (8.4-10.2) mg/dL Iron (65-175) UG/DL % Saturation (15.00-50.00) 07/19/23 Range/Units 06:19 WBC (3.8-10.6) k/uL Hgb (13.0-17.5) gm/dL MCV (80.0-100.0) fL MCH (25.0-35.0) pg MCHC (31.0-37.0) g/dL RDW (11.5-15.5) % Plt Count (150-450) k/uL Neutrophils # (1.3-7.7) k/uL PT (10.0-12.5) sec INR (<1.2) Sodium 136 L (137-145) mmol/L Creatinine 0.62 L (0.66-1.25) mg/dL POC Glucose (mg/dL) (70-110) mg/dL Plasma Lactic Acid Boom (0.7-2.0) mmol/L Calcium 8.0 L (8.4-10.2) mg/dL Iron (65-175) UG/DL % Saturation (15.00-50.00) Microbiology - Last 24 Hours (Table) 07/16/23 19:05 Blood Culture - Preliminary Blood 07/16/23 19:20 Blood Culture - Preliminary Blood
[2023-07-19] MEDS: WARFARIN 3 MG TAB PO ONE (18:42)
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
[2023-07-20 06:33] LABS: Anisocytosis Slight; Basophils # (A) 0.1 k/uL (0-0.2); Basophils % (A) 1 %; Eosinophils # (A) 0.2 k/uL (0-0.7); Eosinophils % (A) 2 %; HCT 37.3 % (39.0-53.0); HGB 10.4 gm/dL (13.0-17.5); Hypochromasia Marked; Lymphocytes # (A) 1.6 k/uL (1.0-4.8); Lymphocytes % (A) 15 %; MCH 21.2 pg (25.0-35.0); MCHC 27.8 g/dL (31.0-37.0); MCV 76.2 fL (80.0-100.0); Mean Platelet Volume 6.7; Microcytosis Moderate; Monocytes # (A) 0.6 k/uL (0-1.0); Monocytes % (A) 6 %; Neutrophils # (A) 7.6 k/uL (1.3-7.7); Neutrophils % (A) 75 %; Platelet Count 504 k/uL (150-450); Poikilocytosis Slight; RBC 4.89 m/uL (4.30-5.90); RDW 18.8 % (11.5-15.5); WBC 10.1 k/uL (3.8-10.6)
[2023-07-20 06:49] LABS: African American GFR (CKD) >90 (>60 ml/min/1.73 sqM); Anion Gap 2 mmol/L; Blood Urea Nitrogen 15 mg/dL (9-20); Calcium 8.3 mg/dL (8.4-10.2); Carbon Dioxide 27 mmol/L (22-30); Chloride 107 mmol/L (98-107); Glucose 109 mg/dL (74-99); Non-African American GFR(CKD) >90 (>60 ml/min/1.73 sqM); Potassium 3.7 mmol/L (3.5-5.1); Sodium 136 mmol/L (137-145)
[2023-07-20 06:53] LABS: INR 1.7 (<1.2); Prothrombin Time 17.3 sec (10.0-12.5)
[2023-07-20] MEDS: POTASSIUM CHLORIDE ER 20 MEQ TAB.ER PO SCH (07:03)
--- NOTE | 2023-07-20 07:03 | CA ---
Transthoracic Echo Report Name: Dioni Linton Age: 67 Gender: M : 1955 Exam Date: 07/19/2023 11:39 Exam Location: [facility] Ht (in): 73 Wt (lb): 366 Ordering Physician: James Lea MD ([id number]) Attending/Referring Phys: Process Controller Lima Mantilla RDCS Procedure CPT: Indications: Assess LV Function Cardiac Hx: Technical Quality: Technically difficult study Contrast 1: Definity Total Dose (mL): 2 Contrast 2: Total Dose (mL): MEASUREMENTS (Male / Female) Normal Values 2D ECHO LV Diastolic Diameter PLAX 4.1 cm 4.2 - 5.9 / 3.9 - 5.3 cm LV Systolic Diameter PLAX 3.0 cm IVS Diastolic Thickness 1.4 cm 0.6 - 1.0 / 0.6 - 0.9 cm LVPW Diastolic Thickness 1.3 cm 0.6 - 1.0 / 0.6 - 0.9 cm LV Relative Wall Thickness 0.7 RV Internal Dim ED PLAX 4.4 cm LA Volume 90.0 cm??? 18 - 58 / 22 - 52 cm??? LA Volume Index 29.9 cm???/m??? 16 - 28 cm???/m??? M-MODE Aortic Root Diameter MM 3.9 cm LA Systolic Diameter MM 4.5 cm LA Ao Ratio MM 1.2 DOPPLER AV Peak Velocity 148.3 cm/s AV Peak Gradient 8.8 mmHg AV Mean Velocity 100.2 cm/s AV Mean Gradient 4.5 mmHg AV Velocity Time Integral 30.1 cm LVOT Peak Velocity 84.5 cm/s LVOT Peak Gradient 2.9 mmHg LVOT Velocity Time Integral 13.8 cm MV Area PHT 3.0 cm??? Mitral E Point Velocity 58.7 cm/s Mitral A Point Velocity 66.0 cm/s Mitral E to A Ratio 0.9 MV Deceleration Time 249.4 ms MV E' Velocity 5.3 cm/s Mitral E to MV E' Ratio 11.0 TR Peak Velocity 204.2 cm/s TR Peak Gradient 16.7 mmHg Right Ventricular Systolic Press 21.7 mmHg FINDINGS Left Ventricle Moderately increased left ventricular wall thickness. Left ventricular cavity size normal. No obvious regional wall motion abnormalities. Left ventricular ejection fraction is estimated at 55-60 %. Grade 1 diastolic dysfunction. Right Ventricle Moderate right ventricular dilatation. Right ventricular systolic pressure within normal limits. Right Atrium Right atrium not well visualized. Left Atrium Mildly increased left atrial volume. Mildly increased left atrial area. Mitral Valve Structurally normal mitral valve. Mild mitral regurgitation. Aortic Valve No aortic valve stenosis or regurgitation.aortic valve not well visualized. Tricuspid Valve Mild tricuspid regurgitation.structurally normal tricuspid valve. Pulmonic Valve Pulmonic valve not well visualized. Pericardium No pericardial effusion. Aorta Normal size aortic root and proximal ascending aorta. CONCLUSIONS Technically difficult study. Definity ECHO contrast used for improved visualization of the endocardial borders (inadequate visualization of two or more contiguous segments). Mildly left ventricle size and systolic function Dilated right ventricle Very limited Doppler study with mild mitral and tricuspid regurgitation Previewed by: Dr. Lilia Sullivan MD (Electronically Signed) Final Date: 20 Jul 2023 07:02
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
[2023-07-20] MEDS: VANCOMYCIN 2,250 MG in SODIUM CHLORIDE 0.9% 500 ML 500 ML IVPB SCH (08:46)
[2023-07-20] MEDS: WARFARIN 7.5 MG TAB PO ONE (08:46)
[2023-07-20] MEDS: METOPROLOL TARTRATE 12.5 MG TAB PO SCH (08:47)
--- NOTE | 2023-07-20 09:37 | PN ---
PROGRESS NOTE SUBJECTIVE: This is a 67-year-old gentleman with decubitus ulcers, paraplegia, went into atrial fibrillation, but now maintaining sinus rhythm. He is on Coumadin, but INR is not therapeutic. I am giving him 7.5 mg today and with goal is to keep the INR between 2.0 to 3.0. He has history of DVT, for which he was on Coumadin, but now developed paroxysmal atrial fibrillation, although he is now maintaining sinus rhythm. I am recommending we decrease the metoprolol to 12.5 mg b.i.d. and give 7.5 mg of Coumadin and keep the INR between 2.0 and 3.0. OBJECTIVE: VITAL SIGNS: Stable. HEART: S1, S2 heard normally. Short systolic murmur. LUNGS: Revealed decent air entry. ABDOMEN: Soft. EXTREMITIES: Lower extremity exam reveals bilateral footdrop and flaccidity. CENTRAL NERVOUS SYSTEM: Not performed. I will continue to see the patient as needed. MMODL / IJN: [id number] /
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
--- NOTE | 2023-07-20 15:09 | P.PN ---
Subjective Progress Note Date: 07/20/23 CHIEF COMPLAINT: Decubitus ulcer HISTORY OF PRESENT ILLNESS: Patient is POD#2 status post debridement of his decubitus ulcers. Patient transferred to the ICU the day before for hypotension and A-fib. Patient did have wound vacs placed yesterday. His pain is controlled. He did have a bowel movement. Afebrile. WBC 10.1 INR 1.7 PHYSICAL EXAM: VITAL SIGNS: Reviewed. GENERAL: Well-developed in no acute distress. ABDOMEN: Soft. Nondistended. Nontender. NEUROLOGIC: Alert and oriented. Cranial nerves II through XII grossly intact. SKIN: Wound vacs in place ASSESSMENT: 1. Right decubitus gluteal ulcer and a left upper posterior thigh decubitus ulcer status post debridement PLAN: -Continue wound vacs -Antibiotics per infectious disease -Continue offloading -Continue supportive care Physician Financial Institution Branch Manager note has been reviewed by physician. Signing provider agrees with the documented findings, assessment, and plan of care. Objective - Vital Signs Vital signs: Vital Signs Temp 98.5 F 07/20/23 08:00 Pulse 116 H 07/20/23 08:00 Resp 18 07/20/23 08:00 BP 100/60 07/20/23 08:00 Pulse Ox 95 07/20/23 08:00 FiO2 Intake & Output 07/19/23 07/20/23 07/20/23 18:59 06:59 18:59 Intake Total 1947 793 3207 Output Total 440 595 245 Balance 710 -145 855 Intake: IV 2615 588 9726 Cefepime 2 gm In Sodium 200 100 Chloride 0.9% 100 ml @ 25 mls/hr IVPB Q8HR [facility] Rx# :[id number] Lactated Ringers 1,000 ml 450 450 500 @ 50 mls/hr IV .Q20H [facility] Rx#:[id number] Vancomycin 2,500 mg In 500 500 Sodium Chloride 0.9% 500 ml 500 ml @ 167 mls/hr IVPB Q12H [facility] Rx#: [id number] Output: Urine 440 595 245 Other: Voiding Method Indwelling Catheter Indwelling Catheter Indwelling Catheter # Bowel Movements 1 1 - Labs CBC & Chem 7: 07/20/23 06:03 07/20/23 06:03 Labs: Abnormal Lab Results - Last 24 Hours (Table) 07/20/23 07/20/23 07/20/23 Range/Units 06:03 06:03 06:03 Hgb 10.4 L (13.0-17.5) gm/dL Hct 37.3 L (39.0-53.0) % MCV 76.2 L (80.0-100.0) fL MCH 21.2 L (25.0-35.0) pg MCHC 27.8 L (31.0-37.0) g/dL RDW 18.8 H (11.5-15.5) % Plt Count 504 H (150-450) k/uL PT 17.3 H (10.0-12.5) sec INR 1.7 H (<1.2) Sodium 136 L (137-145) mmol/L Glucose 109 H (74-99) mg/dL Calcium 8.3 L (8.4-10.2) mg/dL Microbiology - Last 24 Hours (Table) 07/16/23 19:05 Blood Culture - Preliminary Blood 07/16/23 19:20 Blood Culture - Preliminary Blood
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
[2023-07-21 05:04] LABS: Anisocytosis Slight; Basophils # (A) 0.1 k/uL (0-0.2); Basophils % (A) 1 %; Eosinophils # (A) 0.2 k/uL (0-0.7); Eosinophils % (A) 2 %; HCT 35.5 % (39.0-53.0); HGB 9.7 gm/dL (13.0-17.5); Hypochromasia Marked; Lymphocytes # (A) 1.9 k/uL (1.0-4.8); Lymphocytes % (A) 23 %; MCH 21.4 pg (25.0-35.0); MCHC 27.3 g/dL (31.0-37.0); MCV 78.2 fL (80.0-100.0); Mean Platelet Volume 7.4; Microcytosis Slight; Monocytes # (A) 0.5 k/uL (0-1.0); Monocytes % (A) 6 %; Neutrophils # (A) 5.4 k/uL (1.3-7.7); Neutrophils % (A) 66 %; Platelet Count 454 k/uL (150-450); Poikilocytosis Slight; RBC 4.54 m/uL (4.30-5.90); WBC 8.2 k/uL (3.8-10.6)
[2023-07-21 05:24] LABS: African American GFR (CKD) >90 (>60 ml/min/1.73 sqM); Anion Gap 0 mmol/L; Blood Urea Nitrogen 15 mg/dL (9-20); Calcium 7.8 mg/dL (8.4-10.2); Carbon Dioxide 27 mmol/L (22-30); Chloride 109 mmol/L (98-107); Glucose 96 mg/dL (74-99); Non-African American GFR(CKD) >90 (>60 ml/min/1.73 sqM); Potassium 4.2 mmol/L (3.5-5.1); Sodium 136 mmol/L (137-145)
[2023-07-21] MEDS: SODIUM CHLORIDE 0.9% 250 ML IV SCH (07:52)
[2023-07-21] MEDS: SODIUM CHLORIDE 0.9% 250 ML IV ONE (07:53)
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
--- NOTE | 2023-07-21 10:15 | P.PN ---
Subjective Progress Note Date: 07/21/23 CHIEF COMPLAINT: Decubitus ulcer HISTORY OF PRESENT ILLNESS: Patient is POD#3 status post debridement of his decubitus ulcers. Patient reports his pain is controlled. He is lying in bed comfortably. He did get to the bedside chair yesterday. PHYSICAL EXAM: VITAL SIGNS: Reviewed. GENERAL: Well-developed in no acute distress. ABDOMEN: Soft. Nondistended. Nontender. NEUROLOGIC: Alert and oriented. Cranial nerves II through XII grossly intact. SKIN: Wound vacs in place ASSESSMENT: 1. Right decubitus gluteal ulcer and a left upper posterior thigh decubitus ulcer status post debridement PLAN: -Continue wound vacs -Antibiotics per infectious disease -Continue offloading -Continue supportive care Physician [employer] Operator note has been reviewed by physician. Signing provider agrees with the documented findings, assessment, and plan of care. Objective - Vital Signs Vital signs: Vital Signs Temp 97.9 F 07/20/23 20:00 Pulse 77 07/21/23 08:25 Resp 16 07/21/23 08:25 BP 90/55 07/21/23 08:25 Pulse Ox 96 07/21/23 02:00 FiO2 Intake & Output 07/20/23 07/21/23 07/21/23 18:59 06:59 18:59 Intake Total 1350 1400 Output Total 320 365 Balance 1030 1035 Intake: IV 1350 600 Cefepime 2 gm In Sodium 200 Chloride 0.9% 100 ml @ 25 mls/hr IVPB Q8HR SHERRY Rx# :[id number] Lactated Ringers 1,000 ml 650 600 @ 50 mls/hr IV .Q20H SHERRY Rx#:[id number] Vancomycin 2,500 mg In 500 Sodium Chloride 0.9% 500 ml 500 ml @ 167 mls/hr IVPB Q12H SHERRY Rx#: [id number] Intake, IV Titration 800 Amount Cefepime 2 gm In Sodium 800 Chloride 0.9% 100 ml @ 25 mls/hr IVPB Q8HR SHERRY Rx# :[id number] Output: Urine 320 365 Other: Voiding Method Indwelling Catheter Indwelling Catheter # Bowel Movements 1 - Labs CBC & Chem 7: 07/21/23 04:18 07/21/23 04:18 Labs: Abnormal Lab Results - Last 24 Hours (Table) 07/21/23 07/21/23 07/21/23 Range/Units 04:18 04:18 04:18 Hgb 9.7 L (13.0-17.5) gm/dL Hct 35.5 L (39.0-53.0) % MCV 78.2 L (80.0-100.0) fL MCH 21.4 L (25.0-35.0) pg MCHC 27.3 L (31.0-37.0) g/dL RDW 19.0 H (11.5-15.5) % Plt Count 454 H (150-450) k/uL PT 20.0 H (10.0-12.5) sec INR 2.0 H (<1.2) Sodium 136 L (137-145) mmol/L Chloride 109 H (98-107) mmol/L Calcium 7.8 L (8.4-10.2) mg/dL Microbiology - Last 24 Hours (Table) 07/16/23 19:05 Blood Culture - Preliminary Blood 07/16/23 19:20 Blood Culture - Preliminary Blood
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
[2023-07-21] MEDS: LIDOCAINE 1% INJ 10MG/ML (20 ML MDV) SQ ONE ×2 (16:02→16:03)
--- NOTE | 2023-07-21 16:16 | P.OP ---
Date of Procedure: 07/21/23 Description of Procedure: Date of Procedure: Preoperative Diagnosis: Need for long-term IV antibiotic access. Postoperative Diagnosis: Same. Procedure(s) Performed: Ultrasound-guided cannulation left basilic vein. Insertion of peripherally inserted central catheter under fluoroscopic guidance. Anesthesia: local (1% Xylocaine.) Surgeon: iMchael Estimated Blood Loss (ml): 5 IV fluids (ml): 0 Urine output (ml): 0 Pathology: none sent Condition: stable Disposition: no change Indications for Procedure: Patient is a 67-year-old male a sacral wound that was infected requiring antibiotics. The patient will require long-term IV antibiotics as an outpatient patient is offered a PICC line to allow for intravenous administration of antibiotics. Description of Procedure: Patient was brought to the special procedure suite. The left upper extremity sterilely prepped and draped in usual manner. Ultrasound was utilized to identify the basilic vein which was normally compressible free of visible thrombus. Permenant image was stored. 1% Xylocaine was utilized for local anesthesia tissues overlying the vein. Through this anesthetized area and with the aid of ultrasound a micropuncture needle was utilized to cannulate the vein. Once cannulated, Softip guidewire was advanced into the vein. The needle was withdrawn and a micropuncture sheath and dilator advanced over the guidewire. The guidewire was withdrawn and exchanged for the PICC guidewire and measured 55 cm to the cavoatrial junction. The catheter was cut to size and advanced into the cavoatrial junction without resistance. The sheath was peeled away. Blood was easily withdrawn through the catheter and the catheter was then flushed with heparinized saline solution and secured to the skin. Patient tolerated procedure well and was returned to their room in satisfactory and stable condition.
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
--- NOTE | 2023-07-21 17:40 | XR ---
EXAMINATION TYPE: XR chest 1V portable DATE OF EXAM: 07/21/2023 Comparison: 07/18/2023 Clinical History: 67-year-old male shortness of breath Findings: Plate and screw fixation mid right clavicular shaft. Posterior cervicothoracic fusion hardware partia lly visualized. Moderate cardiomegaly. Hazy densities relating to overlying soft tissue and causing s ome limitation in assessment. No consolidation or pleural effusion allowing for this limitation. Impression: Moderate cardiomegaly. Limited by large body habitus and portable technique. No definite acute proces s.
[2023-07-21] MEDS: WARFARIN 3 MG TAB PO ONE (17:51)
[2023-07-22 06:19] LABS: Anisocytosis Slight; Basophils # (A) 0.1 k/uL (0-0.2); Basophils % (A) 1 %; Eosinophils # (A) 0.2 k/uL (0-0.7); Eosinophils % (A) 2 %; HCT 38.2 % (39.0-53.0); HGB 10.5 gm/dL (13.0-17.5); Hypochromasia Marked; Lymphocytes % (A) 25 %; MCH 21.2 pg (25.0-35.0); MCHC 27.6 g/dL (31.0-37.0); MCV 76.8 fL (80.0-100.0); Mean Platelet Volume 7.4; Microcytosis Moderate; Monocytes # (A) 0.4 k/uL (0-1.0); Monocytes % (A) 5 %; Neutrophils # (A) 5.1 k/uL (1.3-7.7); Neutrophils % (A) 65 %; Platelet Count 474 k/uL (150-450); Poikilocytosis Slight; RBC 4.97 m/uL (4.30-5.90); RDW 19.2 % (11.5-15.5); WBC 7.9 k/uL (3.8-10.6)
[2023-07-22 06:30] LABS: African American GFR (CKD) >90 (>60 ml/min/1.73 sqM); Anion Gap 1 mmol/L; Blood Urea Nitrogen 17 mg/dL (9-20); Calcium 8.5 mg/dL (8.4-10.2); Carbon Dioxide 28 mmol/L (22-30); Chloride 110 mmol/L (98-107); Glucose 91 mg/dL (74-99); Non-African American GFR(CKD) >90 (>60 ml/min/1.73 sqM); Potassium 4.3 mmol/L (3.5-5.1); Sodium 139 mmol/L (137-145)
[2023-07-22 06:49] LABS: INR 2.1 (<1.2); Prothrombin Time 20.8 sec (10.0-12.5)
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
[2023-07-22 08:36] VITALS: BMI 48.3
[2023-07-22] MEDS: VANCOMYCIN TROUGH DUE 1 EACH MISC MISCELLANE ONE (09:46)
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
[2023-07-22] MEDS: IPRATROPIUM-ALBUTEROL 3 ML NEB INHALATION SCH (11:16)
--- NOTE | 2023-07-22 12:37 | P.PN ---
Subjective Progress Note Date: 07/22/23 CHIEF COMPLAINT: Decubitus ulcer HISTORY OF PRESENT ILLNESS: Patient is POD#4 status post debridement of his decubitus ulcers. Patient reports his pain is controlled. He is lying in bed comfortably. He has 2 wound vacs. Afebrile. WBC 7.9 Hgb 10.5 platelets 474 INR 2.1 PHYSICAL EXAM: VITAL SIGNS: Reviewed. GENERAL: Well-developed in no acute distress. ABDOMEN: Soft. Nondistended. Nontender. NEUROLOGIC: Alert and oriented. Cranial nerves II through XII grossly intact. SKIN: Wound vacs in place ASSESSMENT: 1. Right decubitus gluteal ulcer and a left upper posterior thigh decubitus ulcer status post debridement PLAN: -Wound vacs to be changed today. Wound VAC scheduled changing is Tuesday -Continue wound vacs -Antibiotics per infectious disease -Continue offloading -Continue supportive care Physician Member Services Representative note has been reviewed by physician. Signing provider agrees with the documented findings, assessment, and plan of care. Objective - Vital Signs Vital signs: Vital Signs Temp 97.8 F 07/22/23 02:00 Pulse 73 07/22/23 02:00 Resp 14 07/22/23 02:00 BP 118/75 07/22/23 02:00 Pulse Ox 96 07/22/23 02:00 FiO2 Intake & Output 07/21/23 07/22/23 07/22/23 18:59 06:59 18:59 Intake Total 1100 700 Output Total 750 775 Balance 350 -75 Weight 166.196 kg Intake: IV 600 700 Cefepime 2 gm In Sodium 100 100 Chloride 0.9% 100 ml @ 25 mls/hr IVPB Q8HR [facility] Rx# :[id number] Lactated Ringers 1,000 ml 500 600 @ 50 mls/hr IV .Q20H [facility] Rx#:[id number] Intake, IV Titration 500 Amount Vancomycin 2,250 mg In 500 Sodium Chloride 0.9% 500 ml 500 ml @ 167 mls/hr IVPB Q16H [facility] Rx#: [id number] Output: Urine 750 775 Other: Voiding Method Indwelling Catheter Indwelling Catheter - Labs CBC & Chem 7: 07/22/23 05:47 07/22/23 05:47 Labs: Abnormal Lab Results - Last 24 Hours (Table) 07/22/23 07/22/23 07/22/23 Range/Units 05:47 05:47 05:47 Hgb 10.5 L (13.0-17.5) gm/dL Hct 38.2 L (39.0-53.0) % MCV 76.8 L (80.0-100.0) fL MCH 21.2 L (25.0-35.0) pg MCHC 27.6 L (31.0-37.0) g/dL RDW 19.2 H (11.5-15.5) % Plt Count 474 H (150-450) k/uL PT 20.8 H (10.0-12.5) sec INR 2.1 H (<1.2) Chloride 110 H (98-107) mmol/L Creatinine 0.57 L (0.66-1.25) mg/dL
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
[2023-07-22] MEDS: WARFARIN 3 MG TAB PO ONE (17:20)
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
[2023-07-23 04:56] LABS: Anisocytosis Slight; HCT 37.2 % (39.0-53.0); HGB 10.2 gm/dL (13.0-17.5); Hypochromasia Marked; MCH 21.2 pg (25.0-35.0); MCHC 27.4 g/dL (31.0-37.0); MCV 77.4 fL (80.0-100.0); Mean Platelet Volume 7.5; Microcytosis Slight; Platelet Count 420 k/uL (150-450); Poikilocytosis Slight; RBC 4.81 m/uL (4.30-5.90)
[2023-07-23 05:01] LABS: INR 2.4 (<1.2)
[2023-07-23 05:13] LABS: African American GFR (CKD) >90 (>60 ml/min/1.73 sqM); Anion Gap 1 mmol/L; Blood Urea Nitrogen 17 mg/dL (9-20); Calcium 8.4 mg/dL (8.4-10.2); Carbon Dioxide 26 mmol/L (22-30); Chloride 111 mmol/L (98-107); Glucose 91 mg/dL (74-99); Non-African American GFR(CKD) >90 (>60 ml/min/1.73 sqM); Potassium 3.9 mmol/L (3.5-5.1); Sodium 138 mmol/L (137-145)
[2023-07-23] MEDS: POTASSIUM CHLORIDE ER 20 MEQ TAB.ER PO SCH (06:14)
[2023-07-23 06:29] LABS: Band Neutrophils % 1 %; Basophils # (M) 0.09 k/uL (0-0.2); Eosinophils # (M) 0.18 k/uL (0-0.7); Lymphocytes # (M) 2.88 k/uL (1.0-4.8); Metamyelocytes # (M) 0.18 k/uL (0); Metamyelocytes % 2 %; Monocytes # (M) 0.27 k/uL (0-1.0); Myelocytes # (M) 0.09 k/uL (0); Myelocytes % 1 %; Neutrophils % (M) 60 %; Nucleated Red Blood Cells 0 /100 WBC (0-0); Total Cells Counted 200
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
--- NOTE | 2023-07-23 11:47 | P.PN ---
Progress Note - Text Progress Note Date: 07/23/23 CHIEF COMPLAINT: Decubitus ulcer HISTORY OF PRESENT ILLNESS: Patient is POD#5 status post debridement of his decubitus ulcers. Patient reports his pain is controlled. He is lying in bed comfortably. He has 2 wound vacs. Afebrile. PHYSICAL EXAM: VITAL SIGNS: Reviewed. GENERAL: Well-developed in no acute distress. ABDOMEN: Soft. Nondistended. Nontender. NEUROLOGIC: Alert and oriented. Cranial nerves II through XII grossly intact. SKIN: Wound vacs in place ASSESSMENT: 1. Right decubitus gluteal ulcer and a left upper posterior thigh decubitus ulcer status post debridement PLAN: -Wound vacs to be changed today. Wound VAC scheduled changing is Tuesday -Continue wound vacs -Antibiotics per infectious disease -Continue offloading -Continue supportive care
[2023-07-23] MEDS: WARFARIN 5 MG TAB PO ONE (18:11)
[2023-07-24 06:11] LABS: INR 2.6 (<1.2); Prothrombin Time 25.6 sec (10.0-12.5)
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
--- NOTE | 2023-07-24 11:33 | P.PN ---
Subjective Progress Note Date: 07/24/23 Principal diagnosis: Decubitus ulcer Patient on low pressure mattress. Denies pain. Wound vacs in place. He is afebrile. Objective - Vital Signs Vital signs: Vital Signs Temp 97.8 F 07/24/23 07:20 Pulse 80 07/24/23 11:24 Resp 13 07/24/23 08:00 BP 155/97 07/24/23 07:20 Pulse Ox 97 07/24/23 07:20 FiO2 Intake & Output 07/23/23 07/24/23 07/24/23 18:59 06:59 18:59 Intake Total 450 Output Total 525 1500 Balance -75 -1500 Intake: IV 450 Cefepime 2 gm In Sodium 100 Chloride 0.9% 100 ml @ 25 mls/hr IVPB Q8HR [facility] Rx# :[id number] Lactated Ringers 1,000 ml 350 @ 50 mls/hr IV .Q20H [facility]Y Rx#:[id number] Output: Urine 525 1500 Other: Voiding Method Indwelling Catheter Indwelling Catheter Indwelling Catheter # Bowel Movements 1 - Exam Wound VAC in place over decubitus ulcer, nontender - Labs CBC & Chem 7: 07/23/23 04:23 07/23/23 04:23 Labs: Abnormal Lab Results - Last 24 Hours (Table) 07/24/23 Range/Units 05:14 PT 25.6 H (10.0-12.5) sec INR 2.6 H (<1.2) Assessment and Plan (1) Decubitus ulcers Narrative/Plan: 67-year-old male with decubitus ulcers. Continue offloading. Continue wound VAC therapy. Continue optimizing nutrition. Current Visit: Yes Status: Acute Code(s): L89.90 - PRESSURE ULCER OF UNSPECIFIED SITE, UNSPECIFIED STAGE SNOMED Code(s): 8564892548
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
[2023-07-24] MEDS: WARFARIN 2 MG TAB PO ONE (17:20)
[2023-07-25 06:28] LABS: INR 2.6 (<1.2); Prothrombin Time 25.3 sec (10.0-12.5)
[2023-07-25 06:35] LABS: African American GFR (CKD) >90 (>60 ml/min/1.73 sqM); Non-African American GFR(CKD) >90 (>60 ml/min/1.73 sqM)
--- NOTE | 2023-07-25 13:59 | XR ---
EXAMINATION TYPE: XR chest 1V DATE OF EXAM: 07/25/2023 COMPARISON: 07/21/2023 INDICATION: Wheezing TECHNIQUE: Single frontal view of the chest is obtained. FINDINGS: The heart size is stable from comparison. The pulmonary vasculature is normal. The lungs are clear. IMPRESSION: 1. No acute pulmonary process.
--- NOTE | 2023-07-25 14:09 | P.PN ---
Nitesh Wheatley is reevaluated for his ongoing decubitus ulcers recent sepsis osteomyelitis new atrial fibrillation. He is a known quadriplegic with some use of his arms. He has a history of migraine headaches and recurrent UTI. He has a Rodriguez catheter to gravity. He is resting comfortably in a bariatric offloading surgical bed. He has been turned down by every subacute rehab facility in the area. Discussed with he will probably need to go home once he is improved. Today though he is audibly gurgling and having significant abnormal lung sounds. Objective - Vital Signs Vital signs: Vital Signs Temp 97.3 F L 07/25/23 08:00 Pulse 90 07/25/23 11:39 Resp 20 07/25/23 09:30 BP 135/87 07/25/23 08:00 Pulse Ox 97 07/25/23 11:32 FiO2 Intake & Output 07/24/23 07/25/23 07/25/23 18:59 06:59 18:59 Intake Total 200 Output Total 1800 1000 Balance -1800 -1000 200 Intake: Oral 200 Output: Urine 1800 1000 Other: Voiding Method Indwelling Catheter Indwelling Catheter Indwelling Catheter - Exam GENERAL: morbidly obese male and in no acute distress. He is in a bariatric bed NECK: Normal range of motion, supple without lymphadenopathy or JVD, no thyromegaly LUNGS: Breath sounds coarse with some upper airway gurgling. No wheezes rales or rhonchi. HEART: rate and rhythm control consistent with atrial fibrillation without murmurs, rubs or gallops.S1S2 Normal ABDOMEN: Soft, nontender, normoactive bowel sounds. No guarding, no rebound. No masses appreciated. Distended due to truncal obesity, Rodriguez catheter is in place EXTREMITIES: no pitting or edema. No clubbing or cyanosis. He has no range of motion due to his quadriplegia. He has limited use of his upper extremities. NEUROLOGICAL: Cranial nerves II through XII grossly intact. Normal speech, PSYCH: Normal mood, normal affect. SKIN: Wound measurements are pending he has a wound VAC to his left gluteus wound and right most gluteus wound - Labs CBC & Chem 7: 07/23/23 04:23 07/25/23 05:57 Labs: Abnormal Lab Results - Last 24 Hours (Table) 05/20/24 05/20/24 Range/Units 05:57 05:57 PT 25.3 H (10.0-12.5) sec INR 2.6 H (<1.2) Creatinine 0.55 L (0.66-1.25) mg/dL Assessment and Plan (1) Sepsis Current Visit: No Status: Acute Code(s): A41.9 - SEPSIS, UNSPECIFIED ORGANISM SNOMED Code(s): 46818505 (2) Decubitus ulcers Current Visit: Yes Status: Acute Code(s): L89.90 - PRESSURE ULCER OF UNSPECIFIED SITE, UNSPECIFIED STAGE SNOMED Code(s): 8704325943 (3) Osteomyelitis Current Visit: Yes Status: Acute Code(s): M86.9 - OSTEOMYELITIS, UNSPECIFIED SNOMED Code(s): 54062479 (4) MRSA (methicillin resistant Staphylococcus aureus) infection Current Visit: Yes Status: Acute Code(s): A49.02 - METHICILLIN RESIS STAPH INFECTION, UNSP SITE SNOMED Code(s): 753384103 (5) Pseudomonas aeruginosa infection Current Visit: Yes Status: Acute Code(s): A49.8 - OTHER BACTERIAL INFECTIONS OF UNSPECIFIED SITE SNOMED Code(s): 51590710 (6) Quadriplegia Current Visit: No Status: Acute Code(s): G82.50 - QUADRIPLEGIA, UNSPECIFIED SNOMED Code(s): 19449953 (7) Migraine Current Visit: Yes Status: Acute Code(s): G43.909 - MIGRAINE, UNSP, NOT INTRACTABLE, WITHOUT STATUS MIGRAINOSUS SNOMED Code(s): 08807271 (8) Quadriplegia Current Visit: Yes Status: Acute Code(s): G82.50 - QUADRIPLEGIA, UNSPECIFIED SNOMED Code(s): 40453669 (9) Pressure ulcer of left buttock, stage 4 Current Visit: Yes Status: Acute Code(s): L89.324 - PRESSURE ULCER OF LEFT BUTTOCK, STAGE 4 SNOMED Code(s): 58393364505281 (10) Pressure ulcer of right buttock, stage 3 Current Visit: Yes Status: Acute Code(s): L89.313 - PRESSURE ULCER OF RIGHT BUTTOCK, STAGE 3 SNOMED Code(s): 85567074629207 (11) Chronic indwelling Rodriguez catheter Current Visit: No Status: Acute Code(s): Z97.8 - PRESENCE OF OTHER SPECIFIED DEVICES SNOMED Code(s): 859444314 (12) 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 He will continue on his current medications and treatments. Expect to be discharged home with home care in the next 24 hours. ECF would be more ideal however it would not be possible based on the current situation. Will continue wound care visits at the wound center once he is discharged.
--- NOTE | 2023-07-25 14:38 | P.PN ---
Subjective Progress Note Date: 07/25/23 CHIEF COMPLAINT: Decubitus ulcer HISTORY OF PRESENT ILLNESS: Patient is POD#7 status post debridement of his decubitus ulcers. Patient reports his pain is controlled. He is lying in bed comfortably. He has 2 wound vacs. Afebrile. PHYSICAL EXAM: VITAL SIGNS: Reviewed. GENERAL: Well-developed in no acute distress. ABDOMEN: Soft. Nondistended. Nontender. NEUROLOGIC: Alert and oriented. Cranial nerves II through XII grossly intact. SKIN: Wound vacs in place ASSESSMENT: 1. Right decubitus gluteal ulcer and a left upper posterior thigh decubitus ulcer status post debridement PLAN: -Wound vacs to be changed today. Wound VAC scheduled changing is Tuesday -Continue wound vacs -Antibiotics per infectious disease -Continue offloading -Continue supportive care -trust manager assistant working on discharge plans and possible placement Physician Mold Engraver note has been reviewed by physician. Signing provider agrees with the documented findings, assessment, and plan of care. Objective - Vital Signs Vital signs: Vital Signs Temp 97.3 F L 07/25/23 08:00 Pulse 90 07/25/23 11:39 Resp 20 07/25/23 09:30 BP 135/87 07/25/23 08:00 Pulse Ox 97 07/25/23 11:32 FiO2 Intake & Output 07/24/23 07/25/23 07/25/23 18:59 06:59 18:59 Intake Total 200 Output Total 1800 1000 Balance -1800 -1000 200 Intake: Oral 200 Output: Urine 1800 1000 Other: Voiding Method Indwelling Catheter Indwelling Catheter Indwelling Catheter - Labs CBC & Chem 7: 07/23/23 04:23 07/25/23 05:57 Labs: Abnormal Lab Results - Last 24 Hours (Table) 07/25/23 07/25/23 Range/Units 05:57 05:57 PT 25.3 H (10.0-12.5) sec INR 2.6 H (<1.2) Creatinine 0.55 L (0.66-1.25) mg/dL
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
[2023-07-25] MEDS: VANCOMYCIN TROUGH DUE 1 EACH MISC MISCELLANE ONE (16:44)
[2023-07-25] MEDS: WARFARIN 2 MG TAB PO ONE (17:57)
[2023-07-26 02:59] VITALS: RESP 18
[2023-07-26 06:19] LABS: INR 2.6 (<1.2); Prothrombin Time 26.1 sec (10.0-12.5)
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
[2023-07-26 08:35] LABS: HGB 10.5 g/dL (13.0-17.0); MCH 20.9 pg (27.0-32.0); MCHC 27.6 g/dL (32.0-37.0); MCV 75.7 FL (80.0-97.0); Mean Platelet Volume 9.6 FL (9.5-12.2); NRBC Per 100 WBC 0.02 X 10*3/uL (0.00-0.01); Platelet Count 406 X 10*3/uL (140-440); RBC 5.02 X 10*6/uL (4.40-5.60); RDW 21.2 % (11.5-14.5); WBC 9.17 X 10*3/uL (4.50-10.00)
[2023-07-26 08:56] LABS: Blood Urea Nitrogen 16.5 mg/dL (9.0-27.0); Calcium 8.5 mg/dL (8.7-10.3); Carbon Dioxide 24.7 mmol/L (21.6-31.8); Chloride 108 mmol/L (96-109); Glucose 87 mg/dL (70-110); Potassium 4.2 mmol/L (3.5-5.5); Sodium 138 mmol/L (135-145)
--- NOTE | 2023-07-26 10:21 | P.DS ---
Providers Date of admission: 07/16/23 21:33 Expected date of discharge: 07/26/23 Attending physician: Chandana Roger Consults: 07/16/23 21:33 Consult Physician Routine Consulting Provider: Luis Price Consult Reason/Comments: decubitus ulcers Do you want consulting provider notified?: Yes 07/16/23 21:34 Consult Physician Routine Consulting Provider: Cruzito Lopez Consult Reason/Comments: mrsa, decubitus ulcers Do you want consulting provider notified?: Yes 07/18/23 19:21 Consult Physician Routine Consulting Provider: Roberth Frank Consult Reason/Comments: ICU management Do you want consulting provider notified?: Already Contacted Primary care physician: Chandana Roger - Discharge Diagnosis(es) (1) Sepsis Current Visit: No Status: Acute (2) Decubitus ulcers Current Visit: Yes Status: Acute (3) Osteomyelitis Current Visit: Yes Status: Acute (4) MRSA (methicillin resistant Staphylococcus aureus) infection Current Visit: Yes Status: Acute (5) Pseudomonas aeruginosa infection Current Visit: Yes Status: Acute (6) Quadriplegia Current Visit: No Status: Acute (7) Migraine Current Visit: Yes Status: Acute (8) Quadriplegia Current Visit: Yes Status: Acute (9) Pressure ulcer of left buttock, stage 4 Current Visit: Yes Status: Acute (10) Pressure ulcer of right buttock, stage 3 Current Visit: Yes Status: Acute (11) Chronic indwelling Rodriguez catheter Current Visit: No Status: Acute (12) 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 He developed pressure ulcers to his violent buttocks. He was treated [facility] by me. These ones worsen. Proper offloading was discussed with him multiple times, but his wind became bad enough. He was sent to the emergency room for fear of sepsis regarding this.While in the operating room developed fibrillation RVR ended up in the intensive secure unit due to potential. He improved and was back on the medical floor. He he's been turned down by every SNF in the local area. He wishes to go home at this time. IV antibiotics will be infectious disease, we plan on VX for two of his wounds and most likely santyl to the other ones. If the wound VAC approval is unavailable before discharge, will plan on dealing with that in the wound center in two days. While in the operating room developed fibrillation RVR ended up in the intensive secure unit due to potential. He improved and was back on the medical floor. He he's been turned down by every SNF in the local area. He wishes to go home at this time. IV antibiotics will be for infectious disease, we plan on wound VAC for two of his wounds and most likely sand to the other ones. If the wound VAC approval is unavailable before discharge, will plan on dealing with that in the wound center in two days. Patient Condition at Discharge: Stable Plan - Discharge Summary Discharge Rx Participant: Yes New Discharge Prescriptions: New Ipratropium-Albuterol Nebulize [Duoneb 0.5 mg-3 mg/3 ml Soln] 3 ml INHALATION RT-QID each Metoprolol Tartrate [Lopressor] 12.5 mg PO BID tab Pantoprazole [Protonix] 40 mg PO DAILY@0730 tab Continue Topiramate [Topamax] 50 mg PO HS Primidone [Mysoline] 50 mg PO HS Fludrocortisone [Florinef] 0.1 mg PO DAILY Furosemide [Lasix] 20 mg PO BID Esomeprazole Magnesium [NexIUM] 40 mg PO DAILY Methenamine Hippurate 1 gm PO BID Warfarin Sodium 4 mg PO DAILY@1400 Sodium Chloride 0.9% Irrigatio [Saline 0.9% Irrigation Bottle] 20 ml TOPICAL DAILY oxyCODONE-APAP 10-325MG [Percocet 10-325 mg] 1 tab PO Q6H PRN #12 tab PRN Reason: Pain Testosterone Cypionate [Depo-Testosterone] 300 mg IM Q14D Oxybutynin Chloride 5 mg PO BID traZODone HCL 150 mg PO HS Melatonin [Melatonin ER] 10 mg PO HS #1 tab Vortioxetine Hydrobromide [Trintellix] 20 mg PO DAILY SUMAtriptan succinate [Imitrex] 100 mg PO BID PRN PRN Reason: Migraine Headache Acetaminophen Tab [Tylenol] 650 mg PO Q6HR PRN tab PRN Reason: Fever And/ Or Pain amLODIPine [Norvasc] 5 mg PO BID Naloxone HCl [Narcan] 4 mg NASAL DIRECTED PRN PRN Reason: Overdose Pregabalin [Lyrica] 150 mg PO Q8H #9 cap Discontinued Sulfamethox-Tmp 400-80Mg [Bactrim SS 400-80 mg] 1 tab PO DAILY Doxycycline Hyclate 100 mg PO DAILY No Action Collagenase [Santyl Ointment] 1 applic TOPICAL DAILY Discharge Medication List Topiramate [Topamax] 50 mg PO HS 09/11/14 [History] Primidone [Mysoline] 50 mg PO HS 07/15/16 [History] Fludrocortisone [Florinef] 0.1 mg PO DAILY 02/17/18 [History] Furosemide [Lasix] 20 mg PO BID 10/25/18 [History] Esomeprazole Magnesium [NexIUM] 40 mg PO DAILY 04/13/19 [History] Oxybutynin Chloride 5 mg PO BID 12/18/20 [History] Testosterone Cypionate [Depo-Testosterone] 300 mg IM Q14D 12/18/20 [History] Methenamine Hippurate 1 gm PO BID 02/15/21 [History] traZODone HCL 150 mg PO HS 02/15/21 [History] Melatonin [Melatonin ER] 10 mg PO HS #1 tab 02/17/21 [Rx] Warfarin Sodium 4 mg PO DAILY@1400 01/12/22 [History] SUMAtriptan succinate [Imitrex] 100 mg PO BID PRN 11/24/22 [History] Vortioxetine Hydrobromide [Trintellix] 20 mg PO DAILY 11/24/22 [History] Acetaminophen Tab [Tylenol] 650 mg PO Q6HR PRN tab 02/08/23 [Rx] Collagenase [Santyl Ointment] 1 applic TOPICAL DAILY 07/16/23 [History] Naloxone HCl [Narcan] 4 mg NASAL DIRECTED PRN 07/16/23 [History] Sodium Chloride 0.9% Irrigatio [Saline 0.9% Irrigation Bottle] 20 ml TOPICAL DAILY 07/16/23 [History] amLODIPine [Norvasc] 5 mg PO BID 07/16/23 [History] Ipratropium-Albuterol Nebulize [Duoneb 0.5 mg-3 mg/3 ml Soln] 3 ml INHALATION RT-QID each 07/22/23 [Rx] Metoprolol Tartrate [Lopressor] 12.5 mg PO BID tab 07/22/23 [Rx] Pantoprazole [Protonix] 40 mg PO DAILY@0730 tab 07/22/23 [Rx] Pregabalin [Lyrica] 150 mg PO Q8H #9 cap 07/22/23 [Rx] oxyCODONE-APAP 10-325MG [Percocet 10-325 mg] 1 tab PO Q6H PRN #12 tab 07/22/23 [Rx] Follow up Appointment(s)/Referral(s): [facility] [NON-STAFF] - As Needed (Please call [facility] if you have questions regarding the wound vac. ) [facility], [NON-STAFF] - As Needed ([facility] will call you to schedule your in home visits. Your first visit will be the day after discharge from the hospital. ) [facility], [REFERRING] - As Needed ([facility] will deliver supplies to your home on the evening of discharge between 6-8pm. ) Chandana Roger MD [Primary Care Provider] - 3 Days Activity/Diet/Wound Care/Special Instructions: IV antibiotics as per infectious disease via PICC line CBC, BMP in 3 days PT INR daily Discharge Disposition: HOME WITH HOME HEALTH SERVICES
--- NOTE | 2023-07-26 13:21 | P.PN ---
Subjective Progress Note Date: 07/26/23 CHIEF COMPLAINT: Decubitus ulcer HISTORY OF PRESENT ILLNESS: Patient is POD#8 status post debridement of his decubitus ulcers. Patient reports his pain is controlled. He is lying in bed comfortably. He has 2 wound vacs. Afebrile. WBC 9.17. Wound vacs changed yesterday PHYSICAL EXAM: VITAL SIGNS: Reviewed. GENERAL: Well-developed in no acute distress. ABDOMEN: Soft. Nondistended. Nontender. NEUROLOGIC: Alert and oriented. Cranial nerves II through XII grossly intact. SKIN: Wound vacs in place ASSESSMENT: 1. Right decubitus gluteal ulcer and a left upper posterior thigh decubitus ulcer status post debridement PLAN: -Patient can be discharged from surgical standpoint -Continue wound vacs -Patient to follow-up with wound care service outpatient -Discharge antibiotics per infectious disease -Continue offloading Physician Quality Control Lab Tech note has been reviewed by physician. Signing provider agrees with the documented findings, assessment, and plan of care. Objective - Vital Signs Vital signs: Vital Signs Temp 98.2 F 07/26/23 07:33 Pulse 72 07/26/23 11:56 Resp 18 07/26/23 11:56 BP 124/78 07/26/23 07:33 Pulse Ox 97 07/26/23 08:44 FiO2 Intake & Output 07/25/23 07/26/23 07/26/23 18:59 06:59 18:59 Intake Total 450 Output Total 400 1525 Balance 50 -1525 Intake: Oral 450 Output: Urine 400 1525 Other: Voiding Method Indwelling Catheter Indwelling Catheter Indwelling Catheter - Labs CBC & Chem 7: 07/26/23 05:30 07/26/23 05:30 Labs: Abnormal Lab Results - Last 24 Hours (Table) 07/26/23 07/26/23 07/26/23 Range/Units 05:30 05:30 05:30 Hgb 10.5 L (13.0-17.0) g/dL Hct 38.0 L (39.6-50.0) % MCV 75.7 L (80.0-97.0) FL MCH 20.9 L (27.0-32.0) pg MCHC 27.6 L (32.0-37.0) g/dL RDW 21.2 H (11.5-14.5) % NRBC/100 WBC Diff 0.02 H (0.00-0.01) X 10*3/uL PT 26.1 H (10.0-12.5) sec INR 2.6 H (<1.2) Creatinine 0.5 L (0.6-1.5) mg/dL BUN/Creatinine Ratio 33.00 H (12.00-20.00) Ratio Calcium 8.5 L (8.7-10.3) mg/dL
[2023-07-26 14:27] VITALS: BP 117/66; TEMP 98.4
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
[2023-07-26 16:15] VITALS: PULSE 88
[2023-07-26] MEDS: WARFARIN 2 MG TAB PO SCH (17:25)
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
== END 2023-07-26 18:08 | disposition home health service (06) | DRG 853 ==
LOC: EC 17:33 → 4SSUR 21:33 → 2SICU 07-18 19:32 → 4SSUR 07-23 21:44
PROVIDERS: ADMIT Family Medicine; ATTEND Family Medicine
PROC: 0KBP0ZZ Excision of Left Hip Muscle, Open Approach (ICD-10-PCS; 2023-07-18)
PROC: 0KBN0ZZ Excision of Right Hip Muscle, Open Approach (ICD-10-PCS; 2023-07-18)
PROC: 02HV33Z Insertion of Infusion Device into Superior Vena Cava, Percutaneous Approach (ICD-10-PCS; principal; 2023-07-21 18:55)
DX: A41.02 Sepsis due to Methicillin resistant Staphylococcus aureus (principal); G82.50 Quadriplegia, unspecified; L89.313 Pressure ulcer of right buttock, stage 3; L89.324 Pressure ulcer of left buttock, stage 4; Z68.42 Body mass index [BMI] 45.0-49.9, adult; L03.90 Cellulitis, unspecified; E27.40 Unspecified adrenocortical insufficiency; M86.68 Other chronic osteomyelitis, other site; N39.0 Urinary tract infection, site not specified; N31.9 Neuromuscular dysfunction of bladder, unspecified; B95.62 Methicillin resistant Staphylococcus aureus infection as the cause of diseases classified elsewhere; E66.01 Morbid (severe) obesity due to excess calories; V29.99XS Rider (driver) (passenger) of other motorcycle injured in unspecified traffic accident, sequela; M79.7 Fibromyalgia; L89.622 Pressure ulcer of left heel, stage 2; B96.5 Pseudomonas (aeruginosa) (mallei) (pseudomallei) as the cause of diseases classified elsewhere; I48.0 Paroxysmal atrial fibrillation; I95.9 Hypotension, unspecified; I11.9 Hypertensive heart disease without heart failure; K21.9 Gastro-esophageal reflux disease without esophagitis; G89.29 Other chronic pain; F32.A Depression, unspecified; G43.909 Migraine, unspecified, not intractable, without status migrainosus; Z99.3 Dependence on wheelchair; Z87.440 Personal history of urinary (tract) infections; Z86.718 Personal history of other venous thrombosis and embolism; Z79.899 Other long term (current) drug therapy; Z79.52 Long term (current) use of systemic steroids; Z79.01 Long term (current) use of anticoagulants; Z87.891 Personal history of nicotine dependence
CPT/HCPCS: 36415; 36573; 71045; 71046; 74177; 80048; 80053; 80202; 81001; 82565; 82728; 83540; 83550; 83605; 83735; 83880; 84443; 84484; 85025; 85027; 85610; 85652; 85730; 86140; 87040; 87636; 93005; 93306; 94640; 94667; 94760; 96374; 99285

== ENCOUNTER 2023-09-13 11:10 | Emergency (ER) | payer MEDICARE, OTHER ==
[2023-09-13 11:19] VITALS: PULSE 73; TEMP 97.8
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
[2023-09-13 12:43] LABS: ALT 17 U/L (4-49); AST 25 U/L (17-59); African American GFR (CKD) >90 (>60 ml/min/1.73 sqM); Albumin 3.5 g/dL (3.5-5.0); Alkaline Phosphatase 105 U/L (38-126); Anion Gap 8 mmol/L; Blood Urea Nitrogen 19 mg/dL (9-20); C Reactive Protein 5.9 mg/dL (<1.0); Calcium 8.7 mg/dL (8.4-10.2); Carbon Dioxide 22 mmol/L (22-30); Chloride 106 mmol/L (98-107); Glucose 177 mg/dL (74-99); Non-African American GFR(CKD) >90 (>60 ml/min/1.73 sqM); Sodium 136 mmol/L (137-145); Total Bilirubin 0.6 mg/dL (0.2-1.3); Total Protein 6.8 g/dL (6.3-8.2)
[2023-09-13 12:57] LABS: Anisocytosis Moderate; Basophils % (A) 0 %; Eosinophils # (A) 0.2 k/uL (0-0.7); Eosinophils % (A) 3 %; HCT 39.8 % (39.0-53.0); HGB 11.7 gm/dL (13.0-17.5); Hypochromasia Marked; Lymphocytes # (A) 2.1 k/uL (1.0-4.8); Lymphocytes % (A) 22 %; MCH 22.3 pg (25.0-35.0); MCHC 29.3 g/dL (31.0-37.0); MCV 76.2 fL (80.0-100.0); Mean Platelet Volume 7.1; Microcytosis Moderate; Monocytes # (A) 0.6 k/uL (0-1.0); Monocytes % (A) 7 %; Neutrophils # (A) 6.2 k/uL (1.3-7.7); Neutrophils % (A) 66 %; Platelet Count 388 k/uL (150-450); Poikilocytosis Slight; RBC 5.23 m/uL (4.30-5.90); RDW 20.2 % (11.5-15.5); WBC 9.3 k/uL (3.8-10.6)
[2023-09-13] MEDS: SODIUM CHLORIDE 0.9% 1,000 ML IV STA (13:05)
[2023-09-13] MEDS ORDERED: VANCOMYCIN IV PER PHARMACY 1 EACH MISC MISCELLANE PRN (13:42)
[2023-09-13] MEDS: CEFEPIME 2 GM in SODIUM CHLORIDE 0.9% 100 ML IVPB SCH (15:09)
--- NOTE | 2023-09-13 15:23 | CT ---
EXAMINATION TYPE: CT abdomen pelvis w con CT DLP: 4158 mGycm, Automated exposure control for dose reduction was used. DATE OF EXAM: 09/13/2023 2:53 PM COMPARISON: 07/16/2023 CLINICAL INDICATION:Male, 67 years old with history of Decubitus ulcers; Decubitus ulcers TECHNIQUE: Axial CT abdomen pelvis w con;Sagittal and coronal reformats were created on a separate w orkstation. Contrast used:100ml mL of Isovue 300 with IV Contrast, (none if empty) Oral contrast used: without Oral Contrast (none if empty) FINDINGS: LOWER CHEST: Unremarkable ABDOMEN LIVER: Unremarkable GALLBLADDER AND BILE DUCTS: Biliary debris and/or gallstones are present. PANCREAS: Unremarkable. SPLEEN: Unremarkable. ADRENAL GLANDS: Unremarkable. KIDNEYS AND URETERS: No evidence of hydronephrosis or renal calculus. The ureters are unremarkable. Nonobstructing left renal calculi measuring up to 2 mm. No right renal calculi. No obstructive uropat hy. PELVIS BLADDER: Distended with Rodriguez catheter balloon in the prostatic urethra. REPRODUCTIVE: Unremarkable. ABDOMEN & PELVIS STOMACH AND BOWEL: No evidence of bowel obstruction. PERITONEUM/RETROPERITONEUM: No evidence of pneumoperitoneum or free fluid. VASCULATURE: No evidence of aortic aneurysm. MUSCULOSKELETAL: No acute osseous abnormalities, remote fracture of the right proximal femur. No osse ous erosion. LYMPH NODES: No gross evidence for lymphadenopathy. SOFT TISSUE/ABDOMINAL WALL: Decubitus ulcer with skin defect measuring at least 54 x 46 x 40 mm on th e right and on the left skin defect less well appreciated. No organizing fluid collection osseous ero jessy identified. IMPRESSION: 1. Rodriguez catheter with balloon in the inflated in the prostate removal and reinsertion of Rodriguez cath eter recommended. 2. Decubitus ulcer without evidence for abscess/organizing fluid collection or evidence of osseous e rosion. 3. Cholelithiasis/biliary debris. 4. Remote right hip fracture.
[2023-09-13] MEDS: VANCOMYCIN 2,250 MG in SODIUM CHLORIDE 0.9% 500 ML 500 ML IVPB STA (16:20)
[2023-09-13 18:41] VITALS: BP 127/76; RESP 18
[2023-09-13 20:45] LABS: Erythrocyte Sedimentation Rate 102 mm/Hr (0-20)
[2023-09-14] MEDS ORDERED: VANCOMYCIN 2,250 MG in SODIUM CHLORIDE 0.9% 500 ML 500 ML IVPB SCH (06:00)
== END 2023-09-13 18:41 | disposition home or self-care (01) ==
LOC: EC 11:10
DX: L89.159 Pressure ulcer of sacral region, unspecified stage (principal); F12.90 Cannabis use, unspecified, uncomplicated; Z87.891 Personal history of nicotine dependence
CPT/HCPCS: 36415; 80053; 85652; 83605; 85025; 86140; 87040; 87070; 87205; 87075; 74177; 99284; 96365; 96366 ×3; 96361; J0692; Q9967

== ENCOUNTER 2024-01-26 10:52 | Emergency (ER) | payer MEDICARE, OTHER ==
[2024-01-26 11:00] VITALS: TEMP 98.2
--- NOTE | 2024-01-26 12:55 | XR ---
EXAMINATION TYPE: XR chest 2V DATE OF EXAM: 01/26/2024 CLINICAL HISTORY: Difficulty breathing TECHNIQUE: Frontal and lateral views of the chest are obtained. COMPARISON: 07/25/2023 FINDINGS: There is no focal air space opacity, pleural effusion, or pneumothorax seen. Cardiomegaly without overt failure. Hilar and mediastinal structures are stable. Postoperative changes cervical th oracic spine and right clavicle. The osseous structures are intact. IMPRESSION: No acute cardiopulmonary process. [facility], , 01/26/2024 12:52 PM
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
[2024-01-26 13:39] VITALS: BP 99/68; PULSE 81; RESP 18
== END 2024-01-26 13:39 | disposition home or self-care (01) ==
LOC: EC 10:52
DX: J06.9 Acute upper respiratory infection, unspecified (principal); Z87.891 Personal history of nicotine dependence
CPT/HCPCS: 71046; 87636; 99283

== ENCOUNTER 2024-07-19 11:57 | Inpatient (IN) | payer MEDICARE, OTHER ==
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
[2024-07-19 14:21] LABS: Appearance,Urine Turbid (Clear); Bacteria,Urine Many /hpf; Bilirubin,Urine Negative (Negative); Blood,Urine Trace (Negative); Color,Urine Yellow; Glucose,Urine (UA) Negative (Negative); Ketones,Urine Negative (Negative); Leukocyte Esterase,Urine Large (Negative); Mucus,Urine Occasional /hpf; Nitrite,Urine Negative (Negative); PH, Urine 6.5 (5.0-8.0); Protein,Urine Trace (Negative); RBC,Urine 34 /hpf (0-5); Specific Gravity,Urine 1.016 (1.001-1.035); Squamous Epithelial Cell,Urine 2 /hpf (0-4); Urobilinogen,Urine <2.0 mg/dL (<2.0); WBC,Urine >182 /hpf (0-5)
[2024-07-19 14:23] LABS: Basophils # (A) 0.05 10*3/uL (0.00-0.10); Basophils % (A) 0.4 %; Eosinophils # (A) 0.02 10*3/uL (0.04-0.35); Eosinophils % (A) 0.1 %; HCT 45.2 % (39.6-50.0); HGB 13.1 g/dL (13.0-17.0); Lymphocytes # (A) 2.25 10*3/uL (0.90-5.00); Lymphocytes % (A) 16.7 %; MCH 21.7 pg (27.0-32.0); MCV 74.7 fL (80.0-97.0); Mean Platelet Volume 8.9 fL (9.5-12.2); Monocytes # (A) 0.67 10*3/uL (0.20-1.00); Neutrophils # (A) 10.38 10*3/uL (1.80-7.70); Neutrophils % (A) 76.8 %; Platelet Count 594 10*3/uL (140-440); RBC 6.05 10*6/uL (4.40-5.60); RDW 24.2 % (11.5-14.5)
[2024-07-19] MEDS: LACTATED RINGERS 1,000 ML IV ONE (14:28)
[2024-07-19 14:44] LABS: INR 3.1 (<1.2); Partial Thromboplastin Time 35.3 sec (22.0-30.0); Prothrombin Time 30.6 sec (10.0-12.5)
[2024-07-19 14:48] LABS: ALT 9 U/L (4-49); AST 20 U/L (17-59); African American GFR (CKD) >90 (>60 ml/min/1.73 sqM); Albumin 3.6 g/dL (3.5-5.0); Alkaline Phosphatase 116 U/L (38-126); Anion Gap 13 mmol/L; Blood Urea Nitrogen 14 mg/dL (9-20); Calcium 8.8 mg/dL (8.4-10.2); Carbon Dioxide 21 mmol/L (22-30); Chloride 104 mmol/L (98-107); Glucose 128 mg/dL (74-99); Magnesium 2.2 mg/dL (1.6-2.3); Non-African American GFR(CKD) >90 (>60 ml/min/1.73 sqM); Potassium 3.9 mmol/L (3.5-5.1); Sodium 138 mmol/L (137-145); Total Protein 7.8 g/dL (6.3-8.2)
--- NOTE | 2024-07-19 14:52 | XR ---
EXAMINATION TYPE: XR chest 2V DATE OF EXAM: 07/19/2024 2:45 PM COMPARISON: 01/26/2024 CLINICAL INDICATION: Male, 68 years old with history of Weakness, , TECHNIQUE: AP and lateral views FINDINGS: Previous plate and screw fixation right mid clavicular shaft. Previous posterior cervical fusion hard fisher. Heart mildly enlarged. There is some leads extending from the left to the patient's back. No fr ank consolidation or pleural effusion. Hazy densities related to overlying soft tissue. IMPRESSION: Mild cardiomegaly. Allowing for AP technique and body habitus, no definite acute process. [facility], Workstation: [facility], 07/19/2024 2:50 PM
[2024-07-19 15:22] LABS: Anisocytosis (M) Present
[2024-07-19 15:25] LABS: RBC Fragments Present
[2024-07-19 15:26] LABS: Spherocytes Present
[2024-07-19] MEDS ORDERED: IPRATROPIUM-ALBUTEROL 3 ML NEB INHALATION STA (15:54)
[2024-07-19] MEDS: cefTRIAXone IN SWFI 1,000 MG/10 ML SYRINGE IVP STA (16:20)
[2024-07-19] MEDS: SODIUM CHLORIDE 0.9% 1,000 ML IV ONE (17:55)
[2024-07-20] MEDS ORDERED: SUMAtriptan succinate 50 MG TAB PO PRN (08:26)
[2024-07-20] MEDS ORDERED: [UNRECOGNIZED DRUG - OTHER] TOPICAL SCH (09:00)
[2024-07-20] MEDS ORDERED: PANTOPRAZOLE 40 MG/10 ML VIAL IVP SCH (09:00)
[2024-07-20] MEDS: amLODIPine 5 MG TAB PO SCH (09:16)
[2024-07-20] MEDS: FUROSEMIDE 20 MG TAB PO SCH (09:16)
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
[2024-07-20 10:07] LABS: HCT 41.9 % (39.6-50.0); HGB 11.9 g/dL (13.0-17.0); MCH 21.5 pg (27.0-32.0); MCHC 28.4 g/dL (32.0-37.0); MCV 75.6 fL (80.0-97.0); Mean Platelet Volume 8.7 fL (9.5-12.2); Platelet Count 638 10*3/uL (140-440); RBC 5.54 10*6/uL (4.40-5.60); RDW 24.5 % (11.5-14.5); WBC 13.36 10*3/uL (4.50-10.00)
[2024-07-20] MEDS: LIDOCAINE 4% PATCH TOPICAL SCH (10:19)
[2024-07-20] MEDS: oxyBUTYnin chloride 5 MG TAB PO SCH (10:20)
[2024-07-20] MEDS: PREGABALIN 100 MG CAP PO SCH (10:20)
[2024-07-20] MEDS: FLUDROCORTISONE 0.1 MG TAB PO SCH (10:20)
[2024-07-20] MEDS: ACETAMINOPHEN IV (For NPO) 1,000 MG in EMPTY BAG 1 BAG IVPB STA (10:20)
[2024-07-20] MEDS: COLLAGENASE 250 UNIT/GM OINTMENT 30 GM TUBE TOPICAL SCH (10:21)
[2024-07-20] MEDS: Methenamine Hippurate 1 GM Tablet PO SCH (10:21)
[2024-07-20] MEDS: MAGNESIUM SULFATE-D5W PMX 1 GM in DEXTROSE/WATER 1 100ML.BAG IVPB ONE (10:21)
[2024-07-20] MEDS: SODIUM CHLORIDE 0.9% 1,000 ML IV SCH (10:21)
[2024-07-20 10:26] LABS: African American GFR (CKD) >90 (>60 ml/min/1.73 sqM); Anion Gap 7 mmol/L; Blood Urea Nitrogen 12 mg/dL (9-20); Calcium 8.5 mg/dL (8.4-10.2); Carbon Dioxide 24 mmol/L (22-30); Chloride 107 mmol/L (98-107); Glucose 133 mg/dL (74-99); Non-African American GFR(CKD) >90 (>60 ml/min/1.73 sqM); Potassium 3.3 mmol/L (3.5-5.1); Sodium 138 mmol/L (137-145)
[2024-07-20 10:39] LABS: INR 3.6 (<1.2); Prothrombin Time 36.1 sec (10.0-12.5)
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
[2024-07-20 12:02] LABS: Anisocytosis (M) Present; Eosinophils # (M) 0.13 k/uL (0-0.7); Lymphocytes # (M) 2.54 k/uL (1.0-4.8); Metamyelocytes # (M) 0.13 k/uL (0); Metamyelocytes % 1 %; Myelocytes # (M) 0.13 k/uL (0); Myelocytes % 1 %; Neutrophils # (M) 9.89 k/uL (1.3-7.7); Neutrophils % (M) 74 %; Nucleated Red Blood Cells 0 /100 WBC (0-0); Poikilocytosis (M) Present; Total Cells Counted 200
[2024-07-20] MEDS ORDERED: Potassium Replacement Protocol 1 EACH MISC MISCELLANE PRN (12:05)
[2024-07-20] MEDS: POTASSIUM CHLORIDE ER 20 MEQ TAB.ER PO SCH (13:15)
[2024-07-20] MEDS: PANTOPRAZOLE 40 MG TABLET PO SCH (13:15)
[2024-07-20] MEDS ORDERED: oxyCODONE-APAP 10-325MG 1 EACH TAB PO SCH (14:00)
[2024-07-20] MEDS: WARFARIN 0.5 MG TAB PO ONE (18:18)
[2024-07-20] MEDS: TOPIRAMATE 25 MG TAB PO SCH (21:28)
[2024-07-20] MEDS: traZODone HCL 50 MG TAB PO SCH (21:28)
[2024-07-20] MEDS: ESCITALOPRAM 10 MG TAB PO SCH (21:29)
[2024-07-20] MEDS: PRIMIDONE 50 MG TAB PO SCH (21:29)
[2024-07-20] MEDS: oxyCODONE-APAP 10-325MG 1 EACH TAB PO PRN (21:32)
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
[2024-07-21 07:29] LABS: Prothrombin Time 52.8 sec (10.0-12.5)
[2024-07-21 07:32] LABS: Basophils # (A) 0.04 10*3/uL (0.00-0.10); Basophils % (A) 0.5 %; Eosinophils # (A) 0.21 10*3/uL (0.04-0.35); Eosinophils % (A) 2.6 %; HCT 34.2 % (39.6-50.0); Lymphocytes # (A) 2.17 10*3/uL (0.90-5.00); Lymphocytes % (A) 26.4 %; MCH 21.6 pg (27.0-32.0); MCHC 28.1 g/dL (32.0-37.0); Monocytes # (A) 0.53 10*3/uL (0.20-1.00); Monocytes % (A) 6.4 %; Neutrophils # (A) 5.18 10*3/uL (1.80-7.70); Neutrophils % (A) 62.9 %; RBC 4.44 10*6/uL (4.40-5.60); RDW 23.9 % (11.5-14.5); WBC 8.23 10*3/uL (4.50-10.00)
[2024-07-21 07:33] LABS: HGB 9.6 g/dL (13.0-17.0)
[2024-07-21 07:34] LABS: Platelet Count 514 10*3/uL (140-440)
[2024-07-21 07:46] LABS: INR 5.3 (<1.2)
[2024-07-21 07:51] LABS: African American GFR (CKD) >90 (>60 ml/min/1.73 sqM); Anion Gap 5 mmol/L; Blood Urea Nitrogen 11 mg/dL (9-20); Calcium 6.6 mg/dL (8.4-10.2); Carbon Dioxide 19 mmol/L (22-30); Chloride 114 mmol/L (98-107); Glucose 70 mg/dL (74-99); Non-African American GFR(CKD) >90 (>60 ml/min/1.73 sqM); Sodium 138 mmol/L (137-145)
[2024-07-21 08:23] LABS: Anisocytosis (M) Present; Spherocytes Present
[2024-07-21] MEDS: POTASSIUM CHLORIDE ER 20 MEQ TAB.ER PO SCH ×2 (10:07→14:20)
[2024-07-21] MEDS ORDERED: Potassium Replacement Protocol 1 EACH MISC MISCELLANE PRN (13:12)
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
[2024-07-21] MEDS: WARFARIN 0.5 MG TAB PO ONE (17:02)
[2024-07-21] MEDS: PIPERACILLIN-TAZOBACTAM 3.375 GM in SODIUM CHLORIDE 0.9% 100 ML IVPB SCH (23:13)
[2024-07-22 07:31] LABS: INR 3.4 (<1.2); Prothrombin Time 34.1 sec (10.0-12.5)
[2024-07-22 08:27] LABS: African American GFR (CKD) >90 (>60 ml/min/1.73 sqM); Anion Gap 4 mmol/L; Blood Urea Nitrogen 10 mg/dL (9-20); Calcium 8.3 mg/dL (8.4-10.2); Carbon Dioxide 27 mmol/L (22-30); Chloride 109 mmol/L (98-107); Glucose 117 mg/dL (74-99); Non-African American GFR(CKD) >90 (>60 ml/min/1.73 sqM); Potassium 3.8 mmol/L (3.5-5.1); Sodium 140 mmol/L (137-145)
[2024-07-22] MEDS: POTASSIUM CHLORIDE ER 20 MEQ TAB.ER PO STA (09:48)
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
[2024-07-22] MEDS: WARFARIN 0.5 MG TAB PO ONE (15:44)
[2024-07-22] MEDS: ALPRAZolam 0.25 MG TAB PO PRN (23:43)
[2024-07-23 07:45] LABS: Prothrombin Time 20.5 sec (10.0-12.5)
[2024-07-23 08:44] LABS: HGB 10.6 g/dL (13.0-17.0); MCH 21.1 pg (27.0-32.0); MCHC 27.2 g/dL (32.0-37.0); MCV 77.5 fL (80.0-97.0); Mean Platelet Volume 9.1 fL (9.5-12.2); Platelet Count 595 10*3/uL (140-440); RBC 5.03 10*6/uL (4.40-5.60); RDW 23.9 % (11.5-14.5); WBC 12.25 10*3/uL (4.50-10.00)
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
[2024-07-23] MEDS: WARFARIN 2 MG TAB PO ONE (17:12)
[2024-07-23] MEDS: MELATONIN 5 MG TABLET PO SCH (23:50)
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
[2024-07-24 09:25] LABS: INR 1.8 (<1.2); Prothrombin Time 18.7 sec (10.0-12.5)
[2024-07-24 10:35] VITALS: BP 89/56; PULSE 79; RESP 16; TEMP 98.6
--- NOTE | 2024-07-24 12:00 | CDI ---
Date: 07/24/2024 From: Mera [email or web address] Email: [email or web address] Admit Date: 07/19/2024 04:23:00 PM Patient Name: Dioni Linton Visit Number: [id number] Discharge Date: N/A ATTENTION: The Clinical Documentation Specialists (CDI) and [facility] Coding Staff appreciate your assistance in clarifying documentation. Please respond to the clarification below the line at the bottom and electronically sign. The CDI & [facility] Coding staff will review the response and follow-up if needed. Please note: Queries are made part of the Legal Health Record. If you have any questions, please contact the author of this message via ITS. Dr. Jass Gillespie, Urinary sepsis is documented in your Progress Note on 07/21/2024 but is not consistently noted in previous or subsequent documentation and which may lack sufficient clinical evidence/support in the medical record. Additional clarification is requested. History/Risk Factors: 68-year-old male presented to [facility] ED for evaluation due to generalized weakness. PMH: Chronic indwelling Rodriguez catheter, recurrent urinary tract infections, neurogenic bladder, paraplegia, chronic non-healing pressure ulcers, adrenal insufficiency, morbid obesity, chronic atrial fibrillation Clinical indicators: Documentation Location: Electronic Medical Record Infectious Disease Progress Note (07/23/2024): Catheter-associated urinary tract infection; Leukocytosis Vital Sign Trend: Date Time Temperature HR RR BP SpO2 07/19/2024 12:00 97.6 F (Oral) 71 20 87/51 98% on Room Air 07/19/2024 17:11 97.6 F (Oral) 73 18 73/53 93% on Room Air 07/20/2024 04:00 97.5 F (Oral) 103 16 105/69 98% on Room Air 07/21/2024 11:18 97.2 F (Oral) 91 16 93/57 96% on Room Air 07/22/2024 09:43 97.9 F (Oral) 101 18 114/74 96% on Room Air 07/23/2024 08:29 98.1 F (Oral) 87 16 92/55 96% on Room Air Lab Results: 07/19/2024 07/20/2024 07/21/2024 07/23/2024 WBC 13.50 13.36 8.23 12.25 Other Clinical Indicators: Blood Cultures (Collected on 07/19/2024): Staphylococcus epidermidis; Staphylococcus pasteuri Urine Culture (Collected on 07/19/2024): Pseudomonas aeruginosa; Enterococcus faecalis Lactic Acid (07/19/2024): 1.6 Treatment: Infectious Disease Consultation Rocephin 1g IVPB x 2 Doses Rocephin 2g IVPB x 1 Dose Zosyn 3.375g IVPB Every 8 Hours Rodriguez Catheter Exchange Lactated Ringers IV Bolus x 1 Liter 0.9% Sodium Chloride IV Infusion @ 75mL/hr. 100mL/hr. Acetaminophen 1g IVPB x 1 After work up and study, please clarify which diagnosis is most appropriate? [ ] Sepsis ruled out [x ] Sepsis (present on admission) is a valid diagnosis as evidence by the following (please add rationale): _pseudomonas bact in urine, hyoptension, elevated lactic acid in blood [ ] Sepsis (not present on admission) is a valid diagnosis as evidence by the following (please add rationale): [ ] Other, please specify [ ] Unable to determine SIRS Criteria (2 or more of the following may indicate SIRS): Temperature < 96.8F (36C) or > 101.0F (38.3C) Heart Rate > 90 bpm Respiratory Rate > 20 breaths/min or PaCO2 < 32 mmHg White Blood Cell Count > 12,000 or < 4,000 cells/mm3 or > 10% bands MTDD
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
[2024-07-24] MEDS ORDERED: WARFARIN 2 MG TAB PO ONE (18:00)
== END 2024-07-24 16:22 | disposition home health service (06) | DRG 698 ==
LOC: EC 11:57 → OBSVTOIN 16:23 → 3SCARD 16:23
PROVIDERS: ADMIT Family Medicine; ATTEND Family Medicine
PROC: 05HF33Z Insertion of Infusion Device into Left Cephalic Vein, Percutaneous Approach (ICD-10-PCS; principal; 2024-07-24 07:30)
DX: T83.518A Infection and inflammatory reaction due to other urinary catheter, initial encounter (principal); A41.52 Sepsis due to Pseudomonas; L89.323 Pressure ulcer of left buttock, stage 3; L89.154 Pressure ulcer of sacral region, stage 4; G82.54 Quadriplegia, C5-C7 incomplete; A41.81 Sepsis due to Enterococcus; E66.01 Morbid (severe) obesity due to excess calories; F32.A Depression, unspecified; Z68.42 Body mass index [BMI] 45.0-49.9, adult; G82.20 Paraplegia, unspecified; E27.40 Unspecified adrenocortical insufficiency; N39.0 Urinary tract infection, site not specified; I48.91 Unspecified atrial fibrillation; G43.909 Migraine, unspecified, not intractable, without status migrainosus; E86.0 Dehydration; E87.6 Hypokalemia; Z87.440 Personal history of urinary (tract) infections; Y84.6 Urinary catheterization as the cause of abnormal reaction of the patient, or of later complication, without mention of misadventure at the time of the procedure; Z87.891 Personal history of nicotine dependence; G47.00 Insomnia, unspecified; M79.7 Fibromyalgia; N31.9 Neuromuscular dysfunction of bladder, unspecified; Z79.01 Long term (current) use of anticoagulants; Z79.52 Long term (current) use of systemic steroids; Z79.899 Other long term (current) drug therapy; Z80.3 Family history of malignant neoplasm of breast; Z86.718 Personal history of other venous thrombosis and embolism
CPT/HCPCS: 36410; 36415; 71046; 76937; 80048; 80053; 81001; 83605; 83735; 84134; 84484; 85025; 85027; 85610; 85730; 87040; 87070; 87075; 87077; 87086; 87186; 87205; 94760; 96361; 96374; 99285

== ENCOUNTER 2024-07-26 12:13 | Inpatient (IN) | payer MEDICARE, OTHER ==
[2024-07-26] MEDS: LACTATED RINGERS 1,000 ML IV SCH ×2 (12:40→14:17)
[2024-07-26] MEDS: PIPERACILLIN-TAZOBACTAM 3.375 GM in SODIUM CHLORIDE 0.9% 100 ML IVPB STA (12:53)
[2024-07-26 12:59] LABS: Basophils # (A) 0.08 10*3/uL (0.00-0.10); Basophils % (A) 0.5 %; Eosinophils # (A) 0.28 10*3/uL (0.04-0.35); Eosinophils % (A) 1.7 %; HCT 37.2 % (39.6-50.0); HGB 10.6 g/dL (13.0-17.0); Lymphocytes # (A) 2.35 10*3/uL (0.90-5.00); MCH 21.6 pg (27.0-32.0); MCHC 28.5 g/dL (32.0-37.0); MCV 75.9 fL (80.0-97.0); Mean Platelet Volume 9.1 fL (9.5-12.2); Monocytes # (A) 1.06 10*3/uL (0.20-1.00); Monocytes % (A) 6.3 %; Neutrophils # (A) 12.83 10*3/uL (1.80-7.70); Neutrophils % (A) 76.5 %; Platelet Count 465 10*3/uL (140-440); RDW 23.9 % (11.5-14.5); WBC 16.76 10*3/uL (4.50-10.00)
[2024-07-26 13:03] LABS: INR 1.4 (<1.2); Partial Thromboplastin Time 27.2 sec (22.0-30.0)
[2024-07-26 13:06] LABS: ALT 9 U/L (4-49); AST 25 U/L (17-59); African American GFR (CKD) >90 (>60 ml/min/1.73 sqM); Albumin 3.1 g/dL (3.5-5.0); Alkaline Phosphatase 109 U/L (38-126); Anion Gap 9 mmol/L; Blood Urea Nitrogen 12 mg/dL (9-20); Calcium 8.2 mg/dL (8.4-10.2); Carbon Dioxide 26 mmol/L (22-30); Chloride 102 mmol/L (98-107); Glucose 115 mg/dL (74-99); Non-African American GFR(CKD) >90 (>60 ml/min/1.73 sqM); Potassium 3.2 mmol/L (3.5-5.1); Sodium 137 mmol/L (137-145); Total Bilirubin 0.9 mg/dL (0.2-1.3); Total Protein 6.9 g/dL (6.3-8.2)
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
[2024-07-26 13:27] LABS: Appearance,Urine Turbid (Clear); Bacteria,Urine Rare /hpf; Bilirubin,Urine Negative (Negative); Blood,Urine Small (Negative); Budding Yeast,Urine Many /hpf; Color,Urine Light Yellow; Glucose,Urine (UA) Negative (Negative); Hyaline Casts,Urine 16 /lpf (0-2); Ketones,Urine Negative (Negative); Leukocyte Esterase,Urine Large (Negative); Mucus,Urine Few /hpf; Nitrite,Urine Negative (Negative); Protein,Urine Trace (Negative); RBC,Urine 44 /hpf (0-5); Specific Gravity,Urine 1.012 (1.001-1.035); Squamous Epithelial Cell,Urine 1 /hpf (0-4); Urobilinogen,Urine <2.0 mg/dL (<2.0); WBC,Urine >182 /hpf (0-5)
--- NOTE | 2024-07-26 13:40 | XR ---
EXAMINATION TYPE: XR chest 1V portable DATE OF EXAM: 07/26/2024 COMPARISON: Chest x-ray 1 week ago CLINICAL INDICATION: Male, 68 years old with history of Fever; TECHNIQUE: Single frontal view of the chest is obtained. FINDINGS: There is persistent cardiomegaly without suspicious focal airspace opacity, pleural effusi on, or pneumothorax seen bilaterally. Some central increased markings are present. Surgical change t o the right clavicle and cervical spine is redemonstrated. IMPRESSION: Cardiomegaly with perhaps mild central vascular congestion. No acute focal infiltrates a re seen. [facility], , 07/26/2024 1:38 PM
[2024-07-26 13:51] LABS: Anisocytosis (M) Present; Poikilocytosis (M) Present
[2024-07-26] MEDS: HEPARIN SODIUM,PORCINE 5,000 UNIT/ML 1 ML VIAL SQ SCH (15:07)
[2024-07-26] MEDS: PIPERACILLIN-TAZOBACTAM 3.375 GM in SODIUM CHLORIDE 0.9% 100 ML IVPB SCH (19:42)
[2024-07-26] MEDS ORDERED: ALPRAZolam 0.25 MG TAB PO PRN (19:56)
[2024-07-26] MEDS ORDERED: SUMAtriptan succinate 50 MG TAB PO PRN (19:56)
[2024-07-26] MEDS ORDERED: FUROSEMIDE 20 MG TAB PO SCH (21:00)
[2024-07-26] MEDS: NON FORMULARY DRUG (Methenamine Hippurate [Methenamine Hippurate] 1 GM Tablet) PO SCH (21:09)
[2024-07-26] MEDS: oxyCODONE-APAP 10-325MG 1 EACH TAB PO PRN (22:06)
[2024-07-26] MEDS: PREGABALIN 100 MG CAP PO SCH (22:06)
[2024-07-26] MEDS: oxyBUTYnin chloride 5 MG TAB PO SCH (22:07)
[2024-07-26] MEDS: traZODone HCL 50 MG TAB PO SCH (22:07)
[2024-07-26] MEDS: ESCITALOPRAM 10 MG TAB PO SCH (22:07)
[2024-07-26] MEDS: PRIMIDONE 50 MG TAB PO SCH (22:07)
[2024-07-26] MEDS: TOPIRAMATE 25 MG TAB PO SCH (22:08)
[2024-07-27 08:12] LABS: INR 1.8 (<1.2); Prothrombin Time 18.3 sec (10.0-12.5)
[2024-07-27] MEDS: PANTOPRAZOLE 40 MG TABLET PO SCH (08:40)
[2024-07-27] MEDS: FLUDROCORTISONE 0.1 MG TAB PO SCH (08:40)
[2024-07-27] MEDS: FUROSEMIDE 20 MG TAB PO SCH (08:42)
[2024-07-27] MEDS: LIDOCAINE 4% PATCH TOPICAL SCH (08:42)
[2024-07-27] MEDS ORDERED: Potassium Replacement Protocol 1 EACH MISC MISCELLANE PRN (09:10)
[2024-07-27] MEDS: POTASSIUM CHLORIDE ER 20 MEQ TAB.ER PO SCH (11:13)
[2024-07-27] MEDS ORDERED: NON FORMULARY DRUG (Warfarin Sodium [Warfarin Sodium] 4 MG Tablet) PO SCH (14:00)
[2024-07-27] MEDS ORDERED: VANCOMYCIN IV PER PHARMACY 1 EACH MISC MISCELLANE PRN (15:46)
--- NOTE | 2024-07-27 16:34 | XR ---
EXAMINATION TYPE: XR ankle limited LT DATE OF EXAM: 07/27/2024 CLINICAL INDICATION: Male, 68 years old with history of possible injury, pain TECHNIQUE: Frontal and lateral images of the left ankle are obtained. COMPARISON: None. FINDINGS: Osseous structures are demineralized. Well-defined fragments from the lateral malleolus co uld reflect evidence of old injury. Ankle mortise is disrupted with abnormal lateral widening. No con vincing evidence of acute displaced fracture. There is some ossific fusion of the subtalar joint. The re is moderate size inferior calcaneal spur. There is mild to moderate diffuse subcutaneous edema IMPRESSION: There is no acute displaced fracture in the left ankle. [facility], , 07/27/2024 4:32 PM
[2024-07-27] MEDS: CEFEPIME 2 GM in SODIUM CHLORIDE 0.9% 100 ML IVPB SCH (16:43)
[2024-07-27] MEDS: WARFARIN 2 MG TAB PO ONE (18:21)
[2024-07-27] MEDS: VANCOMYCIN 1,750 MG in SODIUM CHLORIDE 0.9% 500 ML 500 ML IVPB ONE (18:21)
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
[2024-07-28 06:56] LABS: Basophils # (A) 0.05 10*3/uL (0.00-0.10); Basophils % (A) 0.5 %; Eosinophils # (A) 0.37 10*3/uL (0.04-0.35); Eosinophils % (A) 3.5 %; HCT 33.9 % (39.6-50.0); HGB 9.7 g/dL (13.0-17.0); Lymphocytes # (A) 1.79 10*3/uL (0.90-5.00); Lymphocytes % (A) 16.8 %; MCH 22.1 pg (27.0-32.0); MCHC 28.6 g/dL (32.0-37.0); MCV 77.2 fL (80.0-97.0); Mean Platelet Volume 9.3 fL (9.5-12.2); Monocytes # (A) 0.57 10*3/uL (0.20-1.00); Monocytes % (A) 5.3 %; Neutrophils # (A) 7.81 10*3/uL (1.80-7.70); Neutrophils % (A) 73.2 %; Platelet Count 460 10*3/uL (140-440); RBC 4.39 10*6/uL (4.40-5.60); RDW 24.1 % (11.5-14.5); WBC 10.66 10*3/uL (4.50-10.00)
[2024-07-28 07:08] LABS: INR 2.2 (<1.2); Prothrombin Time 21.8 sec (10.0-12.5)
[2024-07-28 07:18] LABS: African American GFR (CKD) >90 (>60 ml/min/1.73 sqM); Anion Gap 9 mmol/L; Blood Urea Nitrogen 10 mg/dL (9-20); Calcium 8.2 mg/dL (8.4-10.2); Carbon Dioxide 26 mmol/L (22-30); Chloride 101 mmol/L (98-107); Glucose 108 mg/dL (74-99); Non-African American GFR(CKD) >90 (>60 ml/min/1.73 sqM); Potassium 3.2 mmol/L (3.5-5.1); Sodium 136 mmol/L (137-145)
[2024-07-28] MEDS: VANCOMYCIN 1,750 MG in SODIUM CHLORIDE 0.9% 500 ML 500 ML IVPB SCH (08:13)
[2024-07-28 09:06] LABS: Anisocytosis (M) Present
[2024-07-28 09:07] LABS: Poikilocytosis (M) Present
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
[2024-07-28] MEDS: POTASSIUM CHLORIDE ER 20 MEQ TAB.ER PO STA (12:44)
[2024-07-28] MEDS: WARFARIN 2 MG TAB PO SCH (12:45)
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
[2024-07-28] MEDS: FLUCONAZOLE 100 MG TAB PO SCH (17:25)
[2024-07-28 22:57] LABS: Glucose,Whole Blood 195 mg/dL (70-110)
[2024-07-28] MEDS: ACETAMINOPHEN TAB 325 MG TAB PO PRN (23:03)
[2024-07-29] MEDS: SODIUM CHLORIDE 0.9% 1,000 ML IV ONE (02:19)
[2024-07-29 07:22] LABS: Basophils # (A) 0.07 10*3/uL (0.00-0.10); Basophils % (A) 0.5 %; Eosinophils # (A) 0.24 10*3/uL (0.04-0.35); Eosinophils % (A) 1.9 %; HCT 31.6 % (39.6-50.0); HGB 8.9 g/dL (13.0-17.0); Lymphocytes # (A) 1.93 10*3/uL (0.90-5.00); MCH 22.3 pg (27.0-32.0); MCHC 28.2 g/dL (32.0-37.0); Mean Platelet Volume 9.3 fL (9.5-12.2); Monocytes # (A) 0.71 10*3/uL (0.20-1.00); Monocytes % (A) 5.5 %; Neutrophils # (A) 9.86 10*3/uL (1.80-7.70); Neutrophils % (A) 76.5 %; Platelet Count 412 10*3/uL (140-440); RDW 24.1 % (11.5-14.5); WBC 12.89 10*3/uL (4.50-10.00)
[2024-07-29 07:30] LABS: African American GFR (CKD) >90 (>60 ml/min/1.73 sqM); Anion Gap 7 mmol/L; Blood Urea Nitrogen 8 mg/dL (9-20); Calcium 7.9 mg/dL (8.4-10.2); Carbon Dioxide 25 mmol/L (22-30); Chloride 107 mmol/L (98-107); Glucose 85 mg/dL (74-99); Magnesium 1.9 mg/dL (1.6-2.3); Non-African American GFR(CKD) >90 (>60 ml/min/1.73 sqM); Potassium 3.5 mmol/L (3.5-5.1); Sodium 139 mmol/L (137-145)
[2024-07-29 07:37] LABS: INR 2.8 (<1.2); Prothrombin Time 27.7 sec (10.0-12.5)
[2024-07-29 08:17] LABS: Anisocytosis (M) Present; Polychromasia Present
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
[2024-07-29 16:14] LABS: Mucus,Urine Rare /hpf; RBC,Urine >182 /hpf (0-5); WBC,Urine >182 /hpf (0-5)
[2024-07-29 16:19] LABS: Appearance,Urine Bloody (Clear)
[2024-07-29 16:20] LABS: Color,Urine Red
[2024-07-29] MEDS: WARFARIN 2 MG TAB PO ONE (17:14)
[2024-07-30] MEDS ORDERED: VANCOMYCIN TROUGH DUE 1 EACH MISC MISCELLANE ONE (07:00)
[2024-07-30 07:57] LABS: INR 3.8 (<1.2); Prothrombin Time 37.5 sec (10.0-12.5)
[2024-07-30 08:03] LABS: HCT 35.6 % (39.6-50.0); HGB 9.7 g/dL (13.0-17.0); MCH 21.5 pg (27.0-32.0); MCHC 27.2 g/dL (32.0-37.0); MCV 78.9 fL (80.0-97.0); Platelet Count 411 10*3/uL (140-440); RBC 4.51 10*6/uL (4.40-5.60); RDW 24.3 % (11.5-14.5); WBC 12.45 10*3/uL (4.50-10.00)
[2024-07-30 09:17] LABS: African American GFR (CKD) >90 (>60 ml/min/1.73 sqM); Anion Gap 7 mmol/L; Blood Urea Nitrogen 8 mg/dL (9-20); Calcium 8.3 mg/dL (8.4-10.2); Carbon Dioxide 26 mmol/L (22-30); Chloride 104 mmol/L (98-107); Glucose 91 mg/dL (74-99); Non-African American GFR(CKD) >90 (>60 ml/min/1.73 sqM); Potassium 3.1 mmol/L (3.5-5.1); Sodium 137 mmol/L (137-145)
[2024-07-30] MEDS: POTASSIUM CHLORIDE ER 20 MEQ TAB.ER PO STA (12:19)
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
[2024-07-30] MEDS: WARFARIN 0.5 MG TAB PO ONE (15:46)
[2024-07-31 07:12] LABS: INR 2.7 (<1.2); Prothrombin Time 26.8 sec (10.0-12.5)
[2024-07-31 11:18] LABS: HCT 30.2 % (39.6-50.0); HGB 8.4 g/dL (13.0-17.0); MCHC 27.8 g/dL (32.0-37.0); MCV 79.1 fL (80.0-97.0); Mean Platelet Volume 9.2 fL (9.5-12.2); Platelet Count 394 10*3/uL (140-440); RBC 3.82 10*6/uL (4.40-5.60); WBC 7.88 10*3/uL (4.50-10.00)
[2024-07-31 11:31] LABS: African American GFR (CKD) >90 (>60 ml/min/1.73 sqM); Anion Gap 4 mmol/L; Blood Urea Nitrogen 8 mg/dL (9-20); Calcium 8.3 mg/dL (8.4-10.2); Carbon Dioxide 32 mmol/L (22-30); Chloride 102 mmol/L (98-107); Glucose 97 mg/dL (74-99); Non-African American GFR(CKD) >90 (>60 ml/min/1.73 sqM); Potassium 2.9 mmol/L (3.5-5.1); Sodium 138 mmol/L (137-145)
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
[2024-07-31] MEDS: WARFARIN 2 MG TAB PO ONE (15:22)
[2024-07-31] MEDS ORDERED: Magnesium Replacement Protocol 1 EACH MISC MISCELLANE PRN (15:55)
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
[2024-07-31] MEDS: POTASSIUM CHLORIDE ER 20 MEQ TAB.ER PO SCH (16:28)
--- NOTE | 2024-07-31 17:49 | CT ---
EXAMINATION TYPE: CT sacrum wo con DATE OF EXAM: 07/31/2024 COMPARISON: None CLINICAL INDICATION: Male, 68 years old with history of Stage IV sacral ulcer and question of osteo; PHH, sacral ulcer CT DLP: 1373.4 mGycm Automated exposure control for dose reduction was used. Unenhanced CT of the sacrum was performed in the axial, coronal and sagittal planes with bone and soft tissue window settings submitted. FINDINGS: Large soft tissue sacral ulcer which extends from approximately S1-S2 to S5. At the S5 level the ulc er extends to the osseous surface. I do not see evidence for bone destruction at this time to suggest osteomyelitis. Phlegmon extends to the right of midline to the right sacroiliac and right iliac armin ons again without associated osteomyelitis. Severe degenerative changes lower lumbar spine. Severe degenerative changes of bilateral hip joints. Rodriguez balloon catheter appears to be insufflated within the prostate urethra. This should be advanced . There is distention of the urinary bladder. IMPRESSION: 1. No definite evidence for osteomyelitis at this time. Signs and symptoms of osteomyelitis persists consider WBC scan. 2. Large sacral soft tissue ulcer. 3. Rodriguez balloon is insufflated within the prostate urethra and should be advanced. [facility], , 07/31/2024 5:47 PM
[2024-08-01 06:27] LABS: Glucose,Whole Blood 163 mg/dL (70-110)
[2024-08-01 07:28] LABS: Basophils # (A) 0.08 10*3/uL (0.00-0.10); Basophils % (A) 0.6 %; Eosinophils # (A) 0.15 10*3/uL (0.04-0.35); Eosinophils % (A) 1.1 %; HCT 37.5 % (39.6-50.0); HGB 10.5 g/dL (13.0-17.0); Lymphocytes # (A) 1.62 10*3/uL (0.90-5.00); Lymphocytes % (A) 12.2 %; MCH 21.9 pg (27.0-32.0); MCV 78.1 fL (80.0-97.0); Mean Platelet Volume 9.1 fL (9.5-12.2); Monocytes % (A) 4.5 %; Neutrophils # (A) 10.64 10*3/uL (1.80-7.70); Neutrophils % (A) 80.5 %; Platelet Count 513 10*3/uL (140-440); RDW 24.8 % (11.5-14.5); WBC 13.23 10*3/uL (4.50-10.00)
[2024-08-01 07:30] LABS: INR 2.2 (<1.2); Prothrombin Time 22.3 sec (10.0-12.5)
[2024-08-01 07:32] LABS: African American GFR (CKD) >90 (>60 ml/min/1.73 sqM); Anion Gap 7 mmol/L; Blood Urea Nitrogen 12 mg/dL (9-20); Calcium 8.6 mg/dL (8.4-10.2); Carbon Dioxide 29 mmol/L (22-30); Chloride 106 mmol/L (98-107); Glucose 167 mg/dL (74-99); Magnesium 1.8 mg/dL (1.6-2.3); Non-African American GFR(CKD) 83 (>60 ml/min/1.73 sqM); Potassium 3.6 mmol/L (3.5-5.1); Sodium 142 mmol/L (137-145)
--- NOTE | 2024-08-01 08:09 | CT ---
EXAMINATION TYPE: CT brain wo con DATE OF EXAM: 08/01/2024 COMPARISON: 02/06/2023 CLINICAL INDICATION: Male, 68 years old with history of Chnage in mental status; PHH, Change in menta l status TECHNIQUE: CT scan of the head is performed without contrast. CT DLP: 1229.[address] CTDI: mGy Automated exposure control for dose reduction was used. FINDINGS: There is no acute intracranial hemorrhage or midline shift identified. There is diffuse v entricular and sulcal prominence consistent with diffuse age-related cerebral atrophy. There is low- attenuation in the periventricular white matter consistent with chronic small vessel ischemic change. The globes are intact and the visualized sinuses are clear. IMPRESSION: No acute intracranial hemorrhage or midline shift. There is diffuse age-related cerebra l atrophy and chronic small vessel ischemic change noted. [facility], , 08/01/2024 8:07 AM
[2024-08-01 08:59] LABS: Anisocytosis (M) Present; Poikilocytosis (M) Present; Stomatocytes Present
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
[2024-08-01] MEDS: WARFARIN 3 MG TAB PO ONE (17:20)
[2024-08-01] MEDS: POTASSIUM CHLORIDE ER 20 MEQ TAB.ER PO STA (17:20)
[2024-08-01] MEDS: MAGNESIUM SULFATE-D5W PMX 1 GM in DEXTROSE/WATER 1 100ML.BAG IVPB ONE (17:20)
[2024-08-01 21:16] VITALS: TEMP 98.2
[2024-08-02 07:01] LABS: Basophils # (A) 0.07 10*3/uL (0.00-0.10); Basophils % (A) 0.7 %; Eosinophils # (A) 0.58 10*3/uL (0.04-0.35); Eosinophils % (A) 5.4 %; HCT 31.3 % (39.6-50.0); Lymphocytes % (A) 24.2 %; MCH 21.9 pg (27.0-32.0); MCHC 28.1 g/dL (32.0-37.0); MCV 78.1 fL (80.0-97.0); Mean Platelet Volume 9.5 fL (9.5-12.2); Monocytes % (A) 6.5 %; Neutrophils # (A) 6.66 10*3/uL (1.80-7.70); Neutrophils % (A) 61.8 %; Platelet Count 435 10*3/uL (140-440); RBC 4.01 10*6/uL (4.40-5.60); RDW 24.1 % (11.5-14.5); WBC 10.76 10*3/uL (4.50-10.00)
[2024-08-02 07:07] LABS: Prothrombin Time 29.8 sec (10.0-12.5)
[2024-08-02 07:22] LABS: African American GFR (CKD) >90 (>60 ml/min/1.73 sqM); Anion Gap 3 mmol/L; Blood Urea Nitrogen 11 mg/dL (9-20); Carbon Dioxide 31 mmol/L (22-30); Chloride 105 mmol/L (98-107); Glucose 82 mg/dL (74-99); Non-African American GFR(CKD) >90 (>60 ml/min/1.73 sqM); Potassium 3.3 mmol/L (3.5-5.1); Sodium 139 mmol/L (137-145)
[2024-08-02 07:27] LABS: HGB 8.8 g/dL (13.0-17.0)
[2024-08-02] MEDS: POTASSIUM CHLORIDE ER 20 MEQ TAB.ER PO STA (09:49)
[2024-08-02 13:16] VITALS: BP 110/67; PULSE 87; RESP 17
[2024-08-02 13:38] VITALS: BMI 38.9
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
[2024-08-02] MEDS ORDERED: WARFARIN 2 MG TAB PO ONE (18:00)
== END 2024-08-02 15:50 | disposition home health service (06) | DRG 698 ==
LOC: EC 12:13 → 3SCARD 14:48 → OBSVTOIN 14:49 → 3SCARD 16:33
PROVIDERS: ADMIT Family Medicine; ATTEND Family Medicine
DX: T83.511A Infection and inflammatory reaction due to indwelling urethral catheter, initial encounter (principal); B37.7 Candidal sepsis; L89.314 Pressure ulcer of right buttock, stage 4; L89.154 Pressure ulcer of sacral region, stage 4; L89.323 Pressure ulcer of left buttock, stage 3; J96.01 Acute respiratory failure with hypoxia; G82.50 Quadriplegia, unspecified; E86.0 Dehydration; E66.01 Morbid (severe) obesity due to excess calories; I48.20 Chronic atrial fibrillation, unspecified; E27.40 Unspecified adrenocortical insufficiency; G90.89 Other disorders of autonomic nervous system; N39.0 Urinary tract infection, site not specified; N31.9 Neuromuscular dysfunction of bladder, unspecified; E87.6 Hypokalemia; B96.1 Klebsiella pneumoniae [K. pneumoniae] as the cause of diseases classified elsewhere; B95.61 Methicillin susceptible Staphylococcus aureus infection as the cause of diseases classified elsewhere; Y84.6 Urinary catheterization as the cause of abnormal reaction of the patient, or of later complication, without mention of misadventure at the time of the procedure; Z68.39 Body mass index [BMI] 39.0-39.9, adult; Z87.440 Personal history of urinary (tract) infections; Z86.718 Personal history of other venous thrombosis and embolism; Z79.01 Long term (current) use of anticoagulants; Z79.52 Long term (current) use of systemic steroids; Z86.14 Personal history of Methicillin resistant Staphylococcus aureus infection; Z86.19 Personal history of other infectious and parasitic diseases; Z79.899 Other long term (current) drug therapy; Y73.1 Therapeutic (nonsurgical) and rehabilitative gastroenterology and urology devices associated with adverse incidents
CPT/HCPCS: 36410; 36415; 70450; 71045; 72192; 76937; 80048; 80053; 81001; 83605; 83735; 84132; 84484; 85025; 85027; 85610; 85652; 85730; 86140; 87040; 87086; 93005; 96361; 96365; 96366; 96372; 99291

== ENCOUNTER 2024-09-12 10:33 | Inpatient (IN) | payer MEDICARE, OTHER ==
[2024-09-12] MEDS: LACTATED RINGERS 1,000 ML IV SCH (11:06)
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
[2024-09-12] MEDS ORDERED: VANCOMYCIN IV PER PHARMACY 1 EACH MISC MISCELLANE PRN (11:20)
[2024-09-12 11:28] LABS: Basophils # (A) 0.06 10*3/uL (0.00-0.10); Basophils % (A) 0.3 %; Eosinophils # (A) 0.03 10*3/uL (0.04-0.35); Eosinophils % (A) 0.2 %; HCT 38.2 % (39.6-50.0); HGB 11.4 g/dL (13.0-17.0); Lymphocytes # (A) 1.54 10*3/uL (0.90-5.00); Lymphocytes % (A) 9.0 %; MCH 24.4 pg (27.0-32.0); MCHC 29.8 g/dL (32.0-37.0); MCV 81.8 fL (80.0-97.0); Monocytes # (A) 0.80 10*3/uL (0.20-1.00); Monocytes % (A) 4.7 %; Neutrophils # (A) 14.55 10*3/uL (1.80-7.70); Neutrophils % (A) 84.6 %; Platelet Count 401 10*3/uL (140-440); RBC 4.67 10*6/uL (4.40-5.60); RDW 22.6 % (11.5-14.5); WBC 17.19 10*3/uL (4.50-10.00)
[2024-09-12 11:46] LABS: ALT 12 U/L (4-49); AST 29 U/L (17-59); African American GFR (CKD) >90 (>60 ml/min/1.73 sqM); Albumin 3.7 g/dL (3.5-5.0); Alkaline Phosphatase 119 U/L (38-126); Anion Gap 13 mmol/L; Blood Urea Nitrogen 23 mg/dL (9-20); Calcium 9.2 mg/dL (8.4-10.2); Carbon Dioxide 22 mmol/L (22-30); Chloride 101 mmol/L (98-107); Glucose 134 mg/dL (74-99); Non-African American GFR(CKD) 90 (>60 ml/min/1.73 sqM); Potassium 4.7 mmol/L (3.5-5.1); Sodium 136 mmol/L (137-145); Total Protein 7.9 g/dL (6.3-8.2)
[2024-09-12 11:53] LABS: RBC,Urine >182 /hpf (0-5); WBC,Urine >182 /hpf (0-5)
[2024-09-12 12:00] LABS: Color,Urine Dark Red
[2024-09-12 12:05] LABS: INR 2.5 (<1.2); Partial Thromboplastin Time 35.1 sec (22.0-30.0); Prothrombin Time 25.2 sec (10.0-12.5)
[2024-09-12 12:27] LABS: Anisocytosis (M) Present; Stomatocytes Present
[2024-09-12] MEDS: VANCOMYCIN 2,500 MG in SODIUM CHLORIDE 0.9% 500 ML 500 ML IVPB ONE (13:02)
[2024-09-12] MEDS: PIPERACILLIN-TAZOBACTAM 3.375 GM in SODIUM CHLORIDE 0.9% 100 ML IVPB STA (13:03)
--- NOTE | 2024-09-12 13:27 | XR ---
EXAMINATION TYPE: XR chest 2V DATE OF EXAM: 09/12/2024 1:22 PM COMPARISON: Chest radiographs from 07/26/2024 TECHNIQUE: XR chest 2V Frontal and lateral views of the chest. CLINICAL INDICATION:Male, 68 years old with history of syncope; FINDINGS: Lungs/Pleura: There is no evidence of pleural effusion, focal consolidation, or pneumothorax. Pulmonary vascularity: Unremarkable. Heart/mediastinum: Cardiomediastinal silhouette is enlarged and stable. Musculoskeletal: No acute osseous pathology. Right clavicular plate and screw fixation redemonstrated . Previous posterior cervical fusion hardware. Right shoulder arthropathy. IMPRESSION: No acute cardiopulmonary disease/process. [facility], , 09/12/2024 1:24 PM
[2024-09-12] MEDS ORDERED: NALOXONE 0.4 MG/ML 1 ML VIAL IV PRN (13:51)
[2024-09-12] MEDS ORDERED: ACETAMINOPHEN TAB 325 MG TAB PO PRN (14:06)
[2024-09-12] MEDS: SODIUM CHLORIDE 0.9% 1,000 ML IV SCH (14:42)
[2024-09-12] MEDS ORDERED: ALPRAZolam 0.25 MG TAB PO PRN (14:51)
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
[2024-09-12] MEDS: PIPERACILLIN-TAZOBACTAM 3.375 GM in SODIUM CHLORIDE 0.9% 100 ML IVPB SCH (18:00)
[2024-09-12] MEDS: WARFARIN 2 MG TAB PO SCH (18:01)
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
[2024-09-12] MEDS: ESCITALOPRAM 10 MG TAB PO SCH (20:39)
[2024-09-12] MEDS: FUROSEMIDE 20 MG TAB PO SCH (20:39)
[2024-09-12] MEDS: PRIMIDONE 50 MG TAB PO SCH (20:39)
[2024-09-12] MEDS: TOPIRAMATE 25 MG TAB PO SCH (20:39)
[2024-09-12] MEDS: PREGABALIN 100 MG CAP PO SCH (20:39)
[2024-09-12] MEDS: oxyCODONE-APAP 10-325MG 1 EACH TAB PO PRN (20:43)
[2024-09-12] MEDS: FAMOTIDINE 20 MG/2 ML VIAL IV SCH (20:48)
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
[2024-09-13] MEDS ORDERED: VANCOMYCIN 2,250 MG in SODIUM CHLORIDE 0.9% 500 ML 500 ML IVPB SCH (04:00)
[2024-09-13 06:41] LABS: Basophils # (A) 0.03 10*3/uL (0.00-0.10); Basophils % (A) 0.3 %; Eosinophils # (A) 0.48 10*3/uL (0.04-0.35); Eosinophils % (A) 4.4 %; HCT 27.7 % (39.6-50.0); Lymphocytes # (A) 1.95 10*3/uL (0.90-5.00); Lymphocytes % (A) 17.8 %; MCH 24.0 pg (27.0-32.0); MCHC 28.9 g/dL (32.0-37.0); MCV 83.2 fL (80.0-97.0); Monocytes # (A) 0.64 10*3/uL (0.20-1.00); Monocytes % (A) 5.8 %; Neutrophils # (A) 7.77 10*3/uL (1.80-7.70); Neutrophils % (A) 70.8 %; Platelet Count 257 10*3/uL (140-440); RBC 3.33 10*6/uL (4.40-5.60); RDW 22.4 % (11.5-14.5); WBC 10.97 10*3/uL (4.50-10.00)
[2024-09-13 06:49] LABS: African American GFR (CKD) >90 (>60 ml/min/1.73 sqM); Anion Gap 7 mmol/L; Blood Urea Nitrogen 20 mg/dL (9-20); Calcium 7.3 mg/dL (8.4-10.2); Carbon Dioxide 21 mmol/L (22-30); Chloride 109 mmol/L (98-107); Glucose 71 mg/dL (74-99); Non-African American GFR(CKD) >90 (>60 ml/min/1.73 sqM); Potassium 3.4 mmol/L (3.5-5.1); Sodium 137 mmol/L (137-145)
[2024-09-13 06:50] LABS: HGB 8.0 g/dL (13.0-17.0)
[2024-09-13 07:28] LABS: INR 4.1 (<1.2); Prothrombin Time 40.6 sec (10.0-12.5)
[2024-09-13 08:36] LABS: Anisocytosis (M) Present; Poikilocytosis (M) Present
--- NOTE | 2024-09-13 08:39 | P.PN ---
Subjective This is a pleasant 68 years old male with past medical history of multiple medical problems including history of paraplegia Presents because of hematuria and syncope. Patient was noticing some blood in his Rodriguez catheter. Today he is trying to get up when he felt dizzy and passed out but he denies chest pain or dyspnea No GI symptoms. No dysuria or urgency. He denies currently any chest pain although he admits to some dyspnea and clear coughing for several months Patient states that from the nipple down he does not feel anything from spinal cord injury he cannot tell if he has dysuria urgency He says last bowel movement was this morning was normal Headache this morning but now feels better He has no fever blood pressure stable Labs show leukocytosis of 17.1 hemoglobin 11.4 INR 2.5 rest of labs including unremarkable. Urinalysis showing WBC more than 181 WBC more than 182 High lactic acid 3.5 came back to normal 1.6. Chest x-ray showing no acute cardiopulmonary process. EKG patient with RVR at [address]-T changes Patient started on Zosyn and IV vancomycin and admitted exercise consult 09/13 Patient awake alert He does not feel from the nipple down He presents with hematuria, Rodriguez catheter still showing hematuria but is improving. He got irrigated yesterday with urologist. Rodriguez catheter was changed yesterday per urologist, slightly leaking as per patient His INR today 4.0. Hold Coumadin which is pharmacy to dose and give small dose of vitamin K 2.5 mg with close monitoring. Also he remains on antibiotics Zosyn and IV daptomycin. He has severe sepsis suspected secondary to acute urinary tract infection Heart rate is controlled now for his A-fib. Blood pressure is low normal but patient is lying in bed most of the time. Review of systems CONSTITUTIONAL: No fever, no malaise, no fatigue. HEENT: No recent visual problems or hearing problems. Denied any sore throat. CARDIOVASCULAR: No orthopnea, PND, no palpitations, no syncope. PULMONARY: No shortness of breath, no cough, no hemoptysis. GASTROINTESTINAL: No diarrhea, no nausea, no vomiting, no abdominal pain. Normoactive bowel sounds. NEUROLOGICAL: No headaches, no weakness, no numbness. HEMATOLOGICAL: Denies any bleeding or petechiae. Active Medications Generic Name Dose Route Start Last Admin Trade Name Freq PRN Reason Stop Dose Admin Acetaminophen 650 mg 09/12/24 14:06 Acetaminophen Tab 325 Mg Tab PO Q6HR PRN Mild Pain or Fever > 100.5 Alprazolam 0.25 mg 09/12/24 14:51 Alprazolam 0.25 Mg Tab PO BID PRN Anxiety Escitalopram Oxalate 10 mg 09/12/24 21:00 09/12/24 20:39 Escitalopram 10 Mg Tab PO 10 mg HS SHERRY Administration Famotidine 20 mg 09/12/24 21:00 09/12/24 20:48 Famotidine 20 Mg/2 Ml Vial IV 20 mg Q12HR SHERRY Administration Fludrocortisone Acetate 0.1 mg 09/13/24 09:00 Fludrocortisone 0.1 Mg Tab PO DAILY SHERRY Furosemide 20 mg 09/12/24 21:00 09/12/24 20:39 Furosemide 20 Mg Tab PO 20 mg BID SHERRY Administration Piperacillin Sod/Tazobactam 100 mls @ 25 mls/hr 09/12/24 18:00 09/13/24 02:57 Sod 3.375 gm/ Sodium Chloride IVPB 25 mls/hr Q8H SHERRY Administration Protocol Sodium Chloride 1,000 mls @ 130 mls/hr 09/12/24 14:15 09/13/24 01:44 Saline 0.9% IV Not Given .Q7H42M SHERRY Daptomycin 450 mg/ Sodium 50 mls @ 100 mls/hr 09/13/24 09:00 Chloride IVPB Q24HR [facility] Protocol Lidocaine 1 patch 09/13/24 09:00 Lidocaine 4% Patch TOPICAL DAILY [facility] Miscellaneous Information 1 each 09/12/24 14:53 Warfarin Per Pharmacy MISCELLANE DIRECTED PRN Per Protocol Protocol Naloxone HCl 0.2 mg 09/12/24 13:51 Naloxone 0.4 Mg/Ml 1 Ml Vial IV Q2M PRN Opioid Reversal Oxybutynin Chloride 5 mg 09/12/24 21:00 09/12/24 20:39 Oxybutynin Chloride 5 Mg Tab PO 5 mg BID SHERRY Administration Oxycodone/Acetaminophen 1 each 09/12/24 14:51 09/12/24 20:43 Oxycodone-Apap 10-325mg 1 Each Tab PO 1 each TID PRN Administration Pain Phytonadione 2.5 mg 09/13/24 09:00 Phytonadione Oral 5 Mg/5 Ml Oral.Syrg PO 09/13/24 09:01 ONCE ONE Pregabalin 300 mg 09/12/24 21:00 09/12/24 20:39 Pregabalin 100 Mg Cap PO 300 mg BID SHERRY Administration Primidone 50 mg 09/12/24 21:00 09/12/24 20:39 Primidone 50 Mg Tab PO 50 mg HS SHERRY Administration Sumatriptan Succinate 100 mg 09/12/24 14:51 Sumatriptan Succinate 50 Mg Tab PO BID PRN Migraine Headache Topiramate 50 mg 09/12/24 21:00 09/12/24 20:39 Topiramate 25 Mg Tab PO 50 mg HS SHERRY Administration Trazodone HCl 150 mg 09/12/24 21:00 09/12/24 20:39 Trazodone Hcl 50 Mg Tab PO 150 mg HS SHERRY Administration Warfarin Sodium 0 mg 09/13/24 18:00 Warfarin 0.5 Mg Tab PO 09/13/24 18:01 ONCE@1800 ONE Objective - Vital Signs Vital signs: Vital Signs Temp 97.5 F L 09/12/24 21:32 Pulse 86 09/13/24 04:00 Resp 18 09/13/24 04:00 BP 92/44 09/13/24 04:00 Pulse Ox 97 09/13/24 08:18 FiO2 Intake & Output 09/12/24 09/13/24 09/13/24 18:59 06:59 18:59 Output Total 750 Balance -750 Weight 158.304 kg 160 kg Output: Urine 750 Other: Voiding Method Diaper Indwelling Catheter - Exam -GENERAL: The patient is alert and oriented x3, not in any acute distress. Well developed, well nourished. Obese HEENT: Pupils are round and equally reacting to light. EOMI. No scleral icterus. No conjunctival pallor. Normocephalic, atraumatic. No pharyngeal erythema. No thyromegaly. CARDIOVASCULAR: S1 and S2 present. No murmurs, rubs, or gallops. PULMONARY: Chest is clear to auscultation, no wheezing , no crackles. -ABDOMEN: Soft, nontender, nondistended, normoactive bowel sounds. No palpable organomegaly. Rodriguez catheter in place with red-colored urine MUSCULOSKELETAL: No joint swelling or deformity. EXTREMITIES: No cyanosis, clubbing, or pedal edema. -NEUROLOGICAL: Gross neurological examination did not reveal any focal deficits. Chronic paraplegia SKIN: No rashes. no petechiae. - Labs CBC & Chem 7: 09/13/24 05:42 09/13/24 05:42 Labs: Abnormal Lab Results - Last 24 Hours (Table) 09/12/24 09/12/24 09/12/24 Range/Units 11:07 11:07 11:07 WBC 17.19 H (4.50-10.00) 10*3/uL RBC (4.40-5.60) 10*6/uL Hgb 11.4 L (13.0-17.0) g/dL Hct 38.2 L (39.6-50.0) % MCH 24.4 L (27.0-32.0) pg MCHC 29.8 L (32.0-37.0) g/dL MPV (9.5-12.2) fL Immature Gran # 0.21 H (0.00-0.04) 10*3/uL Neutrophils # 14.55 H (1.80-7.70) 10*3/uL Eosinophils # 0.03 L (0.04-0.35) 10*3/uL PT 25.2 H (10.0-12.5) sec INR 2.5 H (<1.2) APTT 35.1 H (22.0-30.0) sec Sodium 136 L (137-145) mmol/L Potassium (3.5-5.1) mmol/L Chloride (98-107) mmol/L Carbon Dioxide (22-30) mmol/L BUN 23 H (9-20) mg/dL Glucose 134 H (74-99) mg/dL Plasma Lactic Acid Boom (0.7-2.0) mmol/L Calcium (8.4-10.2) mg/dL Urine RBC (0-5) /hpf Urine WBC (0-5) /hpf 09/12/24 09/12/24 09/13/24 Range/Units 11:07 11:16 05:42 WBC (4.50-10.00) 10*3/uL RBC (4.40-5.60) 10*6/uL Hgb (13.0-17.0) g/dL Hct (39.6-50.0) % MCH (27.0-32.0) pg MCHC (32.0-37.0) g/dL MPV (9.5-12.2) fL Immature Gran # (0.00-0.04) 10*3/uL Neutrophils # (1.80-7.70) 10*3/uL Eosinophils # (0.04-0.35) 10*3/uL PT (10.0-12.5) sec INR (<1.2) APTT (22.0-30.0) sec Sodium (137-145) mmol/L Potassium 3.4 L (3.5-5.1) mmol/L Chloride 109 H (98-107) mmol/L Carbon Dioxide 21 L (22-30) mmol/L BUN (9-20) mg/dL Glucose 71 L (74-99) mg/dL Plasma Lactic Acid Boom 3.5 H* (0.7-2.0) mmol/L Calcium 7.3 L (8.4-10.2) mg/dL Urine RBC >182 H (0-5) /hpf Urine WBC >182 H (0-5) /hpf 09/13/24 09/13/24 Range/Units 05:42 05:42 WBC 10.97 H (4.50-10.00) 10*3/uL RBC 3.33 L (4.40-5.60) 10*6/uL Hgb 8.0 L D (13.0-17.0) g/dL Hct 27.7 L (39.6-50.0) % MCH 24.0 L (27.0-32.0) pg MCHC 28.9 L (32.0-37.0) g/dL MPV 9.4 L (9.5-12.2) fL Immature Gran # 0.10 H (0.00-0.04) 10*3/uL Neutrophils # (1.80-7.70) 10*3/uL Eosinophils # (0.04-0.35) 10*3/uL PT 40.6 H (10.0-12.5) sec INR 4.1 H (<1.2) APTT (22.0-30.0) sec Sodium (137-145) mmol/L Potassium (3.5-5.1) mmol/L Chloride (98-107) mmol/L Carbon Dioxide (22-30) mmol/L BUN (9-20) mg/dL Glucose (74-99) mg/dL Plasma Lactic Acid Boom (0.7-2.0) mmol/L Calcium (8.4-10.2) mg/dL Urine RBC (0-5) /hpf Urine WBC (0-5) /hpf Assessment and Plan Assessment: Severe sepsis Acute urinary tract infection Syncope Coagulopathy secondary to Coumadin Paraplegia from spinal cord injury, chronic Atrial fibrillation with RVR on admission and 100 on Coumadin Coagulopathy secondary to Coumadin with INR therapeutic at 2.5, History of deep venous thrombosis Fibromyalgia GERD Neurogenic bladder with chronic Rodriguez catheter Adrenal insufficiency Plan: Continue with antibiotic per ID team. Currently on IV daptomycin and Zosyn. Coumadin pharmacy to dose, patient has coagulopathy and received vitamin K x 1 on 09/13 Follow-up culture results Cardiology team consult Monitor heart rate and electrolytes urology team consult. Infectious disease team consult Labs and medication were reviewed.. Continue same treatment. Continue with symptomatic treatment. Resume home medication. Monitor labs and vitals. DVT and GI prophylaxis. Further recommendations as per clinical course of the patient DVT prophylaxis:coumadine GI Prophylaxis: Pepcid Prognosis is guarded
--- NOTE | 2024-09-13 09:17 | P.PN ---
Subjective Progress Note Date: 09/13/24 Principal diagnosis: Neurogenic bladder, gross hematuria The patient presented with urinary clot retention. He has used a chronic indwelling Rodriguez catheter for approximately 10 years. For reasons unclear to me, he is now using a 22 Italian Rodriguez with a 30 cc balloon. When I initially evaluated him yesterday, it was apparent that the Rodriguez catheter balloon was inflated within the urethra (likely the prostatic urethra), and I advanced the catheter into the bladder. Multiple clots were then manually irrigated from the bladder. Patient is resting comfortably this morning, and his urine is essentially clear. Objective - Vital Signs Vital signs: Vital Signs Temp 97.5 F L 09/12/24 21:32 Pulse 86 09/13/24 04:00 Resp 18 09/13/24 04:00 BP 92/44 09/13/24 04:00 Pulse Ox 97 09/13/24 08:18 FiO2 Intake & Output 09/12/24 09/13/24 09/13/24 18:59 06:59 18:59 Intake Total 360 Output Total 750 Balance -750 360 Weight 158.304 kg 160 kg Intake: Oral 360 Output: Urine 750 Other: Voiding Method Diaper Indwelling Catheter - Constitutional General appearance: Present: average body habitus, cooperative, no acute distress - Labs CBC & Chem 7: 09/13/24 05:42 09/13/24 05:42 Labs: Abnormal Lab Results - Last 24 Hours (Table) 09/12/24 09/12/24 09/12/24 Range/Units 11:07 11:07 11:07 WBC 17.19 H (4.50-10.00) 10*3/uL RBC (4.40-5.60) 10*6/uL Hgb 11.4 L (13.0-17.0) g/dL Hct 38.2 L (39.6-50.0) % MCH 24.4 L (27.0-32.0) pg MCHC 29.8 L (32.0-37.0) g/dL MPV (9.5-12.2) fL Immature Gran # 0.21 H (0.00-0.04) 10*3/uL Neutrophils # 14.55 H (1.80-7.70) 10*3/uL Eosinophils # 0.03 L (0.04-0.35) 10*3/uL PT 25.2 H (10.0-12.5) sec INR 2.5 H (<1.2) APTT 35.1 H (22.0-30.0) sec Sodium 136 L (137-145) mmol/L Potassium (3.5-5.1) mmol/L Chloride (98-107) mmol/L Carbon Dioxide (22-30) mmol/L BUN 23 H (9-20) mg/dL Glucose 134 H (74-99) mg/dL Plasma Lactic Acid Boom (0.7-2.0) mmol/L Calcium (8.4-10.2) mg/dL Urine RBC (0-5) /hpf Urine WBC (0-5) /hpf 09/12/24 09/12/24 09/13/24 Range/Units 11:07 11:16 05:42 WBC (4.50-10.00) 10*3/uL RBC (4.40-5.60) 10*6/uL Hgb (13.0-17.0) g/dL Hct (39.6-50.0) % MCH (27.0-32.0) pg MCHC (32.0-37.0) g/dL MPV (9.5-12.2) fL Immature Gran # (0.00-0.04) 10*3/uL Neutrophils # (1.80-7.70) 10*3/uL Eosinophils # (0.04-0.35) 10*3/uL PT (10.0-12.5) sec INR (<1.2) APTT (22.0-30.0) sec Sodium (137-145) mmol/L Potassium 3.4 L (3.5-5.1) mmol/L Chloride 109 H (98-107) mmol/L Carbon Dioxide 21 L (22-30) mmol/L BUN (9-20) mg/dL Glucose 71 L (74-99) mg/dL Plasma Lactic Acid Boom 3.5 H* (0.7-2.0) mmol/L Calcium 7.3 L (8.4-10.2) mg/dL Urine RBC >182 H (0-5) /hpf Urine WBC >182 H (0-5) /hpf 07/10/25 07/10/25 Range/Units 05:42 05:42 WBC 10.97 H (4.50-10.00) 10*3/uL RBC 3.33 L (4.40-5.60) 10*6/uL Hgb 8.0 L D (13.0-17.0) g/dL Hct 27.7 L (39.6-50.0) % MCH 24.0 L (27.0-32.0) pg MCHC 28.9 L (32.0-37.0) g/dL MPV 9.4 L (9.5-12.2) fL Immature Gran # 0.10 H (0.00-0.04) 10*3/uL Neutrophils # 7.77 H (1.80-7.70) 10*3/uL Eosinophils # 0.48 H (0.04-0.35) 10*3/uL PT 40.6 H (10.0-12.5) sec INR 4.1 H (<1.2) APTT (22.0-30.0) sec Sodium (137-145) mmol/L Potassium (3.5-5.1) mmol/L Chloride (98-107) mmol/L Carbon Dioxide (22-30) mmol/L BUN (9-20) mg/dL Glucose (74-99) mg/dL Plasma Lactic Acid Boom (0.7-2.0) mmol/L Calcium (8.4-10.2) mg/dL Urine RBC (0-5) /hpf Urine WBC (0-5) /hpf Assessment and Plan (1) Gross hematuria Current Visit: No Status: Acute Code(s): R31.0 - GROSS HEMATURIA SNOMED Code(s): 303221695 (2) Urinary retention Current Visit: No Status: Acute Code(s): R33.9 - RETENTION OF URINE, UNSPECIFIED SNOMED Code(s): 642620828 Plan: The Rodriguez catheter is draining well, and the patient is currently receiving daptomycin. Rodriguez catheter will be irrigated as needed.
[2024-09-13] MEDS: POTASSIUM CHLORIDE ER 20 MEQ TAB.ER PO STA (09:29)
[2024-09-13] MEDS: PHYTONADIONE ORAL 5 MG/5 ML ORAL.SYRG PO ONE (09:29)
[2024-09-13] MEDS: WARFARIN 0.5 MG TAB PO ONE (09:31)
[2024-09-13] MEDS: LIDOCAINE 4% PATCH TOPICAL SCH (09:34)
[2024-09-13] MEDS: FLUDROCORTISONE 0.1 MG TAB PO SCH (13:19)
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
[2024-09-13 14:11] LABS: Glucose,Whole Blood 140 mg/dL (70-110)
[2024-09-13 15:02] LABS: ABG HCO3 22 mmol/L (21-25); ABG PCO2 37 mmHg (35-45); ABG PH 7.40 (7.35-7.45); ABG TCO2 23 mmol/L (19-24); Allen Test Performed? Yes
[2024-09-13 15:04] LABS: ABG PO2 52 mmHg (83-108)
[2024-09-13] MEDS: METOPROLOL SUCCINATE (ER) 25 MG TAB.ER.24H PO SCH (15:12)
[2024-09-13] MEDS: COLLAGENASE 250 UNIT/GM OINTMENT 30 GM TUBE TOPICAL SCH (16:18)
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
[2024-09-14 07:30] LABS: Basophils # (A) 0.05 10*3/uL (0.00-0.10); Basophils % (A) 0.5 %; Eosinophils # (A) 0.70 10*3/uL (0.04-0.35); Eosinophils % (A) 6.4 %; HCT 32.5 % (39.6-50.0); HGB 9.3 g/dL (13.0-17.0); Lymphocytes # (A) 2.45 10*3/uL (0.90-5.00); Lymphocytes % (A) 22.4 %; MCH 23.9 pg (27.0-32.0); MCHC 28.6 g/dL (32.0-37.0); MCV 83.5 fL (80.0-97.0); Monocytes # (A) 0.57 10*3/uL (0.20-1.00); Monocytes % (A) 5.2 %; Neutrophils # (A) 7.02 10*3/uL (1.80-7.70); Neutrophils % (A) 64.2 %; Platelet Count 348 10*3/uL (140-440); RBC 3.89 10*6/uL (4.40-5.60); RDW 22.5 % (11.5-14.5); WBC 10.93 10*3/uL (4.50-10.00)
[2024-09-14 07:44] LABS: INR 1.9 (<1.2); Prothrombin Time 19.2 sec (10.0-12.5)
[2024-09-14 07:50] LABS: African American GFR (CKD) >90 (>60 ml/min/1.73 sqM); Anion Gap 7 mmol/L; Blood Urea Nitrogen 14 mg/dL (9-20); Calcium 8.5 mg/dL (8.4-10.2); Carbon Dioxide 22 mmol/L (22-30); Chloride 110 mmol/L (98-107); Glucose 104 mg/dL (74-99); Non-African American GFR(CKD) >90 (>60 ml/min/1.73 sqM); Potassium 3.7 mmol/L (3.5-5.1); Sodium 139 mmol/L (137-145)
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
[2024-09-14 09:12] LABS: Bacteria,Urine Rare /hpf; Bilirubin,Urine Negative (Negative); Blood,Urine Moderate (Negative); Budding Yeast,Urine Moderate /hpf; Color,Urine Colorless; Glucose,Urine (UA) Negative (Negative); Ketones,Urine Negative (Negative); Leukocyte Esterase,Urine Large (Negative); Nitrite,Urine Negative (Negative); PH, Urine 6.0 (5.0-8.0); Protein,Urine Negative (Negative); RBC,Urine 15 /hpf (0-5); Specific Gravity,Urine 1.006 (1.001-1.035); Squamous Epithelial Cell,Urine <1 /hpf (0-4); Urobilinogen,Urine <2.0 mg/dL (<2.0); WBC,Urine >182 /hpf (0-5)
[2024-09-14 09:27] LABS: Anisocytosis (M) Present
[2024-09-14] MEDS: COLLAGENASE 250 UNIT/GM OINTMENT 30 GM TUBE TOPICAL SCH (09:32)
[2024-09-14] MEDS: WARFARIN 7.5 MG TAB PO ONE (10:06)
[2024-09-14] MEDS: FUROSEMIDE 10 MG/ML 4 ML VIAL IV STA (11:37)
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
[2024-09-14] MEDS: WARFARIN 2 MG TAB PO ONE (17:08)
[2024-09-15 06:16] LABS: INR 1.4 (<1.2); Prothrombin Time 14.6 sec (10.0-12.5)
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
[2024-09-15] MEDS ORDERED: HEPARIN SODIUM 1,000 UN/ML (10ML VL) IV PRN (15:00)
[2024-09-15] MEDS: HEPARIN SOD,PORK IN 0.45% NACL 25,000 UNIT in 0.45% NACL 1 250ML.BAG IV SCH ×2 (15:12→16:25)
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
[2024-09-15 16:04] LABS: Basophils # (A) 0.04 10*3/uL (0.00-0.10); Basophils % (A) 0.4 %; Eosinophils # (A) 0.44 10*3/uL (0.04-0.35); Eosinophils % (A) 4.7 %; HCT 32.4 % (39.6-50.0); HGB 9.7 g/dL (13.0-17.0); Lymphocytes # (A) 2.42 10*3/uL (0.90-5.00); Lymphocytes % (A) 25.6 %; MCH 24.3 pg (27.0-32.0); MCHC 29.9 g/dL (32.0-37.0); MCV 81.2 fL (80.0-97.0); Monocytes # (A) 0.57 10*3/uL (0.20-1.00); Monocytes % (A) 6.0 %; Neutrophils # (A) 5.89 10*3/uL (1.80-7.70); Neutrophils % (A) 62.5 %; Platelet Count 394 10*3/uL (140-440); RBC 3.99 10*6/uL (4.40-5.60); RDW 21.9 % (11.5-14.5); WBC 9.44 10*3/uL (4.50-10.00)
[2024-09-15 16:17] LABS: INR 1.4 (<1.2); Partial Thromboplastin Time 25.8 sec (22.0-30.0); Prothrombin Time 14.4 sec (10.0-12.5)
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
[2024-09-15] MEDS: WARFARIN 2 MG TAB PO ONE (18:18)
[2024-09-15] MEDS: HEPARIN SODIUM 1,000 UN/ML (10ML VL) IV PRN (21:42)
[2024-09-16 04:01] LABS: Basophils # (A) 0.06 10*3/uL (0.00-0.10); Basophils % (A) 0.6 %; Eosinophils # (A) 0.49 10*3/uL (0.04-0.35); Eosinophils % (A) 5.2 %; HCT 33.2 % (39.6-50.0); HGB 10.0 g/dL (13.0-17.0); Lymphocytes # (A) 2.76 10*3/uL (0.90-5.00); Lymphocytes % (A) 29.1 %; MCH 24.3 pg (27.0-32.0); MCHC 30.1 g/dL (32.0-37.0); MCV 80.8 fL (80.0-97.0); Monocytes # (A) 0.60 10*3/uL (0.20-1.00); Monocytes % (A) 6.3 %; Neutrophils # (A) 5.48 10*3/uL (1.80-7.70); Neutrophils % (A) 58.0 %; Platelet Count 392 10*3/uL (140-440); RBC 4.11 10*6/uL (4.40-5.60); RDW 21.9 % (11.5-14.5); WBC 9.47 10*3/uL (4.50-10.00)
[2024-09-16 04:17] LABS: INR 1.4 (<1.2); Prothrombin Time 14.7 sec (10.0-12.5)
[2024-09-16 04:18] LABS: African American GFR (CKD) >90 (>60 ml/min/1.73 sqM); Anion Gap 8 mmol/L; Blood Urea Nitrogen 8 mg/dL (9-20); Calcium 8.8 mg/dL (8.4-10.2); Carbon Dioxide 27 mmol/L (22-30); Chloride 106 mmol/L (98-107); Glucose 102 mg/dL (74-99); Non-African American GFR(CKD) >90 (>60 ml/min/1.73 sqM); Potassium 3.1 mmol/L (3.5-5.1); Sodium 141 mmol/L (137-145)
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
[2024-09-16] MEDS ORDERED: Potassium Replacement Protocol 1 EACH MISC MISCELLANE PRN (14:53)
[2024-09-16] MEDS: WARFARIN 2 MG TAB PO ONE (18:04)
[2024-09-16] MEDS: POTASSIUM CHLORIDE ER 20 MEQ TAB.ER PO SCH (18:04)
--- NOTE | 2024-09-17 02:09 | P.PN ---
Subjective This is a pleasant 68 years old male with past medical history of multiple medical problems including history of paraplegia Presents because of hematuria and syncope. Patient was noticing some blood in his Rodriguez catheter. Today he is trying to get up when he felt dizzy and passed out but he denies chest pain or dyspnea No GI symptoms. No dysuria or urgency. He denies currently any chest pain although he admits to some dyspnea and clear coughing for several months Patient states that from the nipple down he does not feel anything from spinal cord injury he cannot tell if he has dysuria urgency He says last bowel movement was this morning was normal Headache this morning but now feels better He has no fever blood pressure stable Labs show leukocytosis of 17.1 hemoglobin 11.4 INR 2.5 rest of labs including unremarkable. Urinalysis showing WBC more than 181 WBC more than 182 High lactic acid 3.5 came back to normal 1.6. Chest x-ray showing no acute cardiopulmonary process. EKG patient with RVR at [address]-T changes Patient started on Zosyn and IV vancomycin and admitted exercise consult 09/13 Patient awake alert He does not feel from the nipple down He presents with hematuria, Rodriguez catheter still showing hematuria but is improving. He got irrigated yesterday with urologist. Rodriguez catheter was changed yesterday per urologist, slightly leaking as per patient His INR today 4.0. Hold Coumadin which is pharmacy to dose and give small dose of vitamin K 2.5 mg with close monitoring. Also he remains on antibiotics Zosyn and IV daptomycin. He has severe sepsis suspected secondary to acute urinary tract infection Heart rate is controlled now for his A-fib. Blood pressure is low normal but patient is lying in bed most of the time. 09/14 Patient awake alert feels tired He denies chest pain or dyspnea. He was admitted for you hematuria and UTI and sepsis, Rodriguez catheter was changed, hematuria resolved and currently draining yellow clear urine Patient remains on IV Zosyn and daptomycin Yesterday he was obtained for some time and ABG was obtained showing PaO2 of 52 on the low side, patient was placed on 4 L oxygen via nasal cannula and saturation is currently 94% on 4 L/min of oxygen We are going to consult pulmonary service for this reason He is on warfarin pharmacy to dose for his history of A-fib. His INR today 1.9. Bleeding stopped. Will going to give him 8 mg of Coumadin today with close monitoring of INR 09/15 Patient today feels tired No other new complaint His Rodriguez catheter containing yellow-colored clear urine. Hematuria has resolved. No suprapubic symptoms patient does not have feelings in this areas and his way. His INR is subtherapeutic 1.4, we will start her on heparin bridging low intensity because of risk of bleeding. However A-fib is high thrombotic risk and we think benefits more than risks. Continue with warfarin pharmacy to dose. Hemoglobin stable. WBC stable at 10.9. Cardiology has cleared patient for discharge. 09/16 Patient feels little congestion today, he was advised with incentive spirometer he received one-time dose of IV Lasix 40 mg. Noted chest pain Rodriguez catheter with yellow urine. Patient has wound VAC in place from home. Currently with Zosyn. Also on warfarin with subtherapeutic INR with heparin bridging. Patient has history of A-fib and treated for his severe sepsis with UTI. Continue closely monitor Active Medications Generic Name Dose Route Start Last Admin Trade Name Lidia PRN Reason Stop Dose Admin Acetaminophen 650 mg 09/12/24 14:06 Acetaminophen Tab 325 Mg Tab PO Q6HR PRN Mild Pain or Fever > 100.5 Alprazolam 0.25 mg 09/12/24 14:51 Alprazolam 0.25 Mg Tab PO BID PRN Anxiety Collagenase 1 applic 09/14/24 09:30 09/16/24 09:01 Collagenase 250 Unit/Gm Ointment 30 Gm Tube TOPICAL 1 applic DAILY SHERRY Administration Protocol Escitalopram Oxalate 10 mg 09/12/24 21:00 09/16/24 20:54 Escitalopram 10 Mg Tab PO 10 mg HS SHERRY Administration Famotidine 20 mg 09/12/24 21:00 09/16/24 20:54 Famotidine 20 Mg/2 Ml Vial IV 20 mg Q12HR [facility] Administration Fludrocortisone Acetate 0.1 mg 09/13/24 09:00 09/16/24 09:00 Fludrocortisone 0.1 Mg Tab PO 0.1 mg DAILY SHERRY Administration Furosemide 20 mg 09/12/24 21:00 09/16/24 20:54 Furosemide 20 Mg Tab PO 20 mg BID SHERRY Administration Heparin Sodium (Porcine) 0 unit 09/15/24 15:06 09/16/24 04:47 Heparin Sodium 1,000 Un/Ml (10ml Vl) IV 4,000 unit PER PROTOCOL PRN Administration Low PTT Protocol Piperacillin Sod/Tazobactam 100 mls @ 25 mls/hr 09/12/24 18:00 09/16/24 18:04 Sod 3.375 gm/ Sodium Chloride IVPB 25 mls/hr Q8H [facility] Administration Protocol Heparin Sodium/Sodium Chloride 250 mls @ 9.999 mls/hr 09/15/24 15:15 09/16/24 21:06 25,000 unit/ Sodium Chloride IV 11.207 units/kg/hr .Q24H [facility] 18.054 mls/hr Administration Protocol 6.207 UNITS/KG/HR Lidocaine 1 patch 09/13/24 09:00 09/16/24 09:02 Lidocaine 4% Patch TOPICAL Not Given DAILY SHERRY Metoprolol Succinate 25 mg 09/13/24 13:45 09/16/24 09:00 Metoprolol Succinate (Er) 25 Mg Tab.Er.24h PO 25 mg DAILY SHERRY Administration Miscellaneous Information 1 each 09/12/24 14:53 Warfarin Per Pharmacy MISCELLANE DIRECTED PRN Per Protocol Protocol Miscellaneous Information 1 each 09/16/24 14:53 Potassium Replacement Protocol 1 Each Misc MISCELLANE DAILY PRN Per Protocol Protocol Naloxone HCl 0.2 mg 09/12/24 13:51 Naloxone 0.4 Mg/Ml 1 Ml Vial IV Q2M PRN Opioid Reversal Oxybutynin Chloride 5 mg 09/12/24 21:00 09/16/24 20:53 Oxybutynin Chloride 5 Mg Tab PO 5 mg BID SHERRY Administration Oxycodone/Acetaminophen 1 each 09/12/24 14:51 09/16/24 21:02 Oxycodone-Apap 10-325mg 1 Each Tab PO 1 each TID PRN Administration Pain Pregabalin 300 mg 09/12/24 21:00 09/16/24 20:53 Pregabalin 100 Mg Cap PO 300 mg BID SHERRY Administration Primidone 50 mg 09/12/24 21:00 09/16/24 20:53 Primidone 50 Mg Tab PO 50 mg HS SHERRY Administration Sumatriptan Succinate 100 mg 09/12/24 14:51 Sumatriptan Succinate 50 Mg Tab PO BID PRN Migraine Headache Topiramate 50 mg 09/12/24 21:00 09/16/24 20:54 Topiramate 25 Mg Tab PO 50 mg HS SHERRY Administration Trazodone HCl 150 mg 09/12/24 21:00 09/16/24 20:54 Trazodone Hcl 50 Mg Tab PO 150 mg HS SHERRY Administration Objective - Vital Signs Vital signs: Vital Signs Temp 97.9 F 09/16/24 08:56 Pulse 91 09/16/24 08:56 Resp 16 09/16/24 08:56 BP 132/79 09/16/24 08:56 Pulse Ox 97 09/16/24 08:56 FiO2 Intake & Output 09/15/24 09/16/24 09/16/24 18:59 06:59 18:59 Intake Total 540 156.652 789.387 Output Total 2300 1100 600 Balance -1760 -943.348 189.387 Weight 160.3 kg Intake: Intake, IV Titration 156.652 129.387 Amount Heparin Sod,Pork in 0.45% 156.652 129.387 NaCl 25,000 unit In 0.45 % NaCl 1 250ml.bag @ 6. 207 UNITS/KG/HR 9.999 mls /hr IV .Q24H [facility] Rx#: [id number] Oral 540 660 Output: Urine 2300 1100 600 Other: Voiding Method Diaper Diaper Diaper Indwelling Catheter Indwelling Catheter Indwelling Catheter - Exam -GENERAL: The patient is alert and oriented x3, not in any acute distress. Well developed, well nourished. Obese HEENT: Pupils are round and equally reacting to light. EOMI. No scleral icterus. No conjunctival pallor. Normocephalic, atraumatic. No pharyngeal erythema. No thyromegaly. CARDIOVASCULAR: S1 and S2 present. No murmurs, rubs, or gallops. PULMONARY: Chest is clear to auscultation, no wheezing , no crackles. -ABDOMEN: Soft, nontender, nondistended, normoactive bowel sounds. No palpable organomegaly. Rodriguez catheter in place with red-colored urine MUSCULOSKELETAL: No joint swelling or deformity. EXTREMITIES: No cyanosis, clubbing, or pedal edema. -NEUROLOGICAL: Gross neurological examination did not reveal any focal deficits. Chronic paraplegia SKIN: No rashes. no petechiae. - Labs CBC & Chem 7: 09/16/24 03:40 09/16/24 03:40 Labs: Abnormal Lab Results - Last 24 Hours (Table) 09/15/24 09/15/24 09/16/24 Range/Units 15:24 15:24 03:40 RBC 3.99 L (4.40-5.60) 10*6/uL Hgb 9.7 L (13.0-17.0) g/dL Hct 32.4 L (39.6-50.0) % MCH 24.3 L (27.0-32.0) pg MCHC 29.9 L (32.0-37.0) g/dL MPV 9.3 L (9.5-12.2) fL Immature Gran # 0.08 H (0.00-0.04) 10*3/uL Eosinophils # 0.44 H (0.04-0.35) 10*3/uL PT 14.4 H 14.7 H (10.0-12.5) sec INR 1.4 H 1.4 H (<1.2) APTT (22.0-30.0) sec Potassium (3.5-5.1) mmol/L BUN (9-20) mg/dL Creatinine (0.66-1.25) mg/dL Glucose (74-99) mg/dL 09/16/24 09/16/24 09/16/24 Range/Units 03:40 03:40 03:40 RBC 4.11 L (4.40-5.60) 10*6/uL Hgb 10.0 L (13.0-17.0) g/dL Hct 33.2 L (39.6-50.0) % MCH 24.3 L (27.0-32.0) pg MCHC 30.1 L (32.0-37.0) g/dL MPV 9.1 L (9.5-12.2) fL Immature Gran # 0.08 H (0.00-0.04) 10*3/uL Eosinophils # 0.49 H (0.04-0.35) 10*3/uL PT (10.0-12.5) sec INR (<1.2) APTT 32.0 H (22.0-30.0) sec Potassium 3.1 L (3.5-5.1) mmol/L BUN 8 L (9-20) mg/dL Creatinine 0.42 L (0.66-1.25) mg/dL Glucose 102 H (74-99) mg/dL 09/16/24 Range/Units 11:02 RBC (4.40-5.60) 10*6/uL Hgb (13.0-17.0) g/dL Hct (39.6-50.0) % MCH (27.0-32.0) pg MCHC (32.0-37.0) g/dL MPV (9.5-12.2) fL Immature Gran # (0.00-0.04) 10*3/uL Eosinophils # (0.04-0.35) 10*3/uL PT (10.0-12.5) sec INR (<1.2) APTT 40.1 H (22.0-30.0) sec Potassium (3.5-5.1) mmol/L BUN (9-20) mg/dL Creatinine (0.66-1.25) mg/dL Glucose (74-99) mg/dL Microbiology - Last 24 Hours (Table) 09/14/24 06:42 Urine Culture - Final Urine,Voided Felisa albicans 09/12/24 11:07 Blood Culture - Preliminary Blood Assessment and Plan Assessment: Severe sepsis Acute urinary tract infection Syncope Coagulopathy secondary to Coumadin Acute hypoxic respiratory failure Paraplegia from spinal cord injury, chronic Atrial fibrillation with RVR on admission and 100 on Coumadin Coagulopathy secondary to Coumadin with INR therapeutic at 2.5, History of deep venous thrombosis Fibromyalgia GERD Neurogenic bladder with chronic Rodriguez catheter Adrenal insufficiency Plan: Continue with antibiotic per ID team. Currently onZosyn. Coumadin pharmacy to dose, with heparin bridging Cardiology team consult. Cleared the patient for discharge Monitor heart rate and electrolytes urology team consult. Pulmonary team consulted for hypoxia Infectious disease team consult Labs and medication were reviewed.. Continue same treatment. Continue with symptomatic treatment. Resume home medication. Monitor labs and vitals. DVT and GI prophylaxis. Further recommendations as per clinical course of the patient DVT prophylaxis:coumadine GI Prophylaxis: Pepcid Prognosis is guarded
[2024-09-17 05:13] LABS: Basophils # (A) 0.06 10*3/uL (0.00-0.10); Basophils % (A) 0.6 %; Eosinophils # (A) 0.54 10*3/uL (0.04-0.35); Eosinophils % (A) 5.6 %; HCT 25.9 % (39.6-50.0); Lymphocytes # (A) 3.18 10*3/uL (0.90-5.00); Lymphocytes % (A) 32.7 %; MCH 24.2 pg (27.0-32.0); MCHC 29.7 g/dL (32.0-37.0); MCV 81.4 fL (80.0-97.0); Monocytes # (A) 0.78 10*3/uL (0.20-1.00); Monocytes % (A) 8.0 %; Neutrophils # (A) 5.05 10*3/uL (1.80-7.70); Neutrophils % (A) 52.1 %; Platelet Count 363 10*3/uL (140-440); RBC 3.18 10*6/uL (4.40-5.60); RDW 21.8 % (11.5-14.5); WBC 9.71 10*3/uL (4.50-10.00)
[2024-09-17 05:30] LABS: INR 1.6 (<1.2); Partial Thromboplastin Time 38.0 sec (22.0-30.0); Prothrombin Time 16.4 sec (10.0-12.5)
[2024-09-17 05:35] LABS: African American GFR (CKD) >90 (>60 ml/min/1.73 sqM); Anion Gap 6 mmol/L; Blood Urea Nitrogen 7 mg/dL (9-20); Calcium 8.3 mg/dL (8.4-10.2); Carbon Dioxide 28 mmol/L (22-30); Chloride 101 mmol/L (98-107); Glucose 79 mg/dL (74-99); Non-African American GFR(CKD) >90 (>60 ml/min/1.73 sqM); Potassium 3.3 mmol/L (3.5-5.1); Sodium 135 mmol/L (137-145)
[2024-09-17 05:57] LABS: HGB 7.7 g/dL (13.0-17.0)
[2024-09-17] MEDS: POTASSIUM CHLORIDE ER 20 MEQ TAB.ER PO SCH (09:37)
--- NOTE | 2024-09-17 13:09 | CA ---
Transthoracic Echo Report Name: Dioni Linton Age: 68 Gender: M : 1955 Exam Date: 09/17/2024 09:04 Exam Location: [facility] Ht (in): 72 Wt (lb): 352 Ordering Physician: Hu Grande MD ([id number]) Attending/Referring Phys: Brazer Crawler Torch Akua Chan RDCS Procedure CPT: Indications: cardiomyopathy Cardiac Hx: Technical Quality: Fair Contrast 1: Total Dose (mL): Contrast 2: Total Dose (mL): MEASUREMENTS (Male / Female) Normal Values 2D ECHO LV Diastolic Diameter PLAX 4.1 cm 4.2 - 5.9 / 3.9 - 5.3 cm LV Systolic Diameter PLAX 2.6 cm IVS Diastolic Thickness 1.4 cm 0.6 - 1.0 / 0.6 - 0.9 cm LVPW Diastolic Thickness 1.4 cm 0.6 - 1.0 / 0.6 - 0.9 cm LV Relative Wall Thickness 0.7 RV Internal Dim ED PLAX 3.2 cm LVOT Diameter 2.1 cm LA Systolic Diameter LX 3.7 cm 3.0 - 4.0 / 2.7 - 3.8 cm LV Diastolic Volume MOD BP 85.0 cm??? 67 - 155 / 56 - 104 cm??? LV Systolic Volume MOD BP 26.8 cm??? - 58 / 19 - 49 cm??? LV Ejection Fraction MOD BP 68.5 % >= 55 % LV Cardiac Index MOD BP 1351.9 cm???/min???m??? LV Diastolic Volume MOD 4C 106.3 cm??? LV Systolic Volume MOD 4C 28.8 cm??? LV Ejection Fraction MOD 4C 72.9 % LV Cardiac Index MOD 4C 1799.8 cm???/min???m??? LV Diastolic Length 4C 7.4 cm LV Systolic Length 4C 6.0 cm LV Diastolic Volume MOD 2C 67.9 cm??? LV Systolic Volume MOD 2C 22.5 cm??? LV Ejection Fraction MOD 2C 66.9 % LV Cardiac Index MOD 2C 1056.3 cm???/min???m??? LV Diastolic Length 2C 7.3 cm LV Systolic Length 2C 6.7 cm LA Volume 56.2 cm??? 18 - 58 / 22 - 52 cm??? LA Volume Index 19.2 cm???/m??? 16 - 28 cm???/m??? M-MODE Aortic Root Diameter MM 3.5 cm AV Cusp Separation MM 2.3 cm DOPPLER AV Peak Velocity 159.7 cm/s AV Peak Gradient 10.2 mmHg LVOT Peak Velocity 138.1 cm/s LVOT Peak Gradient 7.6 mmHg AV Area Cont Eq pk 2.9 cm??? MV Area PHT 2.7 cm??? Mitral E Point Velocity 67.2 cm/s Mitral A Point Velocity 70.8 cm/s Mitral E to A Ratio 0.9 MV Deceleration Time 279.0 ms TR Peak Velocity 202.3 cm/s TR Peak Gradient 16.4 mmHg Right Ventricular Systolic Press 24.4 mmHg FINDINGS Left Ventricle Left ventricular ejection fraction is estimated at 55-60%. Normal Left ventricular size, systolic function with no obvious regional wall motion abnormalities. Normal Left ventricular diastolic filling pattern. Moderately increased septal wall thickness. Right Ventricle Normal right ventricular size and function. Right Atrium Normal right atrial size. No right atrial thrombus or mass seen. Left Atrium Mildly increased left atrial area. No left atrial thrombus or mass present. Mitral Valve Moderate thickening/calcification of the anterior mitral valve leaflet. Mild mitral annular calcification. No mitral stenosis. Trace - mild mitral regurgitation. Aortic Valve Aortic valve not well visualized. No aortic stenosis. No aortic regurgitation. Tricuspid Valve Tricuspid valve not well visualized. Trace tricuspid regurgitation. Pulmonic Valve Pulmonic valve not well visualized. No pulmonic stenosis. Pericardium Minimal pericardial effusion . Echo free space anterior to the right ventricle likely represents a fat pad. Aorta Normal size aortic root .Mildly dilated proximal ascending aorta. CONCLUSIONS Advised endocardium and intracardiac valves Normal LV systolic function Poorly visualized aortic valve Mitral annular calcification with mild MR Previewed by: Dr. Jacob Shoemaker MD (Electronically Signed) Final Date: 17 September 2024 13:08
--- NOTE | 2024-09-17 14:15 | XR ---
EXAMINATION TYPE: XR chest 1V portable DATE OF EXAM: 09/17/2024 1:33 PM COMPARISON: 09/12/2024 CLINICAL INDICATION: Male, 68 years old with history of cough, , FINDINGS: Plate and screw fixation of right clavicular shaft. Posterior fusion hardware upper thoracic spine. H eart is mildly enlarged. Patchy opacity remains at the left lower lung. IMPRESSION: 1. Mild cardiomegaly. 2. Similar patchy atelectasis versus infiltrate at the left lower lung. [facility], , 09/17/2024 2:13 PM
[2024-09-17] MEDS: WARFARIN 2 MG TAB PO ONE (17:49)
--- NOTE | 2024-09-18 06:42 | P.PN ---
Subjective Progress Note Date: 09/17/24 This is a pleasant 68 years old male with past medical history of multiple medical problems including history of paraplegia Presents because of hematuria and syncope. Patient was noticing some blood in his Rodriguez catheter. Today he is trying to get up when he felt dizzy and passed out but he denies chest pain or dyspnea No GI symptoms. No dysuria or urgency. He denies currently any chest pain although he admits to some dyspnea and clear coughing for several months Patient states that from the nipple down he does not feel anything from spinal cord injury he cannot tell if he has dysuria urgency He says last bowel movement was this morning was normal Headache this morning but now feels better He has no fever blood pressure stable Labs show leukocytosis of 17.1 hemoglobin 11.4 INR 2.5 rest of labs including unremarkable. Urinalysis showing WBC more than 181 WBC more than 182 High lactic acid 3.5 came back to normal 1.6. Chest x-ray showing no acute cardiopulmonary process. EKG patient with RVR at [address]-T changes Patient started on Zosyn and IV vancomycin and admitted exercise consult 09/13 Patient awake alert He does not feel from the nipple down He presents with hematuria, Rodriguez catheter still showing hematuria but is improving. He got irrigated yesterday with urologist. Rodriguez catheter was changed yesterday per urologist, slightly leaking as per patient His INR today 4.0. Hold Coumadin which is pharmacy to dose and give small dose of vitamin K 2.5 mg with close monitoring. Also he remains on antibiotics Zosyn and IV daptomycin. He has severe sepsis suspected secondary to acute urinary tract infection Heart rate is controlled now for his A-fib. Blood pressure is low normal but patient is lying in bed most of the time. 09/14 Patient awake alert feels tired He denies chest pain or dyspnea. He was admitted for you hematuria and UTI and sepsis, Rodriguez catheter was changed, hematuria resolved and currently draining yellow clear urine Patient remains on IV Zosyn and daptomycin Yesterday he was obtained for some time and ABG was obtained showing PaO2 of 52 on the low side, patient was placed on 4 L oxygen via nasal cannula and saturation is currently 94% on 4 L/min of oxygen We are going to consult pulmonary service for this reason He is on warfarin pharmacy to dose for his history of A-fib. His INR today 1.9. Bleeding stopped. Will going to give him 8 mg of Coumadin today with close monitoring of INR 09/15 Patient today feels tired No other new complaint His Rodriguez catheter containing yellow-colored clear urine. Hematuria has resolved. No suprapubic symptoms patient does not have feelings in this areas and his way. His INR is subtherapeutic 1.4, we will start her on heparin bridging low intensity because of risk of bleeding. However A-fib is high thrombotic risk and we think benefits more than risks. Continue with warfarin pharmacy to dose. Hemoglobin stable. WBC stable at 10.9. Cardiology has cleared patient for discharge. 09/16 Patient feels little congestion today, he was advised with incentive spirometer he received one-time dose of IV Lasix 40 mg. Noted chest pain Rodriguez catheter with yellow urine. Patient has wound VAC in place from home. Currently with Zosyn. Also on warfarin with subtherapeutic INR with heparin bridging. Patient has history of A-fib and treated for his severe sepsis with UTI. Continue closely monitor 09/17/2024 Patient seen and evaluated in follow-up today with no acute overnight issues noted. Patient continues with wound VAC and will continue on discharge and outpatient follow-up with the wound center. Patient is currently maintained on IV antibiotics with a PICC line with infectious disease following and will continue IV antibiotics until discharge. Recommended another 2 weeks although patient is refusing and will have PICC line removed once discharged. Patient to continue local wound care and per case management, plans on returning home with home care. Patient is afebrile and white count is normal at 9.71, hemoglobin is 7.7 and platelets 363. Patient is continued on IV heparin at this time in the event there is requiring more surgical intervention although no further intervention being planned at this time. Patient will transition to Coumadin with pharmacy to dose although continue with heparin at this time. Cardiology has signed off the case recommending outpatient follow-up. Review of systems: Constitutional: No reports of fatigue, fever, or chills Cardiovascular: No reports of chest pain or palpitations Respiratory: No reports of shortness of breath or cough GI: No reports of nausea, vomiting, or diarrhea : No reports of dysuria or retention Neurovascular: reports of generalized weakness All medications have been reviewed Physical exam: GENERAL: The patient is alert and oriented x3, not in any acute distress. Well developed, well nourished. Morbidly obese, appears older than stated age HEENT: Pupils are round and equally reacting to light. EOMI. No scleral icterus. No conjunctival pallor. Normocephalic, atraumatic. No pharyngeal erythema. No thyromegaly. CARDIOVASCULAR: S1 and S2 muffled PULMONARY: Chest is clear to auscultation, no wheezing , no crackles. ABDOMEN: Soft, morbidly obese, nontender, nondistended, normoactive bowel sounds. No palpable organomegaly. Rodriguez catheter in place with jesús urine MUSCULOSKELETAL: No joint swelling or deformity. EXTREMITIES: No cyanosis, clubbing, or pedal edema. NEUROLOGICAL: Gross neurological examination did not reveal any focal deficits. Chronic paraplegia SKIN: No rashes. no petechiae. Assessment: Severe sepsis secondary to urinary tract infection, present on admission Acute urinary tract infection, present on admission likely secondary to chronic indwelling Rodriguez catheter Syncope Coagulopathy secondary to Coumadin Acute hypoxic respiratory failure secondary to sepsis, weaning as tolerated Paraplegia from spinal cord injury, chronic Atrial fibrillation with RVR on admission, maintained on Coumadin Coagulopathy secondary to Coumadin with INR therapeutic at 2.5 History of deep venous thrombosis Fibromyalgia GERD Neurogenic bladder with chronic Rodriguez catheter Morbid obesity with a BMI of 46.6 Adrenal insufficiency GI prophylaxis DVT prophylaxis Full code Plan: Continue with antibiotic per ID team. Currently on Zosyn. Patient has refused any further antibiotics and PICC line will be removed on discharge Coumadin pharmacy to dose, with heparin bridging, INR is 1.6 Cardiology team consult. Cleared the patient for discharge recommending outpatient follow-up Multiple consultations including infectious disease team following and will continue local wound care, continue with the wound VAC and patient is refusing further antibiotics on discharge although 2 additional weeks recommended. PICC line will be removed on discharge Will discuss with case management regarding discharge planning with possible discharge in the next 24 to 48 hours Follow-up on labs and INR level Patient is high risk for readmission given significant comorbidities The impression and plan of care has been dictated by Henna Ramon, Nurse Practitioner as directed. Dr. Aleksandr MD I have performed a history and examination and MDM of this patient, discussed the same with the dictator, and agree with the dictator's assessment and plan as written ,documented as a scribe. Based on total visit time, I have performed more than 50% of the visit. Objective - Vital Signs Vital signs: Vital Signs Temp 99 F 09/17/24 09:40 Pulse 80 09/17/24 09:40 Resp 16 09/17/24 09:40 BP 95/63 09/17/24 09:40 Pulse Ox 98 09/17/24 09:40 FiO2 Intake & Output 09/16/24 09/17/24 09/17/24 18:59 06:59 18:59 Intake Total 1749.387 166.699 223.268 Output Total 1850 Balance -100.613 166.699 223.268 Weight 159.9 kg Intake: Intake, IV Titration 129.387 166.699 223.268 Amount Heparin Sod,Pork in 0.45% 129.387 166.699 223.268 NaCl 25,000 unit In 0.45 % NaCl 1 250ml.bag @ 6. 207 UNITS/KG/HR 9.999 mls /hr IV .Q24H [facility] Rx#: [id number] Oral 1620 Output: Urine 1850 Other: Voiding Method Diaper Diaper Indwelling Catheter Indwelling Catheter - Labs CBC & Chem 7: 09/17/24 04:09 09/17/24 04:09 Labs: Abnormal Lab Results - Last 24 Hours (Table) 09/16/24 09/17/24 09/17/24 Range/Units 11:02 04:09 04:09 RBC 3.18 L (4.40-5.60) 10*6/uL Hgb 7.7 L D (13.0-17.0) g/dL Hct 25.9 L (39.6-50.0) % MCH 24.2 L (27.0-32.0) pg MCHC 29.7 L (32.0-37.0) g/dL Immature Gran # 0.10 H (0.00-0.04) 10*3/uL Eosinophils # 0.54 H (0.04-0.35) 10*3/uL PT 16.4 H (10.0-12.5) sec INR 1.6 H (<1.2) APTT 40.1 H 38.0 H (22.0-30.0) sec Sodium (137-145) mmol/L Potassium (3.5-5.1) mmol/L BUN (9-20) mg/dL Creatinine (0.66-1.25) mg/dL Calcium (8.4-10.2) mg/dL 09/17/24 Range/Units 04:09 RBC (4.40-5.60) 10*6/uL Hgb (13.0-17.0) g/dL Hct (39.6-50.0) % MCH (27.0-32.0) pg MCHC (32.0-37.0) g/dL Immature Gran # (0.00-0.04) 10*3/uL Eosinophils # (0.04-0.35) 10*3/uL PT (10.0-12.5) sec INR (<1.2) APTT (22.0-30.0) sec Sodium 135 L (137-145) mmol/L Potassium 3.3 L (3.5-5.1) mmol/L BUN 7 L (9-20) mg/dL Creatinine 0.51 L (0.66-1.25) mg/dL Calcium 8.3 L (8.4-10.2) mg/dL Microbiology - Last 24 Hours (Table) 09/12/24 11:16 Urine Culture - Final Urine,Voided Felisa albicans 09/14/24 06:42 Urine Culture - Final Urine,Voided Felisa albicans
[2024-09-18 07:04] LABS: Basophils # (A) 0.05 10*3/uL (0.00-0.10); Basophils % (A) 0.6 %; Eosinophils # (A) 0.45 10*3/uL (0.04-0.35); Eosinophils % (A) 5.0 %; HCT 28.6 % (39.6-50.0); HGB 8.3 g/dL (13.0-17.0); Lymphocytes # (A) 2.41 10*3/uL (0.90-5.00); Lymphocytes % (A) 26.8 %; MCH 24.3 pg (27.0-32.0); MCHC 29.0 g/dL (32.0-37.0); MCV 83.6 fL (80.0-97.0); Monocytes # (A) 0.55 10*3/uL (0.20-1.00); Monocytes % (A) 6.1 %; Neutrophils # (A) 5.43 10*3/uL (1.80-7.70); Neutrophils % (A) 60.5 %; Platelet Count 388 10*3/uL (140-440); RBC 3.42 10*6/uL (4.40-5.60); RDW 21.7 % (11.5-14.5); WBC 8.98 10*3/uL (4.50-10.00)
[2024-09-18 07:17] LABS: INR 1.8 (<1.2); Partial Thromboplastin Time 42.5 sec (22.0-30.0); Prothrombin Time 18.1 sec (10.0-12.5)
[2024-09-18 07:22] LABS: African American GFR (CKD) >90 (>60 ml/min/1.73 sqM); Anion Gap 6 mmol/L; Blood Urea Nitrogen 7 mg/dL (9-20); Calcium 8.5 mg/dL (8.4-10.2); Carbon Dioxide 28 mmol/L (22-30); Chloride 105 mmol/L (98-107); Glucose 120 mg/dL (74-99); Magnesium 1.7 mg/dL (1.6-2.3); Non-African American GFR(CKD) >90 (>60 ml/min/1.73 sqM); Potassium 3.0 mmol/L (3.5-5.1); Sodium 139 mmol/L (137-145)
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
[2024-09-18] MEDS: WARFARIN 2 MG TAB PO ONE (17:11)
[2024-09-18] MEDS: POTASSIUM CHLORIDE ER 20 MEQ TAB.ER PO SCH (20:03)
[2024-09-19] MEDS: POTASSIUM CHLORIDE ER 20 MEQ TAB.ER PO SCH ×2 (03:53→10:44)
[2024-09-19] MEDS ORDERED: IPRATROPIUM-ALBUTEROL 3 ML NEB INHALATION PRN (06:33)
--- NOTE | 2024-09-19 06:48 | P.PN ---
Subjective Progress Note Date: 09/18/24 This is a pleasant 68 years old male with past medical history of multiple medical problems including history of paraplegia Presents because of hematuria and syncope. Patient was noticing some blood in his Rodriguez catheter. Today he is trying to get up when he felt dizzy and passed out but he denies chest pain or dyspnea No GI symptoms. No dysuria or urgency. He denies currently any chest pain although he admits to some dyspnea and clear coughing for several months Patient states that from the nipple down he does not feel anything from spinal cord injury he cannot tell if he has dysuria urgency He says last bowel movement was this morning was normal Headache this morning but now feels better He has no fever blood pressure stable Labs show leukocytosis of 17.1 hemoglobin 11.4 INR 2.5 rest of labs including unremarkable. Urinalysis showing WBC more than 181 WBC more than 182 High lactic acid 3.5 came back to normal 1.6. Chest x-ray showing no acute cardiopulmonary process. EKG patient with RVR at [address]-T changes Patient started on Zosyn and IV vancomycin and admitted exercise consult 09/13 Patient awake alert He does not feel from the nipple down He presents with hematuria, Rodriguez catheter still showing hematuria but is improving. He got irrigated yesterday with urologist. Rodriguez catheter was changed yesterday per urologist, slightly leaking as per patient His INR today 4.0. Hold Coumadin which is pharmacy to dose and give small dose of vitamin K 2.5 mg with close monitoring. Also he remains on antibiotics Zosyn and IV daptomycin. He has severe sepsis suspected secondary to acute urinary tract infection Heart rate is controlled now for his A-fib. Blood pressure is low normal but patient is lying in bed most of the time. 09/14 Patient awake alert feels tired He denies chest pain or dyspnea. He was admitted for you hematuria and UTI and sepsis, Rodriguez catheter was changed, hematuria resolved and currently draining yellow clear urine Patient remains on IV Zosyn and daptomycin Yesterday he was obtained for some time and ABG was obtained showing PaO2 of 52 on the low side, patient was placed on 4 L oxygen via nasal cannula and saturation is currently 94% on 4 L/min of oxygen We are going to consult pulmonary service for this reason He is on warfarin pharmacy to dose for his history of A-fib. His INR today 1.9. Bleeding stopped. Will going to give him 8 mg of Coumadin today with close monitoring of INR 09/15 Patient today feels tired No other new complaint His Rodriguez catheter containing yellow-colored clear urine. Hematuria has resolved. No suprapubic symptoms patient does not have feelings in this areas and his way. His INR is subtherapeutic 1.4, we will start her on heparin bridging low intensity because of risk of bleeding. However A-fib is high thrombotic risk and we think benefits more than risks. Continue with warfarin pharmacy to dose. Hemoglobin stable. WBC stable at 10.9. Cardiology has cleared patient for discharge. 09/16 Patient feels little congestion today, he was advised with incentive spirometer he received one-time dose of IV Lasix 40 mg. Noted chest pain Rodriguez catheter with yellow urine. Patient has wound VAC in place from home. Currently with Zosyn. Also on warfarin with subtherapeutic INR with heparin bridging. Patient has history of A-fib and treated for his severe sepsis with UTI. Continue closely monitor 09/17/2024 Patient seen and evaluated in follow-up today with no acute overnight issues noted. Patient continues with wound VAC and will continue on discharge and outpatient follow-up with the wound center. Patient is currently maintained on IV antibiotics with a PICC line with infectious disease following and will continue IV antibiotics until discharge. Recommended another 2 weeks although patient is refusing and will have PICC line removed once discharged. Patient to continue local wound care and per case management, plans on returning home with home care. Patient is afebrile and white count is normal at 9.71, hemoglobin is 7.7 and platelets 363. Patient is continued on IV heparin at this time in the event there is requiring more surgical intervention although no further intervention being planned at this time. Patient will transition to Coumadin with pharmacy to dose although continue with heparin at this time. Cardiology has signed off the case recommending outpatient follow-up. 09/18/2024 Patient is seen in follow-up today continues on 2 L via nasal cannula and weaning as tolerated although reports increasing cough and congestion with phlegm and sputum culture has been ordered and pending. Patient reports he was having difficulty with breathing overnight and continued cough and congestion. Chest x-ray obtained yesterday showed mild cardiomegaly with similar patchy atelectasis versus possible infiltrate of the left lower lung. Infectious disease following and patient is maintained on antibiotics with concerns of pneumonia. Patient chronically has wound VAC for decubitus ulcers and had been maintained on IV antibiotics outpatient and has had prolonged antibiotic therapy. Infectious disease following and would like to obtain sputum culture and await finalized cultures to determine appropriate discharge antibiotics if needed. Recommend incentive spirometer use at least 10 times every hour while awake and will also add breathing treatments. Potassium is 3.0 today and being replaced per protocol. Patient continues with chronic indwelling Rodriguez catheter and will continue with at this time. Review of systems: Constitutional: No reports of fatigue, fever, or chills Cardiovascular: No reports of chest pain or palpitations Respiratory: reports of shortness of breath and productive cough GI: No reports of nausea, vomiting, or diarrhea : No reports of dysuria or retention Neurovascular: reports of generalized weakness All medications have been reviewed Physical exam: GENERAL: The patient is alert and oriented x3, appears more dyspneic today. Well developed, well nourished. Morbidly obese, appears older than stated age HEENT: Pupils are round and equally reacting to light. EOMI. No scleral icterus. No conjunctival pallor. Normocephalic, atraumatic. No pharyngeal erythema. No thyromegaly. CARDIOVASCULAR: S1 and S2 muffled PULMONARY: Diminished breath sounds bilaterally with some bronchial congestion and faint expiratory wheezing noted, no crackles. ABDOMEN: Soft, morbidly obese, nontender, nondistended, normoactive bowel sounds. No palpable organomegaly. Rodriguez catheter in place with jesús urine MUSCULOSKELETAL: No joint swelling or deformity. EXTREMITIES: No cyanosis, clubbing, or pedal edema. NEUROLOGICAL: Gross neurological examination did not reveal any focal deficits. Chronic paraplegia SKIN: No rashes. no petechiae. Assessment: Severe sepsis secondary to urinary tract infection, present on admission Acute urinary tract infection, present on admission likely secondary to chronic indwelling Rodriguez catheter Syncope Coagulopathy secondary to Coumadin Acute hypoxic respiratory failure secondary to sepsis, weaning as tolerated Cough and congestion with concerns of atelectasis versus possible left lower lobe infiltrate on chest x-ray, sputum culture obtained and pending at this time Paraplegia from spinal cord injury, chronic Atrial fibrillation with RVR on admission, maintained on Coumadin Coagulopathy secondary to Coumadin Subtherapeutic INR, being bridged with heparin and Coumadin with pharmacy to dose History of deep venous thrombosis Fibromyalgia GERD Neurogenic bladder with chronic Rodriguez catheter Morbid obesity with a BMI of 46.6 Adrenal insufficiency GI prophylaxis DVT prophylaxis Full code Plan: Continue with antibiotic per ID team. Currently on Zosyn. Patient had refused any further antibiotics as patient reports was having a distended headache every day while receiving the antibiotics. Patient currently has no PICC line and discussed with infectious disease as it was initially recommended to continue with IV antibiotics for additional 2 weeks. Patient is requesting if the medication can be adjusted or changed to prevent constant headache. Coumadin pharmacy to dose, with heparin bridging, INR is 1.6 Cardiology team consult. Cleared the patient for discharge recommending outpatient follow-up Will continue local wound care, continue with the wound VAC and await sputum culture to determine appropriate discharge antibiotics per ID recommendations Will discuss with case management regarding discharge planning once cultures are available. Plan will be for patient to return home with continued home care per case management Follow-up on labs and INR level Patient is high risk for readmission given significant comorbidities The impression and plan of care has been dictated by Henna Ramon, Nurse Practitioner as directed. Dr. Aleksandr MD I have performed a history and examination and MDM of this patient, discussed the same with the dictator, and agree with the dictator's assessment and plan as written ,documented as a scribe. Based on total visit time, I have performed more than 50% of the visit. Objective - Vital Signs Vital signs: Vital Signs Temp 98.2 F 09/19/24 03:51 Pulse 70 09/19/24 03:51 Resp 14 09/19/24 03:51 BP 99/65 09/19/24 03:51 Pulse Ox 96 09/19/24 03:51 FiO2 Intake & Output 09/18/24 09/18/24 09/19/24 06:59 18:59 06:59 Intake Total 490 694 Output Total 1600 1900 450 Balance -1110 -1206 -450 Weight 160.1 kg 161 kg Intake: Intake, IV Titration 250 250 Amount Heparin Sod,Pork in 0.45% 250 250 NaCl 25,000 unit In 0.45 % NaCl 1 250ml.bag @ 6. 207 UNITS/KG/HR 9.999 mls /hr IV .Q24H [facility] Rx#: [id number] Oral 240 444 Output: Drainage 450 Sacrum 450 Urine 1600 1900 Other: Voiding Method Indwelling Catheter Indwelling Catheter Indwelling Catheter - Labs CBC & Chem 7: 09/18/24 06:42 09/19/24 01:38 Labs: Abnormal Lab Results - Last 24 Hours (Table) 09/18/24 09/18/24 09/18/24 Range/Units 06:42 06:42 06:42 RBC 3.42 L (4.40-5.60) 10*6/uL Hgb 8.3 L (13.0-17.0) g/dL Hct 28.6 L (39.6-50.0) % MCH 24.3 L (27.0-32.0) pg MCHC 29.0 L (32.0-37.0) g/dL MPV 9.4 L (9.5-12.2) fL Immature Gran # 0.09 H (0.00-0.04) 10*3/uL Eosinophils # 0.45 H (0.04-0.35) 10*3/uL PT 18.1 H (10.0-12.5) sec INR 1.8 H (<1.2) APTT 42.5 H (22.0-30.0) sec Potassium 3.0 L (3.5-5.1) mmol/L BUN 7 L (9-20) mg/dL Creatinine 0.51 L (0.66-1.25) mg/dL Glucose 120 H (74-99) mg/dL 09/19/24 Range/Units 01:38 RBC (4.40-5.60) 10*6/uL Hgb (13.0-17.0) g/dL Hct (39.6-50.0) % MCH (27.0-32.0) pg MCHC (32.0-37.0) g/dL MPV (9.5-12.2) fL Immature Gran # (0.00-0.04) 10*3/uL Eosinophils # (0.04-0.35) 10*3/uL PT (10.0-12.5) sec INR (<1.2) APTT (22.0-30.0) sec Potassium 3.0 L (3.5-5.1) mmol/L BUN (9-20) mg/dL Creatinine (0.66-1.25) mg/dL Glucose (74-99) mg/dL
[2024-09-19 07:31] LABS: INR 1.9 (<1.2); Partial Thromboplastin Time 54.3 sec (22.0-30.0); Prothrombin Time 19.3 sec (10.0-12.5)
--- NOTE | 2024-09-19 14:16 | P.PN ---
Subjective Progress Note Date: 09/19/24 This is a pleasant 68 years old male with past medical history of multiple medical problems including history of paraplegia Presents because of hematuria and syncope. Patient was noticing some blood in his Rodriguez catheter. Today he is trying to get up when he felt dizzy and passed out but he denies chest pain or dyspnea No GI symptoms. No dysuria or urgency. He denies currently any chest pain although he admits to some dyspnea and clear coughing for several months Patient states that from the nipple down he does not feel anything from spinal cord injury he cannot tell if he has dysuria urgency He says last bowel movement was this morning was normal Headache this morning but now feels better He has no fever blood pressure stable Labs show leukocytosis of 17.1 hemoglobin 11.4 INR 2.5 rest of labs including unremarkable. Urinalysis showing WBC more than 181 WBC more than 182 High lactic acid 3.5 came back to normal 1.6. Chest x-ray showing no acute cardiopulmonary process. EKG patient with RVR at [address]-T changes Patient started on Zosyn and IV vancomycin and admitted exercise consult 09/13 Patient awake alert He does not feel from the nipple down He presents with hematuria, Rodriguez catheter still showing hematuria but is improving. He got irrigated yesterday with urologist. Rodriguez catheter was changed yesterday per urologist, slightly leaking as per patient His INR today 4.0. Hold Coumadin which is pharmacy to dose and give small dose of vitamin K 2.5 mg with close monitoring. Also he remains on antibiotics Zosyn and IV daptomycin. He has severe sepsis suspected secondary to acute urinary tract infection Heart rate is controlled now for his A-fib. Blood pressure is low normal but patient is lying in bed most of the time. 09/14 Patient awake alert feels tired He denies chest pain or dyspnea. He was admitted for you hematuria and UTI and sepsis, Rodriguez catheter was changed, hematuria resolved and currently draining yellow clear urine Patient remains on IV Zosyn and daptomycin Yesterday he was obtained for some time and ABG was obtained showing PaO2 of 52 on the low side, patient was placed on 4 L oxygen via nasal cannula and saturation is currently 94% on 4 L/min of oxygen We are going to consult pulmonary service for this reason He is on warfarin pharmacy to dose for his history of A-fib. His INR today 1.9. Bleeding stopped. Will going to give him 8 mg of Coumadin today with close monitoring of INR 09/15 Patient today feels tired No other new complaint His Rodriguez catheter containing yellow-colored clear urine. Hematuria has resolved. No suprapubic symptoms patient does not have feelings in this areas and his way. His INR is subtherapeutic 1.4, we will start her on heparin bridging low intensity because of risk of bleeding. However A-fib is high thrombotic risk and we think benefits more than risks. Continue with warfarin pharmacy to dose. Hemoglobin stable. WBC stable at 10.9. Cardiology has cleared patient for discharge. 09/16 Patient feels little congestion today, he was advised with incentive spirometer he received one-time dose of IV Lasix 40 mg. Noted chest pain Ordriguez catheter with yellow urine. Patient has wound VAC in place from home. Currently with Zosyn. Also on warfarin with subtherapeutic INR with heparin b ridging. Patient has history of A-fib and treated for his severe sepsis with UTI. Continue closely monitor 09/17/2024 Patient seen and evaluated in follow-up today with no acute overnight issues noted. Patient continues with wound VAC and will continue on discharge and outpatient follow-up with the wound center. Patient is currently maintained on IV antibiotics with a PICC line with infectious disease following and will continue IV antibiotics until discharge. Recommended another 2 weeks although patient is refusing and will have PICC line removed once discharged. Patient to continue local wound care and per case management, plans on returning home with home care. Patient is afebrile and white count is normal at 9.71, hemoglobin is 7.7 and platelets 363. Patient is continued on IV heparin at this time in the event there is requiring more surgical intervention although no further intervention being planned at this time. Patient will transition to Coumadin with pharmacy to dose although continue with heparin at this time. Cardiology has signed off the case recommending outpatient follow-up. 09/18/2024 Patient is seen in follow-up today continues on 2 L via nasal cannula and weaning as tolerated although reports increasing cough and congestion with phlegm and sputum culture has been ordered and pending. Patient reports he was having difficulty with breathing overnight and continued cough and congestion. Chest x-ray obtained yesterday showed mild cardiomegaly with similar patchy atelectasis versus possible infiltrate of the left lower lung. Infectious disease following and patient is maintained on antibiotics with concerns of pneumonia. Patient chronically has wound VAC for decubitus ulcers and had been maintained on IV antibiotics outpatient and has had prolonged antibiotic therapy. Infectious disease following and would like to obtain sputum culture and await finalized cultures to determine appropriate discharge antibiotics if needed. Recommend incentive spirometer use at least 10 times every hour while awake and will also add breathing treatments. Potassium is 3.0 today and being replaced per protocol. Patient continues with chronic indwelling Rodriguez catheter and will continue with at this time. 09/19/2024 Patient is evaluated in follow-up in the medical floor. He continues with shortness of breath and encouraged to cough and deep breathe. A sputum culture is currently pending at this time. He continues on a course of antibiotic ther apy with IV Zosyn. His INR level today was 1.9 and he remains on warfarin with a heparin bridge. Review of systems: Constitutional: No reports of fatigue, fever, or chills Cardiovascular: No reports of chest pain or palpitations Respiratory: reports of shortness of breath and productive cough GI: No reports of nausea, vomiting, or diarrhea : No reports of dysuria or retention Neurovascular: reports of generalized weakness All medications have been reviewed Physical exam: GENERAL: The patient is alert and oriented x3, appears more dyspneic today. Well developed, well nourished. Morbidly obese, appears older than stated age HEENT: Pupils are round and equally reacting to light. EOMI. No scleral icterus. No conjunctival pallor. Normocephalic, atraumatic. No pharyngeal erythema. No t hyromegaly. CARDIOVASCULAR: S1 and S2 muffled PULMONARY: Diminished breath sounds bilaterally with some bronchial congestion and faint expiratory wheezing noted, no crackles. ABDOMEN: Soft, morbidly obese, nontender, nondistended, normoactive bowel sounds. No palpable organomegaly. Rodriguez catheter in place with jesús urine MUSCULOSKELETAL: No joint swelling or deformity. EXTREMITIES: No cyanosis, clubbing, or pedal edema. NEUROLOGICAL: Gross neurological examination did not reveal any focal deficits. Chronic paraplegia SKIN: No rashes. no petechiae. Assessment: Severe sepsis secondary to urinary tract infection, present on admission Acute urinary tract infection, present on admission likely secondary to chronic indwelling Rodriguez catheter Syncope Coagulopathy secondary to Coumadin Acute hypoxic respiratory failure secondary to sepsis, weaning as tolerated Cough and congestion with concerns of atelectasis versus possible left lower lobe infiltrate on chest x-ray, sputum culture obtained and pending at this time Paraplegia from spinal cord injury, chronic Atrial fibrillation with RVR on admission, maintained on Coumadin Coagulopathy secondary to Coumadin Subtherapeutic INR, being bridged with heparin and Coumadin with pharmacy to dose History of deep venous thrombosis Fibromyalgia GERD Neurogenic bladder with chronic Rodriguez catheter Morbid obesity with a BMI of 46.6 Adrenal insufficiency GI prophylaxis DVT prophylaxis Full code Plan: Continue with antibiotic per ID team. Currently on Zosyn. Patient had refused any further antibiotics as patient reports was having a constant headache every day while receiving the antibiotics. Patient currently has no PICC line and discussed with infectious disease as it was initially recommended to continue with IV antibiotics for additional 2 weeks. Patient is requesting if the medication can be adjusted or changed to prevent constant headache. Coumadin pharmacy to dose, with heparin bridging, INR is 1.6 Cardiology team consult. Cleared the patient for discharge recommending outpatient follow-up Will continue local wound care, continue with the wound VAC and await sputum culture to determine appropriate discharge antibiotics per ID recommendations Will discuss with case management regarding discharge planning once cultures are available. Plan will be for patient to return home with continued home care per case management Follow-up on labs and INR level Patient is high risk for readmission given significant comorbidities The impression and plan of care has been dictated by Marguerite Chisholm Nurse Practitioner as directed. Dr. Aleksandr MD I have performed a history and examination and MDM of this patient, discussed the same with the dictator, and agree with the dictator's assessment and plan as written ,documented as a scribe. Based on total visit time, I have performed more than 50% of the visit. Objective - Vital Signs Vital signs: Vital Signs Temp 98.2 F 09/19/24 03:51 Pulse 70 09/19/24 03:51 Resp 14 09/19/24 03:51 BP 99/65 09/19/24 03:51 Pulse Ox 95 09/19/24 08:33 FiO2 Intake & Output 09/18/24 09/19/24 09/19/24 18:59 06:59 18:59 Intake Total 694 Output Total 6146 723 3420 Balance -1206 -450 -1300 Weight 161 kg Intake: Intake, IV Titration 250 Amount Heparin Sod,Pork in 0.45% 250 NaCl 25,000 unit In 0.45 % NaCl 1 250ml.bag @ 6. 207 UNITS/KG/HR 9.999 mls /hr IV .Q24H [facility] Rx#: [id number] Oral 444 Output: Drainage 450 Sacrum 450 Urine 1900 1300 Other: Voiding Method Indwelling Catheter Indwelling Catheter # Bowel Movements 1 - Labs CBC & Chem 7: 09/18/24 06:42 09/19/24 08:24 Labs: Abnormal Lab Results - Last 24 Hours (Table) 09/19/24 09/19/24 Range/Units 01:38 06:04 PT 19.3 H (10.0-12.5) sec INR 1.9 H (<1.2) APTT 54.3 H (22.0-30.0) sec Potassium 3.0 L (3.5-5.1) mmol/L Microbiology - Last 24 Hours (Table) 09/18/24 12:51 Gram Stain - Preliminary Sputum Assessment and Plan Time with Patient: Less than 30
[2024-09-19] MEDS: WARFARIN 2 MG TAB PO ONE (17:04)
[2024-09-19] MEDS: WARFARIN 2.5 MG TAB PO ONE (17:04)
[2024-09-20 07:03] LABS: Basophils # (A) 0.04 10*3/uL (0.00-0.10); Basophils % (A) 0.5 %; Eosinophils # (A) 0.48 10*3/uL (0.04-0.35); Eosinophils % (A) 6.3 %; HCT 29.5 % (39.6-50.0); HGB 8.7 g/dL (13.0-17.0); Lymphocytes # (A) 3.05 10*3/uL (0.90-5.00); Lymphocytes % (A) 40.1 %; MCH 24.4 pg (27.0-32.0); MCHC 29.5 g/dL (32.0-37.0); MCV 82.6 fL (80.0-97.0); Monocytes # (A) 0.52 10*3/uL (0.20-1.00); Monocytes % (A) 6.8 %; Neutrophils # (A) 3.38 10*3/uL (1.80-7.70); Neutrophils % (A) 44.5 %; Platelet Count 392 10*3/uL (140-440); RBC 3.57 10*6/uL (4.40-5.60); RDW 21.3 % (11.5-14.5); WBC 7.61 10*3/uL (4.50-10.00)
[2024-09-20 07:21] LABS: INR 2.0 (<1.2); Partial Thromboplastin Time 51.1 sec (22.0-30.0); Prothrombin Time 20.1 sec (10.0-12.5)
[2024-09-20 07:23] LABS: African American GFR (CKD) >90 (>60 ml/min/1.73 sqM); Anion Gap 4 mmol/L; Blood Urea Nitrogen 4 mg/dL (9-20); Calcium 8.5 mg/dL (8.4-10.2); Carbon Dioxide 30 mmol/L (22-30); Chloride 106 mmol/L (98-107); Glucose 86 mg/dL (74-99); Non-African American GFR(CKD) >90 (>60 ml/min/1.73 sqM); Potassium 3.4 mmol/L (3.5-5.1); Sodium 140 mmol/L (137-145)
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
[2024-09-20] MEDS: POTASSIUM CHLORIDE ER 20 MEQ TAB.ER PO STA ×2 (09:32)
[2024-09-20 12:03] VITALS: BMI 47.4
--- NOTE | 2024-09-20 14:55 | P.PN ---
Subjective Progress Note Date: 09/20/24 This is a pleasant 68 years old male with past medical history of multiple medical problems including history of paraplegia Presents because of hematuria and syncope. Patient was noticing some blood in his Rodriguez catheter. Today he is trying to get up when he felt dizzy and passed out but he denies chest pain or dyspnea No GI symptoms. No dysuria or urgency. He denies currently any chest pain although he admits to some dyspnea and clear coughing for several months Patient states that from the nipple down he does not feel anything from spinal cord injury he cannot tell if he has dysuria urgency He says last bowel movement was this morning was normal Headache this morning but now feels better He has no fever blood pressure stable Labs show leukocytosis of 17.1 hemoglobin 11.4 INR 2.5 rest of labs including unremarkable. Urinalysis showing WBC more than 181 WBC more than 182 High lactic acid 3.5 came back to normal 1.6. Chest x-ray showing no acute cardiopulmonary process. EKG patient with RVR at [address]-T changes Patient started on Zosyn and IV vancomycin and admitted exercise consult 09/13 Patient awake alert He does not feel from the nipple down He presents with hematuria, Rodriguez catheter still showing hematuria but is improving. He got irrigated yesterday with urologist. Rodriguez catheter was changed yesterday per urologist, slightly leaking as per patient His INR today 4.0. Hold Coumadin which is pharmacy to dose and give small dose of vitamin K 2.5 mg with close monitoring. Also he remains on antibiotics Zosyn and IV daptomycin. He has severe sepsis suspected secondary to acute urinary tract infection Heart rate is controlled now for his A-fib. Blood pressure is low normal but patient is lying in bed most of the time. 09/14 Patient awake alert feels tired He denies chest pain or dyspnea. He was admitted for you hematuria and UTI and sepsis, Rodriguez catheter was changed, hematuria resolved and currently draining yellow clear urine Patient remains on IV Zosyn and daptomycin Yesterday he was obtained for some time and ABG was obtained showing PaO2 of 52 on the low side, patient was placed on 4 L oxygen via nasal cannula and saturation is currently 94% on 4 L/min of oxygen We are going to consult pulmonary service for this reason He is on warfarin pharmacy to dose for his history of A-fib. His INR today 1.9. Bleeding stopped. Will going to give him 8 mg of Coumadin today with close monitoring of INR 09/15 Patient today feels tired No other new complaint His Rodriguez catheter containing yellow-colored clear urine. Hematuria has resolved. No suprapubic symptoms patient does not have feelings in this areas and his way. His INR is subtherapeutic 1.4, we will start her on heparin bridging low intensity because of risk of bleeding. However A-fib is high thrombotic risk and we think benefits more than risks. Continue with warfarin pharmacy to dose. Hemoglobin stable. WBC stable at 10.9. Cardiology has cleared patient for discharge. 09/16 Patient feels little congestion today, he was advised with incentive spirometer he received one-time dose of IV Lasix 40 mg. Noted chest pain Rodriguez catheter with yellow urine. Patient has wound VAC in place from home. Currently with Zosyn. Also on warfarin with subtherapeutic INR with heparin b ridging. Patient has history of A-fib and treated for his severe sepsis with UTI. Continue closely monitor 09/17/2024 Patient seen and evaluated in follow-up today with no acute overnight issues noted. Patient continues with wound VAC and will continue on discharge and outpatient follow-up with the wound center. Patient is currently maintained on IV antibiotics with a PICC line with infectious disease following and will continue IV antibiotics until discharge. Recommended another 2 weeks although patient is refusing and will have PICC line removed once discharged. Patient to continue local wound care and per case management, plans on returning home with home care. Patient is afebrile and white count is normal at 9.71, hemoglobin is 7.7 and platelets 363. Patient is continued on IV heparin at this time in the event there is requiring more surgical intervention although no further intervention being planned at this time. Patient will transition to Coumadin with pharmacy to dose although continue with heparin at this time. Cardiology has signed off the case recommending outpatient follow-up. 09/18/2024 Patient is seen in follow-up today continues on 2 L via nasal cannula and weaning as tolerated although reports increasing cough and congestion with phlegm and sputum culture has been ordered and pending. Patient reports he was having difficulty with breathing overnight and continued cough and congestion. Chest x-ray obtained yesterday showed mild cardiomegaly with similar patchy atelectasis versus possible infiltrate of the left lower lung. Infectious disease following and patient is maintained on antibiotics with concerns of pneumonia. Patient chronically has wound VAC for decubitus ulcers and had been maintained on IV antibiotics outpatient and has had prolonged antibiotic therapy. Infectious disease following and would like to obtain sputum culture and await finalized cultures to determine appropriate discharge antibiotics if needed. Recommend incentive spirometer use at least 10 times every hour while awake and will also add breathing treatments. Potassium is 3.0 today and being replaced per protocol. Patient continues with chronic indwelling Rodriguez catheter and will continue with at this time. 09/19/2024 Patient is evaluated in follow-up in the medical floor. He continues with shortness of breath and encouraged to cough and deep breathe. A sputum culture is currently pending at this time. He continues on a course of antibiotic ther apy with IV Zosyn. His INR level today was 1.9 and he remains on warfarin with a heparin bridge. 09/20/2024 Patient evaluated in follow-up in the medical floor. He is fatigued today. He is reporting improvement in his shortness of breath. His sputum culture is showing presumptive Staph aureus with Felisa albicans. He remains on IV Zosyn per infectious disease. He continues on an IV heparin bridge with INR today of 2.0. He is on coumadin for pharmacy. Hemoglobin today is 8.7. Sodium level 140 potassium 3.4, BUN of 4 creatinine of 0.45. Patient can likely discharge home in the next 24 hours as he has been afebrile maintaining oxygen saturations on room air. At this time he ID feels that his UTI was more of a colonization. Review of systems: Constitutional: No reports of fatigue, fever, or chills Cardiovascular: No reports of chest pain or palpitations Respiratory: reports of shortness of breath and productive cough GI: No reports of nausea, vomiting, or diarrhea : No reports of dysuria or retention Neurovascular: reports of generalized weakness All medications have been reviewed Physical exam: GENERAL: The patient is alert and oriented x3, appears more dyspneic today. Well developed, well nourished. Morbidly obese, appears older than stated age HEENT: Pupils are round and equally reacting to light. EOMI. No scleral icterus. No conjunctival pallor. Normocephalic, atraumatic. No pharyngeal erythema. No thyromegaly. CARDIOVASCULAR: S1 and S2 muffled PULMONARY: Diminished breath sounds bilaterally with some bronchial congestion and faint expiratory wheezing noted, no crackles. ABDOMEN: Soft, morbidly obese, nontender, nondistended, normoactive bowel sound s. No palpable organomegaly. Rodriguez catheter in place with jesús urine MUSCULOSKELETAL: No joint swelling or deformity. EXTREMITIES: No cyanosis, clubbing, or pedal edema. NEUROLOGICAL: Gross neurological examination did not reveal any focal deficits. Chronic paraplegia SKIN: No rashes. no petechiae. Assessment: Severe sepsis secondary to urinary tract infection, present on admission Acute urinary tract infection, present on admission likely secondary to chronic indwelling Rodriguez catheter Syncope Coagulopathy secondary to Coumadin Acute hypoxic respiratory failure secondary to sepsis, weaning as tolerated Cough and congestion with concerns of atelectasis versus possible left lower lobe infiltrate on chest x-ray, sputum culture obtained and pending at this time Paraplegia from spinal cord injury, chronic Atrial fibrillation with RVR on admission, maintained on Coumadin Coagulopathy secondary to Coumadin Subtherapeutic INR, being bridged with heparin and Coumadin with pharmacy to dos e History of deep venous thrombosis Fibromyalgia GERD Neurogenic bladder with chronic Rodriguez catheter Morbid obesity with a BMI of 46.6 Adrenal insufficiency GI prophylaxis DVT prophylaxis Full code Plan: Continue with antibiotic per ID team. Currently on Zosyn. ID patient has completed the 6 weeks of outpatient antibiotic therapy for the osteomyelitis of the sacral wound. He will likely not require any further antibiotics on discharge as his procalcitonin level has been normal and felt that the UTI was more of a colonization. Coumadin pharmacy to dose, with heparin bridging, INR is 2.0 Cardiology team consult. Cleared the patient for discharge recommending out patient follow-up for possible Watchman procedure evaluation Will continue local wound care, continue with the wound VAC and await sputum culture to determine appropriate discharge antibiotics per ID recommendations Will discuss with case management regarding discharge planning once cultures are available. Plan will be for patient to return home with continued home care per case management Follow-up on labs and INR level Patient is high risk for readmission given significant comorbidities Recommend to discharge home in the next 24 hours The impression and plan of care has been dictated by Marguerite Chisholm Nurse Practitioner as directed. Dr. Aleksandr MD I have performed a history and examination and MDM of this patient, discussed the same with the dictator, and agree with the dictator's assessment and plan as written ,documented as a scribe. Based on total visit time, I have performed more than 50% of the visit. Objective - Vital Signs Vital signs: Vital Signs Temp 98.1 F 09/20/24 12:00 Pulse 85 09/20/24 12:00 Resp 16 09/20/24 12:00 BP 139/85 09/20/24 12:00 Pulse Ox 95 09/20/24 12:00 FiO2 Intake & Output 09/19/24 09/20/24 09/20/24 18:59 06:59 18:59 Intake Total 694 516.22 234.391 Output Total 3800 4200 1600 Balance -3106 -3683.78 -1365.609 Weight 163 kg 163 kg Intake: IV 268 Heparin Sod,Pork in 0.45% 168 NaCl 25,000 unit In 0.45 % NaCl 1 250ml.bag @ 6. 207 UNITS/KG/HR 9.999 mls /hr IV .Q24H [facility] Rx#: [id number] Piperacillin-Tazobactam 3 100 .375 gm In Sodium Chloride 0.9% 100 ml @ 25 mls/hr IVPB Q8H [facility] Rx#: [id number] Intake, IV Titration 250 248.22 234.391 Amount Heparin Sod,Pork in 0.45% 250 248.22 234.391 NaCl 25,000 unit In 0.45 % NaCl 1 250ml.bag @ 6. 207 UNITS/KG/HR 9.999 mls /hr IV .Q24H [facility] Rx#: [id number] Oral 444 Output: Urine 3800 4200 1600 Uretheral (Rodriguez) 1200 Other: Voiding Method Indwelling Catheter Indwelling Catheter Indwelling Catheter # Bowel Movements 2 - Labs CBC & Chem 7: 09/20/24 06:13 09/20/24 06:13 Labs: Abnormal Lab Results - Last 24 Hours (Table) 09/20/24 09/20/24 09/20/24 Range/Units 06:13 06:13 06:13 RBC 3.57 L (4.40-5.60) 10*6/uL Hgb 8.7 L (13.0-17.0) g/dL Hct 29.5 L (39.6-50.0) % MCH 24.4 L (27.0-32.0) pg MCHC 29.5 L (32.0-37.0) g/dL MPV 9.3 L (9.5-12.2) fL Immature Gran # 0.14 H (0.00-0.04) 10*3/uL Eosinophils # 0.48 H (0.04-0.35) 10*3/uL PT 20.1 H (10.0-12.5) sec INR 2.0 H (<1.2) APTT 51.1 H (22.0-30.0) sec Potassium 3.4 L (3.5-5.1) mmol/L BUN 4 L (9-20) mg/dL Creatinine 0.45 L (0.66-1.25) mg/dL Microbiology - Last 24 Hours (Table) 09/18/24 12:51 Gram Stain - Preliminary Sputum Sputum Culture - Preliminary Presumptive Staph aureus Felisa albicans
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
[2024-09-20] MEDS: WARFARIN 2 MG TAB PO ONE (17:53)
[2024-09-20] MEDS: FAMOTIDINE 20 MG TAB PO SCH (21:17)
[2024-09-21 06:29] VITALS: TEMP 98.1
[2024-09-21 07:22] LABS: INR 2.0 (<1.2); Partial Thromboplastin Time 47.1 sec (22.0-30.0); Prothrombin Time 20.7 sec (10.0-12.5)
[2024-09-21 10:56] VITALS: RESP 18
[2024-09-21 12:43] VITALS: BP 84/48; PULSE 89
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
[2024-09-21] MEDS ORDERED: WARFARIN 2 MG TAB PO ONE (18:00)
== END 2024-09-21 13:43 | disposition home health service (06) | DRG 698 ==
LOC: EC 10:33 → 3SCARD 14:08
PROVIDERS: ADMIT Internal Medicine; ATTEND Internal Medicine
DX: T83.511A Infection and inflammatory reaction due to indwelling urethral catheter, initial encounter (principal); A41.9 Sepsis, unspecified organism; R65.20 Severe sepsis without septic shock; J96.01 Acute respiratory failure with hypoxia; L89.154 Pressure ulcer of sacral region, stage 4; G82.20 Paraplegia, unspecified; E66.01 Morbid (severe) obesity due to excess calories; F32.A Depression, unspecified; I48.19 Other persistent atrial fibrillation; Z68.42 Body mass index [BMI] 45.0-49.9, adult; M46.28 Osteomyelitis of vertebra, sacral and sacrococcygeal region; E27.40 Unspecified adrenocortical insufficiency; G43.909 Migraine, unspecified, not intractable, without status migrainosus; N39.0 Urinary tract infection, site not specified; K21.9 Gastro-esophageal reflux disease without esophagitis; T45.515A Adverse effect of anticoagulants, initial encounter; R79.1 Abnormal coagulation profile; M79.7 Fibromyalgia; R31.0 Gross hematuria; N31.9 Neuromuscular dysfunction of bladder, unspecified; Y84.6 Urinary catheterization as the cause of abnormal reaction of the patient, or of later complication, without mention of misadventure at the time of the procedure; F41.9 Anxiety disorder, unspecified; Z79.01 Long term (current) use of anticoagulants; Z79.52 Long term (current) use of systemic steroids; Z79.899 Other long term (current) drug therapy; Z86.718 Personal history of other venous thrombosis and embolism; Z87.440 Personal history of urinary (tract) infections; E87.70 Fluid overload, unspecified
CPT/HCPCS: 36415; 36600; 51798; 71045; 71046; 80048; 80053; 81001; 82805; 83605; 83735; 84132; 84145; 84484; 85025; 85610; 85730; 87040; 87070; 87077; 87086; 87186; 87205; 93005; 93306; 94760; 96361; 96365; 96366; 96368; 96375; 99291